=== PATIENT | female | born 1960 | race Caucasian/White ===

== ENCOUNTER 2018-08-04 16:42 | Observation (INO) | payer MEDICARE, OTHER ==
[~2018-08-04] VITALS: Ht 162.6 cm; Wt 83.5 kg
--- OUTSIDE RECORDS SUMMARY | 2018-08-04 16:49 | XMS REPORT ---
Author KAPIL Rubi [facility] Address [address] [place], [place] [id number] Care Team Providers Care Assistant Professor Of German Name Role Phone KAPIL ROLLINS PCP Unavailable KAPIL ROLLINS PreferredProvider Unavailable Allergies and Adverse Reactions Name Reaction Notes NO KNOWN DRUG ALLERGIES Plan of Treatment Planned Activity Comments Planned Date Planned Time Plan/Goal Screening mammography of both breasts 02/04/2016 12:00 AM MRI shoulder left wo contrast 08/20/2014 12:00 AM CBC with Differential 03/31/2015 12:00 AM CMP 03/31/2015 12:00 AM .Lipid Panel 03/31/2015 12:00 AM Medications Active Name Start Date Estimated Completion Date SIG Comments lamotrigine 100 mg oral tablet 06/17/2014 TAKE 1 TABLET BY ORAL ROUTE TWICE DAILY omeprazole 20 mg oral capsule,delayed release(DR/EC) 06/23/2014 TAKE 1 CAPSULE (20 MG) BY ORAL ROUTE ONCE DAILY BEFORE A MEAL diclofenac sodium 75 mg oral tablet,delayed release (DR/EC) 07/25/2014 TAKE 1 TABLET (75 MG) BY ORAL ROUTE 2 TIMES PER DAY Cymbalta 60 mg oral capsule,delayed release(DR/EC) 06/08/2015 TAKE 1 CAPSULE BY MOUTH EVERY DAY omeprazole 20 mg oral capsule,delayed release(DR/EC) 07/21/2015 TAKE 1 CAPSULE (20 MG) BY ORAL ROUTE ONCE DAILY BEFORE A MEAL lamotrigine 100 mg oral tablet 10/27/2015 TAKE 1 TABLET BY ORAL ROUTE TWICE DAILY Fioricet 50-300-40 mg oral capsule 10/29/2015 take 1 - 2 capsules by oral route every 4 hours as needed not to exceed 6 capsules per 24hrs duloxetine 60 mg oral capsule,delayed release(DR/EC) 07/11/2016 TAKE 1 CAPSULE BY MOUTH EVERY DAY omeprazole 20 mg oral capsule,delayed release(DR/EC) 07/28/2016 TAKE 1 CAPSULE (20 MG) BY ORAL ROUTE ONCE DAILY BEFORE A MEAL diclofenac sodium 75 mg oral tablet,delayed release (DR/EC) 08/31/2016 TAKE 1 TABLET (75 MG) BY ORAL ROUTE 2 TIMES PER DAY lamotrigine 100 mg oral tablet 11/24/2016 TAKE 1 TABLET BY ORAL ROUTE TWICE DAILY fluticasone 50 mcg/actuation nasal spray,suspension 01/03/2017 inhale 1 spray (50 mcg) in each nostril by intranasal route 2 times per day loratadine 10 mg oral tablet 01/03/2017 take 1 tablet (10 mg) by oral route once daily zolpidem 10 mg oral tablet 04/05/2017 10/02/2017 Take one half to 1 tab at hs prn Name Start Date Expiration Date SIG Comments prednisone 20 mg oral tablet 11/24/2009 12/05/2009 4 daily x 2 days, 3 x 3 days , 2x3 days, 1x3 days citalopram 40 mg oral tablet 12/28/2009 04/27/2010 take 1 tablet (40 mg) by oral route daily for 30 days Tylenol-Codeine #3 300-30 mg oral tablet 01/06/2010 02/05/2010 take 2 tablets by oral route every 6 hours as needed for 30 days doxycycline hyclate 100 mg oral capsule 11/26/2010 12/06/2010 take 1 capsule ( 100 mg) by oral route every 12 hours for 10 days Lamictal 100 mg oral tablet 07/05/2011 09/03/2011 take 1 tablet (100 mg) by oral route daily for 30 days Concerta 36 mg oral tablet extended release 24hr 09/22/2011 10/22/2011 take 1 tablet (36 mg) by oral route once daily in the morning for 30 days Seroquel 25 mg oral tablet 01/02/2012 05/01/2012 TAKE 1 TABLET BY ORAL ROUTE DAILY FOR 30 DAYS Strattera 60 mg oral capsule 01/18/2012 02/17/2012 TAKE 1 CAPSULE (60 MG) BY ORAL ROUTE ONCE DAILY IN THE MORNING FOR 30 DAYS Zithromax Z-Junior 250 mg oral tablet 04/04/2012 04/09/2012 take 2 tablets (500 mg) by oral route once daily for 1 day then 1 tablet (250 mg) by oral route once daily for 4 days Adderall 15 mg oral tablet 09/17/2012 take 1 tablet (15 mg) by oral route once daily before breakfast Ambien 5 mg oral tablet 10/05/2012 10/05/2012 take one or two tablets as needed for insomnia Neurontin 300 mg oral capsule 12/24/2012 01/23/2013 take 1 capsule (300 mg) by oral route 3 times per day for 30 days diclofenac sodium 75 mg oral tablet,delayed release (DR/EC) 04/24/20132012 take 1 tablet (75 mg) by oral route 2 times per day lamotrigine 100 mg oral tablet 06/07/2013 12/04/2013 take 1 tablet by oral route BID Keflex 500 mg oral capsule 05/20/2013 take 1 capsule by oral route 3 times a day Phenergan-Codeine 6.25-10 mg/5 mL oral syrup 10/29/2013 take 5 milliliters by oral route 4 times a day Cipro 500 mg oral tablet 10/29/2013 take 1 tablet (500 mg) by oral route 2 times per day gabapentin 300 mg oral capsule 10/29/2013 TAKE 1 CAPSULE BY MOUTH THREE TIMES DAILY Flonase 50 mcg/actuation nasal spray,suspension 02/03/2014 inhale 1 puff by nasal route 2 times a day Cymbalta 60 mg oral capsule,delayed release(DR/EC) 06/23/2014 12/20/2014 TAKE 1 CAPSULE BY MOUTH EVERY DAY amoxicillin 500 mg oral capsule 08/20/2014 take one TID prednisone 20 mg oral tablet 08/20/2014 08/28/2014 4x2 days 3x2 days 2x2 days 1x2 days prednisone 20 mg oral tablet 12/15/2014 12/25/2014 2X4 days 1X4 days amoxicillin 875 mg oral tablet 10/29/2015 11/08/2015 take 1 tablet (875 mg) by oral route every 12 hours for 10 days Bactrim DS 800-160 mg oral tablet 01/03/2017 01/18/2017 take 1 tablet by oral route 2 times a day for 15 days Discontinued Name Start Date Discontinued Date SIG Comments Cymbalta 60 mg oral capsule,delayed release(DR/EC) 12/28/2009 take 1 capsule (60 mg) by oral route once daily for 30 days oxybutynin chloride 5 mg oral tablet 02/25/2013 take 1 tablet (5 mg) by oral route 2 times per day for 30 days Phenergan-Codeine 6.25-10 mg/5 mL oral syrup 11/24/2009 09/17/2012 take 5 milliliters by oral route 4 times a day phentermine 37.5 mg oral tablet 11/24/2009 07/10/2012 1/2 q am Vyvanse 30 mg oral capsule 08/09/2010 11/02/2010 take 1 capsule (30 mg) by oral route once daily in the morning Adderall XR 20 mg oral capsule,extended release 24hr 11/29/2010 12/15/2010 take 1 capsule (20 mg) by oral route once daily in the morning upon awakening for 30 days Cipro 500 mg oral tablet 12/14/2010 09/17/2012 take 1 tablet (500 mg) by oral route 2 times per day Vyvanse 30 mg oral capsule 01/12/2011 01/19/2011 take 1 capsule (30 mg) by oral route once daily in the morning for 30 days Adderall XR 20 mg oral capsule,extended release 24hr 07/05/2011 07/05/2011 take 1 capsule (20 mg) by oral route once daily in the morning upon awakening for 30 days Adderall 10 mg oral tablet 08/08/2011 08/23/2011 take 1 tablet (10 mg) by oral route 2 times per day before breakfast and at 2 pm for 30 days Adderall 10 mg oral tablet 10/21/2011 11/15/2011 take 1 tablet (10 mg) by oral route 2 times per day before breakfast and at 2 pm for 30 days Medrol (Junior) 4 mg oral tablets,dose pack 02/06/2012 09/17/2012 take as directed omeprazole 20 mg oral capsule,delayed release(DR/EC) 03/21/2012 01/29/2014 TAKE 1 CAPSULE (20 MG) BY ORAL ROUTE ONCE DAILY BEFORE A MEAL FOR 30 DAYS Cymbalta 60 mg oral capsule,delayed release(DR/EC) 09/09/2013 10/28/2013 TAKE 1 CAPSULE BY MOUTH EVERY DAY Problem List Description Status Onset Anxiety Disorder Active Arthritis unspecified Active Bipolar disorder, unspecified Active Depression Active Fibromyalgia Active 10/22/2012 Attention Deficit Disorder Active Pelvic Pain Active 04/01/2013 Menopausal symptoms Active 04/01/2013 Rotator cuff tendinitis Active 08/20/2014 Environmental and seasonal allergies Active 07/21/2016 Vital Signs Date Time BP-Sys(mm[Hg] BP-Nicole(mm[Hg]) HR(bpm) RR(rpm) Temp WT HT HC BMI BSA BMI Percentile O2 Sat(%) 07/03/2017 2:58:00 PM 126 mmHg 70 mmHg 70 bpm 16 rpm 98.2 F 178 lbs 98 % 01/03/2017 4:08:00 PM 122 mmHg 70 mmHg 74 bpm 18 rpm 98.4 F 189 lbs 64 in 32.4414 kg/m 1.9675 m 99 % 12/29/2016 11:46:00 AM 110 mmHg 74 mmHg 69 bpm 16 rpm 96.8 F 185 lbs 64 in 31.75 kg/m2 1.95 m2 97 % 12/15/2016 8:02:00 AM 186 lbs 11/14/2016 9:09:00 AM 125 mmHg 86 mmHg 76 bpm 16 rpm 96.3 F 193 lbs 65 in 32.1166 kg/m 2.0037 m 98 % 07/21/2016 3:03:00 PM 130 mmHg 84 mmHg 64 bpm 18 rpm 97.4 F 186 lbs 64 in 31.93 kg/m2 1.95 m2 95 % 06/22/2016 8:45:00 AM 118 mmHg 72 mmHg 68 bpm 18 rpm 98.1 F 183 lbs 64 in 31.4116 kg/m 1.936 m 97 % 04/28/2016 8:18:00 AM 128 mmHg 70 mmHg 62 bpm 16 rpm 97.1 F 182 lbs 64 in 31.24 kg/m2 1.93 m2 99 % 03/09/2016 8:24:00 AM 118 mmHg 60 mmHg 62 bpm 18 rpm 98.2 F 185.75 lbs 64 in 31.8836 kg/m 1.9505 m 98 % 02/04/2016 11:37:00 AM 136 mmHg 70 mmHg 62 bpm 16 rpm 96.4 F 186 lbs 64 in 31.93 kg/m2 1.95 m2 100 % 12/24/2015 2:55:00 PM 125 mmHg 70 mmHg 88 bpm 16 rpm 97.2 F 187 lbs 65 in 31.1181 kg/m 1.9723 m 98 % 10/29/2015 8:09:00 AM 138 mmHg 80 mmHg 60 bpm 18 rpm 98.4 F 187 lbs 65 in 31.12 kg/m2 1.97 m2 09/21/2015 11:04:00 AM 120 mmHg 65 mmHg 86 bpm 16 rpm 98.2 F 162 lbs 65 in 26.9579 kg/m 1.8358 m 99 % 05/15/2015 8:35:00 AM 120 mmHg 60 mmHg 64 bpm 18 rpm 97.7 F 181 lbs 64 in 31.07 kg/m2 1.93 m2 97 % 12/15/2014 2:55:00 PM 120 mmHg 80 mmHg 75 bpm 18 rpm 98.4 F 183 lbs 65 in 30.4525 kg/m 1.9511 m 98 % 08/19/2014 2:42:00 PM 134 mmHg 70 mmHg 68 bpm 20 rpm 96.9 F 185 lbs 64 in 31.75 kg/m2 1.95 m2 97 % 01/29/2014 10:56:00 AM 132 mmHg 70 mmHg 70 bpm 20 rpm 97.6 F 189 lbs 64 in 32.4414 kg/m 1.9675 m 97 % 10/28/2013 2:36:00 PM 130 mmHg 70 mmHg 80 bpm 18 rpm 99.5 F 184 lbs 64 in 31.58 kg/m2 1.94 m2 97 % 08/08/2013 2:39:00 PM 120 mmHg 60 mmHg 84 bpm 16 rpm 97.9 F 186 lbs 64 in 31.9265 kg/m 1.9518 m 99 % 07/01/2013 2:49:00 PM 130 mmHg 74 mmHg 70 bpm 16 rpm 96.7 F 183.375 lbs 64 in 31.48 kg/m2 1.94 m2 96 % 03/28/2013 1:30:00 PM 120 mmHg 80 mmHg 62 bpm 97.8 F 186 lbs 64 in 31.9265 kg/m 1.9518 m 02/26/2013 2:35:00 PM 124 mmHg 82 mmHg 69 bpm 20 rpm 97.8 F 182 lbs 65 in 30.29 kg/m2 1.95 m2 95 % 02/25/2013 4:37:00 PM 135 mmHg 78 mmHg 70 bpm 98.3 F 182 lbs 64 in 31.2399 kg/m 1.9307 m 02/01/2013 10:31:00 AM 110 mmHg 60 mmHg 64 bpm 16 rpm 96.4 F 187 lbs 64 in 32.10 kg/m2 1.96 m2 100 % 01/22/2013 10:06:00 AM 118 mmHg 64 mmHg 68 bpm 16 rpm 97.6 F 185 lbs 64 in 31.7549 kg/m 1.9466 m 97 % 12/21/2012 11:58:00 AM 118 mmHg 62 mmHg 74 bpm 18 rpm 97 F 183 lbs 65 in 30.45 kg/m2 1.95 m2 97 % 10/22/2012 4:24:00 PM 130 mmHg 70 mmHg 72 bpm 18 rpm 98 F 180.312 lbs 65 in 30.0053 kg/m 1.9367 m 99 % 09/17/2012 9:41:00 AM 114 mmHg 62 mmHg 64 bpm 16 rpm 96.6 F 181 lbs 65 in 30.12 kg/m2 1.94 m2 100 % 07/10/2012 2:19:00 PM 130 mmHg 70 mmHg 70 bpm 18 rpm 98 F 183 lbs 65 in 30.4525 kg/m 1.9511 m 99 % 04/04/2012 10:54:00 AM 114 mmHg 78 mmHg 80 bpm 179 lbs 65 in 29.79 kg/m2 1.93 m2 02/06/2012 10:08:00 AM 122 mmHg 80 mmHg 80 bpm 179 lbs 65 in 29.7869 kg/m 1.9297 m 04/07/2011 1:25:00 PM 120 mmHg 72 mmHg 76 bpm 181 lbs 01/24/2011 9:41:00 AM 112 mmHg 76 mmHg 72 bpm 184 lbs 12/13/2010 9:26:00 AM 112 mmHg 70 mmHg 76 bpm 181 lbs 11/22/2010 10:30:00 AM 116 mmHg 84 mmHg 80 bpm 99 F 184 lbs 08/09/2010 2:48:00 PM 124 mmHg 80 mmHg 80 bpm 186 lbs 06/24/2010 9:46:00 AM 110 mmHg 78 mmHg 64 bpm 184 lbs 11/24/2009 9:47:00 AM 112 mmHg 74 mmHg 80 bpm 176 lbs 10/29/2009 2:39:00 PM 116 mmHg 80 mmHg 86 bpm 178.125 lbs 09/03/2009 10:23:00 AM 110 mmHg 76 mmHg 80 bpm 175 lbs Social History Name Description Comments Tobacco Never smoker Alcohol Never Disabled denies alcohol use History of Procedures Date Ordered Description Order Status 09/21/2015 12:00 AM Decadron, Per [address] [facility]# [id number] Reviewed 09/21/2015 12:00 AM Depo-Medrol, Per [address] [facility]#[id number] Reviewed 09/21/2015 12:00 AM Rocephin [address] [facility]#[id number] Reviewed 04/28/2016 12:00 AM Decadron, Per [address] [facility]# [id number] Reviewed 04/28/2016 12:00 AM Rocephin [address] [facility]#[id number] Reviewed 06/22/2016 12:00 AM Decadron, Per [address] [facility]# [id number] Reviewed 06/22/2016 12:00 AM Depo-Medrol, Per [address] [facility]#[id number] Reviewed 07/21/2016 12:00 AM Decadron, Per [address] [facility]# [id number] Reviewed 07/21/2016 12:00 AM Rocephin [address] [facility]#[id number] Reviewed 11/14/2016 12:00 AM THER/PROPH/DIAG INJ SC/IM Reviewed 11/14/2016 12:00 AM Decadron 8mg Injection Reviewed 11/14/2016 12:00 AM Depo-Medrol 80mg Injection Reviewed 11/14/2016 12:00 AM Rocephin 1 gram Injection Reviewed 03/06/2012 12:00 AM DRAIN/INJ JOINT/BURSA W/O US Reviewed 12/29/2016 12:00 AM MAMMOGRAPHY SCREENING, DIGITAL Returned 01/03/2017 12:00 AM THER/PROPH/DIAG INJ SC/IM Reviewed 01/03/2017 12:00 AM Decadron 8mg Injection Reviewed 04/04/2012 12:00 AM THER/PROPH/DIAG INJ SC/IM Reviewed 04/04/2012 12:00 AM Decadron Inj.1mg-([facility] #[id number] Reviewed 04/04/2012 12:00 AM Depo-Medrol 80 Mg Im/[facility] [id number] Reviewed 07/10/2012 12:00 AM THER/PROPH/DIAG INJ SC/IM Reviewed 07/10/2012 12:00 AM Decadron, Per [address] [facility]# [id number] Reviewed 07/10/2012 12:00 AM Depo-Medrol, Per [address] [facility]#[id number] Reviewed 10/22/2012 12:00 AM THER/PROPH/DIAG INJ SC/IM Reviewed 10/22/2012 12:00 AM Decadron, Per [address] [facility]# [id number] Reviewed 10/22/2012 12:00 AM Depo-Medrol, Per 80 Mg [place]#[id number] Reviewed 10/22/2012 12:00 AM Toradol 60 Mg ND#[id number] Reviewed 02/25/2013 12:00 AM CYTOPATH TBS C/V MANUAL Reviewed 02/25/2013 12:00 AM SPECIMEN HANDLING OFFICE-LAB Reviewed 02/25/2013 12:00 AM URINALYSIS AUTO W/SCOPE Reviewed 03/01/2013 12:00 AM US EXAM PELVIC COMPLETE Reviewed 02/26/2013 12:00 AM MAMMOGRAM SCREENING Reviewed 07/01/2013 12:00 AM THER/PROPH/DIAG INJ SC/IM Reviewed 07/01/2013 12:00 AM Decadron, Per 1 Mg ND# [id number] Reviewed 07/01/2013 12:00 AM Depo-Medrol, Per 80 Mg ND#3464-8873-89 Reviewed 08/08/2013 12:00 AM THER/PROPH/DIAG INJ SC/IM Reviewed 08/08/2013 12:00 AM Depo-Medrol, Per 80 Mg ND#2758-7418-81 Reviewed 08/08/2013 12:00 AM Toradol 60 Mg ND#2823-4987-04 Reviewed 01/29/2014 12:00 AM THER/PROPH/DIAG INJ SC/IM Reviewed 01/29/2014 12:00 AM Decadron 8 Mg ND# [address]-85 Reviewed 01/29/2014 12:00 AM Depo-Medrol, Per [address] [facility]#[id number] Reviewed 01/29/2014 12:00 AM Rocephin [address] [facility]#[id number] Reviewed 11/22/2010 12:00 AM THER/PROPH/DIAG INJ SC/IM Reviewed 11/22/2010 12:00 AM Decadron Inj.8mg-([facility] #[id number] Reviewed 11/22/2010 12:00 AM Depo-Medrol 80 Mg Im/[facility] [id number] Reviewed 11/22/2010 12:00 AM Rocephin, Per 250MG - 1 Gram Vial Reviewed 02/09/2011 12:00 AM IMMUNIZATION ADMIN Reviewed 02/09/2011 12:00 AM TD VACCINE NO PRSRV 7/> IM Reviewed 09/03/2009 12:00 AM MRI NECK SPINE W/DYE Reviewed 03/31/2015 12:00 AM ROUTINE VENIPUNCTURE Reviewed 05/15/2015 12:00 AM THER/PROPH/DIAG INJ SC/IM Reviewed 05/15/2015 12:00 AM Decadron, Per [address] [facility]# [id number] Reviewed 05/15/2015 12:00 AM Depo-Medrol, Per [address] [facility]#[id number] Reviewed Results Summary Date and Description Results 02/25/2013 6:20 PM COLOR YELLOW APPEARANCE CLEAR SPEC GRAV 1.010 pH 6.0 PROTEIN NEGATIVE GLUCOSE NEGATIVE KETONE NEGATIVE BILIRUBIN NEGATIVE BLOOD NEGATIVE NITRITE NEGATIVE LEUK SCREEN NEGATIVE WBC/HPF RARE RBC/HPF NEGATIVE CASTS/LPF NEGATIVE CRYSTALS NEGATIVE MUCOUS THRDS NEGATIVE BACTERIA NEGATIVE EPITH CELLS NEGATIVE TRICHOMONAS NEGATIVE YEAST NEGATIVE CULT SET UP? NO History Of Immunizations Name Date Admin Mfg Name Mfg Code Trade Name Lot# Route Inj Vis Given Vis Pub CVX Td 02/09/2011 sanofi pasteur PMC DECAVAC [id number] Intramuscular Left Deltoid 02/09/2011 09/02/2008 999 History of Past Illness Name Date of Onset Comments Musculoskeletal Neck Disorder Sep 03 2009 10:26AM Arthritis unspecified Anxiety Disorder Degeneration of cervical intervertebral disc Oct 29 2009 2:41PM Spinal stenosis, Cervical region Oct 29 2009 2:41PM Depressive Disorder Oct 29 2009 2:41PM Cough Nov 24 2009 9:49AM Sinusitis, Acute Nov 24 2009 9:49AM Bronchitis, Acute Nov 24 2009 9:49AM Bipolar disorder, unspecified Depression Fibromyalgia 10/22/2012 Attention Deficit Disorder Pelvic Pain 04/01/2013 Menopausal symptoms 04/01/2013 Eustachian Tube Dysfunction Jun 24 2010 9:48AM Seasonal Allergies Jun 24 2010 9:48AM Bipolar Disorder Jun 24 2010 9:48AM Rotator cuff tendinitis 08/20/2014 Depressive Disorder Aug 09 2010 2:48PM ADHD Aug 09 2010 2:48PM Eustachian Tube Dysfunction Nov 22 2010 10:32AM Cough b 2010 10:32AM Pharyngitis, Acute b 2010 10:32AM Cough Dec 13 2010 9:28AM Sinusitis, Acute Dec 13 2010 9:28AM Upper Respiratory Infection Dec 13 2010 9:28AM General Medical Exam, Adult Jan 24 2011 9:42AM Environmental and seasonal allergies 07/21/2016 Td Feb 09 2011 2:07PM Routine gynecological examination Apr 07 2011 1:23PM Seasonal Allergies Feb 06 2012 10:10AM Post-nasal drainage Feb 06 2012 10:10AM Upper Respiratory Infection Feb 06 2012 10:10AM Pain in joint; lower leg/knee Mar 06 2012 10:39AM Cough Apr 04 2012 10:56AM Pharyngitis, Acute Apr 04 2012 10:56AM Post-nasal drainage Apr 04 2012 10:56AM Seasonal Allergies Jul 10 2012 2:19PM Post-nasal drainage Jul 10 2012 2:19PM Hyperlipidemia, unspecified Sep 17 2012 9:42AM Depression Sep 17 2012 9:42AM Attention Deficit Disorder Sep 17 2012 9:42AM Chronic pain Oct 22 2012 4:26PM Osteoarthrosis, generalized, multiple sites Oct 22 2012 4:26PM Fibromyalgia Oct 22 2012 4:26PM Fibromyalgia Dec 21 2012 11:59AM Arthritis unspecified Dec 21 2012 11:59AM Bipolar disorder, unspecified Dec 21 2012 11:59AM Depression Dec 21 2012 11:59AM Seasonal Allergies Jan 22 2013 10:06AM Pelvic Pain Jan 22 2013 10:06AM Pelvic Pain - Left Feb 01 2013 10:32AM Fibromyalgia Feb 01 2013 10:32AM Arthritis unspecified Feb 01 2013 10:32AM Bipolar disorder, unspecified Feb 01 2013 10:32AM Depression Feb 01 2013 10:32AM Urge Incontinence Feb 25 2013 5:58PM Pelvic Pain Feb 26 2013 9:23AM Screening Mammogram Feb 26 2013 9:26AM Pelvic Pain Feb 25 2013 4:49PM Abdominal Pain, Generalized Feb 25 2013 4:49PM Diarrhea Feb 25 2013 4:49PM Diarrhea Feb 26 2013 2:39PM Pelvic Pain Mar 28 2013 1:34PM Menopausal Symptoms Mar 28 2013 1:34PM Seasonal Allergies Jul 01 2013 2:49PM Menopausal Syndrome Jul 01 2013 2:49PM Hormone Replacement Therapy Jul 01 2013 2:49PM Pain in joint; Right Hip Aug 08 2013 2:39PM Pain in joint; right knee Aug 08 2013 2:39PM Cough Oct 28 2013 2:37PM Bronchitis, Acute Oct 28 2013 2:37PM Post-nasal drainage Oct 28 2013 2:37PM Upper Respiratory Infection Oct 28 2013 2:37PM Sinusitis, Acute Jan 29 2014 10:56AM Seasonal Allergies Jan 29 2014 10:56AM Post-nasal drainage Jan 29 2014 10:56AM Upper Respiratory Infection Jan 29 2014 10:56AM Allergic Rhinitis Jan 29 2014 10:56AM Eustachian Tube Dysfunction Aug 19 2014 2:43PM Post-nasal drainage Aug 19 2014 2:43PM Upper Respiratory Infection Aug 19 2014 2:43PM Sinus headache Aug 19 2014 2:43PM Shoulder pain Aug 19 2014 2:43PM Rotator cuff tendinitis Aug 19 2014 2:43PM Left Chronic pain in shoulder Aug 20 2014 2:12PM Left Rotator cuff tendinitis Aug 20 2014 2:12PM Pharyngitis, Acute Dec 15 2014 2:56PM Fatigue Mar 31 2015 12:57PM Hyperlipidemia Mar 31 2015 12:57PM Fibromyalgia Mar 31 2015 12:57PM Depression Mar 31 2015 12:57PM Eustachian Tube Dysfunction May 15 2015 8:35AM Seasonal Allergies May 15 2015 8:35AM Post-nasal drainage May 15 2015 8:35AM Ear pressure, bilateral May 15 2015 8:35AM Moderate Acute Cough Sep 21 2015 11:05AM Acute pharyngitis, unspecified etiology Sep 21 2015 11:05AM Moderate Acute Post-nasal drainage Sep 21 2015 11:05AM Eustachian tube dysfunction, bilateral Oct 29 2015 8:10AM Moderate Sinusitis, Acute Oct 29 2015 8:10AM Moderate Acute Post-nasal drainage Oct 29 2015 8:10AM Moderate Acute Nasal congestion Oct 29 2015 8:10AM Moderate Acute Headache above the eye region Oct 29 2015 8:10AM Moderate Acute Cough Dec 24 2015 2:56PM Acute bronchitis, unspecified organism Dec 24 2015 2:56PM Moderate Acute Chest congestion Dec 24 2015 2:56PM Screening for breast cancer Feb 04 2016 11:44AM Encounter for annual routine gynecological examination Feb 04 2016 11:38AM Moderate Acute Leg pain, posterior, right Improving Mar 09 2016 8:28AM Acute pharyngitis, unspecified etiology Apr 28 2016 8:18AM Allergic rhinitis due to pollen Apr 28 2016 8:18AM Moderate Acute Nasal congestion Apr 28 2016 8:18AM Moderate Chronic Recurrent Seasonal Allergies Jun 22 2016 8:45AM Post-nasal drainage Jun 22 2016 8:45AM Nasal congestion Jun 22 2016 8:45AM Eustachian tube dysfunction, left Jul 21 2016 3:04PM Acute pharyngitis, unspecified etiology Jul 21 2016 3:04PM Moderate Chronic Post-nasal drainage Worsening Jul 21 2016 3:04PM Chronic Environmental and seasonal allergies Jul 21 2016 3:04PM Moderate Acute Cough Nov 14 2016 9:10AM Acute pharyngitis, unspecified etiology Nov 14 2016 9:10AM Mild Acute Purulent postnasal drainage Nov 14 2016 9:10AM Moderate Acute Sinus pressure Nov 14 2016 9:10AM Screening breast examination Dec 29 2016 11:20AM Encounter for gynecological examination (general) (routine) without abnormal findings Dec 29 2016 11:47AM Eustachian tube dysfunction, bilateral Jan 03 2017 4:09PM Purulent postnasal drainage Jan 03 2017 4:09PM Sinus pressure Jan 03 2017 4:09PM Nasal congestion with rhinorrhea Jan 03 2017 4:09PM Plantar fasciitis of left foot Jul 03 2017 2:58PM Payers Insurance Name Company Name Plan Name Plan Number Policy Number Policy Group Number Start Date [facility] [id number] N/A [facility] Financial Geoff approved to 05-22-17 N/A [facility] [id number] N/A [place] [facility] [place] [employer] Prog [id number] N/A [facility] [id number] N/A [facility] [id number] N/A [facility] [id number] N/A [facility] Financial Assistance [facility] Financial Geoff 50 Percent N/A Medicare Part A Medicare - Lab/Xray [id number] N/A Medicare Part B Medicare Secondary [id number] N/A Medicare Part A Medicare Part A [id number] N/A History of Encounters Visit Date Visit Type Provider 07/03/2017 Office visit KAPIL CUEVAS 01/03/2017 Office visit KAPIL CUEVAS 12/29/2016 Office visit KAPIL CUEVAS 11/14/2016 Office visit KAPIL CUEVAS 10/12/2016 Hood Hines MD 07/21/2016 Office visit KAPIL CUEVAS 06/22/2016 Office visit KAPIL CUVEAS 04/28/2016 Office visit KAPIL CUEVAS 03/09/2016 Office visit KAPIL ROLLINS PA 02/04/2016 Office visit KAPIL ROLLINS PA 12/24/2015 Office visit KAPIL ROLLINS PA 10/29/2015 Office visit KAPIL ROLLINS PA 09/21/2015 Office visit KAPIL ROLLINS PA 05/15/2015 Office visit 05/15/2015 Office visit KAPIL ROLLINS PA 03/31/2015 Office visit KAPIL ROLLINS PA 12/15/2014 Office visit KAPIL ROLLINS PA 08/19/2014 Office visit KAPIL ROLLINS PA 01/29/2014 Office visit KAPIL ROLLINS PA 10/28/2013 Office visit KAPIL ROLLINS PA 09/30/2013 [facility] Zan Hines MD 08/08/2013 Office visit KAPIL ROLLINS PA 07/01/2013 Office visit KAPIL ROLLINS PA 03/28/2013 Office visit Nikolai Stoner MD 03/14/2013 [facility] Kpail Wells MD 02/26/2013 Office visit Kapil Wells MD 02/25/2013 Office visit Nikolai Stoner MD 02/01/2013 Office visit KAPIL ROLLINS PA 01/22/2013 Office visit KAPIL ROLLINS PA 12/21/2012 Office visit KAPIL ROLLINS PA 10/22/2012 Office visit KAPIL ROLLINS PA 09/17/2012 Office visit KAPIL ROLLINS PA 07/10/2012 Office visit KAPIL ROLLINS PA 04/04/2012 Office visit KAPIL ROLLINS PA 03/06/2012 Office visit KAPIL ROLLINS PA 02/06/2012 Office visit KAPIL ROLLINS PA 04/07/2011 Office visit Kapil Rollins PA-C 02/09/2011 Office visit Kapil Rollins PA-C 01/24/2011 Office visit Kapil Rollins PA-C 12/13/2010 Office visit Kapil Rollins PA-C 11/22/2010 Office visit Kapil Rollins PA-C 08/09/2010 Office visit Kapil Rollins PA-C 06/24/2010 Office visit Kapil Rollins PA-C 11/24/2009 Office visit Kapil Rollins PA-C 10/29/2009 Office visit Kapil Rollins PA-C 09/03/2009 Office visit Kapil Rollins PA-C 08/24/2009 Office visit Kapil Rollins PA-C 06/10/2009 Office visit KAPIL CUEVAS
--- OUTSIDE RECORDS SUMMARY | 2018-08-04 16:50 | XMS REPORT ---
Author KAPIL Rubi [facility] Address [address] [place], [place] [id number] Care Team Providers Care In Home Sales Consultant Name Role Phone KAPIL ROLLINS PCP Unavailable Allergies and Adverse Reactions Name Reaction Notes NO KNOWN DRUG ALLERGIES Plan of Treatment Planned Activity Comments Planned Date Planned Time Plan/Goal MAMMOGRAM SCREENING 02/04/2016 12:00 AM MRI JOINT UPR EXTREM W/O DYE 08/20/2014 12:00 AM COMPLETE CBC W/AUTO DIFF WBC 03/31/2015 12:00 AM COMPREHEN METABOLIC PANEL 03/31/2015 12:00 AM LIPID PANEL 03/31/2015 12:00 AM Medications Active Name Start [...] BY ORAL ROUTE 2 TIMES PER DAY fluticasone 50 mcg/actuation nasal spray,suspension 05/16/2015 inhale 1 spray (50 mcg) in each nostril by intranasal route 2 times per day fluticasone 50 mcg/actuation nasal spray,suspension 05/16/2015 inhale 1 spray (50 mcg) in each nostril by intranasal route 2 times per day Cymbalta 60 mg oral capsule,delayed release(DR/EC) 06/08/2015 TAKE 1 CAPSULE BY MOUTH EVERY DAY omeprazole 20 mg oral capsule,delayed release(DR/EC) 07/21/2015 TAKE 1 CAPSULE (20 MG) BY ORAL ROUTE ONCE DAILY BEFORE A MEAL zolpidem 10 mg oral tablet 10/26/2015 04/23/2016 Take one half to 1 tab at hs prn lamotrigine 100 mg oral tablet 10/27/2015 TAKE 1 TABLET BY ORAL ROUTE TWICE DAILY Fioricet 50-300-40 mg oral capsule 10/29/2015 take 1 - 2 capsules by oral route every 4 hours as needed not to exceed 6 capsules per 24hrs Name Start Date Expiration Date SIG Comments [...] route every 12 hours for 10 days Discontinued Name Start Date Discontinued Date [...] DAY Problem List Description Status Onset Anxiety disorder Active Arthritis unspecified Active Bipolar disorder, unspecified Active Depression Active Fibromyalgia Active 10/22/2012 Attention deficit disorder Active Pelvic Pain Active 04/01/2013 Menopausal symptoms Active 04/01/2013 Rotator cuff tendinitis Active 08/20/2014 Vital Signs Date Time BP-Sys(mm[Hg] BP-Nicole(mm[Hg]) HR(bpm) RR(rpm) Temp WT HT HC BMI BSA BMI Percentile O2 Sat(%) 03/09/2016 8:24:00 AM 118 mmHg 60 mmHg 62 bpm 18 rpm 98.2 F 185.75 lbs 64 in 31.88 kg/m2 1.95 m2 98 % 02/04/2016 11:37:00 AM 136 mmHg 70 mmHg 62 bpm 16 rpm 96.4 F 186 lbs 64 in 31.9265 kg/m 1.9518 m 100 % 12/24/2015 2:55:00 PM 125 mmHg 70 mmHg 88 bpm 16 rpm 97.2 F 187 lbs 65 in 31.12 kg/m2 1.97 m2 98 % 10/29/2015 8:09:00 AM 138 mmHg 80 mmHg 60 bpm 18 rpm 98.4 F 187 lbs 65 in 31.1181 kg/m 1.9723 m 09/21/2015 11:04:00 AM 120 mmHg 65 mmHg 86 bpm 16 rpm 98.2 F 162 lbs 65 in 26.96 kg/m2 1.84 m2 99 % 05/15/2015 8:35:00 AM 120 mmHg 60 mmHg 64 bpm 18 rpm 97.7 F 181 lbs 64 in 31.0683 kg/m 1.9254 m 97 % 12/15/2014 2:55:00 PM 120 mmHg 80 mmHg 75 bpm 18 rpm 98.4 F 183 lbs 65 in 30.45 kg/m2 1.95 m2 98 % 08/19/2014 2:42:00 PM 134 mmHg 70 mmHg 68 bpm 20 rpm 96.9 F 185 lbs 64 in 31.7549 kg/m 1.9466 m 97 % 01/29/2014 10:56:00 AM 132 mmHg 70 mmHg 70 bpm 20 rpm 97.6 F 189 lbs 64 in 32.44 kg/m2 1.97 m2 97 % 10/28/2013 2:36:00 PM 130 mmHg 70 mmHg 80 bpm 18 rpm 99.5 F 184 lbs 64 in 31.5832 kg/m 1.9413 m 97 % 08/08/2013 2:39:00 PM 120 mmHg 60 mmHg 84 bpm 16 rpm 97.9 F 186 lbs 64 in 31.93 kg/m2 1.95 m2 99 % 07/01/2013 2:49:00 PM 130 mmHg 74 mmHg 70 bpm 16 rpm 96.7 F 183.375 lbs 64 in 31.4759 kg/m 1.938 m 96 % 03/28/2013 1:30:00 PM 120 mmHg 80 mmHg 62 bpm 97.8 F 186 lbs 64 in 31.93 kg/m2 1.95 m2 02/26/2013 2:35:00 PM 124 mmHg 82 mmHg 69 bpm 20 rpm 97.8 F 182 lbs 65 in 30.2861 kg/m 1.9458 m 95 % 02/25/2013 4:37:00 PM 135 mmHg 78 mmHg 70 bpm 98.3 F 182 lbs 64 in 31.24 kg/m2 1.93 m2 02/01/2013 10:31:00 AM 110 mmHg 60 mmHg 64 bpm 16 rpm 96.4 F 187 lbs 64 in 32.0981 kg/m 1.9571 m 100 % 01/22/2013 10:06:00 AM 118 mmHg 64 mmHg 68 bpm 16 rpm 97.6 F 185 lbs 64 in 31.75 kg/m2 1.95 m2 97 % 12/21/2012 11:58:00 AM 118 mmHg 62 mmHg 74 bpm 18 rpm 97 F 183 lbs 65 in 30.4525 kg/m 1.9511 m 97 % 10/22/2012 4:24:00 PM 130 mmHg 70 mmHg 72 bpm 18 rpm 98 F 180.312 lbs 65 in 30.01 kg/m2 1.94 m2 99 % 09/17/2012 9:41:00 AM 114 mmHg 62 mmHg 64 bpm 16 rpm 96.6 F 181 lbs 65 in 30.1197 kg/m 1.9404 m 100 % 07/10/2012 2:19:00 PM 130 mmHg 70 mmHg 70 bpm 18 rpm 98 F 183 lbs 65 in 30.45 kg/m2 1.95 m2 99 % 04/04/2012 10:54:00 AM 114 mmHg 78 mmHg 80 bpm 179 lbs 65 in 29.7869 kg/m 1.9297 m 02/06/2012 10:08:00 AM 122 mmHg 80 mmHg 80 bpm 179 lbs 65 in 29.79 kg/m2 1.93 m2 04/07/2011 1:25:00 PM 120 mmHg 72 mmHg [...] 09/21/2015 12:00 AM Decadron, Per 1 Mg [facility]# [address]-05 Reviewed 09/21/2015 12:00 AM Depo-Medrol, Per 80 Mg [facility]#9564-4064-00 Reviewed 09/21/2015 12:00 AM Rocephin 1 gram [facility]#0488-4457-50 Reviewed 03/06/2012 12:00 AM DRAIN/INJ JOINT/BURSA W/O US Reviewed 04/04/2012 12:00 AM THER/PROPH/DIAG INJ SC/IM Reviewed 04/04/2012 12:00 AM Decadron Inj.1mg-([facility]) [facility] #[id number] Reviewed 04/04/2012 12:00 AM Depo-Medrol 80 Mg Im/[facility] [id number] Reviewed 07/10/2012 12:00 AM THER/PROPH/DIAG INJ SC/IM Reviewed 07/10/2012 12:00 AM Decadron, Per 1 Mg [facility]# [address]-97 Reviewed 07/10/2012 12:00 AM Depo-Medrol, Per 80 Mg [facility]#0929-7224-44 Reviewed 10/22/2012 12:00 AM THER/PROPH/DIAG INJ SC/IM Reviewed 10/22/2012 12:00 AM Decadron, Per 1 Mg [facility]# [address]-14 Reviewed 10/22/2012 12:00 AM Depo-Medrol, Per 80 Mg [facility]#3913-5839-39 Reviewed 10/22/2012 12:00 AM Toradol 60 Mg [facility]#6337-3543-23 Reviewed 02/25/2013 12:00 AM CYTOPATH TBS C/V MANUAL Returned 02/25/2013 12:00 AM SPECIMEN HANDLING OFFICE-LAB Reviewed 02/25/2013 12:00 AM URINALYSIS AUTO W/SCOPE Returned 03/01/2013 12:00 AM US EXAM PELVIC COMPLETE Returned 02/26/2013 12:00 AM MAMMOGRAM SCREENING Returned 07/01/2013 12:00 AM THER/PROPH/DIAG INJ SC/IM Reviewed 07/01/2013 12:00 AM Decadron, Per 1 Mg [facility]# [address]-72 Reviewed 07/01/2013 12:00 AM Depo-Medrol, Per 80 Mg [facility]#3174-0013-91 Reviewed 08/08/2013 12:00 AM THER/PROPH/DIAG INJ SC/IM Reviewed 08/08/2013 12:00 AM Depo-Medrol, Per 80 Mg [facility]#8516-9334-52 Reviewed 08/08/2013 12:00 AM Toradol 60 Mg [facility]#8774-9503-74 Reviewed 01/29/2014 12:00 AM THER/PROPH/DIAG INJ SC/IM Reviewed 01/29/2014 12:00 AM Decadron 8 Mg [facility]# [address]-65 Reviewed 01/29/2014 12:00 AM Depo-Medrol, Per 80 Mg [facility]#9982-5623-26 Reviewed 01/29/2014 12:00 AM Rocephin 1 gram [facility]#4473-0804-86 Reviewed 11/22/2010 12:00 AM THER/PROPH/DIAG INJ SC/IM Reviewed 11/22/2010 12:00 AM Decadron Inj.8mg-([facility]) [facility] #[id number] Reviewed 11/22/2010 12:00 AM Depo-Medrol 80 Mg Im/[facility] 0009-425357 Reviewed 11/22/2010 12:00 AM Rocephin, Per 250MG - 1 Gram Vial Reviewed 02/09/2011 12:00 AM IMMUNIZATION ADMIN Reviewed 02/09/2011 12:00 AM TD VACCINE NO PRSRV 7/> IM Reviewed 09/03/2009 12:00 AM MRI NECK SPINE W/DYE Reviewed 03/31/2015 12:00 AM ROUTINE VENIPUNCTURE Reviewed 05/15/2015 12:00 AM THER/PROPH/DIAG INJ SC/IM Reviewed 05/15/2015 12:00 AM Decadron, Per 1 Mg [facility]# [address]-66 Reviewed 05/15/2015 12:00 AM Depo-Medrol, Per 80 Mg [facility]#4784-4338-23 Reviewed Results Summary Data and Description Results 08/07/2012 10:35 AM WBC 4.9 RBC 4.39 HGB 13.50 g/dLHCT 39.50 %MCV 90.0 fLMCH 30.80 pgMCHC 34.20 g/dLRDW CV 13.40 %MPV 10.20 fLPLT 280 %NEUT 46.0 %%LYMP 40.10 %%MONO 8.20 %%EOS 5.10 %%BASO 0.60 %#NEUT 2.25 #LYMP 1.96 #MONO 0.40 #EOS 0.25 #BASO 0.03 GLUCOSE 89.0 mg/dLSODIUM 142.0 mmol/LPOTASSIUM 3.50 mmol/ LCHLORIDE 107.0 mmol/LCO2 27.0 mmol/LBUN 14.0 mg/dLCREATININE 0.80 mg/dLSGOT/ AST 35.0 IU/LSGPT/ALT 26.0 IU/LALK PHOS 68.0 IU/LTOTAL PROTEIN 7.60 g/dLALBUMIN 4.30 g/dLTOTAL BILI 0.50 mg/dLCALCIUM 9.70 mg/dLeGFR 60 TRIGLYCERIDES 65.0 mg/ dLCHOLESTEROL 226.0 mg/dLHDL 55.0 mg/dLLDL (CALC) 158.0 mg/dLTSH 1.810 uIU/mL 01/25/2013 8:00 AM WBC 5.4 RBC 4.61 HGB 14.0 g/dLHCT 40.90 %MCV 89.0 fLMCH 30.40 pgMCHC 34.20 g/dLRDW CV 13.30 %MPV 10.20 fLPLT 294 %NEUT 43.30 %%LYMP 40.30 %%MONO 9.10 %%EOS 6.70 %%BASO 0.60 %#NEUT 2.33 #LYMP 2.17 #MONO 0.49 #EOS 0.36 #BASO 0.03 TRIGLYCERIDES 87.0 mg/dLCHOLESTEROL 218.0 mg/dLHDL 46.0 mg/ dLLDL 154.0 mg/dLGLUCOSE 100.0 mg/dLSODIUM 142.0 mmol/LPOTASSIUM 3.90 mmol/ LCHLORIDE 106.0 mmol/LCO2 26.0 mmol/LBUN 16.0 mg/dLCREATININE 0.80 mg/dLSGOT/ AST 33.0 IU/LSGPT/ALT 32.0 IU/LALK PHOS 81.0 IU/LTOTAL PROTEIN 7.40 g/dLALBUMIN 4.20 g/dLTOTAL BILI 0.50 mg/dLCALCIUM 9.80 mg/dLeGFR 60 TSH 2.630 uIU/mL 02/25/2013 6:20 PM COLOR YELLOW APPEARANCE CLEAR SPEC GRAV 1.010 pH 6.0 PROTEIN NEGATIVE GLUCOSE NEGATIVE KETONE NEGATIVE BILIRUBIN NEGATIVE BLOOD NEGATIVE NITRITE NEGATIVE LEUK SCREEN NEGATIVE CASTS/LPF NEGATIVE CRYSTALS NEGATIVE MUCOUS THRDS NEGATIVE BACTERIA NEGATIVE EPITH CELLS NEGATIVE TRICHOMONAS NEGATIVE YEAST NEGATIVE 03/14/2013 4:12 PM C DIFFICILE NEGATIVE -- C DIFF TOXIN NOT DETECTED History Of Immunizations Name Date Admin Mfg Name Mfg Code Trade Name Lot# Route Inj Vis Given Vis Pub CVX Td 02/09/2011 sanofi pasteur [facility] DECAVAC [id number] Intramuscular Left Deltoid 02/09/2011 09/02/2008 999 History of Past Illness Name Date of Onset Comments Musculoskeletal Neck Disorder Sep 03 2009 10:26AM Arthritis unspecified Anxiety disorder Degeneration of cervical intervertebral disc Oct 29 2009 2:41PM Spinal stenosis, Cervical region Oct 29 2009 2:41PM Depressive Disorder Oct 29 2009 2:41PM Cough Nov 24 2009 9:49AM Sinusitis, Acute Nov 24 2009 9:49AM Bronchitis, Acute Nov 24 2009 9:49AM Bipolar disorder, unspecified Depression Fibromyalgia 10/22/2012 Attention deficit disorder Pelvic Pain 04/01/2013 Menopausal symptoms 04/01/2013 Eustachian Tube Dysfunction Jun 24 2010 9:48AM Seasonal Allergies Jun 24 2010 9:48AM Bipolar Disorder Jun 24 2010 9:48AM Rotator cuff tendinitis 08/20/2014 Depressive Disorder Aug 09 2010 2:48PM ADHD Aug 09 2010 2:48PM Eustachian Tube Dysfunction Nov 22 2010 10:32AM Cough Nov 22 2010 10:32AM Pharyngitis, Acute Nov 22 2010 10:32AM Cough Dec 13 2010 9:28AM Sinusitis, Acute Dec 13 2010 9:28AM Upper Respiratory Infection Dec 13 2010 9:28AM General Medical Exam, Adult Jan 24 2011 9:42AM Td Feb 09 2011 2:07PM Routine gynecological [...] posterior, right Improving Mar 09 2016 8:28AM Payers Insurance Name Company Name Plan Name Plan Number Policy Number Policy Group Number Start Date [facility] [id number] N/A Medicare Part A Medicare - Lab/Xray [id number] N/A Medicare Part B Medicare Secondary [id number] N/A Medicare Part A Medicare Part A [id number] N/A [facility] Financial [facility] Financial Geoff 8 1 13 fifty percent N/A [facility] [id number] N/A [place] [facility] [place] [facility]g [id number] N/A [facility]-Health Plan [facility] - [facility]HC [id number] N/A [facility]-Health Plan [facility] Health [facility] - RHC [id number] N/A [facility] [id number] N/A [facility] Financial Assistance [facility] Financial Geoff 50 Percent N/A History of Encounters Visit Date Visit Type Provider 03/09/2016 Office visit KAPIL CUEVAS 02/04/2016 Office visit KAPIL CUEVAS 12/24/2015 Office visit KAPIL ROLLINS PA 10/29/2015 Office visit KAPIL ROLLINS PA 09/21/2015 Office visit KAPIL ROLLINS PA 05/15/2015 Office visit 05/15/2015 Office visit KAPIL ROLLINS PA 03/31/2015 Office visit KAPIL ROLLINS PA 12/15/2014 Office visit KAPIL ROLLINS PA 08/19/2014 Office visit KAPIL ROLLINS PA 01/29/2014 Office visit KAPIL ROLLINS PA 10/28/2013 Office visit KAPIL ROLLINS PA 09/30/2013 [facility] Zan Hines MD 08/08/2013 Office visit KAPIL ROLLINS PA 07/01/2013 Office visit KAPIL ROLLINS PA 03/28/2013 Office visit Nikolai Stoner MD 03/14/2013 [facility] Kapil Wells MD 02/26/2013 Office visit Kapil Wells [...]
--- OUTSIDE RECORDS SUMMARY | 2018-08-04 16:51 | XMS REPORT ---
Author KAPIL Rubi [facility] Address [address] [place], [place] [address] Care Team Providers Care Business Planning Director Name Role Phone KAPIL ROLLINS PCP Unavailable [...] not to exceed 6 capsules per 24hrs loratadine 10 mg oral tablet 04/13/2016 take 1 tablet (10 mg) by oral route once daily fluticasone 50 mcg/actuation nasal spray,suspension 04/28/2016 inhale 1 spray (50 mcg) in each nostril by intranasal route 2 times per day zolpidem 10 mg oral tablet 06/01/2016 09/29/2016 Take one half to 1 tab at hs prn duloxetine 60 mg oral capsule,delayed release(DR/EC) 07/11/2016 TAKE 1 CAPSULE BY MOUTH EVERY DAY Name Start Date Expiration Date SIG Comments [...] phentermine 37.5 mg oral tablet 11/24/2009 07/10/2012 12 q am Vyvanse 30 mg oral capsule [...] HC BMI BSA BMI Percentile O2 Sat(%) 06/22/2016 8:45:00 AM 118 mmHg 72 mmHg 68 bpm 18 rpm 98.1 F 183 lbs 64 in 31.41 kg/m2 1.94 m2 97 % 04/28/2016 8:18:00 AM 128 mmHg 70 mmHg 62 bpm 16 rpm 97.1 F 182 lbs 64 in 31.2399 kg/m 1.9307 m 99 % 03/09/2016 8:24:00 AM 118 mmHg [...] 09/21/2015 12:00 AM Decadron, Per 1 Mg [facility]# [address]-66 Reviewed 09/21/2015 12:00 AM Depo-Medrol, Per 80 Mg [facility]#1247-5300-46 Reviewed 09/21/2015 12:00 AM Rocephin 1 gram [facility]#0227-1101-27 Reviewed 04/28/2016 12:00 AM Decadron, Per 1 Mg [facility]# [address]-01 Reviewed 04/28/2016 12:00 AM Rocephin 1 gram [facility]#6906-9874-89 Reviewed 06/22/2016 12:00 AM Decadron, Per 1 Mg [facility]# [address]-43 Reviewed 06/22/2016 12:00 AM Depo-Medrol, Per 80 Mg [facility]#8069-0271-52 Reviewed 03/06/2012 12:00 AM DRAIN/INJ JOINT/BURSA W/O US Reviewed 04/04/2012 12:00 AM THER/PROPH/DIAG INJ SC/IM Reviewed 04/04/2012 12:00 AM Decadron Inj.1mg-([facility]) [facility] #[id number] Reviewed 04/04/2012 12:00 AM Depo-Medrol 80 Mg Im/[facility] 0009-648156 Reviewed 07/10/2012 12:00 AM THER/PROPH/DIAG INJ SC/IM Reviewed 07/10/2012 12:00 AM Decadron, Per 1 Mg [facility]# [address]-70 Reviewed 07/10/2012 12:00 AM Depo-Medrol, Per 80 Mg [facility]#2553-8139-38 Reviewed 10/22/2012 12:00 AM THER/PROPH/DIAG INJ SC/IM Reviewed 10/22/2012 12:00 AM Decadron, Per 1 Mg [facility]# [address]-19 Reviewed 10/22/2012 12:00 AM Depo-Medrol, Per 80 Mg [facility]#7044-3698-49 Reviewed 10/22/2012 12:00 AM Toradol 60 Mg [place]#1023-9419-33 Reviewed 02/25/2013 12:00 AM CYTOPATH TBS C/V MANUAL Returned 02/25/2013 12:00 AM SPECIMEN HANDLING OFFICE-LAB Reviewed 02/25/2013 12:00 AM URINALYSIS AUTO W/SCOPE Returned 03/01/2013 12:00 AM US EXAM PELVIC COMPLETE Returned 02/26/2013 12:00 AM MAMMOGRAM SCREENING Returned 07/01/2013 12:00 AM THER/PROPH/DIAG INJ SC/IM Reviewed 07/01/2013 12:00 AM Decadron, Per 1 Mg [facility]# [address]-00 Reviewed 07/01/2013 12:00 AM Depo-Medrol, Per 80 Mg [facility]#2784-4740-35 Reviewed 08/08/2013 12:00 AM THER/PROPH/DIAG INJ SC/IM Reviewed 08/08/2013 12:00 AM Depo-Medrol, Per 80 Mg [facility]#6516-4493-54 Reviewed 08/08/2013 12:00 AM Toradol 60 Mg [facility]#2114-3634-94 Reviewed 01/29/2014 12:00 AM THER/PROPH/DIAG INJ SC/IM Reviewed 01/29/2014 12:00 AM Decadron 8 Mg [facility]# [address]-74 Reviewed 01/29/2014 12:00 AM Depo-Medrol, Per 80 Mg [facility]#3297-7755-15 Reviewed 01/29/2014 12:00 AM Rocephin 1 gram [facility]#8174-9105-99 Reviewed 11/22/2010 12:00 AM THER/PROPH/DIAG INJ SC/IM Reviewed 11/22/2010 12:00 AM Decadron Inj.8mg-([facility]) [facility] #[id number] Reviewed 11/22/2010 12:00 AM Depo-Medrol 80 Mg Im/[facility] 0009-546233 Reviewed 11/22/2010 12:00 AM Rocephin, Per 250MG - 1 Gram Vial Reviewed 02/09/2011 12:00 AM IMMUNIZATION ADMIN Reviewed 02/09/2011 12:00 AM TD VACCINE NO PRSRV 7/> IM Reviewed 09/03/2009 12:00 AM MRI NECK SPINE W/DYE Reviewed 03/31/2015 12:00 AM ROUTINE VENIPUNCTURE Reviewed 05/15/2015 12:00 AM THER/PROPH/DIAG INJ SC/IM Reviewed 05/15/2015 12:00 AM Decadron, Per 1 Mg [facility]# [address]-90 Reviewed 05/15/2015 12:00 AM Depo-Medrol, Per 80 Mg [facility]#9572-7978-84 Reviewed Results Summary Data and Description Results [...] Vis Pub CVX Td 02/09/2011 sanofi pasteur [facility] DECAVAC [id number] Intramuscular Left Deltoid 02/09/2011 09/02/2008 999 History [...] 8:45AM Nasal congestion Jun 22 2016 8:45AM Payers Insurance Name Company Name Plan Name Plan Number Policy Number Policy Group Number Start Date [facility] [id number] N/A Medicare Part A Medicare - Lab/Xray [id number] N/A Medicare Part B Medicare Secondary [id number] N/A Medicare Part A Medicare Part A [id number] N/A [facility] [employer] Geoff 8 1 13 fifty percent N/A [facility] [id number] N/A [place] [facility] [place] [facility] [id number] N/A [id number] [place] [facility] [place] [facility] [id number] N/A [facility] [place] [facility] [place] [facility] [id number] N/A [facility] [id number] N/A [facility] Financial Assistance [facility] Financial Geoff 50 Percent N/A History of Encounters Visit Date Visit Type Provider 06/22/2016 Office visit KAPIL CUEVAS 04/28/2016 Office visit KAPIL CUEVAS 03/09/2016 Office visit KAPIL CUEVAS 02/04/2016 Office visit KAPIL CUEVAS 12/24/2015 Office visit KAPIL CUEVAS 10/29/2015 Office visit KAPIL CUEVAS 09/21/2015 Office visit KAPIL CUEVAS 05/15/2015 Office visit 05/15/2015 Office visit KAPIL CUEVAS 03/31/2015 Office visit KAPIL CUEVAS 12/15/2014 Office visit KAPIL CUEVAS 08/19/2014 Office visit KAPIL CUEVAS 01/29/2014 Office visit KAPIL CUEVAS 10/28/2013 Office visit KAPIL CUEVAS 09/30/2013 [facility] Zan Hines MD 08/08/2013 Office visit KAPIL CUEVAS 07/01/2013 Office visit KAPIL CUEVAS 03/28/2013 Office visit Nikolai Stoner MD 03/14/2013 [facility] Kapil Wells MD 02/26/2013 Office visit [...] KAPIL ROLLINS PA 02/06/2012 Office visit KAPIL RLOLINS PA 04/07/2011 Office visit Kapil Rollins PA-C [...]
--- OUTSIDE RECORDS SUMMARY | 2018-08-04 16:52 | XMS REPORT ---
Author KAPIL Rubi [facility] Address [address] [place], [place] [id number] Care Team Providers Care Electromyographic Technician Name Role Phone KAPIL ROLLINS PCP KAPIL ROLLINS PreferredProvider Allergies and Adverse Reactions Name Reaction Notes [...] not to exceed 6 capsules per 24hrs diclofenac sodium 75 mg oral tablet,delayed release [...] (10 mg) by oral route once daily omeprazole 20 mg oral capsule,delayed release(DR/EC) 09/18/2017 03/17/2018 TAKE 1 CAPSULE (20 MG) BY ORAL ROUTE ONCE DAILY BEFORE A MEAL duloxetine 60 mg oral capsule,delayed release(DR/EC) 10/02/2017 03/31/2018 TAKE 1 CAPSULE BY MOUTH EVERY DAY zolpidem 10 mg oral tablet 10/17/2017 04/15/2018 Take one half to 1 tab at [...] 2 times a day for 15 days Suphedrine 30 mg oral tablet 10/26/2017 10/26/2017 take 1 tablets by oral route every 4 hours as needed Discontinued Name Start Date Discontinued Date SIG [...] phentermine 37.5 mg oral tablet 11/24/2009 07/10/2012 1 q am Vyvanse 30 mg oral capsule [...] HC BMI BSA BMI Percentile O2 Sat(%) 10/26/2017 10:44:00 AM 120 mmHg 78 mmHg 66 bpm 16 rpm 97.7 F 179 lbs 67 in 28.04 kg/m2 1.96 m2 98 % 07/11/2017 1:41:00 PM 98 mmHg 60 mmHg 62 bpm 16 rpm 97.7 F 179 lbs 64 in 30.725 kg/m 1.9148 m 98 % 07/03/2017 2:58:00 PM 126 mmHg 70 mmHg [...] 09/21/2015 12:00 AM Decadron, Per 1 Mg [facility]# [address]-35 Reviewed 09/21/2015 12:00 AM Depo-Medrol, Per 80 Mg [facility]#7844-4485-64 Reviewed 09/21/2015 12:00 AM Rocephin 1 gram [facility]#9521-1715-52 Reviewed 04/28/2016 12:00 AM Decadron, Per 1 Mg [facility]# [address]-54 Reviewed 04/28/2016 12:00 AM Rocephin 1 gram [facility]#1989-2082-96 Reviewed 06/22/2016 12:00 AM Decadron, Per 1 Mg [facility]# [address]-33 Reviewed 06/22/2016 12:00 AM Depo-Medrol, Per 80 Mg [facility]#2433-0146-97 Reviewed 07/21/2016 12:00 AM Decadron, Per 1 Mg [facility]# [address]-21 Reviewed 07/21/2016 12:00 AM Rocephin 1 gram [facility]#5809-0959-78 Reviewed 11/14/2016 12:00 AM THER/PROPH/DIAG INJ SC/IM [...] INJ SC/IM Reviewed 04/04/2012 12:00 AM Decadron Inj.1mg-([facility]) [facility] #[id number] Reviewed 04/04/2012 12:00 AM Depo-Medrol 80 Mg Im/[facility] [id number] Reviewed 07/10/2012 12:00 AM THER/PROPH/DIAG INJ SC/IM Reviewed 07/10/2012 12:00 AM Decadron, Per 1 Mg [place]# [address]-83 Reviewed 07/10/2012 12:00 AM Depo-Medrol, Per 80 Mg [facility]#6701-6799-11 Reviewed 10/26/2017 12:00 AM THER/PROPH/DIAG INJ SC/IM Reviewed 10/26/2017 12:00 AM Decadron 8mg Injection Reviewed 10/26/2017 12:00 AM Depo-Medrol 80mg Injection Reviewed 10/22/2012 12:00 AM THER/PROPH/DIAG INJ SC/IM Reviewed 10/22/2012 12:00 AM Decadron, Per 1 Mg [facility]# [address]-07 Reviewed 10/22/2012 12:00 AM Depo-Medrol, Per 80 Mg [facility]#2451-2880-13 Reviewed 10/22/2012 12:00 AM Toradol 60 Mg [place]#5809-1465-70 Reviewed 02/25/2013 12:00 AM CYTOPATH TBS C/V MANUAL Reviewed 02/25/2013 12:00 AM SPECIMEN HANDLING OFFICE-LAB Reviewed 02/25/2013 12:00 AM URINALYSIS AUTO W/SCOPE Reviewed 03/01/2013 12:00 AM US EXAM PELVIC COMPLETE Reviewed 02/26/2013 12:00 AM MAMMOGRAM SCREENING Reviewed 07/01/2013 12:00 AM THER/PROPH/DIAG INJ SC/IM Reviewed 07/01/2013 12:00 AM Decadron, Per 1 Mg [facility]# [address]-89 Reviewed 07/01/2013 12:00 AM Depo-Medrol, Per 80 Mg [facility]#2711-9851-58 Reviewed 08/08/2013 12:00 AM THER/PROPH/DIAG INJ SC/IM Reviewed 08/08/2013 12:00 AM Depo-Medrol, Per 80 Mg [facility]#7991-6327-92 Reviewed 08/08/2013 12:00 AM Toradol 60 Mg [place]#3851-9525-43 Reviewed 01/29/2014 12:00 AM THER/PROPH/DIAG INJ SC/IM Reviewed 01/29/2014 12:00 AM Decadron 8 Mg [facility]# [address]-35 Reviewed 01/29/2014 12:00 AM Depo-Medrol, Per 80 Mg [facility]#9069-6802-13 Reviewed 01/29/2014 12:00 AM Rocephin 1 gram [facility]#6863-5433-01 Reviewed 11/22/2010 12:00 AM THER/PROPH/DIAG INJ SC/IM Reviewed 11/22/2010 12:00 AM Decadron Inj.8mg-([facility]) [facility] #[id number] Reviewed 11/22/2010 12:00 AM Depo-Medrol 80 Mg Im/[facility]ier [facility] [phone] Reviewed 11/22/2010 12:00 AM Rocephin, Per 250MG - 1 Gram Vial Reviewed 02/09/2011 12:00 AM IMMUNIZATION ADMIN Reviewed 02/09/2011 12:00 AM TD VACCINE NO PRSRV 7/> IM Reviewed 09/03/2009 12:00 AM MRI NECK SPINE W/DYE Reviewed 03/31/2015 12:00 AM ROUTINE VENIPUNCTURE Reviewed 05/15/2015 12:00 AM THER/PROPH/DIAG INJ SC/IM Reviewed 05/15/2015 12:00 AM Decadron, Per 1 Mg [facility]# [address]-29 Reviewed 05/15/2015 12:00 AM Depo-Medrol, Per 80 Mg [facility]#4128-2452-92 Reviewed Results Summary Date and Description Results [...] CVX Td 02/09/2011 sanofi pasteur PMC DECAVAC [id number] Intramuscular Left Deltoid 02/09/2011 09/02/2008 999 History of Past Illness Name Date of Onset Comments Musculoskeletal Neck Disorder Sep 03 2009 10:26AM Arthritis unspecified Anxiety disorder Degeneration of cervical intervertebral disc Oct 29 2009 2:41PM Spinal stenosis, Cervical region Oct 29 2009 2:41PM Depressive Disorder Oct 29 2009 2:41PM Cough Nov 24 2009 9:49AM Sinusitis, Acute b 2009 9:49AM Bronchitis, Acute Nov 24 2009 [...] 10:32AM Cough b 2010 10:32AM Pharyngitis, Acute Nov 22 2010 [...] of left foot Jul 03 2017 2:58PM Moderate Acute Intertrigo Jul 11 2017 1:41PM Abdominal muscle strain, initial encounter Jul 11 2017 1:41PM Dysfunction of both eustachian tubes Oct 26 2017 10:44AM Cough Oct 26 2017 10:44AM Upper respiratory tract infection, unspecified type Oct 26 2017 10:44AM Sinus pressure Oct 26 2017 10:44AM Payers Insurance Name Company Name Plan Name Plan Number Policy Number Policy Group Number Start Date [facility] [id number] N/A [employer] approved to 05-22-17 N/A [facility] [id number] N/A [place] Pro [id number] N/A [facility] [id number] N/A [facility] [id number] N/A [facility] [id number] N/A [facility] Financial Geoff 50 Percent N/A Medicare Part A Medicare - Lab/Xray [id number] N/A Medicare Part B Medicare Secondary [id number] N/A Medicare Part A Medicare Part A [id number] N/A History of Encounters Visit Date Visit Type Provider 10/26/2017 Office visit KAPIL CUEVAS 07/11/2017 Office visit KAPIL CUEVAS 07/03/2017 Office visit KAPIL CUEVAS 01/03/2017 Office visit KAPIL CUEVAS 12/29/2016 Office visit KAPIL CUEVAS 11/14/2016 Office visit KAPIL CUEVAS 10/12/2016 Laboratory Zan Hines MD 07/21/2016 Office visit KAPIL CUEVAS 06/22/2016 Office visit KAPIL CUEVAS 04/28/2016 Office visit KAPIL CUEVAS 03/09/2016 Office visit KAPIL CUEVAS 02/04/2016 Office visit KAPIL CUEVAS 12/24/2015 Office visit KAPIL CUEVAS 10/29/2015 Office visit KAPIL CUEVAS 09/21/2015 Office visit KAPIL CUEVAS 05/15/2015 Office visit 05/15/2015 Office visit KAPIL CUEVAS 03/31/2015 Office visit KAPIL CUEVAS 12/15/2014 Office visit KAPIL CUEVSA 08/19/2014 Office visit KAPIL CUEVAS 01/29/2014 Office visit KAPIL CUEVAS 10/28/2013 Office visit KAPIL CUEVAS 09/30/2013 [facility] Zan Hines MD 08/08/2013 Office visit KAPIL CUEVAS 07/01/2013 Office visit KAPIL CUEVAS 03/28/2013 Office visit Nikolai Stoner MD 03/14/2013 [facility] Kapil Wells MD 02/26/2013 Office visit Kapil [...]
--- OUTSIDE RECORDS SUMMARY | 2018-08-04 16:53 | XMS REPORT ---
Author Author Logan Luther Organization [facility] Address [address] [place], [place] [address] Care Team Providers Care Expedition Supervisor Name Role Phone Logan Luther PCP KAPIL ROLLINS PreferredProvider Allergies and Adverse [...] 1 TABLET BY ORAL ROUTE TWICE DAILY diclofenac sodium 75 mg oral tablet,delayed release [...] route every 12 hours for 10 days Fioricet 50-300-40 mg oral capsule 10/29/2015 take 1 - 2 capsules by oral route every 4 hours as needed not to exceed 6 capsules per 24hrs Bactrim DS 800-160 mg oral tablet 01/03/2017 [...] HC BMI BSA BMI Percentile O2 Sat(%) 11/23/2017 3:31:00 PM 123 mmHg 74 mmHg 69 bpm 98.4 F 180 lbs 64 in 30.90 kg/m2 1.92 m2 10/26/2017 10:44:00 AM 120 mmHg 78 mmHg 66 bpm 16 rpm 97.7 F 179 lbs 67 in 28.0351 kg/m 1.9591 m 98 % 07/11/2017 1:41:00 PM 98 mmHg 60 mmHg 62 bpm 16 rpm 97.7 F 179 lbs 64 in 30.72 kg/m2 1.91 m2 98 % 07/03/2017 2:58:00 PM 126 mmHg 70 mmHg 70 bpm 16 rpm 98.2 F 178 lbs 98 % 01/03/2017 4:08:00 PM 122 mmHg 70 mmHg 74 bpm 18 rpm 98.4 F 189 lbs 64 in 32.44 kg/m2 1.97 m2 99 % 12/29/2016 11:46:00 AM 110 mmHg 74 mmHg 69 bpm 16 rpm 96.8 F 185 lbs 64 in 31.7549 kg/m 1.9466 m 97 % 12/15/2016 8:02:00 AM 186 lbs 11/14/2016 9:09:00 AM 125 mmHg 86 mmHg 76 bpm 16 rpm 96.3 F 193 lbs 65 in 32.12 kg/m2 2.00 m2 98 % 07/21/2016 3:03:00 PM 130 mmHg 84 mmHg 64 bpm 18 rpm 97.4 F 186 lbs 64 in 31.9265 kg/m 1.9518 m 95 % 06/22/2016 8:45:00 AM 118 mmHg [...] 09/21/2015 12:00 AM Decadron, Per 1 Mg [facility]# [address]-49 Reviewed 09/21/2015 12:00 AM Depo-Medrol, Per 80 Mg [facility]#5361-6100-00 Reviewed 09/21/2015 12:00 AM Rocephin 1 gram [facility]#0364-1336-85 Reviewed 04/28/2016 12:00 AM Decadron, Per 1 Mg [facility]# [address]-75 Reviewed 04/28/2016 12:00 AM Rocephin 1 gram [facility]#4011-6270-57 Reviewed 06/22/2016 12:00 AM Decadron, Per 1 Mg [facility]# [address]-95 Reviewed 06/22/2016 12:00 AM Depo-Medrol, Per 80 Mg [facility]#3263-3462-50 Reviewed 07/21/2016 12:00 AM Decadron, Per 1 Mg [facility]# [address]-90 Reviewed 07/21/2016 12:00 AM Rocephin 1 gram [facility]#2860-8707-14 Reviewed 11/14/2016 12:00 AM THER/PROPH/DIAG INJ SC/IM [...] SC/IM Reviewed 04/04/2012 12:00 AM Decadron Inj.1mg-([facility]) [facility] #[id number] Reviewed 04/04/2012 12:00 AM Depo-Medrol 80 Mg Im/[facility] [id number] Reviewed 07/10/2012 12:00 AM THER/PROPH/DIAG INJ SC/IM Reviewed 07/10/2012 12:00 AM Decadron, Per 1 Mg [facility]# [address]-01 Reviewed 07/10/2012 12:00 AM Depo-Medrol, Per 80 Mg [facility]#[address]-61 Reviewed 10/26/2017 12:00 AM THER/PROPH/DIAG INJ SC/IM Reviewed 10/26/2017 12:00 AM Decadron 8mg Injection Reviewed 10/26/2017 12:00 AM Depo-Medrol 80mg Injection Reviewed 10/22/2012 12:00 AM THER/PROPH/DIAG INJ SC/IM Reviewed 10/22/2012 12:00 AM Decadron, Per 1 Mg [facility]# [address]-99 Reviewed 10/22/2012 12:00 AM Depo-Medrol, Per 80 Mg [facility]#7992-2853-48 Reviewed 10/22/2012 12:00 AM Toradol 60 Mg [facility]#6039-0192-63 Reviewed 11/28/2017 12:00 AM US EXAM PELVIC COMPLETE Returned 11/28/2017 12:00 AM TRANSVAGINAL US NON-OB Returned 02/25/2013 12:00 AM CYTOPATH TBS C/V MANUAL Reviewed 02/25/2013 12:00 AM SPECIMEN HANDLING OFFICE-LAB Reviewed 02/25/2013 12:00 AM URINALYSIS AUTO W/SCOPE Reviewed 03/01/2013 12:00 AM US EXAM PELVIC COMPLETE Reviewed 02/26/2013 12:00 AM MAMMOGRAM SCREENING Reviewed 07/01/2013 12:00 AM THER/PROPH/DIAG INJ SC/IM Reviewed 07/01/2013 12:00 AM Decadron, Per 1 Mg [facility]# [address]-67 Reviewed 07/01/2013 12:00 AM Depo-Medrol, Per 80 Mg [facility]#1614-9512-56 Reviewed 08/08/2013 12:00 AM THER/PROPH/DIAG INJ SC/IM Reviewed 08/08/2013 12:00 AM Depo-Medrol, Per 80 Mg [facility]#2564-0186-33 Reviewed 08/08/2013 12:00 AM Toradol 60 Mg [facility]#9748-1781-80 Reviewed 01/29/2014 12:00 AM THER/PROPH/DIAG INJ SC/IM Reviewed 01/29/2014 12:00 AM Decadron 8 Mg [facility]# [address]-39 Reviewed 01/29/2014 12:00 AM Depo-Medrol, Per 80 Mg [facility]#1273-1343-96 Reviewed 01/29/2014 12:00 AM Rocephin 1 gram [facility]#1692-6806-86 Reviewed 11/22/2010 12:00 AM THER/PROPH/DIAG INJ SC/IM Reviewed 11/22/2010 12:00 AM Decadron Inj.8mg-([facility]) [facility] #[id number] Reviewed 11/22/2010 12:00 AM Depo-Medrol 80 Mg Im/[facility]ier [facility] 0009-298164 Reviewed 11/22/2010 12:00 AM Rocephin, Per 250MG - 1 Gram Vial Reviewed 02/09/2011 12:00 AM IMMUNIZATION ADMIN Reviewed 02/09/2011 12:00 AM TD VACCINE NO PRSRV 7/> IM Reviewed 09/03/2009 12:00 AM MRI NECK SPINE W/DYE Reviewed 03/31/2015 12:00 AM ROUTINE VENIPUNCTURE Reviewed 05/15/2015 12:00 AM THER/PROPH/DIAG INJ SC/IM Reviewed 05/15/2015 12:00 AM Decadron, Per 1 Mg [facility]# [address]-17 Reviewed 05/15/2015 12:00 AM Depo-Medrol, Per 80 Mg [facility]#3568-0850-52 Reviewed Results Summary Date and Description Results [...] Of Immunizations Name Date Admin Mfg Name Mf Code Trade Name Lot# Route Inj Vis Given Vis Pub CVX Td 02/09/2011 sanofi pasteur [facility] DECAVA [id number] Intramuscular Left Deltoid 02/09/2011 09/02/2008 999 History of Past Illness Name Date of Onset Comments Musculoskeletal Neck Disorder Sep 03 2009 10:26AM Arthritis unspecified Anxiety disorder Degeneration of cervical intervertebral disc Oct 29 2009 2:41PM Spinal stenosis, Cervical region Oct 29 2009 2:41PM Depressive Disorder Oct 29 2009 2:41PM Cough Nov 24 2009 9:49AM Sinusitis, Acute Nov 24 2009 9:49AM Bronchitis, Acute b 2009 9:49AM Bipolar disorder, unspecified Depression Fibromyalgia 10/22/2012 Attention Deficit Disorder Pelvic Pain 04/01/2013 Menopausal symptoms 04/01/2013 Eustachian Tube Dysfunction Jun 24 2010 9:48AM Seasonal Allergies Jun 24 2010 9:48AM Bipolar Disorder Jun 24 2010 9:48AM Rotator cuff tendinitis 08/20/2014 Depressive Disorder Aug 09 2010 2:48PM ADHD Aug 09 2010 2:48PM Eustachian Tube Dysfunction b 2010 10:32AM Cough b 2010 10:32AM Pharyngitis, Acute Nov 22 2010 10:32AM Cough b 2010 9:28AM Sinusitis, Acute Dec 13 2010 [...] 10:44AM Sinus pressure Oct 26 2017 10:44AM Pelvic pain in female Nov 23 2017 4:01PM Acute pain in female pelvis Nov 23 2017 3:38PM Abdominal pain, generalized Nov 23 2017 3:38PM Payers Insurance Name Company Name Plan Name Plan Number Policy Number Policy Group Number Start Date [facility] [id number] N/A [employer] approved to 05-22-17 N/A [facility] [id number] N/A [place] Prog [id number] N/A [facility] [id number] N/A [facility] Plan [facility] - [facility] [id number] N/A [facility] [id number] N/A [facility] Financial Assistance [employer] Financial Geoff 50 Percent N/A Medicare Part A Medicare - Lab/Xray [id number] N/A Medicare Part B Medicare Secondary [id number] N/A Medicare Part A Medicare Part A [id number] N/A History of Encounters Visit Date Visit Type Provider 11/23/2017 Office visit Logan Luther MD 10/26/2017 Office visit KAPIL CUEVAS 07/11/2017 Office visit KAPIL CUEVAS 07/03/2017 Office visit KAPIL CUEVAS 01/03/2017 Office visit KAPIL CUEVAS 12/29/2016 Office visit KAPIL CUEVAS 11/14/2016 Office visit KAPIL CUEVAS 10/12/2016 [facility] Cassandra Hines MD 07/21/2016 Office visit AKPIL CUEVAS 06/22/2016 Office visit KAPIL CUEVAS 04/28/2016 Office visit KAPIL CUEVAS 03/09/2016 Office visit KAPIL CUEVAS 02/04/2016 Office visit KAPIL CUEVAS 12/24/2015 Office visit KAPIL CUEVAS 10/29/2015 Office visit KAPIL CUEVAS 09/21/2015 Office visit KAPIL CUEVAS 05/15/2015 Office visit 05/15/2015 Office visit KAPIL CUEVAS 03/31/2015 Office visit KAPIL ROLLINS PA 12/15/2014 Office visit KAPIL ROLLINS PA 08/19/2014 Office visit KAPIL ROLLINS PA 01/29/2014 Office visit KAPIL ROLLINS PA 10/28/2013 Office visit KAPIL ROLLINS PA 09/30/2013 [facility] Zan Hines MD 08/08/2013 Office visit KAPIL ROLLINS PA 07/01/2013 Office visit KAPIL ROLLINS PA 03/28/2013 Office visit Nikolai Stoner MD 03/14/2013 [facility] Kapil Wells MD 02/26/2013 Office visit Kapil [...]
--- OUTSIDE RECORDS SUMMARY | 2018-08-04 16:54 | XMS REPORT ---
Author Author KAPIL ROLLINS [facility] Address [address] [place], [place] [address] Care Team Providers Care Billet Inspector Name Role Phone KAPIL ROLLINS PCP Unavailable [...] per day fluticasone 50 mcg/actuation nasal spray,suspension 04/28/2016 inhale 1 spray (50 mcg) in each nostril by intranasal route 2 times per day Name Start Date Expiration Date SIG Comments [...] tablet 12/15/2014 12/25/2014 2X4 days 1X4 days zolpidem 10 mg oral tablet 10/26/2015 04/23/2016 Take one half to 1 tab at hs prn amoxicillin 875 mg oral tablet 10/29/2015 11/08/2015 [...] day phentermine 37.5 mg oral tablet 11/24/2009 07/10/20122 q am Vyvanse 30 mg oral capsule [...] HC BMI BSA BMI Percentile O2 Sat(%) 04/28/2016 8:18:00 AM 128 mmHg 70 mmHg [...] AM Decadron, Per 1 Mg [facility]# [address]-09 Reviewed 09/21/2015 12:00 AM Depo-Medrol, Per 80 Mg [facility]#1685-7853-91 Reviewed 09/21/2015 12:00 AM Rocephin 1 gram [facility]#0784-3260-07 Reviewed 03/06/2012 12:00 AM DRAIN/INJ JOINT/BURSA W/O US Reviewed 04/04/2012 12:00 AM THER/PROPH/DIAG INJ SC/IM Reviewed 04/04/2012 12:00 AM Decadron Inj.1mg-([facility]) [facility] #[id number] Reviewed 04/04/2012 12:00 AM Depo-Medrol 80 Mg Im/[facility] [id number] Reviewed 07/10/2012 12:00 AM THER/PROPH/DIAG INJ SC/IM Reviewed 07/10/2012 12:00 AM Decadron, Per 1 Mg [facility]# [address]-62 Reviewed 07/10/2012 12:00 AM Depo-Medrol, Per 80 Mg [facility]#5294-2091-42 Reviewed 10/22/2012 12:00 AM THER/PROPH/DIAG INJ SC/IM Reviewed 10/22/2012 12:00 AM Decadron, Per 1 Mg [facility]# [address]-13 Reviewed 10/22/2012 12:00 AM Depo-Medrol, Per 80 Mg [facility]#8722-6243-70 Reviewed 10/22/2012 12:00 AM Toradol 60 Mg [facility]#1524-2219-87 Reviewed 02/25/2013 12:00 AM CYTOPATH TBS C/V MANUAL Returned 02/25/2013 12:00 AM SPECIMEN HANDLING OFFICE-LAB Reviewed 02/25/2013 12:00 AM URINALYSIS AUTO W/SCOPE Returned 03/01/2013 12:00 AM US EXAM PELVIC COMPLETE Returned 02/26/2013 12:00 AM MAMMOGRAM SCREENING Returned 07/01/2013 12:00 AM THER/PROPH/DIAG INJ SC/IM Reviewed 07/01/2013 12:00 AM Decadron, Per 1 Mg [facility]# [address]-59 Reviewed 07/01/2013 12:00 AM Depo-Medrol, Per 80 Mg [place]#7211-4458-80 Reviewed 08/08/2013 12:00 AM THER/PROPH/DIAG INJ SC/IM Reviewed 08/08/2013 12:00 AM Depo-Medrol, Per 80 Mg [facility]#3559-1565-55 Reviewed 08/08/2013 12:00 AM Toradol 60 Mg [facility]#7796-9603-65 Reviewed 01/29/2014 12:00 AM THER/PROPH/DIAG INJ SC/IM Reviewed 01/29/2014 12:00 AM Decadron 8 Mg [facility]# [address]-45 Reviewed 01/29/2014 12:00 AM Depo-Medrol, Per 80 Mg [facility]#1844-9829-61 Reviewed 01/29/2014 12:00 AM Rocephin 1 gram [facility]#3506-1652-12 Reviewed 11/22/2010 12:00 AM THER/PROPH/DIAG INJ SC/IM Reviewed 11/22/2010 12:00 AM Decadron Inj.8mg-([facility]) [facility] #[id number] Reviewed 11/22/2010 12:00 AM Depo-Medrol 80 Mg Im/[facility]ier [facility] [id number] Reviewed 11/22/2010 12:00 AM Rocephin, Per 250MG - 1 Gram Vial Reviewed 02/09/2011 12:00 AM IMMUNIZATION ADMIN Reviewed 02/09/2011 12:00 AM TD VACCINE NO PRSRV 7/> IM Reviewed 09/03/2009 12:00 AM MRI NECK SPINE W/DYE Reviewed 03/31/2015 12:00 AM ROUTINE VENIPUNCTURE Reviewed 05/15/2015 12:00 AM THER/PROPH/DIAG INJ SC/IM Reviewed 05/15/2015 12:00 AM Decadron, Per 1 Mg [facility]# [address]-87 Reviewed 05/15/2015 12:00 AM Depo-Medrol, Per 80 Mg [facility]#0134-8762-13 Reviewed Results Summary Data and Description Results [...] CVX Td 02/09/2011 sanofi pasteur PMC DECAVAC [id number] Intramuscular Left Deltoid 02/09/2011 09/02/2008 999 History [...] Acute Nasal congestion Apr 28 2016 8:18AM Payers Insurance Name Company Name Plan Name Plan Number Policy Number Policy Group Number Start Date [facility] [id number] N/A Medicare Part A Medicare - Lab/Xray [id number] N/A Medicare Part B Medicare Secondary [id number] N/A Medicare Part A Medicare Part A [id number] N/A [employer] [facility] [employer] Geoff 8 1 13 fifty percent N/A [facility] [id number] N/A [place] Medical Assistance Program [place] [employer] [place] Prog [id number] N/A [facility] [id number] N[facility]A [facility] [id number] N/A [facility] [id number] N/A [facility] Financial Assistance [facility] Financial Geoff 50 Percent N/A History of Encounters Visit Date Visit Type Provider 04/28/2016 Office visit KAPIL ROLLINS PA 03/09/2016 Office visit KAPIL ROLLINS PA 02/04/2016 Office visit KAPIL ROLLINS PA 12/24/2015 Office visit KAPIL ROLLINS PA 10/29/2015 Office visit KAPIL ROLLINS PA 09/21/2015 Office visit KAPIL ROLLINS PA 05/15/2015 Office visit 05/15/2015 Office visit KAPIL ROLLINS PA 03/31/2015 Office visit KAPIL ROLLINS PA 12/15/2014 Office visit KAPIL ROLLINS PA 08/19/2014 Office visit KAPIL ROLLINS PA 01/29/2014 Office visit KAPIL CUEVAS 10/28/2013 Office visit KAPIL CUEVAS 09/30/2013 [facility] Zan Hines MD 08/08/2013 Office visit KAPIL CUEVAS 07/01/2013 Office visit KAPIL CUEVAS 03/28/2013 Office visit Nikolai Stoner MD 03/14/2013 [facility] Kapil Wells MD 02/26/2013 Office visit Kapil Wells MD 02/25/2013 Office visit Nikolai Stoner MD 02/01/2013 Office visit KAPIL ROLLINS PA 01/22/2013 Office visit KAPIL CUEVAS 12/21/2012 Office visit KAPIL ROLLINS PA 10/22/2012 [...] Kapil Rollins PA-C 08/09/2010 Office visit Kapil CUEVAS-C 06/24/2010 Office visit Kapil CUEVAS-C 11/24/2009 Office visit Kapil Rollins PA-C 10/29/2009 Office visit Kapil Rollins PA-C 09/03/2009 Office visit Kapil Rollins PA-C 08/24/2009 Office visit Kapil Rollins PA-C 06/10/2009 Office visit KAPIL CUEVAS
--- OUTSIDE RECORDS SUMMARY | 2018-08-04 16:55 | XMS REPORT ---
Author Author KAPIL ROLLINS [facility] Address [address] [place], [place] [id number] Care Team Providers Care Mental Health Coordinator Name Role Phone KAPIL ROLLINS PCP Unavailable Allergies and Adverse Reactions Name Reaction Notes NO KNOWN DRUG ALLERGIES Plan of Treatment Planned Activity Comments Planned Date Planned Time Plan/Goal MRI JOINT UPR EXTREM W/O DYE 08/20/2014 [...] ORAL ROUTE ONCE DAILY BEFORE A MEAL Name Start Date Expiration Date SIG Comments [...] days 3x2 days 2x2 days 1x2 days amoxicillin 500 mg oral tablet 12/15/2014 12/25/2014 take 1 tablet by oral route 3 times a day for 10 days prednisone 20 mg oral tablet 12/15/2014 12/25/2014 2X4 days 1X4 days zolpidem 10 mg oral tablet 03/10/2015 09/06/2015 Take one half to 1 tab at hs prn Discontinued Name Start Date Discontinued Date SIG [...] HC BMI BSA BMI Percentile O2 Sat(%) 09/21/2015 11:04:00 AM 120 mmHg 65 mmHg [...] of Procedures Date Ordered Description Order Status 03/06/2012 12:00 AM DRAIN/INJ JOINT/BURSA W/O US Reviewed 04/04/2012 12:00 AM THER/PROPH/DIAG INJ SC/IM Reviewed 04/04/2012 12:00 AM Decadron Inj.1mg-([facility]) [facility] #[id number] Reviewed 04/04/2012 12:00 AM Depo-Medrol 80 Mg Im/[facility] [id number] Reviewed 07/10/2012 12:00 AM THER/PROPH/DIAG INJ SC/IM Reviewed 07/10/2012 12:00 AM Decadron, Per 1 Mg [facility]# [address]-10 Reviewed 07/10/2012 12:00 AM Depo-Medrol, Per 80 Mg [facility]#0298-4781-13 Reviewed 10/22/2012 12:00 AM THER/PROPH/DIAG INJ SC/IM Reviewed 10/22/2012 12:00 AM Decadron, Per 1 Mg [facility]# [address]-32 Reviewed 10/22/2012 12:00 AM Depo-Medrol, Per 80 Mg [facility]#5163-1747-93 Reviewed 10/22/2012 12:00 AM Toradol 60 Mg [facility]#8483-3234-60 Reviewed 02/25/2013 12:00 AM CYTOPATH TBS C/V MANUAL Returned 02/25/2013 12:00 AM SPECIMEN HANDLING OFFICE-LAB Reviewed 02/25/2013 12:00 AM URINALYSIS AUTO W/SCOPE Returned 03/01/2013 12:00 AM US EXAM PELVIC COMPLETE Returned 02/26/2013 12:00 AM MAMMOGRAM SCREENING Returned 07/01/2013 12:00 AM THER/PROPH/DIAG INJ SC/IM Reviewed 07/01/2013 12:00 AM Decadron, Per 1 Mg [facility]# [address]-58 Reviewed 07/01/2013 12:00 AM Depo-Medrol, Per 80 Mg [place]#2683-7040-39 Reviewed 08/08/2013 12:00 AM THER/PROPH/DIAG INJ SC/IM Reviewed 08/08/2013 12:00 AM Depo-Medrol, Per 80 Mg [facility]#5577-3614-49 Reviewed 08/08/2013 12:00 AM Toradol 60 Mg [facility]#9326-5450-12 Reviewed 01/29/2014 12:00 AM THER/PROPH/DIAG INJ SC/IM Reviewed 01/29/2014 12:00 AM Decadron 8 Mg [facility]# [address]-83 Reviewed 01/29/2014 12:00 AM Depo-Medrol, Per 80 Mg [facility]#1933-4[address]-76 Reviewed 01/29/2014 12:00 AM Rocephin 1 gram [facility]#9818-3843-16 Reviewed 11/22/2010 12:00 AM THER/PROPH/DIAG INJ SC/IM Reviewed 11/22/2010 12:00 AM Decadron Inj.8mg-([facility]) [facility] #[id number] Reviewed 11/22/2010 12:00 AM Depo-Medrol 80 Mg Im/[facility] [id number] Reviewed 11/22/2010 12:00 AM Rocephin, Per 250MG - 1 Gram Vial Reviewed 02/09/2011 12:00 AM IMMUNIZATION ADMIN Reviewed 02/09/2011 12:00 AM TD VACCINE NO PRSRV 7/> IM Reviewed 09/03/2009 12:00 AM MRI NECK SPINE W/DYE Reviewed 03/31/2015 12:00 AM ROUTINE VENIPUNCTURE Reviewed 05/15/2015 12:00 AM THER/PROPH/DIAG INJ SC/IM Reviewed 05/15/2015 12:00 AM Decadron, Per 1 Mg [facility]# [address]-96 Reviewed 05/15/2015 12:00 AM Depo-Medrol, Per 80 Mg [facility]#7396-5536-18 Reviewed Results Summary Data and Description Results [...] CVX Td 02/09/2011 [facility] DECAVAC [id number] Intramuscular Left Deltoid 02/09/2011 09/02/2008 999 History [...] Acute Post-nasal drainage Sep 21 2015 11:05AM Payers Insurance Name Company Name Plan Name Plan Number Policy Number Policy Group Number Start Date [facility] [id number] N/A Medicare Part B Medicare Secondary [id number] N/A Medicare Part A Medicare Part A [id number] N/A [facility] Financial Geoff 8 1 13 fifty percent N/A [facility] [id number] N/A [place] [employer] [place] [employer] Prog [id number] N/A [facility] [id number] N/A [facility] - RH [id number] N/A [facility] [id number] N/A [facility] Financial Assistance [facility] Financial Geoff 50 Percent N/A History of Encounters Visit Date Visit Type Provider 09/21/2015 Office visit KAPIL CUEVAS 05/15/2015 Office visit KAPIL CUEVAS 03/31/2015 Office visit KAPIL CUEVAS 12/15/2014 Office visit KAPIL ROLLINS PA 08/19/2014 Office visit KAPIL ROLLINS PA 01/29/2014 Office visit KAPIL ROLLINS PA 10/28/2013 Office visit KAPIL ROLLINS PA 09/30/2013 [facility] Zan Hines MD 08/08/2013 Office visit KAPIL ROLLINS PA 07/01/2013 Office visit KAPIL ROLLINS PA 03/28/2013 Office visit Nikolai Stoner MD 03/14/2013 [facility] Kapil Wells MD 02/26/2013 Office visit [...]
--- OUTSIDE RECORDS SUMMARY | 2018-08-04 16:56 | XMS REPORT ---
Author Author KAPIL ROLLINS [facility] Address [address] [place], [place] [address] Care Team Providers Care Application Internship Name Role Phone KAPIL ROLLINS PCP Unavailable [...] HC BMI BSA BMI Percentile O2 Sat(%) 02/04/2016 11:37:00 AM 136 mmHg 70 mmHg [...] 09/21/2015 12:00 AM Decadron, Per 1 Mg [facility]# [address]-12 Reviewed 09/21/2015 12:00 AM Depo-Medrol, Per 80 Mg [facility]#0910-7668-14 Reviewed 09/21/2015 12:00 AM Rocephin 1 gram [facility]#7996-9794-37 Reviewed 03/06/2012 12:00 AM DRAIN/INJ JOINT/BURSA W/O US Reviewed 04/04/2012 12:00 AM THER/PROPH/DIAG INJ SC/IM Reviewed 04/04/2012 12:00 AM Decadron Inj.1mg-([facility]) [facility] #[id number] Reviewed 04/04/2012 12:00 AM Depo-Medrol 80 Mg Im/[facility] 0009-796218 Reviewed 07/10/2012 12:00 AM THER/PROPH/DIAG INJ SC/IM Reviewed 07/10/2012 12:00 AM Decadron, Per 1 Mg [facility]# [address]-93 Reviewed 07/10/2012 12:00 AM Depo-Medrol, Per 80 Mg [facility]#5275-8347-22 Reviewed 10/22/2012 12:00 AM THER/PROPH/DIAG INJ SC/IM Reviewed 10/22/2012 12:00 AM Decadron, Per 1 Mg [facility]# [address]-45 Reviewed 10/22/2012 12:00 AM Depo-Medrol, Per 80 Mg [facility]#9798-2370-39 Reviewed 10/22/2012 12:00 AM Toradol 60 Mg [facility]#5056-4611-16 Reviewed 02/25/2013 12:00 AM CYTOPATH TBS C/V MANUAL Returned 02/25/2013 12:00 AM SPECIMEN HANDLING OFFICE-LAB Reviewed 02/25/2013 12:00 AM URINALYSIS AUTO W/SCOPE Returned 03/01/2013 12:00 AM US EXAM PELVIC COMPLETE Returned 02/26/2013 12:00 AM MAMMOGRAM SCREENING Returned 07/01/2013 12:00 AM THER/PROPH/DIAG INJ SC/IM Reviewed 07/01/2013 12:00 AM Decadron, Per 1 Mg [facility]# [address]-27 Reviewed 07/01/2013 12:00 AM Depo-Medrol, Per 80 Mg [facility]#6289-9373-71 Reviewed 08/08/2013 12:00 AM THER/PROPH/DIAG INJ SC/IM Reviewed 08/08/2013 12:00 AM Depo-Medrol, Per 80 Mg [facility]#7703-3379-91 Reviewed 08/08/2013 12:00 AM Toradol 60 Mg [facility]#0857-2599-80 Reviewed 01/29/2014 12:00 AM THER/PROPH/DIAG INJ SC/IM Reviewed 01/29/2014 12:00 AM Decadron 8 Mg [facility]# [address]-49 Reviewed 01/29/2014 12:00 AM Depo-Medrol, Per 80 Mg [facility]#8456-9884-77 Reviewed 01/29/2014 12:00 AM Rocephin 1 gram [facility]#3951-4640-24 Reviewed 11/22/2010 12:00 AM THER/PROPH/DIAG INJ SC/IM Reviewed 11/22/2010 12:00 AM Decadron Inj.8mg-([facility]) [facility] #[id number] Reviewed 11/22/2010 12:00 AM Depo-Medrol 80 Mg Im/[facility] [id number] Reviewed 11/22/2010 12:00 AM Rocephin, Per 250MG - 1 Gram Vial Reviewed 02/09/2011 12:00 AM IMMUNIZATION ADMIN Reviewed 02/09/2011 12:00 AM TD VACCINE NO PRSRV 7/> IM Reviewed 09/03/2009 12:00 AM MRI NECK SPINE W/DYE Reviewed 03/31/2015 12:00 AM ROUTINE VENIPUNCTURE Reviewed 05/15/2015 12:00 AM THER/PROPH/DIAG INJ SC/IM Reviewed 05/15/2015 12:00 AM Decadron, Per 1 Mg [facility]# [address]-55 Reviewed 05/15/2015 12:00 AM Depo-Medrol, Per 80 Mg [facility]#8066-5407-60 Reviewed Results Summary Data and Description Results [...] Vis Given Vis Pub [facility] [id number] Intramuscular Left Deltoid 02/09/2011 09/02/2008 999 History [...] for breast cancer Feb 04 2016 11:44AM Payers Insurance Name Company Name Plan Name Plan Number Policy Number Policy Group Number Start Date [facility] [id number] N/A Medicare Part A Medicare - Lab/Xray [id number] N/A Medicare Part B Medicare Secondary [id number] N/A Medicare Part A Medicare Part A [id number] N/A [facility] Financial Assistance [facility] Financial Geoff 8 1 13 fifty percent N/A [facility] [id number] N/A [place] Medical Assistance Program [place] [employer] Prog [id number] N/A [facility]Note [facility] [id number] N/A [facility]Note 3[facility] - [facility] [id number] N/A [facility] [id number] N/A [facility] Financial Assistance [facility] Financial Geoff 50 Percent N/A History of Encounters Visit Date Visit Type Provider 02/04/2016 Office visit KAPIL CUEVAS 12/24/2015 Office visit KAPIL CUEVAS 10/29/2015 Office visit KAPIL CUEVAS 09/21/2015 Office visit KAPIL CUEVAS 05/15/2015 Office visit 05/15/2015 Office visit KAPIL CUEVAS 03/31/2015 Office visit KAPIL CUEVAS 12/15/2014 Office visit KAPIL CUEVAS 08/19/2014 Office visit KAPIL CUEVAS 01/29/2014 Office visit KAPIL CUEVAS 10/28/2013 Office visit KAPIL CUEVAS 09/30/2013 [facility] Zan Hines MD 08/08/2013 Office visit KAPIL ROLLINS PA 07/01/2013 Office visit KAPIL ROLLINS PA 03/28/2013 Office visit Nikolai Stoner MD 03/14/2013 [facility] Kapil Wells MD 02/26/2013 Office visit Kaipl Wells MD 02/25/2013 Office visit Nikolai Stoner [...] visit KAPIL ROLLINS PA 04/07/2011 Office visit Kpail Rollins PA-C 02/09/2011 Office visit Kapil Rollins [...] Kapil Rollins PA-C 06/10/2009 Office visit KAPIL ROLLINS PA
--- OUTSIDE RECORDS SUMMARY | 2018-08-04 16:57 | XMS REPORT ---
Author Author Logan Luther Organization [facility] Address [address] [place], [place] [address] Care Team Providers Care Hris Analyst Name Role Phone Logan Luther PCP KAPIL ROLLINS PreferredProvider Allergies and Adverse Reactions Name Reaction Notes NO KNOWN DRUG ALLERGIES Plan of Treatment Planned Activity Comments Planned Date Planned Time Plan/Goal Screening mammography of both breasts 02/04/2016 12:00 AM Transabdominal / Transvaginal US (non-OB) 11/28/2017 12:00 AM Transabdominal / Transvaginal US (non-OB) 11/28/2017 12:00 AM MRI shoulder left wo contrast [...] day phentermine 37.5 mg oral tablet 11/24/2009 07/10/201210/17 q am Vyvanse 30 mg oral capsule [...] 09/21/2015 12:00 AM Decadron, Per 1 Mg [facility]# [address]-14 Reviewed 09/21/2015 12:00 AM Depo-Medrol, Per 80 Mg [facility]#2708-8938-81 Reviewed 09/21/2015 12:00 AM Rocephin 1 gram [facility]#4180-7078-86 Reviewed 04/28/2016 12:00 AM Decadron, Per 1 Mg [facility]# [address]-15 Reviewed 04/28/2016 12:00 AM Rocephin 1 gram [facility]#7739-8161-11 Reviewed 06/22/2016 12:00 AM Decadron, Per 1 Mg [facility]# [address]-39 Reviewed 06/22/2016 12:00 AM Depo-Medrol, Per 80 Mg [facility]#3711-8640-03 Reviewed 07/21/2016 12:00 AM Decadron, Per 1 Mg [facility]# [address]-26 Reviewed 07/21/2016 12:00 AM Rocephin 1 gram [facility]#7460-1988-41 Reviewed 11/14/2016 12:00 AM THER/PROPH/DIAG INJ SC/IM [...] SC/IM Reviewed 04/04/2012 12:00 AM Decadron Inj.1mg-([facility]) [facility] #[id number] Reviewed 04/04/2012 12:00 AM Depo-Medrol 80 Mg Im/[facility] 0009-236249 Reviewed 07/10/2012 12:00 AM THER/PROPH/DIAG INJ SC/IM Reviewed 07/10/2012 12:00 AM Decadron, Per 1 Mg [facility]# [address]-87 Reviewed 07/10/2012 12:00 AM Depo-Medrol, Per 80 Mg [facility]#3671-1616-24 Reviewed 10/26/2017 12:00 AM THER/PROPH/DIAG INJ SC/IM Reviewed 10/26/2017 12:00 AM Decadron 8mg Injection Reviewed 10/26/2017 12:00 AM Depo-Medrol 80mg Injection Reviewed 10/22/2012 12:00 AM THER/PROPH/DIAG INJ SC/IM Reviewed 10/22/2012 12:00 AM Decadron, Per 1 Mg [facility]# [address]-30 Reviewed 10/22/2012 12:00 AM Depo-Medrol, Per 80 Mg [facility]#2143-1646-36 Reviewed 10/22/2012 12:00 AM Toradol 60 Mg [facility]#9399-8051-61 Reviewed 02/25/2013 12:00 AM CYTOPATH TBS C/V MANUAL Reviewed 02/25/2013 12:00 AM SPECIMEN HANDLING OFFICE-LAB Reviewed 02/25/2013 12:00 AM URINALYSIS AUTO W/SCOPE Reviewed 03/01/2013 12:00 AM US EXAM PELVIC COMPLETE Reviewed 02/26/2013 12:00 AM MAMMOGRAM SCREENING Reviewed 07/01/2013 12:00 AM THER/PROPH/DIAG INJ SC/IM Reviewed 07/01/2013 12:00 AM Decadron, Per 1 Mg [facility]# [address]-85 Reviewed 07/01/2013 12:00 AM Depo-Medrol, Per 80 Mg [facility]#8219-0039-47 Reviewed 08/08/2013 12:00 AM THER/PROPH/DIAG INJ SC/IM Reviewed 08/08/2013 12:00 AM Depo-Medrol, Per 80 Mg [facility]#8224-2824-30 Reviewed 08/08/2013 12:00 AM Toradol 60 Mg [facility]#6866-9491-69 Reviewed 01/29/2014 12:00 AM THER/PROPH/DIAG INJ SC/IM Reviewed 01/29/2014 12:00 AM Decadron 8 Mg [facility]# [address]-46 Reviewed 01/29/2014 12:00 AM Depo-Medrol, Per 80 Mg [facility]#1516-2295-73 Reviewed 01/29/2014 12:00 AM Rocephin 1 gram [facility]#6930-2167-68 Reviewed 11/22/2010 12:00 AM THER/PROPH/DIAG INJ SC/IM Reviewed 11/22/2010 12:00 AM Decadron Inj.8mg-([facility]) [facility] #[id number] Reviewed 11/22/2010 12:00 AM Depo-Medrol 80 Mg Im/[facility] 0009-210535 Reviewed 11/22/2010 12:00 AM Rocephin, Per 250MG - 1 Gram Vial Reviewed 02/09/2011 12:00 AM IMMUNIZATION ADMIN Reviewed 02/09/2011 12:00 AM TD VACCINE NO PRSRV 7/> IM Reviewed 09/03/2009 12:00 AM MRI NECK SPINE W/DYE Reviewed 03/31/2015 12:00 AM ROUTINE VENIPUNCTURE Reviewed 05/15/2015 12:00 AM THER/PROPH/DIAG INJ SC/IM Reviewed 05/15/2015 12:00 AM Decadron, Per 1 Mg [facility]# [address]-73 Reviewed 05/15/2015 12:00 AM Depo-Medrol, Per 80 Mg [facility]#8122-2736-67 Reviewed Results Summary Date and Description Results [...] Given Vis Pub CVX Td 02/09/2011 [facility] [id number] Intramuscular Left Deltoid 02/09/2011 09/02/2008 999 History [...] pain in female Nov 23 2017 4:01PM Payers Insurance Name Company Name Plan Name Plan Number Policy Number Policy Group Number Start Date [facility] [id number] N/A [facility] Financial Geoff approved to 05-22-17 N/A [facility] [id number] N/A [place] [employer] Program [place] [employer] Prog [id number] N/A [facility] [id number] N/A [facility]Health Plan [facility] [id number] N/A [facility] [id number] N/A [facility] Financial Assistance [facility] Financial Geoff 50 Percent N/A Medicare Part A Medicare - Lab/Xray [id number] N/A Medicare Part B Medicare Secondary [id number] N/A Medicare Part A Medicare Part A [id number] N/A History of Encounters Visit Date Visit [...] 10/28/2013 Office visit KAPIL ROLLINS PA 09/30/2013 [facility] Zan Hines MD 08/08/2013 Office visit KAPIL ROLLINS PA 07/01/2013 Office visit KAPIL ROLLINS PA 03/28/2013 Office visit Nikolai Stoner MD 03/14/2013 [facility] Kapil Wells MD 02/26/2013 Office visit [...]
--- OUTSIDE RECORDS SUMMARY | 2018-08-04 16:58 | XMS REPORT ---
Author Author KAPIL ROLLINS [facility] Address [address] [place], [place] [address] Care Team Providers Care Game Farm Supervisor Name Role Phone KAPIL ROLLINS PCP Unavailable [...] 09/21/2015 12:00 AM Decadron, Per 1 Mg [facility]# [address]-36 Reviewed 09/21/2015 12:00 AM Depo-Medrol, Per 80 Mg [facility]#5963-4677-15 Reviewed 09/21/2015 12:00 AM Rocephin 1 gram [facility]#6476-5614-41 Reviewed 03/06/2012 12:00 AM DRAIN/INJ JOINT/BURSA W/O US Reviewed 04/04/2012 12:00 AM THER/PROPH/DIAG INJ SC/IM Reviewed 04/04/2012 12:00 AM Decadron Inj.1mg-([facility]) [facility] #[id number] Reviewed 04/04/2012 12:00 AM Depo-Medrol 80 Mg Im/[facility] 0009-565657 Reviewed 07/10/2012 12:00 AM THER/PROPH/DIAG INJ SC/IM Reviewed 07/10/2012 12:00 AM Decadron, Per 1 Mg [facility]# [address]-55 Reviewed 07/10/2012 12:00 AM Depo-Medrol, Per 80 Mg [facility]#4254-5993-11 Reviewed 10/22/2012 12:00 AM THER/PROPH/DIAG INJ SC/IM Reviewed 10/22/2012 12:00 AM Decadron, Per 1 Mg [facility]# [address]-00 Reviewed 10/22/2012 12:00 AM Depo-Medrol, Per 80 Mg [facility]#8243-5397-41 Reviewed 10/22/2012 12:00 AM Toradol 60 Mg [facility]#5435-9320-11 Reviewed 02/25/2013 12:00 AM CYTOPATH TBS C/V MANUAL Returned 02/25/2013 12:00 AM SPECIMEN HANDLING OFFICE-LAB Reviewed 02/25/2013 12:00 AM URINALYSIS AUTO W/SCOPE Returned 03/01/2013 12:00 AM US EXAM PELVIC COMPLETE Returned 02/26/2013 12:00 AM MAMMOGRAM SCREENING Returned 07/01/2013 12:00 AM THER/PROPH/DIAG INJ SC/IM Reviewed 07/01/2013 12:00 AM Decadron, Per 1 Mg [facility]# [address]-23 Reviewed 07/01/2013 12:00 AM Depo-Medrol, Per 80 Mg [facility]#7943-1500-65 Reviewed 08/08/2013 12:00 AM THER/PROPH/DIAG INJ SC/IM Reviewed 08/08/2013 12:00 AM Depo-Medrol, Per 80 Mg [facility]#3286-5293-12 Reviewed 08/08/2013 12:00 AM Toradol 60 Mg [facility]#8088-4417-15 Reviewed 01/29/2014 12:00 AM THER/PROPH/DIAG INJ SC/IM Reviewed 01/29/2014 12:00 AM Decadron 8 Mg [facility]# [address]-24 Reviewed 01/29/2014 12:00 AM Depo-Medrol, Per 80 Mg [facility]#1386-3847-70 Reviewed 01/29/2014 12:00 AM Rocephin 1 gram [facility]#4305-3810-22 Reviewed 11/22/2010 12:00 AM THER/PROPH/DIAG INJ SC/IM Reviewed 11/22/2010 12:00 AM Decadron Inj.8mg-([facility]) [facility] #[id number] Reviewed 11/22/2010 12:00 AM Depo-Medrol 80 Mg Im/[facility] 0009-551526 Reviewed 11/22/2010 12:00 AM Rocephin, Per 250MG - 1 Gram Vial Reviewed 02/09/2011 12:00 AM IMMUNIZATION ADMIN Reviewed 02/09/2011 12:00 AM TD VACCINE NO PRSRV 7/> IM Reviewed 09/03/2009 12:00 AM MRI NECK SPINE W/DYE Reviewed 03/31/2015 12:00 AM ROUTINE VENIPUNCTURE Reviewed 05/15/2015 12:00 AM THER/PROPH/DIAG INJ SC/IM Reviewed 05/15/2015 12:00 AM Decadron, Per 1 Mg [facility]# [address]-56 Reviewed 05/15/2015 12:00 AM Depo-Medrol, Per 80 Mg [facility]#0112-1311-43 Reviewed Results Summary Data and Description Results [...] Vis Given Vis Pub CVX Td 02/09/[address] [facility] DECAVA [id number] Intramuscular Left Deltoid 02/09/2011 09/02/2008 999 History [...] routine gynecological examination Feb 04 2016 11:38AM Payers Insurance Name Company Name Plan Name Plan Number Policy Number Policy Group Number Start Date [facility] [id number] N/A Medicare Part A Medicare - Lab/Xray [id number] N/A Medicare Part B Medicare Secondary [id number] N/A Medicare Part A Medicare Part A [id number] N/A [facility] Financial Assistance [facility] Financial Geoff 8 1 13 fifty percent N/A [facility] Claims [place] [id number] N/A [place] Medical Assistance Program [place] [employer] Prog [id number] N/A [facility] [id number] N/A [facility] [id number] N/A [facility] [id number] N/A [facility] Financial Assistance [facility] Financial Geoff 50 Percent N/A History [...] visit KAPIL CUEVAS 10/28/2013 Office visit KAPIL ROLLINS PA 09/30/2013 [facility] Zan Hines MD 08/08/2013 Office visit KAPIL ROLLINS PA 07/01/2013 Office visit KAPIL ROLLINS PA 03/28/2013 Office visit Nikolai Stoner MD 03/14/2013 [facility] Kapil Wells MD 02/26/2013 Office visit Kapil Wells MD 02/25/2013 Office visit Nikolai Stoner MD 02/01/2013 Office visit KAPIL ROLLINS PA 01/22/2013 Office visit KAPIL ROLLINS PA 12/21/2012 Office visit KPAIL ROLLINS PA 10/22/2012 Office visit KAPIL ROLLINS [...]
--- OUTSIDE RECORDS SUMMARY | 2018-08-04 16:59 | XMS REPORT ---
Author Author KAPIL ROLLINS [facility] Address [address] [place], [place] [id number] Care Team Providers Care Lockmaker Name Role Phone KAPIL ROLLINS PCP Unavailable [...] 12:00 AM Decadron, Per 1 Mg [facility]# [address]-57 Reviewed 09/21/2015 12:00 AM Depo-Medrol, Per 80 Mg [facility]#2686-6173-69 Reviewed 09/21/2015 12:00 AM Rocephin 1 gram [facility]#5414-7136-93 Reviewed 03/06/2012 12:00 AM DRAIN/INJ JOINT/BURSA W/O US Reviewed 04/04/2012 12:00 AM THER/PROPH/DIAG INJ SC/IM Reviewed 04/04/2012 12:00 AM Decadron Inj.1mg-([facility]) [facility] #[id number] Reviewed 04/04/2012 12:00 AM Depo-Medrol 80 Mg Im/[facility] [id number] Reviewed 07/10/2012 12:00 AM THER/PROPH/DIAG INJ SC/IM Reviewed 07/10/2012 12:00 AM Decadron, Per 1 Mg [facility]# [address]-68 Reviewed 07/10/2012 12:00 AM Depo-Medrol, Per 80 Mg [facility]#0908-3528-48 Reviewed 10/22/2012 12:00 AM THER/PROPH/DIAG INJ SC/IM Reviewed 10/22/2012 12:00 AM Decadron, Per 1 Mg [facility]# [address]-03 Reviewed 10/22/2012 12:00 AM Depo-Medrol, Per 80 Mg [facility]#8394-6750-81 Reviewed 10/22/2012 12:00 AM Toradol 60 Mg [facility]#4292-8387-44 Reviewed 02/25/2013 12:00 AM CYTOPATH TBS C/V MANUAL Returned 02/25/2013 12:00 AM SPECIMEN HANDLING OFFICE-LAB Reviewed 02/25/2013 12:00 AM URINALYSIS AUTO W/SCOPE Returned 03/01/2013 12:00 AM US EXAM PELVIC COMPLETE Returned 02/26/2013 12:00 AM MAMMOGRAM SCREENING Returned 07/01/2013 12:00 AM THER/PROPH/DIAG INJ SC/IM Reviewed 07/01/2013 12:00 AM Decadron, Per 1 Mg [facility]# [address]-80 Reviewed 07/01/2013 12:00 AM Depo-Medrol, Per 80 Mg [facility]#1092-1900-59 Reviewed 08/08/2013 12:00 AM THER/PROPH/DIAG INJ SC/IM Reviewed 08/08/2013 12:00 AM Depo-Medrol, Per 80 Mg [facility]#6248-9415-97 Reviewed 08/08/2013 12:00 AM Toradol 60 Mg [facility]#8681-3399-16 Reviewed 01/29/2014 12:00 AM THER/PROPH/DIAG INJ SC/IM Reviewed 01/29/2014 12:00 AM Decadron 8 Mg [facility]# [address]-18 Reviewed 01/29/2014 12:00 AM Depo-Medrol, Per 80 Mg [facility]#7662-1012-75 Reviewed 01/29/2014 12:00 AM Rocephin 1 gram [facility]#1027-9905-98 Reviewed 11/22/2010 12:00 AM THER/PROPH/DIAG INJ SC/IM Reviewed 11/22/2010 12:00 AM Decadron Inj.8mg-([facility]) [facility] #[id number] Reviewed 11/22/2010 12:00 AM Depo-Medrol 80 Mg Im/[facility] [id number] Reviewed 11/22/2010 12:00 AM Rocephin, Per 250MG - 1 Gram Vial Reviewed 02/09/2011 12:00 AM IMMUNIZATION ADMIN Reviewed 02/09/2011 12:00 AM TD VACCINE NO PRSRV 7/> IM Reviewed 09/03/2009 12:00 AM MRI NECK SPINE W/DYE Reviewed 03/31/2015 12:00 AM ROUTINE VENIPUNCTURE Reviewed 05/15/2015 12:00 AM THER/PROPH/DIAG INJ SC/IM Reviewed 05/15/2015 12:00 AM Decadron, Per 1 Mg [facility]# [address]-77 Reviewed 05/15/2015 12:00 AM Depo-Medrol, Per 80 Mg [facility]#0040-3038-13 Reviewed Results Summary Data and Description Results [...] Vis Given Vis Pub [facility] DECAVA [id number] Intramuscular Left Deltoid 02/09/2011 09/02/2008 999 History [...] Policy Number Policy Group Number Start Date [facility] [id number] N/A Medicare Part A Medicare - Lab/Xray [id number] N/A Medicare Part B Medicare Secondary [id number] N/A Medicare Part A Medicare Part A [id number] N/A [facility] Financial Assistance [facility] Financial Geoff 8 1 13 fifty percent N/A Count Includes [facility] Claims [place] [id number] N/A [place] [employer] [place] Prog [id number] N/A [facility] [id number] N/A [facility] [id number] N/A [facility] [id number] N/A [facility] Financial Assistance [facility] Financial Geoff 50 Percent N/A [...] Office visit KAPIL CUEVAS 10/28/2013 Office visit KPAIL ROLLINS PA 09/30/2013 [facility] Zan Hines MD 08/08/2013 Office visit KAPIL ROLLINS PA 07/01/2013 Office visit KAPIL ROLLINS PA 03/28/2013 Office visit Nikolai Stoner MD 03/14/2013 [facility] Kapil Wells MD 02/26/2013 Office [...]
--- OUTSIDE RECORDS SUMMARY | 2018-08-04 17:00 | XMS REPORT ---
Author KAPIL Rubi [facility] Address [address] [place], [place] [address] Care Team Providers Care Gamma Facilities Operator Name Role Phone KAPIL ROLLINS PCP Unavailable [...] by intranasal route 2 times per day duloxetine 60 mg oral capsule,delayed release(DR/EC) 07/11/2016 [...] 1 TABLET BY ORAL ROUTE TWICE DAILY zolpidem 10 mg Oral tablet 12/01/2016 03/31/2017 Take one half to 1 tab at [...] HC BMI BSA BMI Percentile O2 Sat(%) 12/15/2016 8:02:00 AM 186 lbs 11/14/2016 9:09:00 [...] 09/21/2015 12:00 AM Decadron, Per 1 Mg [place]# [address]-90 Reviewed 09/21/2015 12:00 AM Depo-Medrol, Per 80 Mg [facility]#9660-3895-80 Reviewed 09/21/2015 12:00 AM Rocephin 1 gram [facility]#9102-9591-47 Reviewed 04/28/2016 12:00 AM Decadron, Per 1 Mg [facility]# [address]-94 Reviewed 04/28/2016 12:00 AM Rocephin 1 gram [facility]#0638-9794-21 Reviewed 06/22/2016 12:00 AM Decadron, Per 1 Mg [facility]# [address]-64 Reviewed 06/22/2016 12:00 AM Depo-Medrol, Per 80 Mg [facility]#0858-1082-38 Reviewed 07/21/2016 12:00 AM Decadron, Per 1 Mg [facility]# [address]-63 Reviewed 07/21/2016 12:00 AM Rocephin [address] [facility]#8485-2938-03 Reviewed 11/14/2016 12:00 AM THER/PROPH/DIAG INJ SC/IM Reviewed 11/14/2016 12:00 AM Decadron 8mg Injection Reviewed 11/14/2016 12:00 AM Depo-Medrol 80mg Injection Reviewed 11/14/2016 12:00 AM Rocephin 1 gram Injection Reviewed 03/06/2012 12:00 AM DRAIN/INJ JOINT/BURSA W/O US Reviewed 04/04/2012 12:00 AM THER/PROPH/DIAG INJ SC/IM Reviewed 04/04/2012 12:00 AM Decadron Inj.1mg-([facility]) [facility] #[id number] Reviewed 04/04/2012 12:00 AM Depo-Medrol 80 Mg Im/[facility] [phone] Reviewed 07/10/2012 12:00 AM THER/PROPH/DIAG INJ SC/IM Reviewed 07/10/2012 12:00 AM Decadron, Per [address] [facility]# [address]-31 Reviewed 07/10/2012 12:00 AM Depo-Medrol, Per [address] [facility]#1649-9103-23 Reviewed 10/22/2012 12:00 AM THER/PROPH/DIAG INJ SC/IM Reviewed 10/22/2012 12:00 AM Decadron, Per [address] [facility]# [address]-69 Reviewed 10/22/2012 12:00 AM Depo-Medrol, Per [address] [facility]#2213-2810-81 Reviewed 10/22/2012 12:00 AM Toradol [address] [facility]#1219-8866-50 Reviewed 02/25/2013 12:00 AM CYTOPATH TBS C/V MANUAL Reviewed 02/25/2013 12:00 AM SPECIMEN HANDLING OFFICE-LAB Reviewed 02/25/2013 12:00 AM URINALYSIS AUTO W/SCOPE Reviewed 03/01/2013 12:00 AM US EXAM PELVIC COMPLETE Reviewed 02/26/2013 12:00 AM MAMMOGRAM SCREENING Reviewed 07/01/2013 12:00 AM THER/PROPH/DIAG INJ SC/IM Reviewed 07/01/2013 12:00 AM Decadron, Per [address] [facility]# [address]-91 Reviewed 07/01/2013 12:00 AM Depo-Medrol, Per [address] [facility]#7700-3178-66 Reviewed 08/08/2013 12:00 AM THER/PROPH/DIAG INJ SC/IM Reviewed 08/08/2013 12:00 AM Depo-Medrol, Per [address] [facility]#6420-2730-53 Reviewed 08/08/2013 12:00 AM Toradol [address] [facility]#6553-4712-55 Reviewed 01/29/2014 12:00 AM THER/PROPH/DIAG INJ SC/IM Reviewed 01/29/2014 12:00 AM Decadron [address] [facility]# [address]-12 Reviewed 01/29/2014 12:00 AM Depo-Medrol, Per [address] [facility]#2675-1841-85 Reviewed 01/29/2014 12:00 AM Rocephin [address] [facility]#8584-7253-02 Reviewed 11/22/2010 12:00 AM THER/PROPH/DIAG INJ SC/IM Reviewed 11/22/2010 12:00 AM Decadron Inj.8mg-([facility]) [facility] #[id number] Reviewed 11/22/2010 12:00 AM Depo-Medrol 80 Mg Im/[facility] [id number] Reviewed 11/22/2010 12:00 AM Rocephin, Per 250MG - 1 Gram Vial Reviewed 02/09/2011 12:00 AM IMMUNIZATION ADMIN Reviewed 02/09/2011 12:00 AM TD VACCINE NO PRSRV 7/> IM Reviewed 09/03/2009 12:00 AM MRI NECK SPINE W/DYE Reviewed 03/31/2015 12:00 AM ROUTINE VENIPUNCTURE Reviewed 05/15/2015 12:00 AM THER/PROPH/DIAG INJ SC/IM Reviewed 05/15/2015 12:00 AM Decadron, Per [address] [facility]# [address]-23 Reviewed 05/15/2015 12:00 AM Depo-Medrol, Per [address] [facility]#4044-6576-23 Reviewed Results Summary Data and Description Results 08/07/2012 10:35 AM WBC 4.9 RBC 4.39 HGB 13.50 g/dLHCT 39.50 %MCV 90.0 fLMCH 30.80 pgMCHC 34.20 g/dLRDW SD 44 RDW CV 13.40 %MPV 10.20 fLPLT 280 NRBC# 0.00 NRBC% 0.0 %NEUT 46.0 %%LYMP 40.10 %%MONO 8.20 %%EOS 5.10 %%BASO 0.60 %#NEUT 2.25 #LYMP 1.96 #MONO 0.40 #EOS 0.25 #BASO 0.03 MANUAL DIFF NOT IND GLUCOSE 89.0 mg/dLSODIUM 142.0 mmol/LPOTASSIUM 3.50 mmol/LCHLORIDE 107.0 mmol/LCO2 27.0 mmol/LBUN 14.0 mg/dLCREATININE 0.80 mg/dLSGOT/AST 35.0 IU/LSGPT/ALT 26.0 IU/ LALK PHOS 68.0 IU/LTOTAL PROTEIN 7.60 g/dLALBUMIN 4.30 g/dLTOTAL BILI 0.50 mg/ dLCALCIUM 9.70 mg/dLAGE 51 GFR NonAA 76 GFR AA 92 eGFR 60 eGFR AA* 60 TRIGLYCERIDES 65.0 mg/dLCHOLESTEROL 226.0 mg/dLHDL 55.0 mg/dLTOT CHOL/HDL 4.1 LDL (CALC) 158.0 mg/dLFREE T4 1.09 TSH 1.810 uIU/mL 01/25/2013 8:00 AM WBC 5.4 RBC 4.61 HGB 14.0 g/dLHCT 40.90 %MCV 89.0 fLMCH 30.40 pgMCHC 34.20 g/dLRDW SD 43 RDW CV 13.30 %MPV 10.20 fLPLT 294 NRBC# 0.00 NRBC% 0.0 %NEUT 43.30 %%LYMP 40.30 %%MONO 9.10 %%EOS 6.70 %%BASO 0.60 %#NEUT 2.33 #LYMP 2.17 #MONO 0.49 #EOS 0.36 #BASO 0.03 MANUAL DIFF NOT IND TRIGLYCERIDES 87.0 mg/dLCHOLESTEROL 218.0 mg/dLHDL 46.0 mg/dLTOT CHOL/HDL 4.7 LDL 154.0 mg/dLGLUCOSE 100.0 mg/dLSODIUM 142.0 mmol/LPOTASSIUM 3.90 mmol/ LCHLORIDE 106.0 mmol/LCO2 26.0 mmol/LBUN 16.0 mg/dLCREATININE 0.80 mg/dLSGOT/ AST 33.0 IU/LSGPT/ALT 32.0 IU/LALK PHOS 81.0 IU/LTOTAL PROTEIN 7.40 g/dLALBUMIN 4.20 g/dLTOTAL BILI 0.50 mg/dLCALCIUM 9.80 mg/dLAGE 52 GFR NonAA 76 GFR AA 92 eGFR 60 eGFR AA* 60 FREE T4 1.11 TSH 2.630 uIU/mL 02/25/2013 6:20 PM COLOR YELLOW APPEARANCE CLEAR SPEC GRAV 1.010 pH 6.0 PROTEIN NEGATIVE GLUCOSE NEGATIVE KETONE NEGATIVE BILIRUBIN NEGATIVE BLOOD NEGATIVE NITRITE NEGATIVE LEUK SCREEN NEGATIVE WBC/HPF RARE RBC/HPF NEGATIVE CASTS/LPF NEGATIVE CRYSTALS NEGATIVE MUCOUS THRDS NEGATIVE BACTERIA NEGATIVE EPITH CELLS NEGATIVE TRICHOMONAS NEGATIVE YEAST NEGATIVE CULT SET UP? NO 03/14/2013 4:12 PM C DIFFICILE NEGATIVE -- C DIFF TOXIN NOT DETECTED SOURCE: STOOL 10/12/2016 10:10 AM WBC 5.8 RBC 4.66 HGB 14.10 g/dLHCT 42.40 %MCV 91.0 fLMCH 30.30 pgMCHC 33.30 g/dLRDW SD 41 RDW CV 12.10 %MPV 10.20 fLPLT 306 NRBC# 0.00 NRBC% 0.0 %NEUT 49.20 %%LYMP 33.0 %%MONO 8.60 %%EOS 7.70 %%BASO 1.0 %#NEUT 2.87 #LYMP 1.93 #MONO 0.50 #EOS 0.45 #BASO 0.06 MANUAL DIFF NOT IND GLUCOSE 105.0 mg/ dLSODIUM 143.0 mmol/LPOTASSIUM 4.30 mmol/LCHLORIDE 106.0 mmol/LCO2 25.0 mmol/ LBUN 15.0 mg/dLCREATININE 0.90 mg/dLCALCIUM 9.20 mg/dLAGE 55 GFR NonAA 65 GFR AA 79 eGFR >60 mL/min/1.73meGFR AA* >60 History Of Immunizations Name Date Admin Mfg Name Mfg Code Trade Name Lot# Route Inj Vis Given Vis Pub CVX Td 02/09/2011 [employer] PMC DECAVAC [id number] Intramuscular Left Deltoid 02/09/2011 09/02/2008 999 History [...] Screening breast examination Dec 29 2016 11:20AM Payers Insurance Name Company Name Plan Name Plan Number Policy Number Policy Group Number Start Date [facility] [id number] N/A [employer] Assistance [employer] Geoff approved to 05-22-17 N/A [facility] [id number] N/A [place] Medical [place] Pro[place] [id number] N/A [facility] [id number] N/A [facility] [id number] N/A [facility] [id number] N/A [employer] Financial Assistance [employer] Geoff 50 Percent N/A Medicare Part A Medicare - Lab/Xray [id number] N/A Medicare Part B Medicare Secondary [id number] N/A Medicare Part A Medicare Part A [id number] N/A History of Encounters Visit Date Visit Type Provider 12/29/2016 Office visit KAPIL CUEVAS 11/14/2016 Office visit KAPIL ROLLINS PA 10/12/2016 Laboratory Zan Hines MD 07/21/2016 Office visit KAPIL ROLLINS PA 06/22/2016 Office visit KAPIL ROLLINS PA 04/28/2016 Office visit KAPIL ROLLINS PA 03/09/2016 [...] 10/28/2013 Office visit KAPIL ROLLINS PA 09/30/2013 Hospital Zan Hines MD 08/08/2013 Office visit KAPIL CUEVAS 07/01/2013 Office visit KAPIL ROLLINS PA 03/28/2013 Office visit Nikolai Stoner MD 03/14/2013 Hospital Kapil Wells MD 02/26/2013 Office visit [...]
--- OUTSIDE RECORDS SUMMARY | 2018-08-04 17:01 | XMS REPORT ---
Author Author KAPIL ROLLINS [facility] Address [address] [place], [place] [address] Care Team Providers Care Tiltrotor Crew Chief Name Role Phone KAPIL ROLLINS PCP Unavailable [...] 1 Mg [facility]# [address]-94 Reviewed 09/21/2015 12:00 AM Depo-Medrol, Per 80 Mg [facility]#9023-3444-75 Reviewed 09/21/2015 12:00 AM Rocephin 1 gram [facility]#9531-0512-51 Reviewed 03/06/2012 12:00 AM DRAIN/INJ JOINT/BURSA W/O US Reviewed 04/04/2012 12:00 AM THER/PROPH/DIAG INJ SC/IM Reviewed 04/04/2012 12:00 AM Decadron Inj.1mg-([facility]) [facility] #[id number] Reviewed 04/04/2012 12:00 AM Depo-Medrol 80 Mg Im/[facility] [phone] Reviewed 07/10/2012 12:00 AM THER/PROPH/DIAG INJ SC/IM Reviewed 07/10/2012 12:00 AM Decadron, Per 1 Mg [facility]# [address]-46 Reviewed 07/10/2012 12:00 AM Depo-Medrol, Per 80 Mg [facility]#0588-7778-58 Reviewed 10/22/2012 12:00 AM THER/PROPH/DIAG INJ SC/IM Reviewed 10/22/2012 12:00 AM Decadron, Per 1 Mg [facility]# [address]-60 Reviewed 10/22/2012 12:00 AM Depo-Medrol, Per 80 Mg [facility]#3980-2792-94 Reviewed 10/22/2012 12:00 AM Toradol 60 Mg [facility]#2750-0441-35 Reviewed 02/25/2013 12:00 AM CYTOPATH TBS C/V MANUAL Returned 02/25/2013 12:00 AM SPECIMEN HANDLING OFFICE-LAB Reviewed 02/25/2013 12:00 AM URINALYSIS AUTO W/SCOPE Returned 03/01/2013 12:00 AM US EXAM PELVIC COMPLETE Returned 02/26/2013 12:00 AM MAMMOGRAM SCREENING Returned 07/01/2013 12:00 AM THER/PROPH/DIAG INJ SC/IM Reviewed 07/01/2013 12:00 AM Decadron, Per 1 Mg [facility]# [address]-49 Reviewed 07/01/2013 12:00 AM Depo-Medrol, Per 80 Mg [facility]#2827-6880-02 Reviewed 08/08/2013 12:00 AM THER/PROPH/DIAG INJ SC/IM Reviewed 08/08/2013 12:00 AM Depo-Medrol, Per 80 Mg [facility]#1425-8471-60 Reviewed 08/08/2013 12:00 AM Toradol 60 Mg [facility]#5652-4011-64 Reviewed 01/29/2014 12:00 AM THER/PROPH/DIAG INJ SC/IM Reviewed 01/29/2014 12:00 AM Decadron 8 Mg [facility]# [address]-29 Reviewed 01/29/2014 12:00 AM Depo-Medrol, Per 80 Mg [facility]#8857-8728-10 Reviewed 01/29/2014 12:00 AM Rocephin 1 gram [facility]#2625-7263-53 Reviewed 11/22/2010 12:00 AM THER/PROPH/DIAG INJ SC/IM Reviewed 11/22/2010 12:00 AM Decadron Inj.8mg-([facility]) [facility] #[id number] Reviewed 11/22/2010 12:00 AM Depo-Medrol 80 Mg Im/[facility] [phone] Reviewed 11/22/2010 12:00 AM Rocephin, Per 250MG - 1 Gram Vial Reviewed 02/09/2011 12:00 AM IMMUNIZATION ADMIN Reviewed 02/09/2011 12:00 AM TD VACCINE NO PRSRV 7/> IM Reviewed 09/03/2009 12:00 AM MRI NECK SPINE W/DYE Reviewed 03/31/2015 12:00 AM ROUTINE VENIPUNCTURE Reviewed 05/15/2015 12:00 AM THER/PROPH/DIAG INJ SC/IM Reviewed 05/15/2015 12:00 AM Decadron, Per 1 Mg [facility]# [address]-22 Reviewed 05/15/2015 12:00 AM Depo-Medrol, Per 80 Mg [facility]#4071-3951-23 Reviewed Results Summary Data and Description Results [...] Vis Given Vis Pub CV[facility] Td [facility]2011 [facility] DECAVA [id number] Intramuscular Left Deltoid 02/09/2011 09/02/2008 999 History [...] Policy Group Number Start Date [facility] [id number] N/A Medicare Part A Medicare - Lab/Xray [id number] N/A Medicare Part B Medicare Secondary [id number] N/A Medicare Part A Medicare Part A [id number] N/A [facility] Financial Assistance [facility] Financial Geoff 8 1 13 fifty percent N/A [facility] Claims [place] [id number] N/A [place] [employer] [place] Program [place] Prog [id number] N/A [facility] [id number] N/A [facility] [id number] N/A [facility] [id number] N/A [facility] Financial Assistance [facility] Financial Geoff 50 Percent N/A History of [...] 10/28/2013 Office visit KAPIL ROLLINS PA 09/30/2013 [facility] Zan Hines MD 08/08/2013 Office visit KAPIL ROLLINS PA 07/01/2013 Office visit KAPIL ROLLINS PA 03/28/2013 Office visit Nikolai Stoner MD 03/14/2013 [facility] Kapil Wells MD 02/26/2013 Office [...]
--- OUTSIDE RECORDS SUMMARY | 2018-08-04 17:02 | XMS REPORT ---
Author KAPIL Rubi [facility] Address [address] [place], [place] [address] Care Team Providers Care Hook Loader Name Role Phone KAPIL ROLLINS PCP Unavailable [...] 09/21/2015 12:00 AM Decadron, Per 1 Mg [facility]# [address]-44 Reviewed 09/21/2015 12:00 AM Depo-Medrol, Per 80 Mg [facility]#9729-4392-89 Reviewed 09/21/2015 12:00 AM Rocephin 1 gram [facility]#5905-2585-06 Reviewed 04/28/2016 12:00 AM Decadron, Per 1 Mg [facility]# [address]-44 Reviewed 04/28/2016 12:00 AM Rocephin 1 gram [facility]#4220-7896-17 Reviewed 03/06/2012 12:00 AM DRAIN/INJ JOINT/BURSA W/O US Reviewed 04/04/2012 12:00 AM THER/PROPH/DIAG INJ SC/IM Reviewed 04/04/2012 12:00 AM Decadron Inj.1mg-([facility]) [facility] #[id number] Reviewed 04/04/2012 12:00 AM Depo-Medrol 80 Mg Im/[facility] [phone] Reviewed 07/10/2012 12:00 AM THER/PROPH/DIAG INJ SC/IM Reviewed 07/10/2012 12:00 AM Decadron, Per 1 Mg [facility]# [address]-27 Reviewed 07/10/2012 12:00 AM Depo-Medrol, Per 80 Mg [facility]#0961-6134-07 Reviewed 10/22/2012 12:00 AM THER/PROPH/DIAG INJ SC/IM Reviewed 10/22/2012 12:00 AM Decadron, Per 1 Mg [facility]# [address]-82 Reviewed 10/22/2012 12:00 AM Depo-Medrol, Per 80 Mg [facility]#0567-7464-86 Reviewed 10/22/2012 12:00 AM Toradol 60 Mg [facility]#3064-2625-10 Reviewed 02/25/2013 12:00 AM CYTOPATH TBS C/V MANUAL Returned 02/25/2013 12:00 AM SPECIMEN HANDLING OFFICE-LAB Reviewed 02/25/2013 12:00 AM URINALYSIS AUTO W/SCOPE Returned 03/01/2013 12:00 AM US EXAM PELVIC COMPLETE Returned 02/26/2013 12:00 AM MAMMOGRAM SCREENING Returned 07/01/2013 12:00 AM THER/PROPH/DIAG INJ SC/IM Reviewed 07/01/2013 12:00 AM Decadron, Per 1 Mg [facility]# [address]-79 Reviewed 07/01/2013 12:00 AM Depo-Medrol, Per 80 Mg [facility]#5275-8105-90 Reviewed 08/08/2013 12:00 AM THER/PROPH/DIAG INJ SC/IM Reviewed 08/08/2013 12:00 AM Depo-Medrol, Per 80 Mg [facility]#5878-3812-45 Reviewed 08/08/2013 12:00 AM Toradol 60 Mg [facility]#6030-1626-18 Reviewed 01/29/2014 12:00 AM THER/PROPH/DIAG INJ SC/IM Reviewed 01/29/2014 12:00 AM Decadron 8 Mg [facility]# [address]-43 Reviewed 01/29/2014 12:00 AM Depo-Medrol, Per 80 Mg [facility]#0789-5484-80 Reviewed 01/29/2014 12:00 AM Rocephin 1 gram [facility]#4710-1661-12 Reviewed 11/22/2010 12:00 AM THER/PROPH/DIAG INJ SC/IM Reviewed 11/22/2010 12:00 AM Decadron Inj.8mg-([facility]) [facility] #[id number] Reviewed 11/22/2010 12:00 AM Depo-Medrol 80 Mg Im/[facility] [id number] Reviewed 11/22/2010 12:00 AM Rocephin, Per 250MG - 1 Gram Vial Reviewed 02/09/2011 12:00 AM IMMUNIZATION ADMIN Reviewed 02/09/2011 12:00 AM TD VACCINE NO PRSRV 7/> IM Reviewed 09/03/2009 12:00 AM MRI NECK SPINE W/DYE Reviewed 03/31/2015 12:00 AM ROUTINE VENIPUNCTURE Reviewed 05/15/2015 12:00 AM THER/PROPH/DIAG INJ SC/IM Reviewed 05/15/2015 12:00 AM Decadron, Per 1 Mg [facility]# [id number] Reviewed 05/15/2015 12:00 AM Depo-Medrol, Per 80 Mg [facility]#[id number] Reviewed Results Summary Data and Description Results [...] CVX Td 02/09/2011 [employer] DECAVAC [id number] Intramuscular Left Deltoid 02/09/2011 09/02/2008 999 History [...] Policy Number Policy Group Number Start Date [facility] [id number] N/A Medicare Part A Medicare - Lab/Xray [id number] N/A Medicare Part B Medicare Secondary [id number] N/A Medicare Part A Medicare Part A [id number] N/A [employer] Financial Assistance [employer] Financial Geoff 8 1 13 fifty percent N/A [employer] [id number] N/A [place] [facility] [employer] [facility] [place] [employer] Prog [id number] N/A [facility] [id number] N/A [facility] - [facility] [id number] N/A [facility] [id number] N/A [facility] Financial Assistance [facility] Financial Geoff 50 Percent N/A History of [...] CUEVAS 10/28/2013 Office visit KAPIL CUEVAS 09/30/2013 [facility] Zan Hines MD 08/08/2013 Office visit KAPIL CUEVAS 07/01/2013 Office visit KAPIL CUEVAS 03/28/2013 Office visit Nikolai Stoner MD 03/14/2013 [facility] Kapil Wells MD 02/26/2013 Office visit Kapil Wells MD 02/25/2013 Office visit Nikolai Stoner MD 02/01/2013 Office visit KAPIL CUEVAS 01/22/2013 Office visit KAPIL CUEVAS 12/21/2012 Office visit KAPIL CUEVAS 10/22/2012 Office visit KAPIL CUEVAS 09/17/2012 Office visit KAPIL CUEVAS 07/10/2012 Office visit KAPIL CUEVAS 04/04/2012 Office visit KAPIL CUEVAS 03/06/2012 Office visit KAPIL CUEVAS 02/06/2012 Office visit KAPIL ROLLINS PA 04/07/2011 [...]
--- OUTSIDE RECORDS SUMMARY | 2018-08-04 17:03 | XMS REPORT ---
Author KAPIL Rubi [facility] Address [address] [place], [place] [id number] Care Team Providers Care Transfer Pumper Name Role Phone KAPIL ROLLINS PCP Unavailable [...] 1 TABLET BY ORAL ROUTE TWICE DAILY amoxicillin 875 mg oral tablet 10/29/2015 11/08/2015 [...] tablet 12/15/2014 12/25/2014 2X4 days 1X4 days Discontinued Name Start Date Discontinued Date [...] day phentermine 37.5 mg oral tablet 11/24/2009 07/10/2012/2 q am Vyvanse 30 mg oral capsule [...] HC BMI BSA BMI Percentile O2 Sat(%) 10/29/2015 8:09:00 AM 138 mmHg 80 mmHg [...] 09/21/2015 12:00 AM Decadron, Per 1 Mg [facility]# [address]-46 Reviewed 09/21/2015 12:00 AM Depo-Medrol, Per 80 Mg [facility]#4828-2606-15 Reviewed 09/21/2015 12:00 AM Rocephin 1 gram [facility]#6093-0016-11 Reviewed 03/06/2012 12:00 AM DRAIN/INJ JOINT/BURSA W/O US Reviewed 04/04/2012 12:00 AM THER/PROPH/DIAG INJ SC/IM Reviewed 04/04/2012 12:00 AM Decadron Inj.1mg-([facility]) [facility] #[id number] Reviewed 04/04/2012 12:00 AM Depo-Medrol 80 Mg Im/[facility] [id number] Reviewed 07/10/2012 12:00 AM THER/PROPH/DIAG INJ SC/IM Reviewed 07/10/2012 12:00 AM Decadron, Per 1 Mg [facility]# [address]-86 Reviewed 07/10/2012 12:00 AM Depo-Medrol, Per 80 Mg [facility]#0866-5232-91 Reviewed 10/22/2012 12:00 AM THER/PROPH/DIAG INJ SC/IM Reviewed 10/22/2012 12:00 AM Decadron, Per 1 Mg [facility]# [address]-86 Reviewed 10/22/2012 12:00 AM Depo-Medrol, Per 80 Mg [facility]#5020-8643-80 Reviewed 10/22/2012 12:00 AM Toradol 60 Mg [facility]#9889-9181-87 Reviewed 02/25/2013 12:00 AM CYTOPATH TBS C/V MANUAL Returned 02/25/2013 12:00 AM SPECIMEN HANDLING OFFICE-LAB Reviewed 02/25/2013 12:00 AM URINALYSIS AUTO W/SCOPE Returned 03/01/2013 12:00 AM US EXAM PELVIC COMPLETE Returned 02/26/2013 12:00 AM MAMMOGRAM SCREENING Returned 07/01/2013 12:00 AM THER/PROPH/DIAG INJ SC/IM Reviewed 07/01/2013 12:00 AM Decadron, Per 1 Mg [facility]# [address]-50 Reviewed 07/01/2013 12:00 AM Depo-Medrol, Per 80 Mg [facility]#9943-5737-79 Reviewed 08/08/2013 12:00 AM THER/PROPH/DIAG INJ SC/IM Reviewed 08/08/2013 12:00 AM Depo-Medrol, Per 80 Mg [facility]#4401-2550-14 Reviewed 08/08/2013 12:00 AM Toradol 60 Mg [facility]#3290-3667-94 Reviewed 01/29/2014 12:00 AM THER/PROPH/DIAG INJ SC/IM Reviewed 01/29/2014 12:00 AM Decadron 8 Mg [facility]# [address]-23 Reviewed 01/29/2014 12:00 AM Depo-Medrol, Per 80 Mg [facility]#0761-2728-77 Reviewed 01/29/2014 12:00 AM Rocephin 1 gram [facility]#6174-6621-44 Reviewed 11/22/2010 12:00 AM THER/PROPH/DIAG INJ SC/IM Reviewed 11/22/2010 12:00 AM Decadron Inj.8mg-([facility]) [facility] #[id number] Reviewed 11/22/2010 12:00 AM Depo-Medrol 80 Mg Im/[facility] [phone] Reviewed 11/22/2010 12:00 AM Rocephin, Per 250MG - 1 Gram Vial Reviewed 02/09/2011 12:00 AM IMMUNIZATION ADMIN Reviewed 02/09/2011 12:00 AM TD VACCINE NO PRSRV 7/> IM Reviewed 09/03/2009 12:00 AM MRI NECK SPINE W/DYE Reviewed 03/31/2015 12:00 AM ROUTINE VENIPUNCTURE Reviewed 05/15/2015 12:00 AM THER/PROPH/DIAG INJ SC/IM Reviewed 05/15/2015 12:00 AM Decadron, Per 1 Mg [facility]# [address]-70 Reviewed 05/15/2015 12:00 AM Depo-Medrol, Per 80 Mg [facility]#8079-8346-79 Reviewed Results Summary Data and Description Results [...] DETECTED History Of Immunizations Name Date Admin [facility] Name Mf Code Trade Name Lot# Route Inj Vis Given Vis Pub CVX Td 02/09/2011 sanofi pasteur [facility] DECAVAC [id number] Intramuscular Left Deltoid 02/09/2011 09/02/2008 999 History [...] the eye region Oct 29 2015 8:10AM Payers Insurance Name Company Name Plan Name Plan Number Policy Number Policy Group Number Start Date [facility] [id number] N/A Medicare Part B Medicare Secondary [id number] N/A Medicare Part A Medicare Part A [id number] N/A [facility] Financial Assistance [facility] Financial Geoff 8 1 13 fifty percent N/A [facility] [id number] N/A [place] [facility] [place] [facility] [place] Pro [id number] N/A [facility] [id number] N/A [facility] [id number] N/A [facility] [id number] N/A [facility] Financial Assistance [facility] Financial Geoff 50 Percent N/A History of Encounters Visit Date Visit Type Provider 10/29/2015 Office visit KAPIL CUEVAS 09/21/2015 Office visit KAPIL CUEVAS 05/15/2015 Office visit 05/15/2015 Office visit KAPIL CUEVAS 03/31/2015 Office visit KAPIL CUEVAS 12/15/2014 Office visit KAPIL CUEVAS 08/19/2014 Office visit KAPIL CUEVAS 01/29/2014 Office visit KAPIL CUEVAS 10/28/2013 Office visit KAPIL CUEVAS 09/30/2013 [facility] Zan Hines MD 08/08/2013 Office visit KAPIL CUEVAS 07/01/2013 Office visit KAPIL CUEVAS 03/28/2013 Office visit Nikolai Stoner MD 03/14/2013 [facility] Kapil Wells MD 02/26/2013 Office visit Kapil Wells MD 02/25/2013 Office visit Nikolai Stoner MD 02/01/2013 Office visit KAPIL CUEVAS 01/22/2013 Office visit KAPIL CUEVAS 12/21/2012 Office visit KAPIL CUEVAS 10/22/2012 Office visit KAPIL CUEVAS 09/17/2012 Office visit KAPIL CUEVAS 07/10/2012 Office visit KAPIL CUEVAS 04/04/2012 Office visit KAPIL CUEVAS 03/06/2012 Office visit KAPIL ROLLINS PA 02/06/2012 [...]
--- OUTSIDE RECORDS SUMMARY | 2018-08-04 17:04 | XMS REPORT ---
Author Author Logan Luther Organization [facility] Address [address] [place], [place] [id number] Care Team Providers Care Chips Screen Tender Name Role Phone Logan Luther PCP KAPIL [...] 09/21/2015 12:00 AM Decadron, Per 1 Mg [facility]# [address]-56 Reviewed 09/21/2015 12:00 AM Depo-Medrol, Per 80 Mg [facility]#8020-2624-41 Reviewed 09/21/2015 12:00 AM Rocephin 1 gram [facility]#3375-8610-76 Reviewed 04/28/2016 12:00 AM Decadron, Per 1 Mg [facility]# [address]-24 Reviewed 04/28/2016 12:00 AM Rocephin 1 gram [facility]#0439-9356-83 Reviewed 06/22/2016 12:00 AM Decadron, Per 1 Mg [facility]# [address]-89 Reviewed 06/22/2016 12:00 AM Depo-Medrol, Per 80 Mg [facility]#0128-1396-54 Reviewed 07/21/2016 12:00 AM Decadron, Per 1 Mg [facility]# [address]-47 Reviewed 07/21/2016 12:00 AM Rocephin 1 gram [facility]#3143-7260-97 Reviewed 11/14/2016 12:00 AM THER/PROPH/DIAG INJ SC/IM [...] SC/IM Reviewed 04/04/2012 12:00 AM Decadron Inj.1mg-([facility]) [facility] #[id number] Reviewed 04/04/2012 12:00 AM Depo-Medrol 80 Mg Im/[facility] [phone] Reviewed 07/10/2012 12:00 AM THER/PROPH/DIAG INJ SC/IM Reviewed 07/10/2012 12:00 AM Decadron, Per 1 Mg [facility]# [address]-07 Reviewed 07/10/2012 12:00 AM Depo-Medrol, Per 80 Mg [facility]#0972-7875-09 Reviewed 10/26/2017 12:00 AM THER/PROPH/DIAG INJ SC/IM Reviewed 10/26/2017 12:00 AM Decadron 8mg Injection Reviewed 10/26/2017 12:00 AM Depo-Medrol 80mg Injection Reviewed 10/22/2012 12:00 AM THER/PROPH/DIAG INJ SC/IM Reviewed 10/22/2012 12:00 AM Decadron, Per 1 Mg [facility]# [address]-97 Reviewed 10/22/2012 12:00 AM Depo-Medrol, Per 80 Mg [facility]#4641-2056-48 Reviewed 10/22/2012 12:00 AM Toradol 60 Mg [facility]#6281-2260-27 Reviewed 02/25/2013 12:00 AM CYTOPATH TBS C/V MANUAL Reviewed 02/25/2013 12:00 AM SPECIMEN HANDLING OFFICE-LAB Reviewed 02/25/2013 12:00 AM URINALYSIS AUTO W/SCOPE Reviewed 03/01/2013 12:00 AM US EXAM PELVIC COMPLETE Reviewed 02/26/2013 12:00 AM MAMMOGRAM SCREENING Reviewed 07/01/2013 12:00 AM THER/PROPH/DIAG INJ SC/IM Reviewed 07/01/2013 12:00 AM Decadron, Per 1 Mg [facility]# [address]-12 Reviewed 07/01/2013 12:00 AM Depo-Medrol, Per 80 Mg [facility]#6782-9980-07 Reviewed 08/08/2013 12:00 AM THER/PROPH/DIAG INJ SC/IM Reviewed 08/08/2013 12:00 AM Depo-Medrol, Per 80 Mg [facility]#8444-6871-57 Reviewed 08/08/2013 12:00 AM Toradol 60 Mg [facility]#2444-9163-63 Reviewed 01/29/2014 12:00 AM THER/PROPH/DIAG INJ SC/IM Reviewed 01/29/2014 12:00 AM Decadron 8 Mg [facility]# [address]-64 Reviewed 01/29/2014 12:00 AM Depo-Medrol, Per 80 Mg [facility]#8150-7251-30 Reviewed 01/29/2014 12:00 AM Rocephin 1 gram [facility]#8798-2209-05 Reviewed 11/22/2010 12:00 AM THER/PROPH/DIAG INJ SC/IM Reviewed 11/22/2010 12:00 AM Decadron Inj.8mg-([facility]) [facility] #[id number] Reviewed 11/22/2010 12:00 AM Depo-Medrol 80 Mg Im/[facility] [phone] Reviewed 11/22/2010 12:00 AM Rocephin, Per 250MG - 1 Gram Vial Reviewed 02/09/2011 12:00 AM IMMUNIZATION ADMIN Reviewed 02/09/2011 12:00 AM TD VACCINE NO PRSRV 7/> IM Reviewed 09/03/2009 12:00 AM MRI NECK SPINE W/DYE Reviewed 03/31/2015 12:00 AM ROUTINE VENIPUNCTURE Reviewed 05/15/2015 12:00 AM THER/PROPH/DIAG INJ SC/IM Reviewed 05/15/2015 12:00 AM Decadron, Per 1 Mg [facility]# [address]-01 Reviewed 05/15/2015 12:00 AM Depo-Medrol, Per 80 Mg [facility]#4078-5583-47 Reviewed Results Summary Date and Description Results [...] Given Vis Pub CVX Td 02/09/2011 sanofi [facility] [id number] Intramuscular Left Deltoid 02/09/2011 09/02/2008 999 History [...] Policy Group Number Start Date [facility] [id number] N/A [facility] Financial Assistance [facility] Financial Geoff approved to 05-22-17 N/A [facility] [id number] N/A [place] Medical Assistance [place] Prog [id number] N/A [facility] - RHC [id number] N/A [facility]-Health Plan [facility] - C [id number] N/A [facility] [id number] N/A [facility] Financial Assistance [facility] Financial Geoff 50 Percent N/A Medicare Part A Medicare - Lab/Xray [id number] N/A Medicare Part B Medicare Secondary [id number] N/A Medicare Part A Medicare Part A [id number] N/A History of Encounters Visit Date Visit [...] KAPIL ROLLINS PA 07/01/2013 Office visit KAPIL CUEVAS 03/28/2013 Office [...]
--- OUTSIDE RECORDS SUMMARY | 2018-08-04 17:05 | XMS REPORT ---
Author KAPIL Rubi [facility] Address [address] [place], [place] [address] Care Team Providers Care Network Admin Name Role Phone KAPIL ROLLINS PCP KAPIL ROLLINS PreferredProvider Allergies and Adverse Reactions Name Reaction Notes NO KNOWN DRUG ALLERGIES Plan of Treatment Planned Activity Comments Planned Date Planned Time Plan/Goal Screening mammography of both breasts 02/04/2016 12:00 AM Injection, Subcutaneous/IM 02/22/2018 12:00 AM MRI shoulder left wo contrast [...] BY ORAL ROUTE 2 TIMES PER DAY loratadine 10 mg oral tablet 01/03/2017 take [...] hs prn lamotrigine 100 mg oral tablet 01/05/2018 03/06/2018 TAKE 1 TABLET BY ORAL ROUTE TWICE DAILY fluticasone 50 mcg/actuation nasal spray,suspension 02/24/2018 inhale 1 spray (50 mcg) in each [...] daily in the morning for 30 days Concerta 36 mg oral [...] HC BMI BSA BMI Percentile O2 Sat(%) 02/22/2018 2:26:00 PM 124 mmHg 76 mmHg 62 bpm 18 rpm 97.2 F 180 lbs 64 in 30.8966 kg/m 1.9201 m 98 % 11/23/2017 3:31:00 PM 123 mmHg 74 mmHg [...] Per 1 Mg [facility]# [address]-19 Reviewed 09/21/2015 12:00 AM Depo-Medrol, Per 80 Mg [facility]#3099-7890-50 Reviewed 09/21/2015 12:00 AM Rocephin 1 gram [facility]#4136-3938-36 Reviewed 04/28/2016 12:00 AM Decadron, Per 1 Mg [facility]# [address]-00 Reviewed 04/28/2016 12:00 AM Rocephin 1 gram [facility]#8044-3025-28 Reviewed 06/22/2016 12:00 AM Decadron, Per 1 Mg [facility]# [address]-68 Reviewed 06/22/2016 12:00 AM Depo-Medrol, Per 80 Mg [facility]#6704-1877-60 Reviewed 07/21/2016 12:00 AM Decadron, Per 1 Mg [facility]# [address]-57 Reviewed 07/21/2016 12:00 AM Rocephin 1 gram [facility]#2586-8662-27 Reviewed 11/14/2016 12:00 AM THER/PROPH/DIAG INJ SC/IM [...] SC/IM Reviewed 04/04/2012 12:00 AM Decadron Inj.1mg-([facility]) [facility] #[id number] Reviewed 04/04/2012 12:00 AM Depo-Medrol 80 Mg Im/[facility] [id number] Reviewed 07/10/2012 12:00 AM THER/PROPH/DIAG INJ SC/IM Reviewed 07/10/2012 12:00 AM Decadron, Per 1 Mg [facility]# [address]-26 Reviewed 07/10/2012 12:00 AM Depo-Medrol, Per 80 Mg [facility]#7665-7533-02 Reviewed 10/26/2017 12:00 AM THER/PROPH/DIAG INJ SC/IM Reviewed 10/26/2017 12:00 AM Decadron 8mg Injection Reviewed 10/26/2017 12:00 AM Depo-Medrol 80mg Injection Reviewed 10/22/2012 12:00 AM THER/PROPH/DIAG INJ SC/IM Reviewed 10/22/2012 12:00 AM Decadron, Per 1 Mg [facility]# [address]-94 Reviewed 10/22/2012 12:00 AM Depo-Medrol, Per 80 Mg [facility]#9536-2718-73 Reviewed 10/22/2012 12:00 AM Toradol 60 Mg [facility]#7312-4680-02 Reviewed 11/28/2017 12:00 AM US EXAM PELVIC COMPLETE Reviewed 11/28/2017 12:00 AM TRANSVAGINAL US NON-OB Reviewed 02/25/2013 12:00 AM CYTOPATH TBS C/V MANUAL Reviewed 02/25/2013 12:00 AM SPECIMEN HANDLING OFFICE-LAB Reviewed 02/25/2013 12:00 AM URINALYSIS AUTO W/SCOPE Reviewed 03/01/2013 12:00 AM US EXAM PELVIC COMPLETE Reviewed 02/26/2013 12:00 AM MAMMOGRAM SCREENING Reviewed 07/01/2013 12:00 AM THER/PROPH/DIAG INJ SC/IM Reviewed 07/01/2013 12:00 AM Decadron, Per 1 Mg [facility]# [address]-78 Reviewed 07/01/2013 12:00 AM Depo-Medrol, Per 80 Mg [place]#6912-2243-03 Reviewed 08/08/2013 12:00 AM THER/PROPH/DIAG INJ SC/IM Reviewed 08/08/2013 12:00 AM Depo-Medrol, Per 80 Mg [facility]#3517-1594-79 Reviewed 08/08/2013 12:00 AM Toradol 60 Mg [facility]#8880-7025-29 Reviewed 01/29/2014 12:00 AM THER/PROPH/DIAG INJ SC/IM Reviewed 01/29/2014 12:00 AM Decadron 8 Mg [facility]# [address]-35 Reviewed 01/29/2014 12:00 AM Depo-Medrol, Per 80 Mg [facility]#3889-2773-16 Reviewed 01/29/2014 12:00 AM Rocephin 1 gram [facility]#0358-1010-98 Reviewed 11/22/2010 12:00 AM THER/PROPH/DIAG INJ SC/IM Reviewed 11/22/2010 12:00 AM Decadron Inj.8mg-([facility]) [facility] #[id number] Reviewed 11/22/2010 12:00 AM Depo-Medrol 80 Mg Im/[facility] [id number] Reviewed 11/22/2010 12:00 AM Rocephin, Per 250MG - 1 Gram Vial Reviewed 02/09/2011 12:00 AM IMMUNIZATION ADMIN Reviewed 02/09/2011 12:00 AM TD VACCINE NO PRSRV 7/> IM Reviewed 09/03/2009 12:00 AM MRI NECK SPINE W/DYE Reviewed 03/31/2015 12:00 AM ROUTINE VENIPUNCTURE Reviewed 05/15/2015 12:00 AM THER/PROPH/DIAG INJ SC/IM Reviewed 05/15/2015 12:00 AM Decadron, Per 1 Mg [facility]# [address]-92 Reviewed 05/15/2015 12:00 AM Depo-Medrol, Per 80 Mg [facility]#0843-2005-87 Reviewed Results Summary Date and Description Results [...] Vis Pub CVX Td 02/09/2011 sanofi pasteur [facility] DE[facility] [id number] Intramuscular Left Deltoid 02/09/2011 09/02/2008 999 History [...] Abdominal pain, generalized Nov 23 2017 3:38PM Eustachian Tube Dysfunction Feb 22 2018 2:27PM Purulent postnasal drainage Feb 22 2018 2:27PM Acute seasonal allergic rhinitis, unspecified trigger Feb 22 2018 2:27PM Acute labyrinthitis, bilateral Feb 22 2018 2:27PM Payers Insurance Name Company Name Plan Name Plan Number Policy Number Policy Group Number Start Date [facility] [id number] N/A [facility] Financial [facility] Financial Geoff approved to 05-22-17 N/A [facility] [id number] N/A [place] Medical Assistance Program [place] Prog [id number] N/A [facility] [place] [id number] N/A [facility] [place] [facility] [id number] N/A [facility] [id number] N/A [facility] Financial Assistance [facility] Financial Geoff 50 Percent N/A Medicare Part A Medicare - Lab/Xray [id number] N/A Medicare Part B Medicare Secondary [id number] N/A Medicare Part A Medicare Part A [id number] N/A History of Encounters Visit Date Visit Type Provider 02/22/2018 Office visit KAPIL CUEVAS 11/23/2017 Office visit Logan Luther MD 10/26/2017 [...] KAPIL ROLLINS PA 10/28/2013 Office visit KAPIL CUEVAS 09/30/2013 Hospital Zan Hines MD 08/08/2013 Office [...] visit Kapil CUEVAS-C 11/24/2009 Office visit Kapil CUEVAS-C 10/29/2009 Office visit Kapil CUEVAS-C 09/03/2009 Office visit Kapil CUEVAS-C 08/24/2009 Office visit Kapil CUEVAS-C 06/10/2009 Office visit KAPIL CUEVAS
--- OUTSIDE RECORDS SUMMARY | 2018-08-04 17:06 | XMS REPORT ---
Author KAPIL Rubi [facility] Address [address] [place], [place] [address] Care Team Providers Care Precision Agriculture Specialist Name Role Phone KAPIL ROLLINS PCP Unavailable [...] AM Decadron, Per 1 Mg [facility]# [address]-91 Reviewed 09/21/2015 12:00 AM Depo-Medrol, Per 80 Mg [facility]#8719-6289-52 Reviewed 09/21/2015 12:00 AM Rocephin 1 gram [facility]#7016-5973-89 Reviewed 03/06/2012 12:00 AM DRAIN/INJ JOINT/BURSA W/O US Reviewed 04/04/2012 12:00 AM THER/PROPH/DIAG INJ SC/IM Reviewed 04/04/2012 12:00 AM Decadron Inj.1mg-([facility]) [facility] #[id number] Reviewed 04/04/2012 12:00 AM Depo-Medrol 80 Mg Im/[facility] [id number] Reviewed 07/10/2012 12:00 AM THER/PROPH/DIAG INJ SC/IM Reviewed 07/10/2012 12:00 AM Decadron, Per 1 Mg [facility]# [address]-78 Reviewed 07/10/2012 12:00 AM Depo-Medrol, Per 80 Mg [facility]#1146-7524-36 Reviewed 10/22/2012 12:00 AM THER/PROPH/DIAG INJ SC/IM Reviewed 10/22/2012 12:00 AM Decadron, Per 1 Mg [facility]# [address]-98 Reviewed 10/22/2012 12:00 AM Depo-Medrol, Per 80 Mg [facility]#0711-8165-66 Reviewed 10/22/2012 12:00 AM Toradol 60 Mg [facility]#8389-6860-76 Reviewed 02/25/2013 12:00 AM CYTOPATH TBS C/V MANUAL Returned 02/25/2013 12:00 AM SPECIMEN HANDLING OFFICE-LAB Reviewed 02/25/2013 12:00 AM URINALYSIS AUTO W/SCOPE Returned 03/01/2013 12:00 AM US EXAM PELVIC COMPLETE Returned 02/26/2013 12:00 AM MAMMOGRAM SCREENING Returned 07/01/2013 12:00 AM THER/PROPH/DIAG INJ SC/IM Reviewed 07/01/2013 12:00 AM Decadron, Per 1 Mg [facility]# [address]-98 Reviewed 07/01/2013 12:00 AM Depo-Medrol, Per 80 Mg [facility]#4157-5368-42 Reviewed 08/08/2013 12:00 AM THER/PROPH/DIAG INJ SC/IM Reviewed 08/08/2013 12:00 AM Depo-Medrol, Per 80 Mg [facility]#6409-5659-00 Reviewed 08/08/2013 12:00 AM Toradol 60 Mg [facility]#5813-1069-70 Reviewed 01/29/2014 12:00 AM THER/PROPH/DIAG INJ SC/IM Reviewed 01/29/2014 12:00 AM Decadron 8 Mg [facility]# [address]-78 Reviewed 01/29/2014 12:00 AM Depo-Medrol, Per 80 Mg [facility]#8911-6933-76 Reviewed 01/29/2014 12:00 AM Rocephin 1 gram [facility]#5723-2666-97 Reviewed 11/22/2010 12:00 AM THER/PROPH/DIAG INJ SC/IM Reviewed 11/22/2010 12:00 AM Decadron Inj.8mg-([facility]) [facility] #[id number] Reviewed 11/22/2010 12:00 AM Depo-Medrol 80 Mg Im/[facility] [id number] Reviewed 11/22/2010 12:00 AM Rocephin, Per 250MG - 1 Gram Vial Reviewed 02/09/2011 12:00 AM IMMUNIZATION ADMIN Reviewed 02/09/2011 12:00 AM TD VACCINE NO PRSRV 7/> IM Reviewed 09/03/2009 12:00 AM MRI NECK SPINE W/DYE Reviewed 03/31/2015 12:00 AM ROUTINE VENIPUNCTURE Reviewed 05/15/2015 12:00 AM THER/PROPH/DIAG INJ SC/IM Reviewed 05/15/2015 12:00 AM Decadron, Per 1 Mg [facility]# [address]-42 Reviewed 05/15/2015 12:00 AM Depo-Medrol, Per 80 Mg [facility]#1690-2086-35 Reviewed Results Summary Data and Description Results [...] Td 02/09/2011 sanofi pasteur [facility] DECAVAC [id number] Intramuscular Left Deltoid 02/09/2011 09/02/2008 999 History [...] Policy Number Policy Group Number Start Date [facility] [id number] N/A Medicare Part A Medicare - Lab/Xray [id number] N/A Medicare Part B Medicare Secondary [id number] N/A Medicare Part A Medicare Part A [id number] N/A [facility] Financial [facility] Financial Geoff 8 1 13 fifty percent N/A [facility] [id number] N/A [place] Medical Assistance Program [place] Assistance Prog [id number] N/A [facility] Plan [facility] - RHC [id number] N/A [facility]-Health Plan [facility] - RHC [id number] N/A [facility] [id number] N/A [facility] Financial Assistance [facility] Financial Geoff 50 Percent N/A History [...] 10/28/2013 Office visit KAPIL ROLLINS PA 09/30/2013 [facility] Zan Hines MD 08/08/2013 Office visit KAPIL ROLLINS PA 07/01/2013 Office visit KAPIL ROLLINS PA 03/28/2013 Office visit Nikolai Stoner MD 03/14/2013 [facility] Kapil Wells MD 02/26/2013 Office visit [...] visit KAPIL ROLLINS PA 04/07/2011 Office visit Kaipl Rollins PA-C 02/09/2011 Office visit Kapil Rollins [...]
--- OUTSIDE RECORDS SUMMARY | 2018-08-04 17:07 | XMS REPORT ---
Author KAPIL Rubi [facility] Address [address] [place], [place] [id number] Care Team Providers Care Manager Distribution Center Name Role Phone KAPIL ROLLINS PCP Unavailable [...] HC BMI BSA BMI Percentile O2 Sat(%) 07/21/2016 3:03:00 PM 130 mmHg 84 mmHg [...] 09/21/2015 12:00 AM Decadron, Per 1 Mg [facility]# [address]-92 Reviewed 09/21/2015 12:00 AM Depo-Medrol, Per 80 Mg [facility]#1818-5443-31 Reviewed 09/21/2015 12:00 AM Rocephin 1 gram [facility]#1207-6678-03 Reviewed 04/28/2016 12:00 AM Decadron, Per 1 Mg [facility]# [address]-03 Reviewed 04/28/2016 12:00 AM Rocephin 1 gram [place]#7706-1393-18 Reviewed 06/22/2016 12:00 AM Decadron, Per 1 Mg [facility]# [address]-62 Reviewed 06/22/2016 12:00 AM Depo-Medrol, Per 80 Mg [facility]#0232-9277-90 Reviewed 03/06/2012 12:00 AM DRAIN/INJ JOINT/BURSA W/O US Reviewed 04/04/2012 12:00 AM THER/PROPH/DIAG INJ SC/IM Reviewed 04/04/2012 12:00 AM Decadron Inj.1mg-([facility]) [facility] #[id number] Reviewed 04/04/2012 12:00 AM Depo-Medrol 80 Mg Im/[facility] [phone] Reviewed 07/10/2012 12:00 AM THER/PROPH/DIAG INJ SC/IM Reviewed 07/10/2012 12:00 AM Decadron, Per 1 Mg [facility]# [address]-48 Reviewed 07/10/2012 12:00 AM Depo-Medrol, Per 80 Mg [facility]#8018-0157-31 Reviewed 10/22/2012 12:00 AM THER/PROPH/DIAG INJ SC/IM Reviewed 10/22/2012 12:00 AM Decadron, Per 1 Mg [facility]# [address]-71 Reviewed 10/22/2012 12:00 AM Depo-Medrol, Per 80 Mg ND#6976-8620-03 Reviewed 10/22/2012 12:00 AM Toradol 60 Mg ND#7452-9228-15 Reviewed 02/25/2013 12:00 AM CYTOPATH TBS C/V MANUAL Returned 02/25/2013 12:00 AM SPECIMEN HANDLING OFFICE-LAB Reviewed 02/25/2013 12:00 AM URINALYSIS AUTO W/SCOPE Returned 03/01/2013 12:00 AM US EXAM PELVIC COMPLETE Returned 02/26/2013 12:00 AM MAMMOGRAM SCREENING Returned 07/01/2013 12:00 AM THER/PROPH/DIAG INJ SC/IM Reviewed 07/01/2013 12:00 AM Decadron, Per 1 Mg [facility]# [address]-07 Reviewed 07/01/2013 12:00 AM Depo-Medrol, Per 80 Mg ND#2434-8512-95 Reviewed 08/08/2013 12:00 AM THER/PROPH/DIAG INJ SC/IM Reviewed 08/08/2013 12:00 AM Depo-Medrol, Per 80 Mg [facility]#0195-6254-25 Reviewed 08/08/2013 12:00 AM Toradol 60 Mg ND#4116-6414-44 Reviewed 01/29/2014 12:00 AM THER/PROPH/DIAG INJ SC/IM Reviewed 01/29/2014 12:00 AM Decadron 8 Mg [facility]# [address]-42 Reviewed 01/29/2014 12:00 AM Depo-Medrol, Per 80 Mg [facility]#9870-7073-72 Reviewed 01/29/2014 12:00 AM Rocephin 1 gram [facility]#9370-5252-55 Reviewed 11/22/2010 12:00 AM THER/PROPH/DIAG INJ SC/IM Reviewed 11/22/2010 12:00 AM Decadron Inj.8mg-([facility]) [facility] #[id number] Reviewed 11/22/2010 12:00 AM Depo-Medrol 80 Mg Im/[facility] [id number] Reviewed 11/22/2010 12:00 AM Rocephin, Per 250MG - 1 Gram Vial Reviewed 02/09/2011 12:00 AM IMMUNIZATION ADMIN Reviewed 02/09/2011 12:00 AM TD VACCINE NO PRSRV 7/> IM Reviewed 09/03/2009 12:00 AM MRI NECK SPINE W/DYE Reviewed 03/31/2015 12:00 AM ROUTINE VENIPUNCTURE Reviewed 05/15/2015 12:00 AM THER/PROPH/DIAG INJ SC/IM Reviewed 05/15/2015 12:00 AM Decadron, Per 1 Mg [facility]# [address]-79 Reviewed 05/15/2015 12:00 AM Depo-Medrol, Per 80 Mg [facility]#8283-3409-83 Reviewed Results Summary Data and Description Results [...] DETECTED History Of Immunizations Name Date Admin [facility] Name [facility] Code Trade Name Lot# Route Inj Vis Given Vis Pub CVX Td 02/09/2011 sanofi pasteur [facility] DECAVAC [id number] Intramuscular Left Deltoid 02/09/2011 09/02/2008 999 History [...] and seasonal allergies Jul 21 2016 3:04PM Payers Insurance Name Company Name Plan Name Plan Number Policy Number Policy Group Number Start Date [facility] [id number] N/A Medicare Part A Medicare - Lab/Xray [id number] N/A Medicare Part B Medicare Secondary [id number] N/A Medicare Part A Medicare Part A [id number] N/A [facility] Financial Assistance [facility] Financial Geoff 8 1 13 fifty percent N/A [facility] [id number] N/A [place] Medical Assistance Program [place] Medical Assistance Prog [id number] N/A [facility] [id number] N/A [facility] [id number] N/A [facility] [id number] N/A [facility] Financial Assistance [facility] Financial Geoff 50 Percent N/A History of Encounters Visit Date Visit Type Provider 07/21/2016 Office visit KAPIL CUEVAS 06/22/2016 Office [...] 10/28/2013 Office visit KAPIL ROLLINS PA 09/30/2013 [facility] Zan Hines [...]
--- OUTSIDE RECORDS SUMMARY | 2018-08-04 17:09 | XMS REPORT ---
Author KAPIL Rubi [facility] Address [address] [place], [place] [address] Care Team Providers Care Applications Sales Representative Name Role Phone KAPIL ROLLINS PCP Unavailable [...] HC BMI BSA BMI Percentile O2 Sat(%) 12/29/2016 11:46:00 AM 110 mmHg 74 mmHg [...] 09/21/2015 12:00 AM Decadron, Per 1 Mg [facility]# [address]-78 Reviewed 09/21/2015 12:00 AM Depo-Medrol, Per 80 Mg [facility]#1354-4396-00 Reviewed 09/21/2015 12:00 AM Rocephin 1 gram ND#2247-4621-14 Reviewed 04/28/2016 12:00 AM Decadron, Per 1 Mg [facility]# [address]-54 Reviewed 04/28/2016 12:00 AM Rocephin 1 gram [facility]#6063-4591-18 Reviewed 06/22/2016 12:00 AM Decadron, Per 1 Mg [facility]# [address]-08 Reviewed 06/22/2016 12:00 AM Depo-Medrol, Per 80 Mg [facility]#9155-6720-80 Reviewed 07/21/2016 12:00 AM Decadron, Per 1 Mg [facility]# [address]-07 Reviewed 07/21/2016 12:00 AM Rocephin 1 gram [facility]#9492-9067-38 Reviewed 11/14/2016 12:00 AM THER/PROPH/DIAG INJ SC/IM Reviewed 11/14/2016 12:00 AM Decadron 8mg Injection Reviewed 11/14/2016 12:00 AM Depo-Medrol 80mg Injection Reviewed 11/14/2016 12:00 AM Rocephin 1 gram Injection Reviewed 03/06/2012 12:00 AM DRAIN/INJ JOINT/BURSA W/O US Reviewed 04/04/2012 12:00 AM THER/PROPH/DIAG INJ SC/IM Reviewed 04/04/2012 12:00 AM Decadron Inj.1mg-([facility]) [facility] #[id number] Reviewed 04/04/2012 12:00 AM Depo-Medrol 80 Mg Im/[facility] [phone] Reviewed 07/10/2012 12:00 AM THER/PROPH/DIAG INJ SC/IM Reviewed 07/10/2012 12:00 AM Decadron, Per 1 Mg [facility]# [address]-75 Reviewed 07/10/2012 12:00 AM Depo-Medrol, Per 80 Mg [facility]#3229-1704-36 Reviewed 10/22/2012 12:00 AM THER/PROPH/DIAG INJ SC/IM Reviewed 10/22/2012 12:00 AM Decadron, Per 1 Mg [facility]# [address]-66 Reviewed 10/22/2012 12:00 AM Depo-Medrol, Per 80 Mg [facility]#1474-4937-52 Reviewed 10/22/2012 12:00 AM Toradol 60 Mg [facility]#6874-6721-11 Reviewed 02/25/2013 12:00 AM CYTOPATH TBS C/V MANUAL Reviewed 02/25/2013 12:00 AM SPECIMEN HANDLING OFFICE-LAB Reviewed 02/25/2013 12:00 AM URINALYSIS AUTO W/SCOPE Reviewed 03/01/2013 12:00 AM US EXAM PELVIC COMPLETE Reviewed 02/26/2013 12:00 AM MAMMOGRAM SCREENING Reviewed 07/01/2013 12:00 AM THER/PROPH/DIAG INJ SC/IM Reviewed 07/01/2013 12:00 AM Decadron, Per 1 Mg [facility]# [address]-74 Reviewed 07/01/2013 12:00 AM Depo-Medrol, Per 80 Mg [place]#0532-1563-23 Reviewed 08/08/2013 12:00 AM THER/PROPH/DIAG INJ SC/IM Reviewed 08/08/2013 12:00 AM Depo-Medrol, Per 80 Mg [facility]#6539-6076-24 Reviewed 08/08/2013 12:00 AM Toradol 60 Mg [facility]#8565-4482-33 Reviewed 01/29/2014 12:00 AM THER/PROPH/DIAG INJ SC/IM Reviewed 01/29/2014 12:00 AM Decadron 8 Mg [facility]# [address]-96 Reviewed 01/29/2014 12:00 AM Depo-Medrol, Per 80 Mg [facility]#2708-2190-78 Reviewed 01/29/2014 12:00 AM Rocephin 1 gram [facility]#8630-2302-54 Reviewed 11/22/2010 12:00 AM THER/PROPH/DIAG INJ SC/IM Reviewed 11/22/2010 12:00 AM Decadron Inj.8mg-([facility]) [facility] #[id number] Reviewed 11/22/2010 12:00 AM Depo-Medrol 80 Mg Im/[facility] [id number] Reviewed 11/22/2010 12:00 AM Rocephin, Per 250MG - 1 Gram Vial Reviewed 02/09/2011 12:00 AM IMMUNIZATION ADMIN Reviewed 02/09/2011 12:00 AM TD VACCINE NO PRSRV 7/> IM Reviewed 09/03/2009 12:00 AM MRI NECK SPINE W/DYE Reviewed 03/31/2015 12:00 AM ROUTINE VENIPUNCTURE Reviewed 05/15/2015 12:00 AM THER/PROPH/DIAG INJ SC/IM Reviewed 05/15/2015 12:00 AM Decadron, Per 1 Mg [facility]# [address]-06 Reviewed 05/15/2015 12:00 AM Depo-Medrol, Per 80 Mg [facility]#4062-0123-38 Reviewed Results Summary Data and Description Results [...] Given Vis Pub CVX Td [facility]/09/2011 [facility] DECAVA [id number] Intramuscular Left Deltoid 02/09/2011 09/02/2008 999 History [...] without abnormal findings Dec 29 2016 11:47AM Payers Insurance Name Company Name Plan Name Plan Number Policy Number Policy Group Number Start Date [facility] [id number] N/A [employer] Geoff approved to 05-22-17 N/A [facility] [employer] [id number] N/A [place] Medical Assistance Program [place] [employer] Prog [id number] N/A [facility] [id number] N/A [facility] [id number] N/A [facility] [id number] N/A [facility] Financial Assistance [facility] Financial Geoff 50 Percent N/A Medicare Part A Medicare - Lab/Xray [id number] N/A Medicare Part B Medicare Secondary [id number] N/A Medicare Part A Medicare Part A [id number] N/A History of Encounters Visit Date Visit [...] CUEVAS 10/28/2013 Office visit KAPIL CUEVAS 09/30/2013 Hospital Zan Hnies MD 08/08/2013 Office visit KAPIL CUEVAS 07/01/2013 [...]
--- OUTSIDE RECORDS SUMMARY | 2018-08-04 17:10 | XMS REPORT ---
Author KAPIL Rubi [facility] Address [address] [place], [place] [address] Care Team Providers Care Assistant Women'S Soccer Coach Name Role Phone KAPIL ROLLINS PCP Unavailable [...] HC BMI BSA BMI Percentile O2 Sat(%) 07/11/2017 1:41:00 PM 98 mmHg 60 mmHg [...] Ordered Description Order Status 09/21/2015 12:00 AM Mike Villanueva 1 Mg [facility]# [address]-69 Reviewed 09/21/2015 12:00 AM Depo-Medrol, Per 80 Mg [facility]#6595-5729-16 Reviewed 09/21/2015 12:00 AM Rocephin 1 gram [facility]#9894-1675-68 Reviewed 04/28/2016 12:00 AM Decadron, Per 1 Mg [place]# [address]-32 Reviewed 04/28/2016 12:00 AM Rocephin 1 gram [facility]#0769-59[address]-33 Reviewed 06/22/2016 12:00 AM Decadron, Per 1 Mg [facility]# [address]-40 Reviewed 06/22/2016 12:00 AM Depo-Medrol, Per 80 Mg [facility]#3208-2715-78 Reviewed 07/21/2016 12:00 AM Decadron, Per 1 Mg [facility]# [address]-81 Reviewed 07/21/2016 12:00 AM Rocephin 1 gram [facility]#7674-5005-10 Reviewed 11/14/2016 12:00 AM THER/PROPH/DIAG INJ SC/IM [...] SC/IM Reviewed 04/04/2012 12:00 AM Decadron Inj.1mg-([facility]) [facility] #[id number] Reviewed 04/04/2012 12:00 AM Depo-Medrol 80 Mg Im/[facility] 0009-676951 Reviewed 07/10/2012 12:00 AM THER/PROPH/DIAG INJ SC/IM Reviewed 07/10/2012 12:00 AM Decadron, Per 1 Mg [facility]# [address]-36 Reviewed 07/10/2012 12:00 AM Depo-Medrol, Per 80 Mg [facility]#0388-0286-03 Reviewed 10/22/2012 12:00 AM THER/PROPH/DIAG INJ SC/IM Reviewed 10/22/2012 12:00 AM Decadron, Per 1 Mg [place]# [address]-61 Reviewed 10/22/2012 12:00 AM Depo-Medrol, Per 80 Mg [facility]#8002-8361-74 Reviewed 10/22/2012 12:00 AM Toradol 60 Mg ND#1354-0188-60 Reviewed 02/25/2013 12:00 AM CYTOPATH TBS C/V MANUAL Reviewed 02/25/2013 12:00 AM SPECIMEN HANDLING OFFICE-LAB Reviewed 02/25/2013 12:00 AM URINALYSIS AUTO W/SCOPE Reviewed 03/01/2013 12:00 AM US EXAM PELVIC COMPLETE Reviewed 02/26/2013 12:00 AM MAMMOGRAM SCREENING Reviewed 07/01/2013 12:00 AM THER/PROPH/DIAG INJ SC/IM Reviewed 07/01/2013 12:00 AM Decadron, Per 1 Mg [facility]# [address]-72 Reviewed 07/01/2013 12:00 AM Depo-Medrol, Per 80 Mg ND#1864-8648-47 Reviewed 08/08/2013 12:00 AM THER/PROPH/DIAG INJ SC/IM Reviewed 08/08/2013 12:00 AM Depo-Medrol, Per 80 Mg ND#9513-9130-39 Reviewed 08/08/2013 12:00 AM Toradol 60 Mg [facility]#0357-1998-73 Reviewed 01/29/2014 12:00 AM THER/PROPH/DIAG INJ SC/IM Reviewed 01/29/2014 12:00 AM Decadron 8 Mg ND# [address]-94 Reviewed 01/29/2014 12:00 AM Depo-Medrol, Per 80 Mg [facility]#8028-5531-05 Reviewed 01/29/2014 12:00 AM Rocephin 1 gram [facility]#3580-0078-41 Reviewed 11/22/2010 12:00 AM THER/PROPH/DIAG INJ SC/IM Reviewed 11/22/2010 12:00 AM Decadron Inj.8mg-([facility]) [facility] #[id number] Reviewed 11/22/2010 12:00 AM Depo-Medrol 80 Mg Im/[facility] 0009-940581 Reviewed 11/22/2010 12:00 AM Rocephin, Per 250MG - 1 Gram Vial Reviewed 02/09/2011 12:00 AM IMMUNIZATION ADMIN Reviewed 02/09/2011 12:00 AM TD VACCINE NO PRSRV 7/> IM Reviewed 09/03/2009 12:00 AM MRI NECK SPINE W/DYE Reviewed 03/31/2015 12:00 AM ROUTINE VENIPUNCTURE Reviewed 05/15/2015 12:00 AM THER/PROPH/DIAG INJ SC/IM Reviewed 05/15/2015 12:00 AM Decadron, Per 1 Mg [facility]# [address]-25 Reviewed 05/15/2015 12:00 AM Depo-Medrol, Per 80 Mg [facility]#2175-5443-06 Reviewed Results Summary Date and Description Results [...] pasteur [facility] [id number] Intramuscular Left Deltoid 02/09/2011 09/02/2008 999 History [...] strain, initial encounter Jul 11 2017 1:41PM Payers Insurance Name Company Name Plan Name Plan Number Policy Number Policy Group Number Start Date [facility] [id number] N/A [facility] Financial Assistance [employer] Geoff approved to 05-22-17 N/A [facility] [id number] N/A [place] Medical Assistance Program [place] Medical Assistance Prog [id number] N/A [facility] [id number] N/A [facility] [id number] N/A [facility] [id number] N/A [facility] Financial Assistance [employer] Financial Geoff 50 Percent N/A Medicare Part A Medicare - Lab/Xray [id number] N/A Medicare Part B Medicare Secondary [id number] N/A Medicare Part A Medicare Part A [id number] N/A History of Encounters Visit Date Visit Type Provider 07/11/2017 Office visit KAPIL CUEVAS 07/03/2017 Office visit KAPIL CUEVAS 01/03/2017 Office visit KAPIL CUEVAS 12/29/2016 Office visit KAPIL ROLLINS PA 11/14/2016 Office visit KAPIL ROLLINS PA 10/12/2016 [...] Kapil Rollins PA-C 11/22/2010 Office visit Kapil CUEVAS-C 08/09/2010 Office visit Kapil CUEVAS-C 06/24/2010 Office visit Kapil CUEVAS-C 11/24/2009 Office visit Kapil CUEVAS-C 10/29/2009 Office visit Kapil CUEVAS-C 09/03/2009 Office visit Kapil CUEVAS-C 08/24/2009 Office visit Kapil CUEVAS-C 06/10/2009 Office visit KAPIL CUEVAS
--- OUTSIDE RECORDS SUMMARY | 2018-08-04 17:11 | XMS REPORT ---
Author KAPIL Rubi [facility] Address [address] [place], [place] [address] Care Team Providers Care Hiv Nurse Name Role Phone KAPIL ROLLINS PCP Unavailable Allergies and Adverse Reactions Name Reaction Notes NO KNOWN DRUG ALLERGIES Plan of Treatment Planned Activity Comments Planned Date Planned Time Plan/Goal Screening mammography of both breasts 02/04/2016 12:00 AM Injection, Subcutaneous/IM 11/14/2016 12:00 AM MRI shoulder left wo contrast [...] BY ORAL ROUTE 2 TIMES PER DAY Name Start Date Expiration Date SIG [...] route every 12 hours for 10 days zolpidem 10 mg oral tablet 06/01/2016 09/29/2016 [...] HC BMI BSA BMI Percentile O2 Sat(%) 11/14/2016 9:09:00 AM 125 mmHg 86 mmHg [...] 12:00 AM Decadron, Per 1 Mg ND# [address]-55 Reviewed 09/21/2015 12:00 AM Depo-Medrol, Per 80 Mg [facility]#7731-0076-70 Reviewed 09/21/2015 12:00 AM Rocephin 1 gram [facility]#7250-1169-45 Reviewed 04/28/2016 12:00 AM Decadron, Per 1 Mg [facility]# [address]-75 Reviewed 04/28/2016 12:00 AM Rocephin 1 gram [facility]#2022-1753-13 Reviewed 06/22/2016 12:00 AM Decadron, Per 1 Mg [facility]# [address]-91 Reviewed 06/22/2016 12:00 AM Depo-Medrol, Per 80 Mg [facility]#5233-7775-69 Reviewed 07/21/2016 12:00 AM Decadron, Per 1 Mg [facility]# [address]-81 Reviewed 07/21/2016 12:00 AM Rocephin 1 gram [facility]#3892-2408-44 Reviewed 03/06/2012 12:00 AM DRAIN/INJ JOINT/BURSA W/O US Reviewed 04/04/2012 12:00 AM THER/PROPH/DIAG INJ SC/IM Reviewed 04/04/2012 12:00 AM Decadron Inj.1mg-([facility]) [facility] #[id number] Reviewed 04/04/2012 12:00 AM Depo-Medrol 80 Mg Im/[facility] [id number] Reviewed 07/10/2012 12:00 AM THER/PROPH/DIAG INJ SC/IM Reviewed 07/10/2012 12:00 AM Decadron, Per 1 Mg [facility]# [address]-98 Reviewed 07/10/2012 12:00 AM Depo-Medrol, Per 80 Mg [facility]#1782-0366-54 Reviewed 10/22/2012 12:00 AM THER/PROPH/DIAG INJ SC/IM Reviewed 10/22/2012 12:00 AM Decadron, Per 1 Mg [facility]# [address]-13 Reviewed 10/22/2012 12:00 AM Depo-Medrol, Per 80 Mg [facility]#5459-6898-67 Reviewed 10/22/2012 12:00 AM Toradol 60 Mg [facility]#5704-9579-37 Reviewed 02/25/2013 12:00 AM CYTOPATH TBS C/V MANUAL Reviewed 02/25/2013 12:00 AM SPECIMEN HANDLING OFFICE-LAB Reviewed 02/25/2013 12:00 AM URINALYSIS AUTO W/SCOPE Reviewed 03/01/2013 12:00 AM US EXAM PELVIC COMPLETE Reviewed 02/26/2013 12:00 AM MAMMOGRAM SCREENING Reviewed 07/01/2013 12:00 AM THER/PROPH/DIAG INJ SC/IM Reviewed 07/01/2013 12:00 AM Decadron, Per 1 Mg [facility]# [address]-80 Reviewed 07/01/2013 12:00 AM Depo-Medrol, Per 80 Mg [facility]#3592-5853-67 Reviewed 08/08/2013 12:00 AM THER/PROPH/DIAG INJ SC/IM Reviewed 08/08/2013 12:00 AM Depo-Medrol, Per 80 Mg [facility]#3083-1825-53 Reviewed 08/08/2013 12:00 AM Toradol 60 Mg [facility]#8916-5888-55 Reviewed 01/29/2014 12:00 AM THER/PROPH/DIAG INJ SC/IM Reviewed 01/29/2014 12:00 AM Decadron 8 Mg [facility]# [address]-50 Reviewed 01/29/2014 12:00 AM Depo-Medrol, Per 80 Mg [facility]#3855-8184-38 Reviewed 01/29/2014 12:00 AM Rocephin 1 gram [facility]#3560-9408-10 Reviewed 11/22/2010 12:00 AM THER/PROPH/DIAG INJ SC/IM Reviewed 11/22/2010 12:00 AM Decadron Inj.8mg-([facility]) [facility] #[id number] Reviewed 11/22/2010 12:00 AM Depo-Medrol 80 Mg Im/[facility] [id number] Reviewed 11/22/2010 12:00 AM Rocephin, Per 250MG - 1 Gram Vial Reviewed 02/09/2011 12:00 AM IMMUNIZATION ADMIN Reviewed 02/09/2011 12:00 AM TD VACCINE NO PRSRV 7/> IM Reviewed 09/03/2009 12:00 AM MRI NECK SPINE W/DYE Reviewed 03/31/2015 12:00 AM ROUTINE VENIPUNCTURE Reviewed 05/15/2015 12:00 AM THER/PROPH/DIAG INJ SC/IM Reviewed 05/15/2015 12:00 AM Decadron, Per 1 Mg [facility]# [address]-71 Reviewed 05/15/2015 12:00 AM Depo-Medrol, Per 80 Mg [facility]#6624-3832-07 Reviewed Results Summary Data and Description Results [...] >60 History Of Immunizations Name Date Admin Mf Name Mf Code Trade Name Lot# Route Inj Vis Given Vis Pub CVX Td 02/09/2011 sanofi pasteur [facility] DECAVAC [id number] Intramuscular Left Deltoid 02/09/2011 09/02/2008 999 History [...] Acute Sinus pressure Nov 14 2016 9:10AM Payers Insurance Name Company Name Plan Name Plan Number Policy Number Policy Group Number Start Date [facility] [id number] N/A Medicare Part A Medicare - Lab/Xray [id number] N/A Medicare Part B Medicare Secondary [id number] N/A Medicare Part A Medicare Part A [id number] N/A [facility] Financial Assistance [facility] Financial Geoff 8 1 13 fifty percent N/A [facility] Claims [place] [id number] N/A [place] Medical Assistance Program [place] Medical [employer] Prog [id number] N/A [facility] [id number] N/A [facility] [id number] N/A [facility] [id number] N/A [facility] Financial Assistance [facility] Financial Geoff 50 Percent N/A History of Encounters Visit Date Visit Type Provider 11/14/2016 Office visit KAPIL CUEVAS 07/21/2016 Office visit KAPIL CUEVAS 06/22/2016 Office [...]
[2018-08-04] MEDS ORDERED: fentaNYL INJECTION 100 MCG/2 ML AMP ONE (17:13)
--- OUTSIDE RECORDS SUMMARY | 2018-08-04 17:14 | XMS REPORT ---
Author KAPIL Rubi [facility] Address [address] [place], [place] [address] Care Team Providers Care Tile Picker Name Role Phone KAPIL ROLLINS PCP Unavailable KAPIL ROLLINS PreferredProvider Unavailable Allergies and Adverse Reactions Name Reaction Notes NO KNOWN DRUG ALLERGIES Plan of Treatment Planned Activity Comments Planned Date Planned Time Plan/Goal Screening mammography of both breasts 02/04/2016 12:00 AM Injection, Subcutaneous/IM 01/03/2017 12:00 AM MRI shoulder left wo contrast [...] half to 1 tab at hs prn Bactrim DS 800-160 mg oral tablet 01/03/2017 01/18/2017 take 1 tablet by oral route 2 times a day for 15 days fluticasone 50 mcg/actuation nasal spray,suspension 01/03/2017 inhale 1 spray (50 mcg) in each nostril by intranasal route 2 times per day loratadine 10 mg oral tablet 01/03/2017 take 1 tablet (10 mg) by oral route once daily Name Start Date Expiration Date SIG Comments [...] HC BMI BSA BMI Percentile O2 Sat(%) 01/03/2017 4:08:00 PM 122 mmHg 70 mmHg [...] Per 1 Mg [facility]# [address]-77 Reviewed 09/21/2015 12:00 AM Depo-Medrol, Per 80 Mg [facility]#1725-2436-70 Reviewed 09/21/2015 12:00 AM Rocephin 1 gram [facility]#9279-3752-62 Reviewed 04/28/2016 12:00 AM Decadron, Per 1 Mg [facility]# [address]-18 Reviewed 04/28/2016 12:00 AM Rocephin 1 gram [facility]#7990-3746-26 Reviewed 06/22/2016 12:00 AM Decadron, Per 1 Mg [facility]# [address]-98 Reviewed 06/22/2016 12:00 AM Depo-Medrol, Per 80 Mg [facility]#4229-9041-01 Reviewed 07/21/2016 12:00 AM Decadron, Per 1 Mg [place]# [address]-48 Reviewed 07/21/2016 12:00 AM Rocephin 1 gram [facility]#1554-9503-99 Reviewed 11/14/2016 12:00 AM THER/PROPH/DIAG INJ SC/IM Reviewed 11/14/2016 12:00 AM Decadron 8mg Injection Reviewed 11/14/2016 12:00 AM Depo-Medrol 80mg Injection Reviewed 11/14/2016 12:00 AM Rocephin 1 gram Injection Reviewed 03/06/2012 12:00 AM DRAIN/INJ JOINT/BURSA W/O US Reviewed 04/04/2012 12:00 AM THER/PROPH/DIAG INJ SC/IM Reviewed 04/04/2012 12:00 AM Decadron Inj.1mg-([facility]) [facility] #[id number] Reviewed 04/04/2012 12:00 AM Depo-Medrol 80 Mg Im/[facility] [id number] Reviewed 07/10/2012 12:00 AM THER/PROPH/DIAG INJ SC/IM Reviewed 07/10/2012 12:00 AM Decadron, Per 1 Mg [facility]# [address]-13 Reviewed 07/10/2012 12:00 AM Depo-Medrol, Per 80 Mg [facility]#3975-1441-21 Reviewed 10/22/2012 12:00 AM THER/PROPH/DIAG INJ SC/IM Reviewed 10/22/2012 12:00 AM Decadron, Per 1 Mg [facility]# [address]-71 Reviewed 10/22/2012 12:00 AM Depo-Medrol, Per 80 Mg [facility]#2388-5353-22 Reviewed 10/22/2012 12:00 AM Toradol 60 Mg [facility]#4116-9361-31 Reviewed 02/25/2013 12:00 AM CYTOPATH TBS C/V MANUAL Reviewed 02/25/2013 12:00 AM SPECIMEN HANDLING OFFICE-LAB Reviewed 02/25/2013 12:00 AM URINALYSIS AUTO W/SCOPE Reviewed 03/01/2013 12:00 AM US EXAM PELVIC COMPLETE Reviewed 02/26/2013 12:00 AM MAMMOGRAM SCREENING Reviewed 07/01/2013 12:00 AM THER/PROPH/DIAG INJ SC/IM Reviewed 07/01/2013 12:00 AM Decadron, Per 1 Mg [facility]# [address]-22 Reviewed 07/01/2013 12:00 AM Depo-Medrol, Per 80 Mg [facility]#7825-6782-68 Reviewed 08/08/2013 12:00 AM THER/PROPH/DIAG INJ SC/IM Reviewed 08/08/2013 12:00 AM Depo-Medrol, Per 80 Mg [facility]#0304-7397-33 Reviewed 08/08/2013 12:00 AM Toradol 60 Mg [facility]#7326-8938-55 Reviewed 01/29/2014 12:00 AM THER/PROPH/DIAG INJ SC/IM Reviewed 01/29/2014 12:00 AM Decadron 8 Mg [facility]# [address]-26 Reviewed 01/29/2014 12:00 AM Depo-Medrol, Per 80 Mg [facility]#8622-9601-09 Reviewed 01/29/2014 12:00 AM Rocephin 1 gram [facility]#7907-8544-25 Reviewed 11/22/2010 12:00 AM THER/PROPH/DIAG INJ SC/IM Reviewed 11/22/2010 12:00 AM Decadron Inj.8mg-([facility]) [facility] #[id number] Reviewed 11/22/2010 12:00 AM Depo-Medrol 80 Mg Im/[facility] 0009-035044 Reviewed 11/22/2010 12:00 AM Rocephin, Per 250MG - 1 Gram Vial Reviewed 02/09/2011 12:00 AM IMMUNIZATION ADMIN Reviewed 02/09/2011 12:00 AM TD VACCINE NO PRSRV 7/> IM Reviewed 09/03/2009 12:00 AM MRI NECK SPINE W/DYE Reviewed 03/31/2015 12:00 AM ROUTINE VENIPUNCTURE Reviewed 05/15/2015 12:00 AM THER/PROPH/DIAG INJ SC/IM Reviewed 05/15/2015 12:00 AM Decadron, Per 1 Mg [facility]# [address]-89 Reviewed 05/15/2015 12:00 AM Depo-Medrol, Per 80 Mg [facility]#7482-8825-60 Reviewed Results Summary Data and Description Results [...] Vis Pub CVX Td 02/09/2011 sanofi pasteur [facility] DECAVAC [id number] Intramuscular Left Deltoid 02/09/2011 09/02/2008 999 History [...] Eustachian Tube Dysfunction b 2010 10:32AM Cough Nov 22 2010 10:32AM [...] congestion with rhinorrhea Jan 03 2017 4:09PM Payers Insurance Name Company Name Plan Name Plan Number Policy Number Policy Group Number Start Date [facility] [id number] N/A [employer] approved to 05-22-17 N/A [facility] [id number] N/A [place] [id number] N/A [id number] [id number] N/A [facility] [id number] N/A [facility] [id number] N/A [employer] Geoff 50 Percent N/A Medicare Part A Medicare - Lab/Xray [id number] N/A Medicare Part B Medicare Secondary [id number] N/A Medicare Part A Medicare Part A [id number] N/A History of Encounters Visit Date Visit Type Provider 01/03/2017 Office visit KAPIL CUEVAS 12/29/2016 Office [...] 03/28/2013 Office visit Nikolai Stoner MD 03/14/2013 [facility] Kapil Wells MD 02/26/2013 Office visit [...] visit Kapil Rollins PA-C 02/09/2011 Office visit Kaipl Rollins PA-C 01/24/2011 Office visit Kapil Rollins [...]
[2018-08-04] MEDS ORDERED: fentaNYL INJECTION 100 MCG/2 ML AMP IVP ONE (17:15)
--- OUTSIDE RECORDS SUMMARY | 2018-08-04 17:16 | XMS REPORT ---
Author KAPIL Rubi [facility] Address [address] [place], [place] [address] Care Team Providers Care Technical Writing Lead/Mgr Name Role Phone KAPIL ROLLINS PCP Unavailable [...] 12:00 AM Decadron, Per 1 Mg [facility]# [address]-77 Reviewed 09/21/2015 12:00 AM Depo-Medrol, Per 80 Mg [facility]#9736-1121-87 Reviewed 09/21/2015 12:00 AM Rocephin 1 gram [facility]#9149-7791-08 Reviewed 04/28/2016 12:00 AM Decadron, Per 1 Mg [facility]# [address]-28 Reviewed 04/28/2016 12:00 AM Rocephin 1 gram [facility]#6416-9753-15 Reviewed 06/22/2016 12:00 AM Decadron, Per 1 Mg [facility]# [address]-67 Reviewed 06/22/2016 12:00 AM Depo-Medrol, Per 80 Mg [facility]#4072-4527-94 Reviewed 07/21/2016 12:00 AM Decadron, Per 1 Mg [facility]# [address]-01 Reviewed 07/21/2016 12:00 AM Rocephin 1 gram [facility]#6307-6784-43 Reviewed 11/14/2016 12:00 AM THER/PROPH/DIAG INJ SC/IM [...] SC/IM Reviewed 04/04/2012 12:00 AM Decadron Inj.1mg-([facility]) [facility] #[id number] Reviewed 04/04/2012 12:00 AM Depo-Medrol 80 Mg Im/[facility] 0009-766257 Reviewed 07/10/2012 12:00 AM THER/PROPH/DIAG INJ SC/IM Reviewed 07/10/2012 12:00 AM Decadron, Per 1 Mg [facility]# [address]-30 Reviewed 07/10/2012 12:00 AM Depo-Medrol, Per 80 Mg [facility]#6692-4420-22 Reviewed 10/22/2012 12:00 AM THER/PROPH/DIAG INJ SC/IM Reviewed 10/22/2012 12:00 AM Decadron, Per 1 Mg [facility]# [address]-98 Reviewed 10/22/2012 12:00 AM Depo-Medrol, Per 80 Mg [facility]#2806-5165-52 Reviewed 10/22/2012 12:00 AM Toradol 60 Mg [facility]#7604-7076-40 Reviewed 02/25/2013 12:00 AM CYTOPATH TBS C/V MANUAL Reviewed 02/25/2013 12:00 AM SPECIMEN HANDLING OFFICE-LAB Reviewed 02/25/2013 12:00 AM URINALYSIS AUTO W/SCOPE Reviewed 03/01/2013 12:00 AM US EXAM PELVIC COMPLETE Reviewed 02/26/2013 12:00 AM MAMMOGRAM SCREENING Reviewed 07/01/2013 12:00 AM THER/PROPH/DIAG INJ SC/IM Reviewed 07/01/2013 12:00 AM Decadron, Per 1 Mg [facility]# [address]-54 Reviewed 07/01/2013 12:00 AM Depo-Medrol, Per 80 Mg [facility]#0538-7363-32 Reviewed 08/08/2013 12:00 AM THER/PROPH/DIAG INJ SC/IM Reviewed 08/08/2013 12:00 AM Depo-Medrol, Per 80 Mg [facility]#9193-3430-69 Reviewed 08/08/2013 12:00 AM Toradol 60 Mg [facility]#9611-7407-50 Reviewed 01/29/2014 12:00 AM THER/PROPH/DIAG INJ SC/IM Reviewed 01/29/2014 12:00 AM Decadron 8 Mg [facility]# [address]-34 Reviewed 01/29/2014 12:00 AM Depo-Medrol, Per 80 Mg [facility]#7487-1702-55 Reviewed 01/29/2014 12:00 AM Rocephin 1 gram [facility]#3421-2541-25 Reviewed 11/22/2010 12:00 AM THER/PROPH/DIAG INJ SC/IM Reviewed 11/22/2010 12:00 AM Decadron Inj.8mg-([facility]) [facility] #[id number] Reviewed 11/22/2010 12:00 AM Depo-Medrol 80 Mg Im/[facility] 0009-182535 Reviewed 11/22/2010 12:00 AM Rocephin, Per 250MG - 1 Gram Vial Reviewed 02/09/2011 12:00 AM IMMUNIZATION ADMIN Reviewed 02/09/2011 12:00 AM TD VACCINE NO PRSRV 7/> IM Reviewed 09/03/2009 12:00 AM MRI NECK SPINE W/DYE Reviewed 03/31/2015 12:00 AM ROUTINE VENIPUNCTURE Reviewed 05/15/2015 12:00 AM THER/PROPH/DIAG INJ SC/IM Reviewed 05/15/2015 12:00 AM Decadron, Per 1 Mg [facility]# [address]-33 Reviewed 05/15/2015 12:00 AM Depo-Medrol, Per 80 Mg [facility]#5859-7973-93 Reviewed Results Summary Data and Description Results [...] CVX Td 02/09/2011 sanofi pasteur [facility] DECAVAC [id number] Intramuscular Left Deltoid 02/09/2011 09/02/2008 999 History [...] Policy Number Policy Group Number Start Date [facility] [id number] N/A [facility] [employer] Geoff approved to 05-22-17 N/A [facility] [id number] N/A [place] [employer] [place] [employer] Prog [id number] N/A [facility] [id number] N/A [facility]Health Plan [facility] - [facility]HC [id number] N/A [facility] Health [facility] [id number] N/A [facility] Financial Assistance [facility] [employer] Geoff 50 Percent N/A Medicare Part A Medicare - Lab/Xray [id number] N/A Medicare Part B Medicare Secondary [id number] N/A Medicare Part A Medicare Part A [id number] N/A History of Encounters Visit Date Visit [...] 10/28/2013 Office visit KAPIL ROLLINS PA 09/30/2013 [facility] Zan Hines MD 08/08/2013 Office visit KAPIL ROLLINS PA 07/01/2013 Office visit KAPIL ROLLINS PA 03/28/2013 Office visit Nikolai Stoner MD 03/14/2013 [facility] Kapil Wells MD 02/26/2013 Office visit [...]
--- OUTSIDE RECORDS SUMMARY | 2018-08-04 17:17 | XMS REPORT | Clinical Summary ---
Author Author Admin, E Organization [facility] Address Unknown Phone Unavailable Allergies, Adverse Reactions, Alerts Allergy Name Reaction Description Start Date Severity Status Provider No Known Allergies Lisa Del Real LRT Conditions or Problems Problem Name Problem Code Onset Date Status Entry Date Provider Comment Standard Description Annotate BIPOLAR DISORDER 296.7 Active Sukumar Montgomery MD Bipolar I disorder, most recent episode (or current) unspecified FIBROMYALGIA 729.1 Active Sukumar Montgomery MD Myalgia and myositis, unspecified CERVICAL DISC DISEASE 722.4 Active Sukumar Montgomery MD Degeneration of cervical intervertebral disc ADHD 314.01 Active Sukumar Montgomery MD Attention deficit disorder of childhood with hyperactivity Obesity, BMI 30-34.9, adult 278.00 Active Sandy Tejeda APRN Obesity, unspecified Medication List Medication Instructions Start Date Stop Date Generic Name NDC Status Provider Patient Instruction LYRICA 50 MG ORAL CAPS 1 daily for Fibromyalgia PREGABALIN 90384786926 Active Sukumar Montgomery MD Active LYRICA 25 MG ORAL CAPS 25mg two times a day for 1 week. PREGABALIN 52263935853 No Longer Active Sukumar Montgomery MD Active LYRICA 75 MG ORAL CAPS 1 twice a day for fibromyalgia PREGABALIN 14337041448 No Longer Active Sukumar Montgomery MD Active GABAPENTIN 300 MG CAPS 1 po three times daily for nerve pain GABAPENTIN 13895842733 No Longer Active Sukumar Montgomery MD Active DICLOFENAC SODIUM 75 MG TBEC 1 tablet by mouth twice daily DICLOFENAC SODIUM 91946282981 Active Sukumar Montgomery MD Active MELOXICAM 15 MG TABS 1 po q day for pain with food MELOXICAM 63178197617 No Longer Active Sukumar Montgomery MD Active TYLENOL WITH CODEINE #3 300-30 MG TABS 1 tablet by mouth every four to six hours as needed ACETAMINOPHEN-CODEINE 88770063423 No Longer Active Sukumar Montgomery MD Active LAMICTAL 100 MG TABS Take one by mouth twice daily LAMOTRIGINE 53865499273 Active Sukumar Montgomery MD Active AMBIEN 10 MG TAB 1 tab by mouth at bedtime as needed for sleep ZOLPIDEM TARTRATE 59424513470 Active Sukumar Montgomery MD Active SEROQUEL 25 MG TABS 1 tablet by mouth daily at bedtime QUETIAPINE FUMARATE 03147922726 No Longer Active Sukumar Montgomery MD Active ADDERALL XR 20 MG [id number] Take one by mouth daily AMPHETAMINE-DEXTROAMPHETAMINE 93220122969 No Longer Active Sukumar Montgomery MD Active CYMBALTA 60 MG CPEP Take one by mouth daily DULOXETINE HCL 63241565001 Active Sukumar Montgomery MD Active PRILOSEC 20 MG CPDR Take one by mouth daily OMEPRAZOLE 23847486943 Active Sukumar Montgomery MD Active ADDERALL XR 20 MG TH22U-AOH Take one by mouth daily ADDERALL XR 20 MG [id number] AMPHETAMINE-DEXTROAMPHETAMINE Inactive SEROQUEL 25 MG TABS 1 tablet by mouth daily at bedtime SEROQUEL 25 MG TABS 211685 QUETIAPINE FUMARATE Inactive TYLENOL WITH CODEINE #3 300-30 MG TABS 1 tablet by mouth every four to six hours as needed TYLENOL WITH CODEINE #3 300-30 MG TABS ACETAMINOPHEN-CODEINE Inactive MELOXICAM 15 MG TABS 1 po q day for pain with food MELOXICAM 15 MG TABS 817931 MELOXICAM Inactive GABAPENTIN 300 MG CAPS 1 po three times daily for nerve pain GABAPENTIN 300 MG CAPS 138694 GABAPENTIN Inactive LYRICA 75 MG ORAL CAPS 1 twice a day for fibromyalgia LYRICA 75 MG ORAL CAPS PREGABALIN Inactive LYRICA 25 MG ORAL CAPS 25mg two times a day for 1 week. LYRICA 25 MG ORAL CAPS PREGABALIN Inactive Vital Signs Date Name Value Unit Range Description blood pressure, diastolic 70 mm[Hg] BP sarmiento blood pressure, systolic 118 mm[Hg] BP sys pulse rate E&M 88 /min Heart rate temperature E&M 99.6 [degF] Body temperature weight E&M 179 [lb_av] Weight Measured blood pressure, diastolic 70 mm[Hg] BP sarmiento blood pressure, systolic 122 mm[Hg] BP sys height E&M 64.4 [in_us] Bdy height weight E&M 186 [lb_av] Weight Measured blood pressure, diastolic 78 mm[Hg] BP sarmiento blood pressure, systolic 133 mm[Hg] BP sys height E&M 64.75 [in_us] Bdy height pulse rate E&M 68 /min Heart rate temperature E&M 98.3 [degF] Body temperature weight E&M 188 [lb_av] Weight Measured blood pressure, diastolic 79 mm[Hg] BP sarmiento blood pressure, systolic 120 mm[Hg] BP sys pulse rate E&M 64 /min Heart rate temperature E&M 97.6 [degF] Body temperature weight E&M 186.5 [lb_av] Weight Measured Diagnostic Results Date Name Value Unit Range Description Lab Report: LIPID PANEL- REPOWER - Chemistry cholesterol, serum 243 mg/dL 510-347 3840/05/05 HDL cholesterol, serum 61 mg/dL > OR=46 triglyceride, serum, fasting 74 mg/dL <150 LDL cholesterol, serum 167 MG/DL (CALC) mg/dL <130 cholesterol/HDL ratio, serum 4.0 (calc) < OR=5.0 Encounters Code Encounter Date Provider Facility CPT-92569 Level 3 Est. Patient 14:37:37 CDT Sukumar Montgomery MD [facility] CPT-12216 Level 4 Est. Patient 15:52:44 CDT Sandy Tejeda APRN [facility] CPT-52378 Level 3 Est. 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 Patient 15:33:14 CDT Sukumar Montgomery MD [facility] CPT-98609 Level 4 Est. Patient 11:52:43 CDT Sukumar Montgomery MD [facility] CPT-17400 Level 3 Est. Patient 15:39:41 CDT Sukumar Montgomery MD [facility] CPT-35243 Level 3 Est. Patient 16:37:35 CDT Sukumar Montgomery MD [facility]
--- OUTSIDE RECORDS SUMMARY | 2018-08-04 17:17 | XMS REPORT | Clinical Summary ---
Author Author Admin, E Organization [facility] Address Unknown Phone Unavailable Allergies, Adverse Reactions, [...] Provider Patient Instruction LYRICA 50 MG ORAL CAPSULE 1 daily for Fibromyalgia PREGABALIN 41273439166 Active Kayley You APRN Active LYRICA 25 MG ORAL CAPSULE 25mg two times a day for 1 week. 07/31 PREGABALIN 27443840285 No Longer Active Sukumar Montgomery MD Active LYRICA 75 MG ORAL CAPSULE 1 twice a day for fibromyalgia PREGABALIN 63635737212 No Longer Active Sukumar Montgomery MD Active GABAPENTIN 300 MG ORAL CAPSULE 1 po three times daily for nerve pain GABAPENTIN 60408580016 No Longer Active Sukumar Montgomery MD Active DICLOFENAC SODIUM 75 MG ORAL TABLET DELAYED RELEASE 1 tablet by mouth twice daily DICLOFENAC SODIUM 49667088027 Active Sukumar Montgomery MD Active MELOXICAM 15 MG ORAL TABLET 1 po q day for pain with food MELOXICAM 40771479957 No Longer Active Sukumar Montgomery MD Active TYLENOL WITH CODEINE #3 300-30 MG ORAL TABLET 1 tablet by mouth every four to six hours as needed ACETAMINOPHEN-CODEINE 10788029903 No Longer Active Sukumar Montgomery MD Active LAMICTAL 100 MG ORAL TABLET Take one by mouth twice daily LAMOTRIGINE 73809762368 Active Sukumar Montgomery MD Active AMBIEN 10 MG ORAL TABLET 1 tab by mouth at bedtime as needed for sleep ZOLPIDEM TARTRATE 41078136354 Active Sukumar Montgomery MD Active SEROQUEL 25 MG ORAL TABLET 1 tablet by mouth daily at bedtime QUETIAPINE FUMARATE 30611131014 No Longer Active Sukumar Montgomery MD Active ADDERALL XR 20 MG ORAL CAPSULE EXTENDED RELEASE 24 HOUR Take one by mouth daily AMPHETAMINE-DEXTROAMPHETAMINE 35506881050 No Longer Active Sukumar Montgomery MD Active CYMBALTA 60 MG ORAL CAPSULE DELAYED RELEASE PARTICLES Take one by mouth daily DULOXETINE HCL 46949985130 Active Sukumar Montgomery MD Active PRILOSEC 20 MG ORAL CAPSULE DELAYED RELEASE Take one by mouth daily OMEPRAZOLE 01058374276 Active Sukumar Montgomery MD Active ADDERALL XR 20 MG ORAL CAPSULE EXTENDED RELEASE 24 HOUR Take one by mouth daily ADDERALL XR 20 MG ORAL CAPSULE EXTENDED RELEASE 24 HOUR AMPHETAMINE-DEXTROAMPHETAMINE Inactive SEROQUEL 25 MG ORAL TABLET 1 tablet by mouth daily at bedtime SEROQUEL 25 MG ORAL TABLET 686405 QUETIAPINE FUMARATE Inactive TYLENOL WITH CODEINE #3 300-30 MG ORAL TABLET 1 tablet by mouth every four to six hours as needed TYLENOL WITH CODEINE #3 300-30 MG ORAL TABLET ACETAMINOPHEN-CODEINE Inactive MELOXICAM 15 MG ORAL TABLET 1 po q day for pain with food MELOXICAM 15 MG ORAL TABLET 518792 MELOXICAM Inactive GABAPENTIN 300 MG ORAL CAPSULE 1 po three times daily for nerve pain 47010/15 GABAPENTIN 300 MG ORAL CAPSULE 756464 GABAPENTIN Inactive LYRICA 75 MG ORAL CAPSULE 1 twice a day for fibromyalgia LYRICA 75 MG ORAL CAPSULE PREGABALIN Inactive LYRICA 25 MG ORAL CAPSULE 25mg two times a day for 1 week. 07/31 LYRICA 25 MG ORAL CAPSULE PREGABALIN Inactive Vital Signs Date Name Value Unit Range Description blood pressure, diastolic 70 mm[Hg] BP sarmiento blood pressure, systolic 118 mm[Hg] BP sys pulse rate E&M 88 /min Heart rate temperature E&M 99.6 [degF] Body temperature weight E&M 179 [lb_av] Weight Measured Diagnostic Results Date Name Value Unit Range Description Lab Report: Lipid Panel, Glucose - Chemistry cholesterol, serum 202 mg/dL 682-126 8379/11/02 triglyceride, serum, fasting 83 mg/dL 30-200 HDL cholesterol, serum 49 mg/dL 32-60 LDL cholesterol, serum 136 mg/dL 0-130 blood glucose 104 mg/dL 65-110 Encounters Code Encounter Date Provider Facility CPT-27835 Level 3 Est. Patient 14:37:37 CDT Sukumar Montgomery MD [facility] CPT-30307 Level 4 Est. Patient 15:52:44 CDT Sandy Tejeda APRN [facility] CPT-52340 Level 3 Est. 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 Patient 15:33:14 CDT Sukumar Montgomery MD [facility] CPT-07936 Level 4 Est. Patient 11:52:43 CDT Sukumar Montgomery MD [facility] CPT-41103 Level 3 Est. Patient 15:39:41 CDT Sukumar Montgomery MD [facility] CPT-37563 Level 3 Est. Patient 16:37:35 CDT Sukumar Montgomery MD [facility]
--- OUTSIDE RECORDS SUMMARY | 2018-08-04 17:17 | XMS REPORT ---
Author Author [facility] Organization [facility] Address [address] [place], [place] [id number] Care Team Providers Care Corporate Legal Intern Name Role Phone PCP Unavailable Allergies and Adverse Reactions Name Reaction Notes NO KNOWN DRUG ALLERGIES Plan of Treatment Planned Activity Comments Planned Date Planned Time Plan/Goal MRI JOINT UPR EXTREM W/O DYE 08/20/2014 12:00 AM COMPLETE CBC W/AUTO DIFF WBC 03/31/2015 12:00 AM COMPREHEN METABOLIC PANEL 03/31/2015 12:00 AM LIPID PANEL 03/31/2015 12:00 AM Medications Active Name Start Date Estimated Completion Date SIG Comments lamotrigine oral tablet 100 mg 06/17/2014 TAKE 1 TABLET BY ORAL ROUTE TWICE DAILY omeprazole oral capsule,delayed release(DR/EC) 20 mg 06/23/2014 TAKE 1 CAPSULE (20 MG) BY ORAL ROUTE ONCE DAILY BEFORE A MEAL diclofenac sodium oral tablet,delayed release (DR/EC) 75 mg 07/25/2014 TAKE 1 TABLET (75 MG) BY ORAL ROUTE 2 TIMES PER DAY zolpidem Oral tablet 10 mg 03/10/2015 09/06/2015 Take one half to 1 tab at hs prn Name Start Date Expiration Date SIG Comments Prednisone Oral Tablet 20 mg 11/24/2009 12/05/2009 4 daily x 2 days, 3 x 3 days , 2x3 days, 1x3 days Citalopram Oral Tablet 40 mg 12/28/2009 04/27/2010 take 1 tablet (40 mg) by oral route daily for 30 days Tylenol-Codeine #3 Oral Tablet 300-30 mg 01/06/2010 02/05/2010 take 2 tablets by oral route every 6 hours as needed for 30 days Doxycycline Hyclate Oral Capsule 100 mg 11/26/2010 12/06/2010 take 1 capsule ( 100 mg) by oral route every 12 hours for 10 days Lamictal Oral Tablet 100 mg 07/05/2011 09/03/2011 take 1 tablet (100 mg) by oral route daily for 30 days Concerta Oral Tablet Extended Rel 24 hr 36 mg 09/22/2011 10/22/2011 take 1 tablet (36 mg) by oral route once daily in the morning for 30 days Seroquel Oral Tablet 25 mg 01/02/2012 05/01/2012 TAKE 1 TABLET BY ORAL ROUTE DAILY FOR 30 DAYS Strattera Oral Capsule 60 mg 01/18/2012 02/17/2012 TAKE 1 CAPSULE (60 MG) BY ORAL ROUTE ONCE DAILY IN THE MORNING FOR 30 DAYS Zithromax Z-Junior Oral Tablet 250 mg 04/04/2012 04/09/2012 take 2 tablets (500 mg) by oral route once daily for 1 day then 1 tablet (250 mg) by oral route once daily for 4 days Adderall Oral tablet 15 mg 09/17/2012 take 1 tablet (15 mg) by oral route once daily before breakfast Ambien Oral tablet 5 mg 10/05/2012 10/05/2012 take one or two tablets as needed for insomnia Neurontin Oral capsule 300 mg 12/24/2012 01/23/2013 take 1 capsule (300 mg) by oral route 3 times per day for 30 days diclofenac sodium Oral tablet,delayed release (DR/EC) 75 mg 04/24/20132012 take 1 tablet (75 mg) by oral route 2 times per day lamotrigine Oral tablet 100 mg 06/07/2013 12/04/2013 take 1 tablet by oral route BID Keflex oral capsule 500 mg 05/20/2013 take 1 capsule by oral route 3 times a day Phenergan-Codeine Oral Syrup 6.25-10 mg/5 mL 10/29/2013 take 5 milliliters by oral route 4 times a day Cipro Oral Tablet 500 mg 10/29/2013 take 1 tablet (500 mg) by oral route 2 times per day gabapentin oral capsule 300 mg 10/29/2013 TAKE 1 CAPSULE BY MOUTH THREE TIMES DAILY Flonase nasal spray,suspension 50 mcg/actuation 02/03/2014 inhale 1 puff by nasal route 2 times a day Cymbalta Oral Capsule, Delayed Release(E.C.) 60 mg 06/23/2014 12/20/2014 TAKE 1 CAPSULE BY MOUTH EVERY DAY Amoxicillin Oral Capsule 500 mg 08/20/2014 take one TID prednisone oral tablet 20 mg 08/20/2014 08/28/2014 4x2 days 3x2 days 2x2 days 1x2 days amoxicillin oral tablet 500 mg 12/15/2014 12/25/2014 take 1 tablet by oral route 3 times a day for 10 days prednisone oral tablet 20 mg 12/15/2014 12/25/2014 2X4 days 1X4 days Discontinued Name Start Date Discontinued Date SIG Comments Cymbalta Oral Capsule, Delayed Release(E.C.) 60 mg 12/28/2009 take 1 capsule (60 mg) by oral route once daily for 30 days Oxybutynin Chloride Oral Tablet 5 mg 02/25/2013 take 1 tablet (5 mg) by oral route 2 times per day for 30 days Phenergan-Codeine Oral Syrup 6.25-10 mg/5 mL 11/24/2009 09/17/2012 take 5 milliliters by oral route 4 times a day Phentermine Oral Tablet 37.5 mg 11/24/2009 07/10/201210/17 q am Vyvanse Oral Capsule 30 mg 08/09/2010 11/02/2010 take 1 capsule (30 mg) by oral route once daily in the morning Adderall XR Oral Capsule, Sust. Release 24 hr 20 mg 11/29/2010 12/15/2010 take 1 capsule (20 mg) by oral route once daily in the morning upon awakening for 30 days Cipro Oral Tablet 500 mg 12/14/2010 09/17/2012 take 1 tablet (500 mg) by oral route 2 times per day Vyvanse Oral Capsule 30 mg 01/12/2011 01/19/2011 take 1 capsule (30 mg) by oral route once daily in the morning for 30 days Adderall XR Oral Capsule, Sust. Release 24 hr 20 mg 07/05/2011 07/05/2011 take 1 capsule (20 mg) by oral route once daily in the morning upon awakening for 30 days Adderall Oral Tablet 10 mg 08/08/2011 08/23/2011 take 1 tablet (10 mg) by oral route 2 times per day before breakfast and at 2 pm for 30 days Adderall Oral Tablet 10 mg 10/21/2011 11/15/2011 take 1 tablet (10 mg) by oral route 2 times per day before breakfast and at 2 pm for 30 days Medrol (Junior) Oral Tablets, Dose Pack 4 mg 02/06/2012 09/17/2012 take as directed omeprazole Oral Capsule, Delayed Release(E.C.) 20 mg 03/21/2012 01/29/2014 TAKE 1 CAPSULE (20 MG) BY ORAL ROUTE ONCE DAILY BEFORE A MEAL FOR 30 DAYS Cymbalta oral capsule,delayed release(DR/EC) 60 mg 09/09/2013 10/28/2013 TAKE 1 CAPSULE BY MOUTH [...] HC BMI BSA BMI Percentile O2 Sat(%) 12/15/2014 2:55:00 PM 120 mmHg 80 mmHg [...] Name Description Comments Tobacco Never smoker Alcohol Disabled denies alcohol use History of Procedures Date Ordered Description Order Status 03/06/2012 12:00 AM DRAIN/INJ JOINT/BURSA W/O US Reviewed 04/04/2012 12:00 AM THER/PROPH/DIAG INJ SC/IM Reviewed 07/10/2012 12:00 AM THER/PROPH/DIAG INJ SC/IM Reviewed 10/22/2012 12:00 AM THER/PROPH/DIAG INJ SC/IM Reviewed 02/25/2013 12:00 AM CYTOPATH TBS C/V MANUAL Returned 02/25/2013 12:00 AM SPECIMEN HANDLING OFFICE-LAB Reviewed 02/25/2013 12:00 AM URINALYSIS AUTO W/SCOPE Returned 03/01/2013 12:00 AM US EXAM PELVIC COMPLETE Returned 02/26/2013 12:00 AM MAMMOGRAM SCREENING Returned 07/01/2013 12:00 AM THER/PROPH/DIAG INJ SC/IM Reviewed 08/08/2013 12:00 AM THER/PROPH/DIAG INJ SC/IM Reviewed 01/29/2014 12:00 AM THER/PROPH/DIAG INJ SC/IM Reviewed 11/22/2010 12:00 AM THER/PROPH/DIAG INJ SC/IM Reviewed 02/09/2011 12:00 AM IMMUNIZATION ADMIN Reviewed 02/09/2011 12:00 AM TD VACCINE NO PRSRV 7/> IM Reviewed 09/03/2009 12:00 AM MRI NECK SPINE W/DYE Reviewed 03/31/2015 12:00 AM ROUTINE VENIPUNCTURE Reviewed Results Summary Data and Description Results [...] Given Vis Pub CVX Td 02/09/2011 [facility] [id number] Intramuscular Left Deltoid 02/09/2011 09/02/2008 999 History [...] 2015 12:57PM Depression Mar 31 2015 12:57PM Payers Insurance Name Company Name Plan Name Plan Number Policy Number Policy Group Number Start Date [facility]ly [facility] [id number] N/A [employer] Geoff 50 Percent N/A Medicare Part B Medicare Secondary [id number] N/A Medicare Part A Medicare Part A [id number] N/A [facility] Financial Assistance [facility] Financial Geoff 8 1 13 fifty percent N/A [facility] [id number] N/A [place] Medical [facility] Medical Assistance Pro [id number] N/A [facility] [id number] N/A [facility] [id number] N/A [facility] [id number] N/A History of Encounters Visit Date Visit Type Provider 03/31/2015 Office visit KAPIL CUEVAS 12/15/2014 Office visit KAPIL ROLLINS PA 08/19/2014 Office visit KAPIL CUEVAS 01/29/2014 Office visit KAPIL CUEVAS 10/28/2013 Office visit KAPIL CUEVAS 09/30/2013 [facility] Zan Hines MD 08/08/2013 Office visit KAPIL CUEVAS 07/01/2013 Office visit KAPIL CUEVAS 03/28/2013 Office visit Nikolai Stoner MD 03/14/2013 [facility] Kapil Wells MD 02/26/2013 Office visit Kapil Wells MD 02/25/2013 Office visit Nikolai Stoner MD 02/01/2013 Office visit KAPIL CUEVAS 01/22/2013 Office visit KAPIL CUEVAS 12/21/2012 Office visit KAPIL CUEVAS 10/22/2012 Office visit KAPIL CUEVAS 09/17/2012 Office visit KAPIL CUEVAS 07/10/2012 Office visit KAPIL ROLLINS PA 04/04/2012 Office visit KAPIL CUEVAS 03/06/2012 Office visit KAPIL ROLLINS PA 02/06/2012 Office visit KAPIL ROLLINS PA 04/07/2011 Office visit Kapil Rollins PA-C 02/09/2011 Office visit Kapil Rollins PA-C 01/24/2011 Office visit Kapil Rollins PA-C 12/13/2010 Office visit Kapil Rollins PA-C 11/22/2010 Office visit Kapil Rollins PA-C 08/09/2010 Office visit Kapil Rollins PA-C 06/24/2010 Office visit Kapil CUEVAS-C 11/24/2009 Office visit Kapil CUEVAS-C 10/29/2009 Office visit Kapil CUEVAS-C 09/03/2009 Office visit Kapil CUEVAS-C 08/24/2009 Office visit Kapil Rollins PA-C 06/10/2009 Office visit KAPIL CUEVAS
[2018-08-04 17:18] LABS: BASOPHILS % (AUTO) 0 % (0-10); EOSINOPHILS # (AUTO) 0.4 10^3/uL (0.0-0.3); EOSINOPHILS % (AUTO) 4 % (0-10); HEMATOCRIT 38 % (35-52); LYMPHOCYTES % (AUTO) 30 % (12-44); MEAN CORPUSCULAR HEMOGLOBIN 30 PG (25-34); MEAN CORPUSCULAR HGB CONC 34 G/DL (32-36); MEAN CORPUSCULAR VOLUME 89 FL (80-99); MEAN PLATELET VOLUME 10.7 FL (7.4-10.4); MONOCYTES # (AUTO) 0.8 X 10^3 (0.0-1.0); MONOCYTES % (AUTO) 8 % (0-12); NEUTROPHILS # (AUTO) 5.8 X 10^3 (1.8-7.8); NEUTROPHILS % (AUTO) 57 % (42-75); PLATELET COUNT 295 10^3/uL (130-400); RED BLOOD COUNT 4.27 10^6/uL (4.35-5.85); RED CELL DISTRIBUTION WIDTH 13.2 % (10.0-14.5); WHITE BLOOD COUNT 10.1 10^3/uL (4.3-11.0)
--- OUTSIDE RECORDS SUMMARY | 2018-08-04 17:18 | XMS REPORT | Clinical Summary ---
Author Author Admin, [facility] Organization [facility] Address Unknown Phone Unavailable Allergies, Adverse Reactions, Alerts Allergy Name Reaction Description Start Date Severity Status Provider No Known Allergies Chanelle ENRIQUEZ Conditions or Problems Problem Name Problem Code [...] Patient Instruction LYRICA 50 MG ORAL CAPS 50mg two times a day for 2 weeks (after 1 week of 25mg is done). PREGABALIN 40634655413 Active Sandy Tejeda APRN Active LYRICA 25 MG ORAL CAPS 25mg two times a day for 1 week. PREGABALIN 17066534296 Active Sandy Tejeda APRN Active LYRICA 75 MG ORAL CAPS 1 twice a day for fibromyalgia PREGABALIN 82726765319 Active Sandy Tejeda APRN Active GABAPENTIN 300 MG CAPS 1 po three times daily for nerve pain GABAPENTIN 56463456968 No Longer Active Sukumar Montgomery MD Active DICLOFENAC SODIUM 75 MG TBEC 1 tablet by mouth twice daily DICLOFENAC SODIUM 88192568084 Active Sukumar Montgomery MD Active MELOXICAM 15 MG TABS 1 po q day for pain with food MELOXICAM 50592443020 No Longer Active Sukumar Montgomery MD Active TYLENOL WITH CODEINE #3 300-30 MG TABS 1 tablet by mouth every four to six hours as needed ACETAMINOPHEN-CODEINE 87299883393 No Longer Active Sukumar Montgomery MD Active LAMICTAL 100 MG TABS Take one by mouth twice daily LAMOTRIGINE 66554411099 Active Sukumar Montgomery MD Active AMBIEN 10 MG TAB 1 tab by mouth at bedtime as needed for sleep ZOLPIDEM TARTRATE 47663776881 Active Sukumar Montgomery MD Active SEROQUEL 25 MG TABS 1 tablet by mouth daily at bedtime QUETIAPINE FUMARATE 59505217174 No Longer Active Sukumar Montgomery MD Active ADDERALL XR 20 MG [id number] Take one by mouth daily AMPHETAMINE-DEXTROAMPHETAMINE 75767674738 No Longer Active Sukumar Montgomery MD Active CYMBALTA 60 MG CPEP Take one by mouth daily DULOXETINE HCL 65024420690 Active Sukumar Montgomery MD Active PRILOSEC 20 MG CPDR Take one by mouth daily OMEPRAZOLE 94757866317 Active Sukumar Montgomery MD Active ADDERALL XR 20 MG [id number] Take one by mouth daily ADDERALL XR 20 MG [id number] AMPHETAMINE-DEXTROAMPHETAMINE Inactive SEROQUEL 25 MG TABS 1 tablet by mouth daily at bedtime SEROQUEL 25 MG TABS 898586 QUETIAPINE FUMARATE Inactive TYLENOL WITH CODEINE #3 300-30 MG TABS 1 tablet by mouth every four to six hours as needed TYLENOL WITH CODEINE #3 300-30 MG TABS ACETAMINOPHEN-CODEINE Inactive MELOXICAM 15 MG TABS 1 po q day for pain with food MELOXICAM 15 MG TABS 303840 MELOXICAM Inactive GABAPENTIN 300 MG CAPS 1 po three times daily for nerve pain GABAPENTIN 300 MG CAPS 381788 GABAPENTIN Inactive Vital Signs Date Name Value Unit Range Description blood pressure, diastolic - 8462-4 78 mm[Hg] BP sarmiento blood pressure, systolic - 8480-6 133 mm[Hg] BP sys height E&M - 8302-2 64.75 [in_us] Bdy height pulse rate E&M - 8867-4 68 /min Heart rate temperature E&M 98.3 [degF] Body temperature weight E&M - 3141-9 188 [lb_av] Weight Measured blood pressure, diastolic - 8462-4 79 mm[Hg] BP sarmiento blood pressure, systolic - 8480-6 120 mm[Hg] BP sys pulse rate E&M - 8867-4 64 /min Heart rate temperature E&M 97.6 [degF] Body temperature weight E&M - 3141-9 186.5 [lb_av] Weight Measured Diagnostic Results Date Name Value Unit Range Description Lab Report: LIPID PANEL - Chemistry cholesterol, serum 243 mg/dL [phone]/05/05 HDL cholesterol, serum 61 mg/dL > OR=46 triglyceride, serum, fasting 74 mg/dL <150 LDL cholesterol, serum 167 MG/DL (CALC) mg/dL <130 cholesterol/HDL ratio, serum 4.0 (calc) < OR=5.0 Encounters Code Encounter Date Provider Facility CPT-77430 Level 4 Est. Patient 15:52:44 CDT Sandy Tejeda APRN [facility] CPT-54933 Level 3 Est. Patient 16:10:43 [employer] OPER[employer] Sukumar Montgomery MD [facility] CPT-47670 Level 3 Est. Patient 15:33:14 CDT Sukumar Montgomery MD [facility] CPT-48665 Level 4 Est. Patient 11:52:43 CDT Sukumar Montgomery MD [facility] CPT-89668 Level 3 Est. Patient 15:39:41 CDT Sukumar Montgomery MD [facility] CPT-41488 Level 3 Est. Patient 16:37:35 CDT Sukumar Montgomery MD [facility]
--- OUTSIDE RECORDS SUMMARY | 2018-08-04 17:18 | XMS REPORT | Clinical Summary ---
Author Author Admin, [facility] Organization [facility] Address Unknown Phone Unavailable Allergies, [...] 1 week of 25mg is done). PREGABALIN 82105690265 Active Sandy Tejeda APRN Active LYRICA 25 MG ORAL CAPS 25mg two times a day for 1 week. PREGABALIN 19439339056 Active Sandy Tejeda APRN Active LYRICA 75 MG ORAL CAPS 1 twice a day for fibromyalgia PREGABALIN 85650814192 Active Sandy Tejeda APRN Active GABAPENTIN 300 MG CAPS 1 po three times daily for nerve pain GABAPENTIN 65948221747 No Longer Active Sukumar Montgomery MD Active DICLOFENAC SODIUM 75 MG TBEC 1 tablet by mouth twice daily DICLOFENAC SODIUM 42335557174 Active Sukumar Montgomery MD Active MELOXICAM 15 MG TABS 1 po q day for pain with food MELOXICAM 41221203083 No Longer Active Sukumar Montgomery MD Active TYLENOL WITH CODEINE #3 300-30 MG TABS 1 tablet by mouth every four to six hours as needed ACETAMINOPHEN-CODEINE 59199116307 No Longer Active Sukumar Montgomery MD Active LAMICTAL 100 MG TABS Take one by mouth twice daily LAMOTRIGINE 82237979332 Active Sukumar Mnotgomery MD Active AMBIEN 10 MG TAB 1 tab by mouth at bedtime as needed for sleep ZOLPIDEM TARTRATE 71621063454 Active Sukumar Montgomery MD Active SEROQUEL 25 MG TABS 1 tablet by mouth daily at bedtime QUETIAPINE FUMARATE 26563187875 No Longer Active Sukumar Montgomery MD Active ADDERALL XR 20 MG [id number] Take one by mouth daily AMPHETAMINE-DEXTROAMPHETAMINE 79256654078 No Longer Active Sukumar Montgomery MD Active CYMBALTA 60 MG CPEP Take one by mouth daily DULOXETINE HCL 48289405100 Active Sukumar Montgomery MD Active PRILOSEC 20 MG CPDR Take one by mouth daily OMEPRAZOLE 82335488516 Active Sukumar Montgomery MD Active ADDERALL XR 20 MG [id number] Take one by mouth daily ADDERALL XR 20 MG [id number] AMPHETAMINE-DEXTROAMPHETAMINE Inactive SEROQUEL 25 MG TABS 1 tablet by mouth daily at bedtime SEROQUEL 25 MG TABS 302787 QUETIAPINE FUMARATE Inactive TYLENOL WITH CODEINE #3 300-30 MG TABS 1 tablet by mouth every four to six hours as needed TYLENOL WITH CODEINE #3 300-30 MG TABS 220746 ACETAMINOPHEN-CODEINE Inactive MELOXICAM 15 MG TABS 1 po q day for pain with food MELOXICAM 15 MG TABS 226886 MELOXICAM Inactive GABAPENTIN 300 MG CAPS 1 po three times daily for nerve pain GABAPENTIN 300 MG CAPS 237603 GABAPENTIN Inactive Vital Signs Date Name Value [...] E&M - 3141-9 186.5 [lb_av] Weight Measured Encounters Code Encounter Date Provider Facility CPT-73566 Level 4 Est. Patient 15:52:44 CDT Sandy Tejeda APRN [facility] CPT-78358 Level 3 Est. 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 Patient 15:33:14 CDT Sukumar Montgomery MD [facility] CPT-62092 Level 4 Est. Patient 11:52:43 CDT Sukumar Montgomery MD [facility] CPT-55262 Level 3 Est. Patient 15:39:41 CDT Sukumar Montgomery MD [facility] CPT-98629 Level 3 Est. Patient 16:37:35 CDT Sukumar Montgomery MD [facility]
--- OUTSIDE RECORDS SUMMARY | 2018-08-04 17:18 | XMS REPORT | Clinical Summary ---
Author Author Admin, [facility] Organization [facility] Address Unknown Phone Unavailable Allergies, Adverse Reactions, [...] ORAL CAPS 1 daily for Fibromyalgia PREGABALIN 99422978915 Active Kayley You APRN Active LYRICA 25 MG ORAL CAPS 25mg two times a day for 1 week. PREGABALIN 94046058294 No Longer Active Sukumar Montgomery MD Active LYRICA 75 MG ORAL CAPS 1 twice a day for fibromyalgia PREGABALIN 98352994442 No Longer Active Sukumar Montgomery MD Active GABAPENTIN 300 MG CAPS 1 po three times daily for nerve pain GABAPENTIN 50004969909 No Longer Active Sukumar Montgomery MD Active DICLOFENAC SODIUM 75 MG TBEC 1 tablet by mouth twice daily DICLOFENAC SODIUM 76846943182 Active Sukumar Montgomery MD Active MELOXICAM 15 MG TABS 1 po q day for pain with food MELOXICAM 65991041244 No Longer Active Sukumar Montgomery MD Active TYLENOL WITH CODEINE #3 300-30 MG TABS 1 tablet by mouth every four to six hours as needed ACETAMINOPHEN-CODEINE 39744344028 No Longer Active Sukumar Montgomery MD Active LAMICTAL 100 MG TABS Take one by mouth twice daily LAMOTRIGINE 24355098710 Active Sukumar Montgomery MD Active AMBIEN 10 MG TAB 1 tab by mouth at bedtime as needed for sleep ZOLPIDEM TARTRATE 96948520951 Active Sukumar Montgomery MD Active SEROQUEL 25 MG TABS 1 tablet by mouth daily at bedtime QUETIAPINE FUMARATE 46123463000 No Longer Active Sukumra Montgomery MD Active ADDERALL XR 20 MG [id number] Take one by mouth daily AMPHETAMINE-DEXTROAMPHETAMINE 58674639939 No Longer Active Sukumar Montgomery MD Active CYMBALTA 60 MG CPEP Take one by mouth daily DULOXETINE HCL 38938599402 Active Sukumar Montgomery MD Active PRILOSEC 20 MG CPDR Take one by mouth daily OMEPRAZOLE 04675880968 Active Sukumar Montgomery MD Active ADDERALL XR 20 MG [id number] Take one by mouth daily ADDERALL XR 20 MG [id number] AMPHETAMINE-DEXTROAMPHETAMINE Inactive SEROQUEL 25 MG TABS 1 tablet by mouth daily at bedtime SEROQUEL 25 MG TABS 491808 QUETIAPINE FUMARATE Inactive TYLENOL WITH CODEINE #3 300-30 MG TABS 1 tablet by mouth every four to six hours as needed TYLENOL WITH CODEINE #3 300-30 MG TABS ACETAMINOPHEN-CODEINE Inactive MELOXICAM 15 MG TABS 1 po q day for pain with food MELOXICAM 15 MG TABS 399590 MELOXICAM Inactive GABAPENTIN 300 MG CAPS 1 po three times daily for nerve pain GABAPENTIN 300 MG CAPS 837004 GABAPENTIN Inactive LYRICA 75 MG ORAL CAPS [...] Glucose - Chemistry cholesterol, serum 202 mg/dL 363-191 0111/11/02 triglyceride, serum, fasting 83 mg/dL 30-200 HDL cholesterol, serum 49 mg/dL 32-60 LDL cholesterol, serum 136 mg/dL 0-130 blood glucose 104 mg/dL 65-110 Lab Report: LIPID PANEL- REPOWER - Chemistry cholesterol/HDL ratio, serum 4.0 (calc) < OR=5.0 LDL cholesterol, serum 167 MG/DL (CALC) mg/dL <130 triglyceride, serum, fasting 74 mg/dL <150 HDL cholesterol, serum 61 mg/dL > OR=46 cholesterol, serum 243 mg/dL 125-200 Encounters Code Encounter Date Provider Facility CPT-40994 Level 3 Est. Patient 14:37:37 CDT Sukumar Montgomery MD [facility] CPT-37975 Level 4 Est. Patient 15:52:44 CDT Sandy Tejeda [facility] CPT-09649 Level 3 Est. Patient 16:10:43 [employer] ADVIS[employer] Sukumar Montgomery MD [facility] CPT-53319 Level 3 Est. Patient 15:33:14 CDT Sukumar Montgomery MD [facility] CPT-67883 Level 4 Est. Patient 11:52:43 CDT Sukumar Montgomery MD [facility] CPT-15419 Level 3 Est. Patient 15:39:41 CDT Sukumar Montgomery MD [facility] CPT-81743 Level 3 Est. Patient 16:37:35 CDT Sukumar Montgomery MD [facility]
--- OUTSIDE RECORDS SUMMARY | 2018-08-04 17:18 | XMS REPORT | Clinical Summary ---
Author Author Admin, [facility] Organization [facility] Address Unknown Phone Unavailable Allergies, Adverse Reactions, Alerts Allergy Name Reaction Description Start Date Severity Status Provider No Known Allergies Lisa Del Real LRT Conditions or Problems Problem Name Problem Code Onset Date Status Entry Date Provider Comment Standard Description Annotate BIPOLAR DISORDER 296.7 Active Sukumar Montgomery MD Bipolar I disorder, most recent episode (or current) unspecified FIBROMYALGIA 729.1 Active Sukumar Mongtomery MD Myalgia and myositis, unspecified CERVICAL DISC [...] ORAL CAPS 1 daily for Fibromyalgia PREGABALIN 04131344141 Active Kayley You APRN Active LYRICA 25 MG ORAL CAPS 25mg two times a day for 1 week. PREGABALIN 45234693170 No Longer Active Sukumar Montgomery MD Active LYRICA 75 MG ORAL CAPS 1 twice a day for fibromyalgia PREGABALIN 82804991994 No Longer Active Sukumar Montgomery MD Active GABAPENTIN 300 MG CAPS 1 po three times daily for nerve pain GABAPENTIN 31940758568 No Longer Active Sukumar Montgomery MD Active DICLOFENAC SODIUM 75 MG TBEC 1 tablet by mouth twice daily DICLOFENAC SODIUM 58462974031 Active Sukumar Montgomery MD Active MELOXICAM 15 MG TABS 1 po q day for pain with food MELOXICAM 36188263737 No Longer Active Sukumar Montgomery MD Active TYLENOL WITH CODEINE #3 300-30 MG TABS 1 tablet by mouth every four to six hours as needed ACETAMINOPHEN-CODEINE 44674544244 No Longer Active Sukumar Montgomery MD Active LAMICTAL 100 MG TABS Take one by mouth twice daily LAMOTRIGINE 92946524377 Active Sukumar Montgomery MD Active AMBIEN 10 MG TAB 1 tab by mouth at bedtime as needed for sleep ZOLPIDEM TARTRATE 74210192615 Active Sukumar Montgomery MD Active SEROQUEL 25 MG TABS 1 tablet by mouth daily at bedtime QUETIAPINE FUMARATE 01867918469 No Longer Active Sukumar Montgomery MD Active ADDERALL XR 20 MG [id number] Take one by mouth daily AMPHETAMINE-DEXTROAMPHETAMINE 01985979778 No Longer Active Sukumar Montgomery MD Active CYMBALTA 60 MG CPEP Take one by mouth daily DULOXETINE HCL 58123234254 Active Sukumar Montgomery MD Active PRILOSEC 20 MG CPDR Take one by mouth daily OMEPRAZOLE 37434344157 Active Sukumar Montgomery MD Active ADDERALL XR 20 MG [id number] Take one by mouth daily ADDERALL XR 20 MG [id number] AMPHETAMINE-DEXTROAMPHETAMINE Inactive SEROQUEL 25 MG TABS 1 tablet by mouth daily at bedtime SEROQUEL 25 MG TABS 207167 QUETIAPINE FUMARATE Inactive TYLENOL WITH CODEINE #3 300-30 MG TABS 1 tablet by mouth every four to six hours as needed TYLENOL WITH CODEINE #3 300-30 MG TABS ACETAMINOPHEN-CODEINE Inactive MELOXICAM 15 MG TABS 1 po q day for pain with food MELOXICAM 15 MG TABS 673684 MELOXICAM Inactive GABAPENTIN 300 MG CAPS 1 po three times daily for nerve pain GABAPENTIN 300 MG CAPS 881342 GABAPENTIN Inactive LYRICA 75 MG ORAL CAPS [...] temperature weight E&M 188 [lb_av] Weight Measured Diagnostic Results Date Name Value Unit Range Description Lab Report: Lipid Panel, Glucose - Chemistry cholesterol, serum 202 mg/dL 732-248 7703/11/02 triglyceride, serum, fasting 83 mg/dL 30-200 HDL [...] 125-200 Encounters Code Encounter Date Provider Facility CPT-70978 Level 3 Est. Patient 14:37:37 CDT Sukumar Montgomery MD [facility] CPT-07247 Level 4 Est. Patient 15:52:44 CDT Sandy Tejeda APRN [facility]-91914 Level 3 Est. 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 Patient 15:33:14 CDT Sukumar Montgomery MD [facility] CPT-90404 Level 4 Est. Patient 11:52:43 CDT Sukumar Montgomery MD [facility] CPT-56697 Level 3 Est. Patient 15:39:41 CDT Sukumar Montgomery MD [facility] CPT-59087 Level 3 Est. Patient 16:37:35 CDT Sukumar Montgomery MD [facility]
--- OUTSIDE RECORDS SUMMARY | 2018-08-04 17:19 | XMS REPORT | Clinical Summary ---
Author Author Admin, E Organization [facility] Address Unknown Phone Unavailable Allergies, Adverse [...] ORAL CAPS 1 daily for Fibromyalgia PREGABALIN 55988554892 Active Sukumar Montgomery MD Active LYRICA 25 MG ORAL CAPS 25mg two times a day for 1 week. PREGABALIN 28015085010 No Longer Active Sukumar Montgomery MD Active LYRICA 75 MG ORAL CAPS 1 twice a day for fibromyalgia PREGABALIN 52885693068 No Longer Active Sukumar Montgomery MD Active GABAPENTIN 300 MG CAPS 1 po three times daily for nerve pain GABAPENTIN 86338090980 No Longer Active Sukumar Montgomery MD Active DICLOFENAC SODIUM 75 MG TBEC 1 tablet by mouth twice daily DICLOFENAC SODIUM 12729049169 Active Sukumar Montgomery MD Active MELOXICAM 15 MG TABS 1 po q day for pain with food MELOXICAM 87586094723 No Longer Active Sukumar Montgomery MD Active TYLENOL WITH CODEINE #3 300-30 MG TABS 1 tablet by mouth every four to six hours as needed ACETAMINOPHEN-CODEINE 12354116186 No Longer Active Sukumar Montgomery MD Active LAMICTAL 100 MG TABS Take one by mouth twice daily LAMOTRIGINE 45962200176 Active Sukumar Montgomery MD Active AMBIEN 10 MG TAB 1 tab by mouth at bedtime as needed for sleep ZOLPIDEM TARTRATE 71416059336 Active Sukumar Montgomery MD Active SEROQUEL 25 MG TABS 1 tablet by mouth daily at bedtime QUETIAPINE FUMARATE 11218179414 No Longer Active Sukumar Montgomery MD Active ADDERALL XR 20 MG [id number] Take one by mouth daily AMPHETAMINE-DEXTROAMPHETAMINE 28124982474 No Longer Active Sukumar Montgomery MD Active CYMBALTA 60 MG CPEP Take one by mouth daily DULOXETINE HCL 59665554151 Active Sukumar Montgomery MD Active PRILOSEC 20 MG CPDR Take one by mouth daily OMEPRAZOLE 19263112887 Active Sukumar Montgomery MD Active ADDERALL XR 20 MG [id number] Take one by mouth daily ADDERALL XR 20 MG [id number] AMPHETAMINE-DEXTROAMPHETAMINE Inactive SEROQUEL 25 MG TABS 1 tablet by mouth daily at bedtime SEROQUEL 25 MG TABS 607017 QUETIAPINE FUMARATE Inactive TYLENOL WITH CODEINE #3 300-30 MG TABS 1 tablet by mouth every four to six hours as needed TYLENOL WITH CODEINE #3 300-30 MG TABS ACETAMINOPHEN-CODEINE Inactive MELOXICAM 15 MG TABS 1 po q day for pain with food MELOXICAM 15 MG TABS 370223 MELOXICAM Inactive GABAPENTIN 300 MG CAPS 1 po three times daily for nerve pain GABAPENTIN 300 MG CAPS 340282 GABAPENTIN Inactive LYRICA 75 MG ORAL CAPS [...] REPOWER - Chemistry cholesterol, serum 243 mg/dL 777-621 6008/05/05 HDL cholesterol, serum 61 mg/dL > OR=46 triglyceride, serum, fasting 74 mg/dL <150 LDL cholesterol, serum 167 MG/DL (CALC) mg/dL <130 cholesterol/HDL ratio, serum 4.0 (calc) < OR=5.0 Encounters Code Encounter Date Provider Facility CPT-67057 Level 3 Est. Patient 14:37:37 CDT Sukumar Montgomery MD [facility] CPT-43870 Level 4 Est. Patient 15:52:44 CDT Sandy Tejeda APRN [facility] CPT-43498 Level 3 Est. 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 CPT-19196 Level 3 Est. Patient 15:33:14 CDT Sukumar Montgomery MD [facility] CPT-19760 Level 4 Est. Patient 11:52:43 CDT Sukumar Montgomery MD [facility] CPT-58922 Level 3 Est. Patient 15:39:41 CDT Sukumar Montgomery MD [facility] CPT-35315 Level 3 Est. Patient 16:37:35 CDT Sukumar Montgomery MD [facility]
--- OUTSIDE RECORDS SUMMARY | 2018-08-04 17:19 | XMS REPORT | Clinical Summary ---
Author Author Admin, E Organization [facility] Address Unknown Phone Unavailable Allergies, Adverse Reactions, [...] ORAL CAPS 1 daily for Fibromyalgia PREGABALIN 90629591764 Active Sukumar Montgomery MD Active LYRICA 25 MG ORAL CAPS 25mg two times a day for 1 week. PREGABALIN 78522200292 No Longer Active Sukumar Montgomery MD Active LYRICA 75 MG ORAL CAPS 1 twice a day for fibromyalgia PREGABALIN 72965061235 No Longer Active Sukumar Montgomery MD Active GABAPENTIN 300 MG CAPS 1 po three times daily for nerve pain GABAPENTIN 44990905552 No Longer Active Sukumar Montgomery MD Active DICLOFENAC SODIUM 75 MG TBEC 1 tablet by mouth twice daily DICLOFENAC SODIUM 46290618025 Active Sukumar Montgomery MD Active MELOXICAM 15 MG TABS 1 po q day for pain with food MELOXICAM 74818896827 No Longer Active Sukumar Montgomery MD Active TYLENOL WITH CODEINE #3 300-30 MG TABS 1 tablet by mouth every four to six hours as needed ACETAMINOPHEN-CODEINE 94806263685 No Longer Active Sukumar Montgomery MD Active LAMICTAL 100 MG TABS Take one by mouth twice daily LAMOTRIGINE 59034949923 Active Sukumar Montgomery MD Active AMBIEN 10 MG TAB 1 tab by mouth at bedtime as needed for sleep ZOLPIDEM TARTRATE 34485802007 Active Sukumar Montgomery MD Active SEROQUEL 25 MG TABS 1 tablet by mouth daily at bedtime QUETIAPINE FUMARATE 40478641171 No Longer Active Sukumar Montgomery MD Active ADDERALL XR 20 MG [id number] Take one by mouth daily AMPHETAMINE-DEXTROAMPHETAMINE 25776769149 No Longer Active Sukumar Montgomery MD Active CYMBALTA 60 MG CPEP Take one by mouth daily DULOXETINE HCL 93870793678 Active Sukumar Montgomery MD Active PRILOSEC 20 MG CPDR Take one by mouth daily OMEPRAZOLE 88509386855 Active Sukumar Montgomery MD Active ADDERALL XR 20 MG [id number] Take one by mouth daily ADDERALL XR 20 MG [id number] AMPHETAMINE-DEXTROAMPHETAMINE Inactive SEROQUEL 25 MG TABS 1 tablet by mouth daily at bedtime SEROQUEL 25 MG TABS 275428 QUETIAPINE FUMARATE Inactive TYLENOL WITH CODEINE #3 300-30 MG TABS 1 tablet by mouth every four to six hours as needed TYLENOL WITH CODEINE #3 300-30 MG TABS ACETAMINOPHEN-CODEINE Inactive MELOXICAM 15 MG TABS 1 po q day for pain with food MELOXICAM 15 MG TABS 422229 MELOXICAM Inactive GABAPENTIN 300 MG CAPS 1 po three times daily for nerve pain GABAPENTIN 300 MG CAPS 609850 GABAPENTIN Inactive LYRICA 75 MG ORAL CAPS [...] 125-200 Encounters Code Encounter Date Provider Facility CPT-01378 Level 3 Est. Patient 14:37:37 CDT Sukumar Montgomery MD [facility] CPT-61835 Level 4 Est. Patient 15:52:44 CDT Sandy Tejeda APRN [facility] CPT-80211 Level 3 Est. 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 Patient 15:33:14 CDT Sukumar Montgomery MD [facility] CPT-62728 Level 4 Est. Patient 11:52:43 CDT Sukumar Montgomery MD [facility] CPT-38769 Level 3 Est. Patient 15:39:41 CDT Sukumar Montgomery MD [facility] CPT-21230 Level 3 Est. Patient 16:37:35 CDT Skuumar Montgomery MD [facility]
--- OUTSIDE RECORDS SUMMARY | 2018-08-04 17:19 | XMS REPORT | Clinical Summary ---
Author Author Admin, [facility] Organization [facility] Address Unknown Phone Unavailable Allergies, Adverse [...] 1 week of 25mg is done). PREGABALIN 40673454001 Active Sandy Tejeda APRN Active LYRICA 25 MG ORAL CAPS 25mg two times a day for 1 week. PREGABALIN 67362477700 Active Sandy Tejeda APRN Active LYRICA 75 MG ORAL CAPS 1 twice a day for fibromyalgia PREGABALIN 40760578291 Active Sandy Tejeda APRN Active GABAPENTIN 300 MG CAPS 1 po three times daily for nerve pain GABAPENTIN 71443574743 No Longer Active Sukumar Montgomery MD Active DICLOFENAC SODIUM 75 MG TBEC 1 tablet by mouth twice daily DICLOFENAC SODIUM 46469193378 Active Sukumar Montgomery MD Active MELOXICAM 15 MG TABS 1 po q day for pain with food MELOXICAM 11015632183 No Longer Active Sukumar Montgomery MD Active TYLENOL WITH CODEINE #3 300-30 MG TABS 1 tablet by mouth every four to six hours as needed ACETAMINOPHEN-CODEINE 44690135789 No Longer Active Sukumar Montgomery MD Active LAMICTAL 100 MG TABS Take one by mouth twice daily LAMOTRIGINE 04914769090 Active Sukumar Montgomery MD Active AMBIEN 10 MG TAB 1 tab by mouth at bedtime as needed for sleep ZOLPIDEM TARTRATE 25595584312 Active Sukumar Montgomery MD Active SEROQUEL 25 MG TABS 1 tablet by mouth daily at bedtime QUETIAPINE FUMARATE 84501265160 No Longer Active Sukumar Montgomery MD Active ADDERALL XR 20 MG [id number] Take one by mouth daily AMPHETAMINE-DEXTROAMPHETAMINE 29105862296 No Longer Active Sukumar Montgomery MD Active CYMBALTA 60 MG CPEP Take one by mouth daily DULOXETINE HCL 71316766348 Active Sukumar Montgomery MD Active PRILOSEC 20 MG CPDR Take one by mouth daily OMEPRAZOLE 42132283328 Active Sukumar Montgomery MD Active ADDERALL XR 20 MG [id number] Take one by mouth daily ADDERALL XR 20 MG [id number] AMPHETAMINE-DEXTROAMPHETAMINE Inactive SEROQUEL 25 MG TABS 1 tablet by mouth daily at bedtime SEROQUEL 25 MG TABS 273120 QUETIAPINE FUMARATE Inactive TYLENOL WITH CODEINE #3 300-30 MG TABS 1 tablet by mouth every four to six hours as needed TYLENOL WITH CODEINE #3 300-30 MG TABS 413873 ACETAMINOPHEN-CODEINE Inactive MELOXICAM 15 MG TABS 1 po q day for pain with food MELOXICAM 15 MG TABS 102899 MELOXICAM Inactive GABAPENTIN 300 MG CAPS 1 po three times daily for nerve pain GABAPENTIN 300 MG CAPS 597656 GABAPENTIN Inactive Vital Signs Date Name Value [...] Measured Encounters Code Encounter Date Provider Facility CPT-65010 Level 4 Est. Patient 15:52:44 CDT Sandy Tejeda APRN [facility] CPT-94141 Level 3 Est. 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 Patient 15:33:14 CDT Sukumar Montgomery MD [facility] CPT-65404 Level 4 Est. Patient 11:52:43 CDT Sukumar Montgomery MD [facility] CPT-05571 Level 3 Est. Patient 15:39:41 CDT Sukumar Montgomery MD [facility] CPT-67394 Level 3 Est. Patient 16:37:35 CDT Sukumar [facility] MD [facility]
--- OUTSIDE RECORDS SUMMARY | 2018-08-04 17:19 | XMS REPORT | Clinical Summary ---
Author Author Admin, [facility] Organization [facility] Address Unknown Phone Unavailable Allergies, Adverse [...] 1 week of 25mg is done). PREGABALIN 27056664110 Active Sandy Tejeda APRN Active LYRICA 25 MG ORAL CAPS 25mg two times a day for 1 week. PREGABALIN 32813094228 Active Sandy Tejeda APRN Active LYRICA 75 MG ORAL CAPS 1 twice a day for fibromyalgia PREGABALIN 87969952349 Active Sandy Tejeda APRN Active GABAPENTIN 300 MG CAPS 1 po three times daily for nerve pain GABAPENTIN 02271954563 No Longer Active Sukumar Montgomery MD Active DICLOFENAC SODIUM 75 MG TBEC 1 tablet by mouth twice daily DICLOFENAC SODIUM 01077762501 Active Sukumar Montgomery MD Active MELOXICAM 15 MG TABS 1 po q day for pain with food MELOXICAM 41483972446 No Longer Active Sukumar Montgomery MD Active TYLENOL WITH CODEINE #3 300-30 MG TABS 1 tablet by mouth every four to six hours as needed ACETAMINOPHEN-CODEINE 74855676354 No Longer Active Sukumar Montgomery MD Active LAMICTAL 100 MG TABS Take one by mouth twice daily LAMOTRIGINE 76984215469 Active Sukumar Montgomery MD Active AMBIEN 10 MG TAB 1 tab by mouth at bedtime as needed for sleep ZOLPIDEM TARTRATE 51467491006 Active Sukumar Montgomery MD Active SEROQUEL 25 MG TABS 1 tablet by mouth daily at bedtime QUETIAPINE FUMARATE 92566838592 No Longer Active Sukumar Montgomery MD Active ADDERALL XR 20 MG [id number] Take one by mouth daily AMPHETAMINE-DEXTROAMPHETAMINE 17680388886 No Longer Active Sukumar Montgomery MD Active CYMBALTA 60 MG CPEP Take one by mouth daily DULOXETINE HCL 30334208806 Active Sukumar Montgomery MD Active PRILOSEC 20 MG CPDR Take one by mouth daily OMEPRAZOLE 03297135001 Active Sukumar Montgomery MD Active ADDERALL XR 20 MG [id number]-ENC Take one by mouth daily ADDERALL XR 20 MG [id number] AMPHETAMINE-DEXTROAMPHETAMINE Inactive SEROQUEL 25 MG TABS 1 tablet by mouth daily at bedtime SEROQUEL 25 MG TABS 292957 QUETIAPINE FUMARATE Inactive TYLENOL WITH CODEINE #3 300-30 MG TABS 1 tablet by mouth every four to six hours as needed TYLENOL WITH CODEINE #3 300-30 MG TABS ACETAMINOPHEN-CODEINE Inactive MELOXICAM 15 MG TABS 1 po q day for pain with food MELOXICAM 15 MG TABS 978175 MELOXICAM Inactive GABAPENTIN 300 MG CAPS 1 po three times daily for nerve pain GABAPENTIN 300 MG CAPS 398195 GABAPENTIN Inactive Vital Signs Date Name Value Unit Range Description blood pressure, diastolic - 8462-4 70 mm[Hg] BP sarmiento blood pressure, systolic - 8480-6 122 mm[Hg] BP sys height E&M - 8302-2 64.4 [in_us] Bdy height weight E&M - 3141-9 186 [lb_av] Weight Measured blood pressure, diastolic - 8462-4 78 mm[Hg] [...] REPOWER - Chemistry cholesterol, serum 243 mg/dL 511-884 5009/05/05 HDL cholesterol, serum 61 mg/dL > OR=46 triglyceride, serum, fasting 74 mg/dL <150 LDL cholesterol, serum 167 MG/DL (CALC) mg/dL <130 cholesterol/HDL ratio, serum 4.0 (calc) < OR=5.0 Encounters Code Encounter Date Provider Facility CPT-22955 Level 4 Est. Patient 15:52:44 CDT Sandy Tejeda APRN [facility] CPT-56479 Level 3 Est. 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 Patient 15:33:14 CDT Sukumar Montgomery MD [facility] CPT-50289 Level 4 Est. Patient 11:52:43 CDT Sukumar Montgomery MD [facility] CPT-89779 Level 3 Est. Patient 15:39:41 CDT Sukumar Montgomery MD [facility] CPT-94055 Level 3 Est. Patient 16:37:35 CDT Sukumar Montgomery MD [facility]
--- OUTSIDE RECORDS SUMMARY | 2018-08-04 17:19 | XMS REPORT | Clinical Summary ---
Author Author Admin, E Organization [facility] Address Unknown Phone Unavailable Allergies, Adverse Reactions, [...] ORAL CAPSULE 1 daily for Fibromyalgia PREGABALIN 07227790972 Active Kayley You APRN Active LYRICA 25 MG ORAL CAPSULE 25mg two times a day for 1 week. 07/31 PREGABALIN 91151663907 No Longer Active Sukumar Montgomery MD Active LYRICA 75 MG ORAL CAPSULE 1 twice a day for fibromyalgia PREGABALIN 92638531284 No Longer Active Sukumar Montgomery MD Active GABAPENTIN 300 MG ORAL CAPSULE 1 po three times daily for nerve pain GABAPENTIN 26013281091 No Longer Active Sukumar Montgomery MD Active DICLOFENAC SODIUM 75 MG ORAL TABLET DELAYED RELEASE 1 tablet by mouth twice daily DICLOFENAC SODIUM 56630275359 Active Sukumar Montgomery MD Active MELOXICAM 15 MG ORAL TABLET 1 po q day for pain with food MELOXICAM 14494992528 No Longer Active Sukumar Montgomery MD Active TYLENOL WITH CODEINE #3 300-30 MG ORAL TABLET 1 tablet by mouth every four to six hours as needed ACETAMINOPHEN-CODEINE 96086269787 No Longer Active Sukumar Montgomery MD Active LAMICTAL 100 MG ORAL TABLET Take one by mouth twice daily LAMOTRIGINE 61648629393 Active Sukumar Montgomery MD Active AMBIEN 10 MG ORAL TABLET 1 tab by mouth at bedtime as needed for sleep ZOLPIDEM TARTRATE 30926312576 Active Sukumar Montgomery MD Active SEROQUEL 25 MG ORAL TABLET 1 tablet by mouth daily at bedtime QUETIAPINE FUMARATE 92750707843 No Longer Active Sukumar Montgomery MD Active ADDERALL XR 20 MG ORAL CAPSULE EXTENDED RELEASE 24 HOUR Take one by mouth daily AMPHETAMINE-DEXTROAMPHETAMINE 46133695063 No Longer Active Sukumar Montgomery MD Active CYMBALTA 60 MG ORAL CAPSULE DELAYED RELEASE PARTICLES Take one by mouth daily DULOXETINE HCL 27190482801 Active Sukumar Montgomery MD Active PRILOSEC 20 MG ORAL CAPSULE DELAYED RELEASE Take one by mouth daily OMEPRAZOLE 30355639041 Active Sukumar Montgomery MD Active ADDERALL XR 20 MG ORAL CAPSULE EXTENDED RELEASE 24 HOUR Take one by mouth daily ADDERALL XR 20 MG ORAL CAPSULE EXTENDED RELEASE 24 HOUR AMPHETAMINE-DEXTROAMPHETAMINE Inactive SEROQUEL 25 MG ORAL TABLET 1 tablet by mouth daily at bedtime SEROQUEL 25 MG ORAL TABLET 654215 QUETIAPINE FUMARATE Inactive TYLENOL WITH CODEINE #3 300-30 MG ORAL TABLET 1 tablet by mouth every four to six hours as needed TYLENOL WITH CODEINE #3 300-30 MG ORAL TABLET ACETAMINOPHEN-CODEINE Inactive MELOXICAM 15 MG ORAL TABLET 1 po q day for pain with food MELOXICAM 15 MG ORAL TABLET 460114 MELOXICAM Inactive GABAPENTIN 300 MG ORAL CAPSULE 1 po three times daily for nerve pain 47010/15 GABAPENTIN 300 MG ORAL CAPSULE 693489 GABAPENTIN Inactive LYRICA 75 MG ORAL CAPSULE [...] Glucose - Chemistry cholesterol, serum 202 mg/dL 629-526 9823/11/02 triglyceride, serum, fasting 83 mg/dL 30-200 HDL cholesterol, serum 49 mg/dL 32-60 LDL cholesterol, serum 136 mg/dL 0-130 blood glucose 104 mg/dL 65-110 Lab Report: LIPID PANEL- REPOWER - Chemistry cholesterol, serum 243 mg/dL 317-898 9369/05/05 HDL cholesterol, serum 61 mg/dL > OR=46 triglyceride, serum, fasting 74 mg/dL <150 LDL cholesterol, serum 167 MG/DL (CALC) mg/dL <130 cholesterol/HDL ratio, serum 4.0 (calc) < OR=5.0 Encounters Code Encounter Date Provider Facility CPT-66462 Level 3 Est. Patient 14:37:37 CDT Sukumar Montgomery MD [facility] CPT-40164 Level 4 Est. Patient 15:52:44 CDT Sandy Tejeda APRN [facility] CPT-40832 Level 3 Est. 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 Patient 15:33:14 CDT Sukumar Montgomery MD [facility] CPT-58994 Level 4 Est. Patient 11:52:43 CDT Sukumar Montgomery MD [facility] CPT-70054 Level 3 Est. Patient 15:39:41 CDT Sukumar Montgomery MD [facility] CPT-64660 Level 3 Est. Patient 16:37:35 CDT Sukumar Montgomery MD [facility]
--- OUTSIDE RECORDS SUMMARY | 2018-08-04 17:20 | XMS REPORT | Clinical Summary ---
Author Author Admin, COLLEEN Organization [facility] Address Unknown Phone Unavailable Allergies, Adverse Reactions, Alerts Allergy Name Reaction Description Start Date Severity Status Provider No Known Allergies Ana Cristina Lara LPN Conditions or Problems Problem Name Problem Code [...] Attention deficit disorder of childhood with hyperactivity Medication List Medication Instructions Start Date Stop Date Generic Name ND Status Provider Patient Instruction DICLOFENAC SODIUM 75 MG TBEC 1 tablet by mouth twice daily DICLOFENAC SODIUM 06872418490 Active Sukumar Montgomery MD Active MELOXICAM 15 MG TABS 1 po q day for pain with food MELOXICAM 75976144565 No Longer Active Sukumar Montgomery MD Active GABAPENTIN 300 MG CAPS 1 po three times daily for nerve pain GABAPENTIN 31225575441 Active Sukumar Montgomery MD Active TYLENOL WITH CODEINE #3 300-30 MG TABS 1 tablet by mouth every four to six hours as needed ACETAMINOPHEN-CODEINE 79026856886 No Longer Active Sukumar Montgomery MD Active LAMICTAL 100 MG TABS Take one by mouth twice daily LAMOTRIGINE 11536554079 Active Sukumar Montgomery MD Active AMBIEN 10 MG TAB 1 tab by mouth at bedtime as needed for sleep ZOLPIDEM TARTRATE 84094602829 Active Sukumar Montgomery MD Active SEROQUEL 25 MG TABS 1 tablet by mouth daily at bedtime QUETIAPINE FUMARATE 74008535371 No Longer Active Sukumar Montgomery MD Active ADDERALL XR 20 MG [id number] Take one by mouth daily AMPHETAMINE-DEXTROAMPHETAMINE 47160742330 No Longer Active Sukumar Montgomery MD Active CYMBALTA 60 MG CPEP Take one by mouth daily DULOXETINE HCL 25446745338 Active Sukumar Montgomery MD Active PRILOSEC 20 MG CPDR Take one by mouth daily OMEPRAZOLE 81295564494 Active Sukumar Montgomery MD Active TYLENOL WITH CODEINE #3 300-30 MG TABS 1 tablet by mouth every four to six hours as needed TYLENOL WITH CODEINE #3 300-30 MG TABS 647687 ACETAMINOPHEN-CODEINE Inactive MELOXICAM 15 MG TABS 1 po q day for pain with food MELOXICAM 15 MG TABS 135314 MELOXICAM Inactive SEROQUEL 25 MG TABS 1 tablet by mouth daily at bedtime SEROQUEL 25 MG TABS 320341 QUETIAPINE FUMARATE Inactive ADDERALL XR 20 MG [id number] Take one by mouth daily ADDERALL XR 20 MG [id number] AMPHETAMINE-DEXTROAMPHETAMINE Inactive Vital Signs Date Name Value Unit Range Description blood pressure, diastolic - 8462-4 79 mm[Hg] BP sarmiento blood pressure, systolic - 8480-6 119 mm[Hg] BP sys pulse rate E&M - 8867-4 67 /min Heart rate temperature E&M 98.1 [degF] Body temperature weight E&M - 3141-9 183.8 [lb_av] Weight Measured blood pressure, diastolic - 8462-4 80 mm[Hg] BP sarmiento blood pressure, systolic - 8480-6 121 mm[Hg] BP sys pulse rate E&M - 8867-4 63 /min Heart rate temperature E&M 98.4 [degF] Body temperature weight E&M - 3141-9 186 [lb_av] Weight Measured Encounters Code Encounter Date Provider Facility CPT-54713 Level 3 Est. Patient 15:33:14 CDT Sukumar Montgomery MD [facility] CPT-41789 Level 4 Est. Patient 11:52:43 CDT Sukumar Montgomery MD [facility] CPT-83328 Level 3 Est. Patient 15:39:41 CDT Sukumar Montgomery MD [facility] CPT-69086 Level 3 Est. Patient 16:37:35 CDT Sukumar Montgomery MD [facility]
--- OUTSIDE RECORDS SUMMARY | 2018-08-04 17:20 | XMS REPORT | Clinical Summary ---
Author Author Admin, E Organization [facility] Address Unknown Phone Unavailable Allergies, Adverse [...] ORAL CAPS 1 daily for Fibromyalgia PREGABALIN 31378362883 Active Sukumar Montgomery MD Active LYRICA 25 MG ORAL CAPS 25mg two times a day for 1 week. PREGABALIN 81633751811 No Longer Active Sukumar Montgomery MD Active LYRICA 75 MG ORAL CAPS 1 twice a day for fibromyalgia PREGABALIN 58845695302 No Longer Active Sukumar Montgomery MD Active GABAPENTIN 300 MG CAPS 1 po three times daily for nerve pain GABAPENTIN 29254186846 No Longer Active Sukumar Montgomery MD Active DICLOFENAC SODIUM 75 MG TBEC 1 tablet by mouth twice daily DICLOFENAC SODIUM 79206791773 Active Sukumar Montgomery MD Active MELOXICAM 15 MG TABS 1 po q day for pain with food MELOXICAM 39620895979 No Longer Active Sukumar Montgomery MD Active TYLENOL WITH CODEINE #3 300-30 MG TABS 1 tablet by mouth every four to six hours as needed ACETAMINOPHEN-CODEINE 05173651362 No Longer Active Sukumar Montgomery MD Active LAMICTAL 100 MG TABS Take one by mouth twice daily LAMOTRIGINE 20446749692 Active Sukumar Montgomery MD Active AMBIEN 10 MG TAB 1 tab by mouth at bedtime as needed for sleep ZOLPIDEM TARTRATE 15870253671 Active Sukumar Montgomery MD Active SEROQUEL 25 MG TABS 1 tablet by mouth daily at bedtime QUETIAPINE FUMARATE 19826609122 No Longer Active Sukumar Montgomery MD Active ADDERALL XR 20 MG [id number]-POH Take one by mouth daily AMPHETAMINE-DEXTROAMPHETAMINE 18611195757 No Longer Active Sukumar Montgomery MD Active CYMBALTA 60 MG CPEP Take one by mouth daily DULOXETINE HCL 56892974488 Active Sukumar Montgomery MD Active PRILOSEC 20 MG CPDR Take one by mouth daily OMEPRAZOLE 41861468342 Active Sukumar Montgomery MD Active ADDERALL XR 20 MG [id number] Take one by mouth daily ADDERALL XR 20 MG [id number] AMPHETAMINE-DEXTROAMPHETAMINE Inactive SEROQUEL 25 MG TABS 1 tablet by mouth daily at bedtime SEROQUEL 25 MG TABS 397538 QUETIAPINE FUMARATE Inactive TYLENOL WITH CODEINE #3 300-30 MG TABS 1 tablet by mouth every four to six hours as needed TYLENOL WITH CODEINE #3 300-30 MG TABS ACETAMINOPHEN-CODEINE Inactive MELOXICAM 15 MG TABS 1 po q day for pain with food MELOXICAM 15 MG TABS 470719 MELOXICAM Inactive GABAPENTIN 300 MG CAPS 1 po three times daily for nerve pain GABAPENTIN 300 MG CAPS 768921 GABAPENTIN Inactive LYRICA 75 MG ORAL CAPS [...] Glucose - Chemistry cholesterol, serum 202 mg/dL 289-902 7883/11/02 triglyceride, serum, fasting 83 mg/dL 30-200 HDL cholesterol, serum 49 mg/dL 32-60 LDL cholesterol, serum 136 mg/dL 0-130 blood glucose 104 mg/dL 65-110 Lab Report: LIPID PANEL- REPOWER - Chemistry cholesterol, serum 243 mg/dL 068-088 5478/05/05 HDL cholesterol, serum 61 mg/dL > OR=46 triglyceride, serum, fasting 74 mg/dL <150 LDL cholesterol, serum 167 MG/DL (CALC) mg/dL <130 cholesterol/HDL ratio, serum 4.0 (calc) < OR=5.0 Encounters Code Encounter Date Provider Facility CPT-07729 Level 3 Est. Patient 14:37:37 CDT Sukumar Montgomery MD [facility] CPT-54796 Level 4 Est. Patient 15:52:44 CDT Sandy Tejeda [facility] CPT-43130 Level 3 Est. 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 Patient 15:33:14 CDT Sukumar Montgomery MD [facility] CPT-77587 Level 4 Est. Patient 11:52:43 CDT Sukumar Montgomery MD [facility] CPT-72909 Level 3 Est. Patient 15:39:41 CDT Sukumar Montgomery MD [facility] CPT-41641 Level 3 Est. Patient 16:37:35 CDT Sukumar Montgomery MD [facility]
--- OUTSIDE RECORDS SUMMARY | 2018-08-04 17:20 | XMS REPORT | Clinical Summary ---
Author Author Admin, Arun Organization [facility] Address Unknown Phone Unavailable Allergies, Adverse Reactions, Alerts Allergy Name Reaction Description Start Date Severity Status Provider No Known Allergies Genoveva Mariee MA Conditions or Problems Problem Name Problem Code [...] Name NDC Status Provider Patient Instruction LYRICA 75 MG ORAL CAPS 1 twice a day for fibromyalgia PREGABALIN 68338596744 Active Sukumar Montgomery MD Active GABAPENTIN 300 MG CAPS 1 po three times daily for nerve pain GABAPENTIN 98781884961 No Longer Active Sukumar Montgomery MD Active DICLOFENAC SODIUM 75 MG TBEC 1 tablet by mouth twice daily DICLOFENAC SODIUM 26200055924 Active Sukumar Montgomery MD Active MELOXICAM 15 MG TABS 1 po q day for pain with food MELOXICAM 87492546749 No Longer Active Sukumar Montgomery MD Active TYLENOL WITH CODEINE #3 300-30 MG TABS 1 tablet by mouth every four to six hours as needed ACETAMINOPHEN-CODEINE 38140927025 No Longer Active Sukuamr Montgomery MD Active LAMICTAL 100 MG TABS Take one by mouth twice daily LAMOTRIGINE 38059758865 Active Sukumar Montgomery MD Active AMBIEN 10 MG TAB 1 tab by mouth at bedtime as needed for sleep ZOLPIDEM TARTRATE 69978225342 Active Sukumar Montgomery MD Active SEROQUEL 25 MG TABS 1 tablet by mouth daily at bedtime QUETIAPINE FUMARATE 59132523130 No Longer Active Sukumar Montgomery MD Active ADDERALL XR 20 MG [id number]-LVF Take one by mouth daily AMPHETAMINE-DEXTROAMPHETAMINE 86107059017 No Longer Active Sukumar Montgomery MD Active CYMBALTA 60 MG CPEP Take one by mouth daily DULOXETINE HCL 68941841863 Active Sukumar Montgomery MD Active PRILOSEC 20 MG CPDR Take one by mouth daily OMEPRAZOLE 42628909195 Active Sukumar Montgomery MD Active ADDERALL XR 20 MG [id number] Take one by mouth daily ADDERALL XR 20 MG [id number]-AST AMPHETAMINE-DEXTROAMPHETAMINE Inactive SEROQUEL 25 MG TABS 1 tablet by mouth daily at bedtime SEROQUEL 25 MG TABS 915590 QUETIAPINE FUMARATE Inactive TYLENOL WITH CODEINE #3 300-30 MG TABS 1 tablet by mouth every four to six hours as needed TYLENOL WITH CODEINE #3 300-30 MG TABS 721865 ACETAMINOPHEN-CODEINE Inactive MELOXICAM 15 MG TABS 1 po q day for pain with food MELOXICAM 15 MG TABS 167861 MELOXICAM Inactive GABAPENTIN 300 MG CAPS 1 po three times daily for nerve pain GABAPENTIN 300 MG CAPS 445690 GABAPENTIN Inactive Vital Signs Date Name Value Unit Range Description blood pressure, diastolic - 8462-4 79 mm[Hg] BP sarmiento blood pressure, systolic - 8480-6 120 mm[Hg] BP sys pulse rate E&M - 8867-4 64 /min Heart rate temperature E&M 97.6 [degF] Body temperature weight E&M - 3141-9 186.5 [lb_av] Weight Measured Encounters Code Encounter Date Provider Facility CPT-56115 Level 3 Est. 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 Patient 15:33:14 CDT Sukumar Montgomery MD [facility] CPT-96882 Level 4 Est. Patient 11:52:43 CDT Sukumar Montgomery MD [facility] CPT-62569 Level 3 Est. Patient 15:39:41 CDT Sukumar Montgomery MD [facility] CPT-49414 Level 3 Est. Patient 16:37:35 CDT Sukumar Montgomery MD [facility]
--- OUTSIDE RECORDS SUMMARY | 2018-08-04 17:20 | XMS REPORT | Clinical Summary ---
Author Author Admin, Arun Organization [facility] [employer] Address Unknown Phone Unavailable Allergies, Adverse Reactions, [...] 1 twice a day for fibromyalgia PREGABALIN 40360899985 Active Sukumar Montgomery MD Active GABAPENTIN 300 MG CAPS 1 po three times daily for nerve pain GABAPENTIN 82348882447 No Longer Active Sukumar Montgomery MD Active DICLOFENAC SODIUM 75 MG TBEC 1 tablet by mouth twice daily DICLOFENAC SODIUM 49278289362 Active Sukumar Montgomery MD Active MELOXICAM 15 MG TABS 1 po q day for pain with food MELOXICAM 20416769204 No Longer Active Sukumar Montgomery MD Active TYLENOL WITH CODEINE #3 300-30 MG TABS 1 tablet by mouth every four to six hours as needed ACETAMINOPHEN-CODEINE 17167320501 No Longer Active Sukumar Montgomery MD Active LAMICTAL 100 MG TABS Take one by mouth twice daily LAMOTRIGINE 14134172967 Active Sukumar Montgomery MD Active AMBIEN 10 MG TAB 1 tab by mouth at bedtime as needed for sleep ZOLPIDEM TARTRATE 37392888145 Active Sukumar Montgomery MD Active SEROQUEL 25 MG TABS 1 tablet by mouth daily at bedtime QUETIAPINE FUMARATE 60044975072 No Longer Active Sukumar Montgomery MD Active ADDERALL XR 20 MG HH15Q-MFA Take one by mouth daily AMPHETAMINE-DEXTROAMPHETAMINE 10744166894 No Longer Active Sukumar Montgomery MD Active CYMBALTA 60 MG CPEP Take one by mouth daily DULOXETINE HCL 72188817585 Active Sukumar Montgomery MD Active PRILOSEC 20 MG CPDR Take one by mouth daily OMEPRAZOLE 28599325196 Active Sukumar Montgomery MD Active ADDERALL XR 20 MG [id number] Take one by mouth daily ADDERALL XR 20 MG [id number]-PWL AMPHETAMINE-DEXTROAMPHETAMINE Inactive SEROQUEL 25 MG TABS 1 tablet by mouth daily at bedtime SEROQUEL 25 MG TABS 351071 QUETIAPINE FUMARATE Inactive TYLENOL WITH CODEINE #3 300-30 MG TABS 1 tablet by mouth every four to six hours as needed TYLENOL WITH CODEINE #3 300-30 MG TABS 568135 ACETAMINOPHEN-CODEINE Inactive MELOXICAM 15 MG TABS 1 po q day for pain with food MELOXICAM 15 MG TABS 536880 MELOXICAM Inactive GABAPENTIN 300 MG CAPS 1 po three times daily for nerve pain GABAPENTIN 300 MG CAPS 477354 GABAPENTIN Inactive Vital Signs Date Name Value Unit Range Description blood pressure, diastolic - 8462-4 79 mm[Hg] BP sarmiento blood pressure, systolic - 8480-6 120 mm[Hg] BP sys pulse rate E&M - 8867-4 64 /min Heart rate temperature E&M 97.6 [degF] Body temperature weight E&M - 3141-9 186.5 [lb_av] Weight Measured Encounters Code Encounter Date Provider Facility CPT-30161 Level 3 Est. 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 Patient 15:33:14 CDT Sukumar Montgomery MD [facility] CPT-89638 Level 4 Est. Patient 11:52:43 CDT Sukumar Montgomery MD [facility] CPT-88104 Level 3 Est. Patient 15:39:41 CDT Sukumar Montgomery MD [facility] CPT-14561 Level 3 Est. Patient 16:37:35 CDT Sukumar Montgomery MD [facility]
--- OUTSIDE RECORDS SUMMARY | 2018-08-04 17:20 | XMS REPORT | Clinical Summary ---
Author Author Admin, [facility] Organization [facility] Address Unknown Phone Unavailable Allergies, Adverse Reactions, [...] 1 week of 25mg is done). PREGABALIN 70274007429 Active Sandy Tejeda APRN Active LYRICA 25 MG ORAL CAPS 25mg two times a day for 1 week. PREGABALIN 83760132433 Active Sandy Tejeda APRN Active LYRICA 75 MG ORAL CAPS 1 twice a day for fibromyalgia PREGABALIN 33972242629 Active Sandy Tejeda APRN Active GABAPENTIN 300 MG CAPS 1 po three times daily for nerve pain GABAPENTIN 86282007107 No Longer Active Sukumar Montgomery MD Active DICLOFENAC SODIUM 75 MG TBEC 1 tablet by mouth twice daily DICLOFENAC SODIUM 66227384182 Active Sukumar Montgomery MD Active MELOXICAM 15 MG TABS 1 po q day for pain with food MELOXICAM 58472012610 No Longer Active Sukumar Montgomery MD Active TYLENOL WITH CODEINE #3 300-30 MG TABS 1 tablet by mouth every four to six hours as needed ACETAMINOPHEN-CODEINE 68405518312 No Longer Active Sukumar Montgomery MD Active LAMICTAL 100 MG TABS Take one by mouth twice daily LAMOTRIGINE 46885508999 Active Sukumar Montgomery MD Active AMBIEN 10 MG TAB 1 tab by mouth at bedtime as needed for sleep ZOLPIDEM TARTRATE 99295343899 Active Sukumar Montgomery MD Active SEROQUEL 25 MG TABS 1 tablet by mouth daily at bedtime QUETIAPINE FUMARATE 80280109487 No Longer Active Sukumar Montgomery MD Active ADDERALL XR 20 MG EM33J-WNB Take one by mouth daily AMPHETAMINE-DEXTROAMPHETAMINE 77018757750 No Longer Active Sukumar Montgomery MD Active CYMBALTA 60 MG CPEP Take one by mouth daily DULOXETINE HCL 65257045047 Active Sukumar Montgomery MD Active PRILOSEC 20 MG CPDR Take one by mouth daily OMEPRAZOLE 68966825826 Active Sukumar Montgomery MD Active ADDERALL XR 20 MG WH50W-ELM Take one by mouth daily ADDERALL XR 20 MG IS14G-QWU AMPHETAMINE-DEXTROAMPHETAMINE Inactive SEROQUEL 25 MG TABS 1 tablet by mouth daily at bedtime SEROQUEL 25 MG TABS 185774 QUETIAPINE FUMARATE Inactive TYLENOL WITH CODEINE #3 300-30 MG TABS 1 tablet by mouth every four to six hours as needed TYLENOL WITH CODEINE #3 300-30 MG TABS ACETAMINOPHEN-CODEINE Inactive MELOXICAM 15 MG TABS 1 po q day for pain with food MELOXICAM 15 MG TABS 298907 MELOXICAM Inactive GABAPENTIN 300 MG CAPS 1 po three times daily for nerve pain GABAPENTIN 300 MG CAPS 328646 GABAPENTIN Inactive Vital Signs Date Name Value [...] Measured Encounters Code Encounter Date Provider Facility CPT-70512 Level 4 Est. Patient 15:52:44 CDT Sandy Tejeda APRN [facility] CPT-98051 Level 3 Est. 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 Patient 15:33:14 CDT Sukumar Montgomery MD [facility] CPT-30739 Level 4 Est. Patient 11:52:43 CDT Sukumar Montgomery MD [facility] CPT-90884 Level 3 Est. Patient 15:39:41 CDT Sukumar Montgomery MD [facility] CPT-98734 Level 3 Est. Patient 16:37:35 CDT Sukumar Montgomery MD [facility]
--- OUTSIDE RECORDS SUMMARY | 2018-08-04 17:20 | XMS REPORT | Clinical Summary ---
Author Author Admin, [facility] Organization [facility] Address Unknown Phone Unavailable Allergies, Adverse Reactions, [...] 1 week of 25mg is done). PREGABALIN 30939250779 Active Sandy Tejeda APRN Active LYRICA 25 MG ORAL CAPS 25mg two times a day for 1 week. PREGABALIN 90102477493 Active Sandy Tejeda APRN Active LYRICA 75 MG ORAL CAPS 1 twice a day for fibromyalgia PREGABALIN 58307619598 Active Sandy Tejeda APRN Active GABAPENTIN 300 MG CAPS 1 po three times daily for nerve pain GABAPENTIN 21356050959 No Longer Active Sukumar Montgomery MD Active DICLOFENAC SODIUM 75 MG TBEC 1 tablet by mouth twice daily DICLOFENAC SODIUM 25083763226 Active Sukumar Montgomery MD Active MELOXICAM 15 MG TABS 1 po q day for pain with food MELOXICAM 37713304975 No Longer Active Sukumar Montgomery MD Active TYLENOL WITH CODEINE #3 300-30 MG TABS 1 tablet by mouth every four to six hours as needed ACETAMINOPHEN-CODEINE 60154778177 No Longer Active Sukumar Montgomery MD Active LAMICTAL 100 MG TABS Take one by mouth twice daily LAMOTRIGINE 49457831797 Active Sukumar Montgomery MD Active AMBIEN 10 MG TAB 1 tab by mouth at bedtime as needed for sleep ZOLPIDEM TARTRATE 38939114128 Active Sukumar Montgomery MD Active SEROQUEL 25 MG TABS 1 tablet by mouth daily at bedtime QUETIAPINE FUMARATE 85229421286 No Longer Active Sukumar Montgomery MD Active ADDERALL XR 20 MG GN14U-RIR Take one by mouth daily AMPHETAMINE-DEXTROAMPHETAMINE 22938305099 No Longer Active Sukumar Montgomery MD Active CYMBALTA 60 MG CPEP Take one by mouth daily DULOXETINE HCL 04323067734 Active Sukumar Montgomery MD Active PRILOSEC 20 MG CPDR Take one by mouth daily OMEPRAZOLE 99787267072 Active Sukumar Montgomery MD Active ADDERALL XR 20 MG UP84W-ASN Take one by mouth daily ADDERALL XR 20 MG KE94A-MGY AMPHETAMINE-DEXTROAMPHETAMINE Inactive SEROQUEL 25 MG TABS 1 tablet by mouth daily at bedtime SEROQUEL 25 MG TABS 803140 QUETIAPINE FUMARATE Inactive TYLENOL WITH CODEINE #3 300-30 MG TABS 1 tablet by mouth every four to six hours as needed TYLENOL WITH CODEINE #3 300-30 MG TABS ACETAMINOPHEN-CODEINE Inactive MELOXICAM 15 MG TABS 1 po q day for pain with food MELOXICAM 15 MG TABS 121985 MELOXICAM Inactive GABAPENTIN 300 MG CAPS 1 po three times daily for nerve pain GABAPENTIN 300 MG CAPS 688949 GABAPENTIN Inactive Vital Signs Date Name Value [...] PANEL - Chemistry cholesterol, serum 243 mg/dL 324-987 8032/05/05 HDL cholesterol, serum 61 mg/dL > OR=46 triglyceride, serum, fasting 74 mg/dL <150 LDL cholesterol, serum 167 MG/DL (CALC) mg/dL <130 cholesterol/HDL ratio, serum 4.0 (calc) < OR=5.0 Encounters Code Encounter Date Provider Facility CPT-59334 Level 4 Est. Patient 15:52:44 CDT Sandy Tejeda APRN [facility] CPT-19799 Level 3 Est. 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 Patient 15:33:14 CDT Sukumar Montgomery MD [facility] CPT-18031 Level 4 Est. Patient 11:52:43 CDT Sukumar Motngomery MD [facility] CPT-73023 Level 3 Est. Patient 15:39:41 CDT Sukumar Montgomery MD [facility] CPT-57001 Level 3 Est. Patient 16:37:35 CDT Sukumar Montgomery MD [facility]
--- OUTSIDE RECORDS SUMMARY | 2018-08-04 17:21 | XMS REPORT | Clinical Summary ---
Author Author Admin, [facility] Organization [facility] Address Unknown Phone Unavailable Allergies, Adverse [...] 1 week of 25mg is done). PREGABALIN 93252933885 Active Sandy Tejeda APRN Active LYRICA 25 MG ORAL CAPS 25mg two times a day for 1 week. PREGABALIN 36749094768 Active Sandy Tejeda APRN Active LYRICA 75 MG ORAL CAPS 1 twice a day for fibromyalgia PREGABALIN 49343898228 Active Sandy Tejeda APRN Active GABAPENTIN 300 MG CAPS 1 po three times daily for nerve pain GABAPENTIN 01200622491 No Longer Active Sukumar Montgomery MD Active DICLOFENAC SODIUM 75 MG TBEC 1 tablet by mouth twice daily DICLOFENAC SODIUM 53540363929 Active Sukumar Montgomery MD Active MELOXICAM 15 MG TABS 1 po q day for pain with food MELOXICAM 12965427448 No Longer Active Sukumar Montgomery MD Active TYLENOL WITH CODEINE #3 300-30 MG TABS 1 tablet by mouth every four to six hours as needed ACETAMINOPHEN-CODEINE 86511668949 No Longer Active Sukumar Montgomery MD Active LAMICTAL 100 MG TABS Take one by mouth twice daily LAMOTRIGINE 97305697969 Active Sukumar Montgomery MD Active AMBIEN 10 MG TAB 1 tab by mouth at bedtime as needed for sleep ZOLPIDEM TARTRATE 93737679970 Active Sukumar Montgomery MD Active SEROQUEL 25 MG TABS 1 tablet by mouth daily at bedtime QUETIAPINE FUMARATE 02113805087 No Longer Active Sukumar Montgomery MD Active ADDERALL XR 20 MG HB12N-MVV Take one by mouth daily AMPHETAMINE-DEXTROAMPHETAMINE 33189792438 No Longer Active Sukumar Montgomery MD Active CYMBALTA 60 MG CPEP Take one by mouth daily DULOXETINE HCL 46745903620 Active Sukumar Montgomery MD Active PRILOSEC 20 MG CPDR Take one by mouth daily OMEPRAZOLE 24565408977 Active Sukumar Montgomery MD Active ADDERALL XR 20 MG GJ82H-WFZ Take one by mouth daily ADDERALL XR 20 MG DD87I-LJS AMPHETAMINE-DEXTROAMPHETAMINE Inactive SEROQUEL 25 MG TABS 1 tablet by mouth daily at bedtime SEROQUEL 25 MG TABS 053175 QUETIAPINE FUMARATE Inactive TYLENOL WITH CODEINE #3 300-30 MG TABS 1 tablet by mouth every four to six hours as needed TYLENOL WITH CODEINE #3 300-30 MG TABS 509590 ACETAMINOPHEN-CODEINE Inactive MELOXICAM 15 MG TABS 1 po q day for pain with food MELOXICAM 15 MG TABS 196951 MELOXICAM Inactive GABAPENTIN 300 MG CAPS 1 po three times daily for nerve pain GABAPENTIN 300 MG CAPS 913459 GABAPENTIN Inactive Vital Signs Date Name Value [...] Measured Encounters Code Encounter Date Provider Facility CPT-40582 Level 4 Est. Patient 15:52:44 CDT Sandy Tejeda APRN [facility] CPT-22404 Level 3 Est. 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 Patient 15:33:14 CDT Sukumar Montgomery MD [facility] CPT-00426 Level 4 Est. Patient 11:52:43 CDT Sukumar Montgomery MD [facility] CPT-86867 Level 3 Est. Patient 15:39:41 CDT Sukumar Montgomery MD [facility] CPT-38507 Level 3 Est. Patient 16:37:35 CDT Sukumar Montgomery MD [facility]
--- OUTSIDE RECORDS SUMMARY | 2018-08-04 17:21 | XMS REPORT | Clinical Summary ---
Author Author Admin, Arun Organization [facility] Address Unknown Phone Unavailable Allergies, Adverse [...] 1 twice a day for fibromyalgia PREGABALIN 14627209679 Active Sukumar Montgomery MD Active GABAPENTIN 300 MG CAPS 1 po three times daily for nerve pain GABAPENTIN 42645312402 No Longer Active Sukumar Montgomery MD Active DICLOFENAC SODIUM 75 MG TBEC 1 tablet by mouth twice daily DICLOFENAC SODIUM 62984229433 Active Sukumar Montgomery MD Active MELOXICAM 15 MG TABS 1 po q day for pain with food MELOXICAM 40242763093 No Longer Active Sukumar Montgomery MD Active TYLENOL WITH CODEINE #3 300-30 MG TABS 1 tablet by mouth every four to six hours as needed ACETAMINOPHEN-CODEINE 49529480538 No Longer Active Sukumar Montgomery MD Active LAMICTAL 100 MG TABS Take one by mouth twice daily LAMOTRIGINE 63855282519 Active Sukumar Montgomery MD Active AMBIEN 10 MG TAB 1 tab by mouth at bedtime as needed for sleep ZOLPIDEM TARTRATE 78858094181 Active Sukumar Montgomery MD Active SEROQUEL 25 MG TABS 1 tablet by mouth daily at bedtime QUETIAPINE FUMARATE 55960239554 No Longer Active Sukumar Montgomery MD Active ADDERALL XR 20 MG [id number] Take one by mouth daily AMPHETAMINE-DEXTROAMPHETAMINE 81647584400 No Longer Active Sukumar Montgomery MD Active CYMBALTA 60 MG CPEP Take one by mouth daily DULOXETINE HCL 05972444005 Active Sukumar Montgomery MD Active PRILOSEC 20 MG CPDR Take one by mouth daily OMEPRAZOLE 47098202723 Active Sukumar Montgomery MD Active ADDERALL XR 20 MG [id number] Take one by mouth daily ADDERALL XR 20 MG [id number] AMPHETAMINE-DEXTROAMPHETAMINE Inactive SEROQUEL 25 MG TABS 1 tablet by mouth daily at bedtime SEROQUEL 25 MG TABS 920215 QUETIAPINE FUMARATE Inactive TYLENOL WITH CODEINE #3 300-30 MG TABS 1 tablet by mouth every four to six hours as needed TYLENOL WITH CODEINE #3 300-30 MG TABS 917694 ACETAMINOPHEN-CODEINE Inactive MELOXICAM 15 MG TABS 1 po q day for pain with food MELOXICAM 15 MG TABS 815587 MELOXICAM Inactive GABAPENTIN 300 MG CAPS 1 po three times daily for nerve pain GABAPENTIN 300 MG CAPS 099678 GABAPENTIN Inactive Vital Signs Date Name Value Unit Range Description blood pressure, diastolic - 8462-4 79 mm[Hg] BP sarmiento blood pressure, systolic - 8480-6 120 mm[Hg] BP sys pulse rate E&M - 8867-4 64 /min Heart rate temperature E&M 97.6 [degF] Body temperature weight E&M - 3141-9 186.5 [lb_av] Weight Measured Encounters Code Encounter Date Provider Facility CPT-01076 Level 3 Est. 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 Patient 15:33:14 CDT Sukumar Montgomery MD [facility] CPT-63551 Level 4 Est. Patient 11:52:43 CDT Sukumar Montgomery MD [facility] CPT-90722 Level 3 Est. Patient 15:39:41 CDT Sukumar Montgomery MD [facility] CPT-04780 Level 3 Est. Patient 16:37:35 CDT Sukumar Montgomery MD [facility]
--- OUTSIDE RECORDS SUMMARY | 2018-08-04 17:21 | XMS REPORT | Clinical Summary ---
Author Author Admin, E Organization [facility] Address Unknown Phone Unavailable Allergies, Adverse Reactions, [...] 1 twice a day for fibromyalgia PREGABALIN 00642882923 Active Sukumar Montgomery MD Active GABAPENTIN 300 MG CAPS 1 po three times daily for nerve pain GABAPENTIN 75610222967 No Longer Active Sukumar Montgomery MD Active DICLOFENAC SODIUM 75 MG TBEC 1 tablet by mouth twice daily DICLOFENAC SODIUM 90477465670 Active Sukumar Montgomery MD Active MELOXICAM 15 MG TABS 1 po q day for pain with food MELOXICAM 33836517860 No Longer Active Sukumar Montgomery MD Active TYLENOL WITH CODEINE #3 300-30 MG TABS 1 tablet by mouth every four to six hours as needed ACETAMINOPHEN-CODEINE 49815669057 No Longer Active Sukumar Montgomery MD Active LAMICTAL 100 MG TABS Take one by mouth twice daily LAMOTRIGINE 27691290212 Active Sukumar Montgomery MD Active AMBIEN 10 MG TAB 1 tab by mouth at bedtime as needed for sleep ZOLPIDEM TARTRATE 65973835846 Active Sukumar Montgomery MD Active SEROQUEL 25 MG TABS 1 tablet by mouth daily at bedtime QUETIAPINE FUMARATE 80950543158 No Longer Active Sukumar Montgomery MD Active ADDERALL XR 20 MG [id number] Take one by mouth daily AMPHETAMINE-DEXTROAMPHETAMINE 02525636036 No Longer Active Sukumar Montgomery MD Active CYMBALTA 60 MG CPEP Take one by mouth daily DULOXETINE HCL 04298920880 Active Sukumar Montgomery MD Active PRILOSEC 20 MG CPDR Take one by mouth daily OMEPRAZOLE 17277696912 Active Sukumar Montgomery MD Active ADDERALL XR 20 MG [id number] Take one by mouth daily ADDERALL XR 20 MG [id number] AMPHETAMINE-DEXTROAMPHETAMINE Inactive SEROQUEL 25 MG TABS 1 tablet by mouth daily at bedtime SEROQUEL 25 MG TABS 888284 QUETIAPINE FUMARATE Inactive TYLENOL WITH CODEINE #3 300-30 MG TABS 1 tablet by mouth every four to six hours as needed TYLENOL WITH CODEINE #3 300-30 MG TABS 975567 ACETAMINOPHEN-CODEINE Inactive MELOXICAM 15 MG TABS 1 po q day for pain with food MELOXICAM 15 MG TABS 128765 MELOXICAM Inactive GABAPENTIN 300 MG CAPS 1 po three times daily for nerve pain GABAPENTIN 300 MG CAPS 455714 GABAPENTIN Inactive Vital Signs Date Name Value Unit Range Description blood pressure, diastolic - 8462-4 79 mm[Hg] BP sarmiento blood pressure, systolic - 8480-6 120 mm[Hg] BP sys pulse rate E&M - 8867-4 64 /min Heart rate temperature E&M 97.6 [degF] Body temperature weight E&M - 3141-9 186.5 [lb_av] Weight Measured Encounters Code Encounter Date Provider Facility CPT-29569 Level 3 Est. 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 Patient 15:33:14 CDT Sukumar Montgomery MD [facility] CPT-72214 Level 4 Est. Patient 11:52:43 CDT Sukumar Montgomery MD [facility] CPT-97462 Level 3 Est. Patient 15:39:41 CDT Sukumar Montgomery MD [facility] CPT-31609 Level 3 Est. Patient 16:37:35 CDT Sukumar Montgomery MD [facility]
--- OUTSIDE RECORDS SUMMARY | 2018-08-04 17:21 | XMS REPORT | Clinical Summary ---
Author Author Admin, E Organization [facility] Address Unknown Phone Unavailable Allergies, [...] ORAL CAPSULE 1 daily for Fibromyalgia PREGABALIN 83095739408 Active Kayley You APRN Active LYRICA 25 MG ORAL CAPSULE 25mg two times a day for 1 week. 07/31 PREGABALIN 03677260175 No Longer Active Sukumar Montgomery MD Active LYRICA 75 MG ORAL CAPSULE 1 twice a day for fibromyalgia PREGABALIN 67943667104 No Longer Active Sukumar Montgomery MD Active GABAPENTIN 300 MG ORAL CAPSULE 1 po three times daily for nerve pain GABAPENTIN 65488366105 No Longer Active Sukumar Montgomery MD Active DICLOFENAC SODIUM 75 MG ORAL TABLET DELAYED RELEASE 1 tablet by mouth twice daily DICLOFENAC SODIUM 79071345598 Active Sukumar Montgomery MD Active MELOXICAM 15 MG ORAL TABLET 1 po q day for pain with food MELOXICAM 24471702526 No Longer Active Sukumar Montgomery MD Active TYLENOL WITH CODEINE #3 300-30 MG ORAL TABLET 1 tablet by mouth every four to six hours as needed ACETAMINOPHEN-CODEINE 23783627841 No Longer Active Sukumar Montgomery MD Active LAMICTAL 100 MG ORAL TABLET Take one by mouth twice daily LAMOTRIGINE 89431359509 Active Sukumar Montgomery MD Active AMBIEN 10 MG ORAL TABLET 1 tab by mouth at bedtime as needed for sleep ZOLPIDEM TARTRATE 07674605233 Active Sukumar Montgomery MD Active SEROQUEL 25 MG ORAL TABLET 1 tablet by mouth daily at bedtime QUETIAPINE FUMARATE 44767269543 No Longer Active Sukumar Montgomery MD Active ADDERALL XR 20 MG ORAL CAPSULE EXTENDED RELEASE 24 HOUR Take one by mouth daily AMPHETAMINE-DEXTROAMPHETAMINE 91544314696 No Longer Active Sukumar Montgomery MD Active CYMBALTA 60 MG ORAL CAPSULE DELAYED RELEASE PARTICLES Take one by mouth daily DULOXETINE HCL 93663914999 Active Sukumar Montgomery MD Active PRILOSEC 20 MG ORAL CAPSULE DELAYED RELEASE Take one by mouth daily OMEPRAZOLE 61374856494 Active Sukumar Montgomery MD Active ADDERALL XR 20 MG ORAL CAPSULE EXTENDED RELEASE 24 HOUR Take one by mouth daily ADDERALL XR 20 MG ORAL CAPSULE EXTENDED RELEASE 24 HOUR AMPHETAMINE-DEXTROAMPHETAMINE Inactive SEROQUEL 25 MG ORAL TABLET 1 tablet by mouth daily at bedtime SEROQUEL 25 MG ORAL TABLET 485693 QUETIAPINE FUMARATE Inactive TYLENOL WITH CODEINE #3 300-30 MG ORAL TABLET 1 tablet by mouth every four to six hours as needed TYLENOL WITH CODEINE #3 300-30 MG ORAL TABLET ACETAMINOPHEN-CODEINE Inactive MELOXICAM 15 MG ORAL TABLET 1 po q day for pain with food MELOXICAM 15 MG ORAL TABLET 638554 MELOXICAM Inactive GABAPENTIN 300 MG ORAL CAPSULE 1 po three times daily for nerve pain 47010/15 GABAPENTIN 300 MG ORAL CAPSULE 786475 GABAPENTIN Inactive LYRICA 75 MG ORAL CAPSULE [...] Glucose - Chemistry cholesterol, serum 202 mg/dL 232-128 0252/11/02 triglyceride, serum, fasting 83 mg/dL 30-200 HDL cholesterol, serum 49 mg/dL 32-60 LDL cholesterol, serum 136 mg/dL 0-130 blood glucose 104 mg/dL 65-110 Lab Report: LIPID PANEL- REPOWER - Chemistry cholesterol, serum 243 mg/dL 665-737 6500/05/05 HDL cholesterol, serum 61 mg/dL > OR=46 triglyceride, serum, fasting 74 mg/dL <150 LDL cholesterol, serum 167 MG/DL (CALC) mg/dL <130 cholesterol/HDL ratio, serum 4.0 (calc) < OR=5.0 Encounters Code Encounter Date Provider Facility CPT-43258 Level 3 Est. Patient 14:37:37 CDT Sukumar Montgomery MD [facility] CPT-46837 Level 4 Est. Patient 15:52:44 CDT Sandy Tejeda APRN [facility] CPT-25748 Level 3 Est. 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 Patient 15:33:14 CDT Sukumar Montgomery MD [facility] CPT-69867 Level 4 Est. Patient 11:52:43 CDT Sukumar Montgomery MD [facility] CPT-10317 Level 3 Est. Patient 15:39:41 CDT Sukumar Montgomery MD [facility] CPT-39158 Level 3 Est. Patient 16:37:35 CDT Sukumar Montgomery MD [facility]
--- OUTSIDE RECORDS SUMMARY | 2018-08-04 17:21 | XMS REPORT | Clinical Summary ---
Author Author Admin, E Organization [facility] Address Unknown Phone [...] ORAL CAPS 1 daily for Fibromyalgia PREGABALIN 41866257950 Active Sukumar Montgomery MD Active LYRICA 25 MG ORAL CAPS 25mg two times a day for 1 week. PREGABALIN 85562065252 No Longer Active Sukumar Montgomery MD Active LYRICA 75 MG ORAL CAPS 1 twice a day for fibromyalgia PREGABALIN 20150232769 No Longer Active Sukumar Montgomery MD Active GABAPENTIN 300 MG CAPS 1 po three times daily for nerve pain GABAPENTIN 60914877981 No Longer Active Sukumar Montgomery MD Active DICLOFENAC SODIUM 75 MG TBEC 1 tablet by mouth twice daily DICLOFENAC SODIUM 24415858369 Active Sukumar Montgomery MD Active MELOXICAM 15 MG TABS 1 po q day for pain with food MELOXICAM 53301135694 No Longer Active Sukumar Montgomery MD Active TYLENOL WITH CODEINE #3 300-30 MG TABS 1 tablet by mouth every four to six hours as needed ACETAMINOPHEN-CODEINE 63816997105 No Longer Active Sukumar Montgomery MD Active LAMICTAL 100 MG TABS Take one by mouth twice daily LAMOTRIGINE 72689241878 Active Sukumar Montgomery MD Active AMBIEN 10 MG TAB 1 tab by mouth at bedtime as needed for sleep ZOLPIDEM TARTRATE 36553338051 Active Sukumar Montgomery MD Active SEROQUEL 25 MG TABS 1 tablet by mouth daily at bedtime QUETIAPINE FUMARATE 47757738839 No Longer Active Sukumar Montgomery MD Active ADDERALL XR 20 MG [id number] Take one by mouth daily AMPHETAMINE-DEXTROAMPHETAMINE 50095159889 No Longer Active Sukumar Montgomery MD Active CYMBALTA 60 MG CPEP Take one by mouth daily DULOXETINE HCL 13999422498 Active Sukumar Montgomery MD Active PRILOSEC 20 MG CPDR Take one by mouth daily OMEPRAZOLE 54894731671 Active Sukumar Montgomery MD Active ADDERALL XR 20 MG [id number] Take one by mouth daily ADDERALL XR 20 MG [id number]-IUR AMPHETAMINE-DEXTROAMPHETAMINE Inactive SEROQUEL 25 MG TABS 1 tablet by mouth daily at bedtime SEROQUEL 25 MG TABS 842261 QUETIAPINE FUMARATE Inactive TYLENOL WITH CODEINE #3 300-30 MG TABS 1 tablet by mouth every four to six hours as needed TYLENOL WITH CODEINE #3 300-30 MG TABS ACETAMINOPHEN-CODEINE Inactive MELOXICAM 15 MG TABS 1 po q day for pain with food MELOXICAM 15 MG TABS 235846 MELOXICAM Inactive GABAPENTIN 300 MG CAPS 1 po three times daily for nerve pain GABAPENTIN 300 MG CAPS 977248 GABAPENTIN Inactive LYRICA 75 MG ORAL CAPS [...] Glucose - Chemistry cholesterol, serum 202 mg/dL 026-583 1783/11/02 triglyceride, serum, fasting 83 mg/dL 30-200 HDL cholesterol, serum 49 mg/dL 32-60 LDL cholesterol, serum 136 mg/dL 0-130 blood glucose 104 mg/dL 65-110 Lab Report: LIPID PANEL- REPOWER - Chemistry cholesterol, serum 243 mg/dL 315-559 7407/05/05 HDL cholesterol, serum 61 mg/dL > OR=46 triglyceride, serum, fasting 74 mg/dL <150 LDL cholesterol, serum 167 MG/DL (CALC) mg/dL <130 cholesterol/HDL ratio, serum 4.0 (calc) < OR=5.0 Encounters Code Encounter Date Provider Facility CPT-40776 Level 3 Est. Patient 14:37:37 CDT Sukumar Montgomery MD [facility] CPT-81095 Level 4 Est. Patient 15:52:44 CDT Sandy Tejeda [facility] CPT-95660 Level 3 Est. 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 Patient 15:33:14 CDT Sukumar Montgomery MD [facility] CPT-50361 Level 4 Est. Patient 11:52:43 CDT Sukumar Montgomery MD [facility] CPT-89523 Level 3 Est. Patient 15:39:41 CDT Sukumar Montgomery MD [facility] CPT-07787 Level 3 Est. Patient 16:37:35 CDT Sukumar Montgomery MD [facility]
--- OUTSIDE RECORDS SUMMARY | 2018-08-04 17:22 | XMS REPORT | Clinical Summary ---
Author Author Admin, Arun Organization [facility] Address Unknown Phone Unavailable Allergies, Adverse Reactions, [...] 1 twice a day for fibromyalgia PREGABALIN 97726985353 Active Sukumar Montgomery MD Active GABAPENTIN 300 MG CAPS 1 po three times daily for nerve pain GABAPENTIN 09030434638 No Longer Active Sukumar Montgomery MD Active DICLOFENAC SODIUM 75 MG TBEC 1 tablet by mouth twice daily DICLOFENAC SODIUM 72766760857 Active Sukumar Montgomery MD Active MELOXICAM 15 MG TABS 1 po q day for pain with food MELOXICAM 55898327764 No Longer Active Sukumar Montgomery MD Active TYLENOL WITH CODEINE #3 300-30 MG TABS 1 tablet by mouth every four to six hours as needed ACETAMINOPHEN-CODEINE 14153231690 No Longer Active Sukumar Montgomery MD Active LAMICTAL 100 MG TABS Take one by mouth twice daily LAMOTRIGINE 24060689859 Active Sukumar Montgomery MD Active AMBIEN 10 MG TAB 1 tab by mouth at bedtime as needed for sleep ZOLPIDEM TARTRATE 92742901683 Active Sukumar Montgomery MD Active SEROQUEL 25 MG TABS 1 tablet by mouth daily at bedtime QUETIAPINE FUMARATE 14774997218 No Longer Active Sukumar Montgomery MD Active ADDERALL XR 20 MG [id number] Take one by mouth daily AMPHETAMINE-DEXTROAMPHETAMINE 63706309816 No Longer Active Sukumar Montgomery MD Active CYMBALTA 60 MG CPEP Take one by mouth daily DULOXETINE HCL 24931627128 Active Sukumar Montgomery MD Active PRILOSEC 20 MG CPDR Take one by mouth daily OMEPRAZOLE 24032109335 Active Sukumar Montgomery MD Active ADDERALL XR 20 MG [id number] Take one by mouth daily ADDERALL XR 20 MG [id number] AMPHETAMINE-DEXTROAMPHETAMINE Inactive SEROQUEL 25 MG TABS 1 tablet by mouth daily at bedtime SEROQUEL 25 MG TABS 289700 QUETIAPINE FUMARATE Inactive TYLENOL WITH CODEINE #3 300-30 MG TABS 1 tablet by mouth every four to six hours as needed TYLENOL WITH CODEINE #3 300-30 MG TABS 079561 ACETAMINOPHEN-CODEINE Inactive MELOXICAM 15 MG TABS 1 po q day for pain with food MELOXICAM 15 MG TABS 897766 MELOXICAM Inactive GABAPENTIN 300 MG CAPS 1 po three times daily for nerve pain GABAPENTIN 300 MG CAPS 644297 GABAPENTIN Inactive Vital Signs Date Name Value Unit Range Description blood pressure, diastolic - 8462-4 79 mm[Hg] BP sarmiento blood pressure, systolic - 8480-6 120 mm[Hg] BP sys pulse rate E&M - 8867-4 64 /min Heart rate temperature E&M 97.6 [degF] Body temperature weight E&M - 3141-9 186.5 [lb_av] Weight Measured Encounters Code Encounter Date Provider Facility CPT-82650 Level 3 Est. 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 Patient 15:33:14 CDT Sukumar Montgomery MD [facility] CPT-63544 Level 4 Est. Patient 11:52:43 CDT Sukumar Montgomery MD [facility] CPT-73483 Level 3 Est. Patient 15:39:41 CDT Sukumar Montgomery MD [facility] CPT-73736 Level 3 Est. Patient 16:37:35 CDT Sukumar Montgomery MD [facility]
--- OUTSIDE RECORDS SUMMARY | 2018-08-04 17:22 | XMS REPORT | Clinical Summary ---
Author Author Admin, [facility] Organization [facility] Address Unknown Phone Unavailable Allergies, Adverse Reactions, [...] 1 week of 25mg is done). PREGABALIN 69163139090 Active MINA Aguilar Active LYRICA 25 MG ORAL CAPS 25mg two times a day for 1 week. PREGABALIN 52803713026 Active Sandy Tejeda APRN Active LYRICA 75 MG ORAL CAPS 1 twice a day for fibromyalgia PREGABALIN 33984655598 Active Sandy Tejeda APRN Active GABAPENTIN 300 MG CAPS 1 po three times daily for nerve pain GABAPENTIN 21915958528 No Longer Active Sukumar Montgomery MD Active DICLOFENAC SODIUM 75 MG TBEC 1 tablet by mouth twice daily DICLOFENAC SODIUM 40386619141 Active Sukumar Montgomery MD Active MELOXICAM 15 MG TABS 1 po q day for pain with food MELOXICAM 63146829919 No Longer Active Sukumar Montgomery MD Active TYLENOL WITH CODEINE #3 300-30 MG TABS 1 tablet by mouth every four to six hours as needed ACETAMINOPHEN-CODEINE 99692270388 No Longer Active Sukumar Montgomery MD Active LAMICTAL 100 MG TABS Take one by mouth twice daily LAMOTRIGINE 04296366653 Active Sukumar Montgomery MD Active AMBIEN 10 MG TAB 1 tab by mouth at bedtime as needed for sleep ZOLPIDEM TARTRATE 67450093918 Active Sukumar Montgomery MD Active SEROQUEL 25 MG TABS 1 tablet by mouth daily at bedtime QUETIAPINE FUMARATE 25260754370 No Longer Active Sukumar Montgomery MD Active ADDERALL XR 20 MG [id number] Take one by mouth daily AMPHETAMINE-DEXTROAMPHETAMINE 01689735743 No Longer Active Sukumar Montgomery MD Active CYMBALTA 60 MG CPEP Take one by mouth daily DULOXETINE HCL 38531707821 Active Sukumar Montgomery MD Active PRILOSEC 20 MG CPDR Take one by mouth daily OMEPRAZOLE 73138822606 Active Sukumar Montgomery MD Active ADDERALL XR 20 MG QE49O-DLI Take one by mouth daily ADDERALL XR 20 MG [id number] AMPHETAMINE-DEXTROAMPHETAMINE Inactive SEROQUEL 25 MG TABS 1 tablet by mouth daily at bedtime SEROQUEL 25 MG TABS 433485 QUETIAPINE FUMARATE Inactive TYLENOL WITH CODEINE #3 300-30 MG TABS 1 tablet by mouth every four to six hours as needed TYLENOL WITH CODEINE #3 300-30 MG TABS ACETAMINOPHEN-CODEINE Inactive MELOXICAM 15 MG TABS 1 po q day for pain with food MELOXICAM 15 MG TABS 310821 MELOXICAM Inactive GABAPENTIN 300 MG CAPS 1 po three times daily for nerve pain GABAPENTIN 300 MG CAPS 866050 GABAPENTIN Inactive Vital Signs Date Name Value [...] REPOWER - Chemistry cholesterol, serum 243 mg/dL 136-094 0690/05/05 HDL cholesterol, serum 61 mg/dL > OR=46 triglyceride, serum, fasting 74 mg/dL <150 LDL cholesterol, serum 167 MG/DL (CALC) mg/dL <130 cholesterol/HDL ratio, serum 4.0 (calc) < OR=5.0 Encounters Code Encounter Date Provider Facility CPT-86415 Level 4 Est. Patient 15:52:44 CDT Sandy Tejeda APRN [facility] CPT-66192 Level 3 Est. 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 Patient 15:33:14 CDT Sukumar Montgomery MD [facility] CPT-81763 Level 4 Est. Patient 11:52:43 CDT Sukumar Montgomery MD [facility] CPT-81873 Level 3 Est. Patient 15:39:41 CDT Sukumar Montgomery MD [facility] CPT-54379 Level 3 Est. Patient 16:37:35 CDT Sukumar Montgomery MD [facility]
--- OUTSIDE RECORDS SUMMARY | 2018-08-04 17:22 | XMS REPORT | Clinical Summary ---
Author Author Admin, E Organization [facility] Address Unknown Phone Unavailable Allergies, Adverse [...] ORAL CAPS 1 daily for Fibromyalgia PREGABALIN 00943476633 Active Sukumar Montgomery MD Active LYRICA 25 MG ORAL CAPS 25mg two times a day for 1 week. PREGABALIN 97870738964 No Longer Active Sukumar Montgomery MD Active LYRICA 75 MG ORAL CAPS 1 twice a day for fibromyalgia PREGABALIN 06667651462 No Longer Active Sukumar Montgomery MD Active GABAPENTIN 300 MG CAPS 1 po three times daily for nerve pain GABAPENTIN 87111842686 No Longer Active Sukumar Montgomery MD Active DICLOFENAC SODIUM 75 MG TBEC 1 tablet by mouth twice daily DICLOFENAC SODIUM 48195311812 Active Sukumar Montgomery MD Active MELOXICAM 15 MG TABS 1 po q day for pain with food MELOXICAM 82136375436 No Longer Active Sukumar Montgomery MD Active TYLENOL WITH CODEINE #3 300-30 MG TABS 1 tablet by mouth every four to six hours as needed ACETAMINOPHEN-CODEINE 61325518417 No Longer Active Sukumar Montgomery MD Active LAMICTAL 100 MG TABS Take one by mouth twice daily LAMOTRIGINE 18773828146 Active Sukumar Montgomery MD Active AMBIEN 10 MG TAB 1 tab by mouth at bedtime as needed for sleep ZOLPIDEM TARTRATE 77906058088 Active Sukumar Montgomery MD Active SEROQUEL 25 MG TABS 1 tablet by mouth daily at bedtime QUETIAPINE FUMARATE 13880948076 No Longer Active Sukumar Montgomery MD Active ADDERALL XR 20 MG [id number] Take one by mouth daily AMPHETAMINE-DEXTROAMPHETAMINE 92045834155 No Longer Active Sukumar Montgomery MD Active CYMBALTA 60 MG CPEP Take one by mouth daily DULOXETINE HCL 24299254614 Active Sukumar Montgomery MD Active PRILOSEC 20 MG CPDR Take one by mouth daily OMEPRAZOLE 35084569052 Active Sukumar Montgmoery MD Active ADDERALL XR 20 MG MI79R-WBK Take one by mouth daily ADDERALL XR 20 MG [id number]-NQM AMPHETAMINE-DEXTROAMPHETAMINE Inactive SEROQUEL 25 MG TABS 1 tablet by mouth daily at bedtime SEROQUEL 25 MG TABS 373167 QUETIAPINE FUMARATE Inactive TYLENOL WITH CODEINE #3 300-30 MG TABS 1 tablet by mouth every four to six hours as needed TYLENOL WITH CODEINE #3 300-30 MG TABS ACETAMINOPHEN-CODEINE Inactive MELOXICAM 15 MG TABS 1 po q day for pain with food MELOXICAM 15 MG TABS 531335 MELOXICAM Inactive GABAPENTIN 300 MG CAPS 1 po three times daily for nerve pain GABAPENTIN 300 MG CAPS 095478 GABAPENTIN Inactive LYRICA 75 MG ORAL CAPS [...] Glucose - Chemistry cholesterol, serum 202 mg/dL 924-023 1376/11/02 triglyceride, serum, fasting 83 mg/dL 30-200 HDL cholesterol, serum 49 mg/dL 32-60 LDL cholesterol, serum 136 mg/dL 0-130 blood glucose 104 mg/dL 65-110 Lab Report: LIPID PANEL- REPOWER - Chemistry cholesterol, serum 243 mg/dL 361-953 7801/05/05 HDL cholesterol, serum 61 mg/dL > OR=46 triglyceride, serum, fasting 74 mg/dL <150 LDL cholesterol, serum 167 MG/DL (CALC) mg/dL <130 cholesterol/HDL ratio, serum 4.0 (calc) < OR=5.0 Encounters Code Encounter Date Provider Facility CPT-98844 Level 3 Est. Patient 14:37:37 CDT Sukumar Montgomery MD [facility] CPT-27777 Level 4 Est. Patient 15:52:44 CDT Sandy Tejeda [facility] CPT-17296 Level 3 Est. 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 Patient 15:33:14 CDT Sukumar Montgomery MD [facility] CPT-76868 Level 4 Est. Patient 11:52:43 CDT Sukumar Montgomery MD [facility] CPT-77805 Level 3 Est. Patient 15:39:41 CDT Sukumar Montgomery MD [facility] CPT-17143 Level 3 Est. Patient 16:37:35 CDT Sukumar Montgomery MD [facility]
--- OUTSIDE RECORDS SUMMARY | 2018-08-04 17:22 | XMS REPORT | Clinical Summary ---
Author Author Admin, Arun Organization [facility] Address Unknown Phone Unavailable Allergies, Adverse Reactions, [...] 1 twice a day for fibromyalgia PREGABALIN 04937755378 Active Sukumar Montgomery MD Active GABAPENTIN 300 MG CAPS 1 po three times daily for nerve pain GABAPENTIN 30680751458 No Longer Active Sukumar Montgomery MD Active DICLOFENAC SODIUM 75 MG TBEC 1 tablet by mouth twice daily DICLOFENAC SODIUM 18249705123 Active Sukumar Montgomery MD Active MELOXICAM 15 MG TABS 1 po q day for pain with food MELOXICAM 58593717568 No Longer Active Sukumar Montgomery MD Active TYLENOL WITH CODEINE #3 300-30 MG TABS 1 tablet by mouth every four to six hours as needed ACETAMINOPHEN-CODEINE 18453852593 No Longer Active Sukumar Montgomery MD Active LAMICTAL 100 MG TABS Take one by mouth twice daily LAMOTRIGINE 29382902999 Active Sukumar Montgomery MD Active AMBIEN 10 MG TAB 1 tab by mouth at bedtime as needed for sleep ZOLPIDEM TARTRATE 26021825919 Active Sukumar Montgomery MD Active SEROQUEL 25 MG TABS 1 tablet by mouth daily at bedtime QUETIAPINE FUMARATE 75694116129 No Longer Active Sukumar Montgomery MD Active ADDERALL XR 20 MG [id number] Take one by mouth daily AMPHETAMINE-DEXTROAMPHETAMINE 38017452967 No Longer Active Sukumar Montgomery MD Active CYMBALTA 60 MG CPEP Take one by mouth daily DULOXETINE HCL 69496005673 Active Sukumar Montgomery MD Active PRILOSEC 20 MG CPDR Take one by mouth daily OMEPRAZOLE 24319875993 Active Sukumar Montgomery MD Active ADDERALL XR 20 MG [id number] Take one by mouth daily ADDERALL XR 20 MG [id number] AMPHETAMINE-DEXTROAMPHETAMINE Inactive SEROQUEL 25 MG TABS 1 tablet by mouth daily at bedtime SEROQUEL 25 MG TABS 059468 QUETIAPINE FUMARATE Inactive TYLENOL WITH CODEINE #3 300-30 MG TABS 1 tablet by mouth every four to six hours as needed TYLENOL WITH CODEINE #3 300-30 MG TABS 766041 ACETAMINOPHEN-CODEINE Inactive MELOXICAM 15 MG TABS 1 po q day for pain with food MELOXICAM 15 MG TABS 025036 MELOXICAM Inactive GABAPENTIN 300 MG CAPS 1 po three times daily for nerve pain GABAPENTIN 300 MG CAPS 361863 GABAPENTIN Inactive Vital Signs Date Name Value Unit Range Description blood pressure, diastolic - 8462-4 79 mm[Hg] BP sarmiento blood pressure, systolic - 8480-6 120 mm[Hg] BP sys pulse rate E&M - 8867-4 64 /min Heart rate temperature E&M 97.6 [degF] Body temperature weight E&M - 3141-9 186.5 [lb_av] Weight Measured Encounters Code Encounter Date Provider Facility CPT-07829 Level 3 Est. 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 Patient 15:33:14 CDT Sukumar Montgomery MD [facility] CPT-16560 Level 4 Est. Patient 11:52:43 CDT Sukumar Montgomery MD [facility] CPT-64979 Level 3 Est. Patient 15:39:41 CDT Sukumar Montgomery MD [facility] CPT-25917 Level 3 Est. Patient 16:37:35 CDT Sukumar Montgomery MD [facility]
--- OUTSIDE RECORDS SUMMARY | 2018-08-04 17:22 | XMS REPORT | Clinical Summary ---
Author Author Admin, [facility] Organization [facility] Address Unknown Phone Unavailable Allergies, Adverse [...] 1 week of 25mg is done). PREGABALIN 57968221280 Active Sandy Tejeda APRN Active LYRICA 25 MG ORAL CAPS 25mg two times a day for 1 week. PREGABALIN 18999518731 Active Sandy Tejeda APRN Active LYRICA 75 MG ORAL CAPS 1 twice a day for fibromyalgia PREGABALIN 63770697174 Active Sandy Tejeda APRN Active GABAPENTIN 300 MG CAPS 1 po three times daily for nerve pain GABAPENTIN 99513696690 No Longer Active Sukumar Montgomery MD Active DICLOFENAC SODIUM 75 MG TBEC 1 tablet by mouth twice daily DICLOFENAC SODIUM 69881283233 Active Sukumar Montgomery MD Active MELOXICAM 15 MG TABS 1 po q day for pain with food MELOXICAM 95193015555 No Longer Active Sukumar Montgomeyr MD Active TYLENOL WITH CODEINE #3 300-30 MG TABS 1 tablet by mouth every four to six hours as needed ACETAMINOPHEN-CODEINE 48342595924 No Longer Active Sukumar Montgomery MD Active LAMICTAL 100 MG TABS Take one by mouth twice daily LAMOTRIGINE 12831236566 Active Sukumar Montgomery MD Active AMBIEN 10 MG TAB 1 tab by mouth at bedtime as needed for sleep ZOLPIDEM TARTRATE 26758770205 Active Sukumar Montgomery MD Active SEROQUEL 25 MG TABS 1 tablet by mouth daily at bedtime QUETIAPINE FUMARATE 58982510156 No Longer Active Sukumar Montgomery MD Active ADDERALL XR 20 MG [id number] Take one by mouth daily AMPHETAMINE-DEXTROAMPHETAMINE 99294584526 No Longer Active Sukumar Montgomery MD Active CYMBALTA 60 MG CPEP Take one by mouth daily DULOXETINE HCL 08933343048 Active Sukumar Montgomery MD Active PRILOSEC 20 MG CPDR Take one by mouth daily OMEPRAZOLE 37571828716 Active Sukumar Montgomery MD Active ADDERALL XR 20 MG [id number] Take one by mouth daily ADDERALL XR 20 MG [id number] AMPHETAMINE-DEXTROAMPHETAMINE Inactive SEROQUEL 25 MG TABS 1 tablet by mouth daily at bedtime SEROQUEL 25 MG TABS 270741 QUETIAPINE FUMARATE Inactive TYLENOL WITH CODEINE #3 300-30 MG TABS 1 tablet by mouth every four to six hours as needed TYLENOL WITH CODEINE #3 300-30 MG TABS ACETAMINOPHEN-CODEINE Inactive MELOXICAM 15 MG TABS 1 po q day for pain with food MELOXICAM 15 MG TABS 138723 MELOXICAM Inactive GABAPENTIN 300 MG CAPS 1 po three times daily for nerve pain GABAPENTIN 300 MG CAPS 699949 GABAPENTIN Inactive Vital Signs Date Name Value [...] REPOWER - Chemistry cholesterol, serum 243 mg/dL 524-878 0903/05/05 HDL cholesterol, serum 61 mg/dL > OR=46 triglyceride, serum, fasting 74 mg/dL <150 LDL cholesterol, serum 167 MG/DL (CALC) mg/dL <130 cholesterol/HDL ratio, serum 4.0 (calc) < OR=5.0 Encounters Code Encounter Date Provider Facility CPT-73899 Level 4 Est. Patient 15:52:44 CDT Sandy Tejeda APRN [facility] CPT-39085 Level 3 Est. 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 Patient 15:33:14 CDT Sukumar Montgomery MD [facility] CPT-37857 Level 4 Est. Patient 11:52:43 CDT Sukumar Montgomery MD [facility] CPT-34110 Level 3 Est. Patient 15:39:41 CDT Sukumar Montgomery MD [facility] CPT-51587 Level 3 Est. Patient 16:37:35 CDT Sukumar Montgomery MD [facility]
--- OUTSIDE RECORDS SUMMARY | 2018-08-04 17:23 | XMS REPORT | Clinical Summary ---
Author Author Admin, [facility] Organization [facility] Address Unknown Phone Unavailable Allergies, Adverse Reactions, [...] 1 week of 25mg is done). PREGABALIN 35880108234 Active Sandy Tejeda APRN Active LYRICA 25 MG ORAL CAPS 25mg two times a day for 1 week. PREGABALIN 49677104498 Active Sandy Tejeda APRN Active LYRICA 75 MG ORAL CAPS 1 twice a day for fibromyalgia PREGABALIN 69368570965 Active Sandy Tejeda APRN Active GABAPENTIN 300 MG CAPS 1 po three times daily for nerve pain GABAPENTIN 28324065158 No Longer Active Sukumar Montgomery MD Active DICLOFENAC SODIUM 75 MG TBEC 1 tablet by mouth twice daily DICLOFENAC SODIUM 66983625059 Active Sukumar Montgomery MD Active MELOXICAM 15 MG TABS 1 po q day for pain with food MELOXICAM 42885192664 No Longer Active Sukumar Montgomery MD Active TYLENOL WITH CODEINE #3 300-30 MG TABS 1 tablet by mouth every four to six hours as needed ACETAMINOPHEN-CODEINE 67445060571 No Longer Active Sukumar Montgomery MD Active LAMICTAL 100 MG TABS Take one by mouth twice daily LAMOTRIGINE 80587283557 Active Sukumar Montgomery MD Active AMBIEN 10 MG TAB 1 tab by mouth at bedtime as needed for sleep ZOLPIDEM TARTRATE 09247227034 Active Sukumar Montgomery MD Active SEROQUEL 25 MG TABS 1 tablet by mouth daily at bedtime QUETIAPINE FUMARATE 29465914425 No Longer Active Sukumar Montgomery MD Active ADDERALL XR 20 MG [id number] Take one by mouth daily AMPHETAMINE-DEXTROAMPHETAMINE 99026382332 No Longer Active Sukumar Montgomery MD Active CYMBALTA 60 MG CPEP Take one by mouth daily DULOXETINE HCL 49626376542 Active Sukumar Montgomery MD Active PRILOSEC 20 MG CPDR Take one by mouth daily OMEPRAZOLE 24827093133 Active Sukumar Montgomery MD Active ADDERALL XR 20 MG [id number]-CBE Take one by mouth daily ADDERALL XR 20 MG [id number] AMPHETAMINE-DEXTROAMPHETAMINE Inactive SEROQUEL 25 MG TABS 1 tablet by mouth daily at bedtime SEROQUEL 25 MG TABS 422817 QUETIAPINE FUMARATE Inactive TYLENOL WITH CODEINE #3 300-30 MG TABS 1 tablet by mouth every four to six hours as needed TYLENOL WITH CODEINE #3 300-30 MG TABS ACETAMINOPHEN-CODEINE Inactive MELOXICAM 15 MG TABS 1 po q day for pain with food MELOXICAM 15 MG TABS 264834 MELOXICAM Inactive GABAPENTIN 300 MG CAPS 1 po three times daily for nerve pain GABAPENTIN 300 MG CAPS 502095 GABAPENTIN Inactive Vital Signs Date Name Value [...] Measured Encounters Code Encounter Date Provider Facility CPT-34052 Level 4 Est. Patient 15:52:44 CDT Sandy Tejeda APRN [facility] CPT-91041 Level 3 Est. 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 Patient 15:33:14 CDT Sukumar Montgomery MD [facility] CPT-27064 Level 4 Est. Patient 11:52:43 CDT Sukumar Montgomery MD [facility] CPT-74751 Level 3 Est. Patient 15:39:41 CDT Sukumar Montgomery MD [facility] CPT-61791 Level 3 Est. Patient 16:37:35 CDT Sukumar Montgomery MD [facility]
--- OUTSIDE RECORDS SUMMARY | 2018-08-04 17:23 | XMS REPORT | Clinical Summary ---
Author Author Admin, E Organization [facility] Address Unknown Phone Unavailable Allergies, Adverse [...] ORAL CAPS 1 daily for Fibromyalgia PREGABALIN 98388815306 Active Sukumar Montgomery MD Active LYRICA 25 MG ORAL CAPS 25mg two times a day for 1 week. PREGABALIN 40478814777 No Longer Active Sukumar Montgomery MD Active LYRICA 75 MG ORAL CAPS 1 twice a day for fibromyalgia PREGABALIN 66598689823 No Longer Active Sukumar Montgomery MD Active GABAPENTIN 300 MG CAPS 1 po three times daily for nerve pain GABAPENTIN 58126993305 No Longer Active Sukumar Montgomery MD Active DICLOFENAC SODIUM 75 MG TBEC 1 tablet by mouth twice daily DICLOFENAC SODIUM 89496603650 Active Sukumar Montgomery MD Active MELOXICAM 15 MG TABS 1 po q day for pain with food MELOXICAM 33376333076 No Longer Active Sukumar Montgomery MD Active TYLENOL WITH CODEINE #3 300-30 MG TABS 1 tablet by mouth every four to six hours as needed ACETAMINOPHEN-CODEINE 64317224084 No Longer Active Sukumar Montgomery MD Active LAMICTAL 100 MG TABS Take one by mouth twice daily LAMOTRIGINE 93687136129 Active Sukumar Montgomery MD Active AMBIEN 10 MG TAB 1 tab by mouth at bedtime as needed for sleep ZOLPIDEM TARTRATE 14665203359 Active Sukumar Montgomery MD Active SEROQUEL 25 MG TABS 1 tablet by mouth daily at bedtime QUETIAPINE FUMARATE 42516495829 No Longer Active Sukumar Montgomery MD Active ADDERALL XR 20 MG [id number] Take one by mouth daily AMPHETAMINE-DEXTROAMPHETAMINE 11287798987 No Longer Active Sukumar Montgomery MD Active CYMBALTA 60 MG CPEP Take one by mouth daily DULOXETINE HCL 78816209014 Active Sukumar Montgomery MD Active PRILOSEC 20 MG CPDR Take one by mouth daily OMEPRAZOLE 06926123062 Active Sukumar Montgomery MD Active ADDERALL XR 20 MG [id number]-KWG Take one by mouth daily ADDERALL XR 20 MG [id number] AMPHETAMINE-DEXTROAMPHETAMINE Inactive SEROQUEL 25 MG TABS 1 tablet by mouth daily at bedtime SEROQUEL 25 MG TABS 415136 QUETIAPINE FUMARATE Inactive TYLENOL WITH CODEINE #3 300-30 MG TABS 1 tablet by mouth every four to six hours as needed TYLENOL WITH CODEINE #3 300-30 MG TABS ACETAMINOPHEN-CODEINE Inactive MELOXICAM 15 MG TABS 1 po q day for pain with food MELOXICAM 15 MG TABS 139889 MELOXICAM Inactive GABAPENTIN 300 MG CAPS 1 po three times daily for nerve pain GABAPENTIN 300 MG CAPS 100450 GABAPENTIN Inactive LYRICA 75 MG ORAL CAPS [...] 125-200 Encounters Code Encounter Date Provider Facility CPT-91023 Level 3 Est. Patient 14:37:37 CDT Sukumar Montgomery MD [facility] CPT-60123 Level 4 Est. Patient 15:52:44 CDT Sandy Tejeda APRN [facility] CPT-35865 Level 3 Est. 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 Patient 15:33:14 CDT Sukumar Montgomery MD [facility] CPT-31511 Level 4 Est. Patient 11:52:43 CDT Sukumar Montgomery MD [facility] CPT-22871 Level 3 Est. Patient 15:39:41 CDT Sukumar Montgomery MD [facility] CPT-64294 Level 3 Est. Patient 16:37:35 CDT Sukumar Montgomery MD [facility]
--- OUTSIDE RECORDS SUMMARY | 2018-08-04 17:23 | XMS REPORT | Clinical Summary ---
Author Author Admin, [facility] Organization [facility] Address Unknown Phone Unavailable Allergies, Adverse [...] 1 week of 25mg is done). PREGABALIN 07435270112 Active MINA Aguilar Active LYRICA 25 MG ORAL CAPS 25mg two times a day for 1 week. PREGABALIN 69570397039 Active Sandy Tejeda APRN Active LYRICA 75 MG ORAL CAPS 1 twice a day for fibromyalgia PREGABALIN 95721195581 Active Sandy Tejeda APRN Active GABAPENTIN 300 MG CAPS 1 po three times daily for nerve pain GABAPENTIN 48271114019 No Longer Active Suukmar Montgomery MD Active DICLOFENAC SODIUM 75 MG TBEC 1 tablet by mouth twice daily DICLOFENAC SODIUM 24041396816 Active Sukumar Montgomery MD Active MELOXICAM 15 MG TABS 1 po q day for pain with food MELOXICAM 59882635842 No Longer Active Sukumar Montgomery MD Active TYLENOL WITH CODEINE #3 300-30 MG TABS 1 tablet by mouth every four to six hours as needed ACETAMINOPHEN-CODEINE 60352559455 No Longer Active Sukumar Montgomery MD Active LAMICTAL 100 MG TABS Take one by mouth twice daily LAMOTRIGINE 59396023492 Active Sukumar Montgomery MD Active AMBIEN 10 MG TAB 1 tab by mouth at bedtime as needed for sleep ZOLPIDEM TARTRATE 67673360922 Active Sukumar Montgomery MD Active SEROQUEL 25 MG TABS 1 tablet by mouth daily at bedtime QUETIAPINE FUMARATE 60755994613 No Longer Active Sukumar Montgomery MD Active ADDERALL XR 20 MG [id number] Take one by mouth daily AMPHETAMINE-DEXTROAMPHETAMINE 33153548168 No Longer Active Sukumar Montgomery MD Active CYMBALTA 60 MG CPEP Take one by mouth daily DULOXETINE HCL 00926312125 Active Sukumar Montgomery MD Active PRILOSEC 20 MG CPDR Take one by mouth daily OMEPRAZOLE 82727443548 Active Sukumar Montgomery MD Active TYLENOL WITH CODEINE #3 300-30 MG TABS 1 tablet by mouth every four to six hours as needed TYLENOL WITH CODEINE #3 300-30 MG TABS ACETAMINOPHEN-CODEINE Inactive GABAPENTIN 300 MG CAPS 1 po three times daily for nerve pain GABAPENTIN 300 MG CAPS 754390 GABAPENTIN Inactive MELOXICAM 15 MG TABS 1 po q day for pain with food MELOXICAM 15 MG TABS 687952 MELOXICAM Inactive SEROQUEL 25 MG TABS 1 tablet by mouth daily at bedtime SEROQUEL 25 MG TABS 918329 QUETIAPINE FUMARATE Inactive ADDERALL XR 20 MG [id number] Take one by mouth daily ADDERALL XR 20 MG [id number] AMPHETAMINE-DEXTROAMPHETAMINE Inactive Vital Signs Date Name Value [...] 125-200 Encounters Code Encounter Date Provider Facility CPT-25575 Level 4 Est. Patient 15:52:44 CDT Sandy Tejeda APRN [facility] CPT-16211 Level 3 Est. 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 Patient 15:33:14 CDT Sukumar Montgomery MD [facility] CPT-15294 Level 4 Est. Patient 11:52:43 CDT Sukumar Montgomery MD [facility] CPT-39254 Level 3 Est. Patient 15:39:41 CDT Sukumar Montgomery MD [facility] CPT-91104 Level 3 Est. Patient 16:37:35 CDT Sukumar Montgomery MD [facility]
--- OUTSIDE RECORDS SUMMARY | 2018-08-04 17:23 | XMS REPORT | Clinical Summary ---
Author Author Admin, E Organization [facility] Address Unknown Phone Unavailable Allergies, Adverse Reactions, Alerts Allergy Name Reaction Description Start Date Severity Status Provider No Known Allergies Lisa Del Real LRT Conditions or Problems Problem Name Problem Code Onset Date Status Entry Date Provider Comment Standard Description Annotate BIPOLAR DISORDER 296.7 Active Sukumar Montgoemry MD Bipolar I disorder, most recent episode [...] ORAL CAPS 1 daily for Fibromyalgia PREGABALIN 17040589437 Active Sukumar Montgomery MD Active LYRICA 25 MG ORAL CAPS 25mg two times a day for 1 week. PREGABALIN 60901131465 No Longer Active Sukumar Montgomery MD Active LYRICA 75 MG ORAL CAPS 1 twice a day for fibromyalgia PREGABALIN 07810016914 No Longer Active Sukumar Montgomery MD Active GABAPENTIN 300 MG CAPS 1 po three times daily for nerve pain GABAPENTIN 01326226672 No Longer Active Sukumar Montgomery MD Active DICLOFENAC SODIUM 75 MG TBEC 1 tablet by mouth twice daily DICLOFENAC SODIUM 46052551958 Active Sukumar Montgomery MD Active MELOXICAM 15 MG TABS 1 po q day for pain with food MELOXICAM 22160358841 No Longer Active Sukumar Montgomery MD Active TYLENOL WITH CODEINE #3 300-30 MG TABS 1 tablet by mouth every four to six hours as needed ACETAMINOPHEN-CODEINE 45170092983 No Longer Active Sukumar Montgomery MD Active LAMICTAL 100 MG TABS Take one by mouth twice daily LAMOTRIGINE 89483829874 Active Sukumar Montgomery MD Active AMBIEN 10 MG TAB 1 tab by mouth at bedtime as needed for sleep ZOLPIDEM TARTRATE 65207117892 Active Sukumar Montgomery MD Active SEROQUEL 25 MG TABS 1 tablet by mouth daily at bedtime QUETIAPINE FUMARATE 81766875497 No Longer Active Sukumar Montgomery MD Active ADDERALL XR 20 MG [id number] Take one by mouth daily AMPHETAMINE-DEXTROAMPHETAMINE 49649446217 No Longer Active Sukumar Montgomery MD Active CYMBALTA 60 MG CPEP Take one by mouth daily DULOXETINE HCL 51120933828 Active Sukumar Montgomery MD Active PRILOSEC 20 MG CPDR Take one by mouth daily OMEPRAZOLE 97450081565 Active Sukumar Montgomery MD Active ADDERALL XR 20 MG [id number] Take one by mouth daily ADDERALL XR 20 MG [id number] AMPHETAMINE-DEXTROAMPHETAMINE Inactive SEROQUEL 25 MG TABS 1 tablet by mouth daily at bedtime SEROQUEL 25 MG TABS 123732 QUETIAPINE FUMARATE Inactive TYLENOL WITH CODEINE #3 300-30 MG TABS 1 tablet by mouth every four to six hours as needed TYLENOL WITH CODEINE #3 300-30 MG TABS ACETAMINOPHEN-CODEINE Inactive MELOXICAM 15 MG TABS 1 po q day for pain with food MELOXICAM 15 MG TABS 322923 MELOXICAM Inactive GABAPENTIN 300 MG CAPS 1 po three times daily for nerve pain GABAPENTIN 300 MG CAPS 819465 GABAPENTIN Inactive LYRICA 75 MG ORAL CAPS [...] REPOWER - Chemistry cholesterol, serum 243 mg/dL 538-561 1763/05/05 HDL cholesterol, serum 61 mg/dL > OR=46 triglyceride, serum, fasting 74 mg/dL <150 LDL cholesterol, serum 167 MG/DL (CALC) mg/dL <130 cholesterol/HDL ratio, serum 4.0 (calc) < OR=5.0 Encounters Code Encounter Date Provider Facility CPT-69765 Level 3 Est. Patient 14:37:37 CDT Sukumar Montgomery MD [facility] CPT-24019 Level 4 Est. Patient 15:52:44 CDT Sandy Tejeda APRN [facility] CPT-72694 Level 3 Est. 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 Patient 15:33:14 CDT Sukumar Montgomery MD [facility] CPT-60802 Level 4 Est. Patient 11:52:43 CDT Sukumar Montgomery MD [facility] CPT-11011 Level 3 Est. Patient 15:39:41 CDT Sukumar Montgomery MD [facility] CPT-74886 Level 3 Est. Patient 16:37:35 CDT Sukumar Montgomery MD [facility]
--- OUTSIDE RECORDS SUMMARY | 2018-08-04 17:23 | XMS REPORT | Clinical Summary ---
Author Author Admin, E Organization [facility] Address Unknown Phone Unavailable Allergies, Adverse Reactions, [...] 1 twice a day for fibromyalgia PREGABALIN 50683433929 Active Sukumar Montgomery MD Active GABAPENTIN 300 MG CAPS 1 po three times daily for nerve pain GABAPENTIN 59746753996 No Longer Active Sukumar Montgomery MD Active DICLOFENAC SODIUM 75 MG TBEC 1 tablet by mouth twice daily DICLOFENAC SODIUM 02804078521 Active Sukumar Montgomery MD Active MELOXICAM 15 MG TABS 1 po q day for pain with food MELOXICAM 36878588438 No Longer Active Sukumar Montgomery MD Active TYLENOL WITH CODEINE #3 300-30 MG TABS 1 tablet by mouth every four to six hours as needed ACETAMINOPHEN-CODEINE 08648042168 No Longer Active Sukumar Montgomery MD Active LAMICTAL 100 MG TABS Take one by mouth twice daily LAMOTRIGINE 12932675834 Active Sukumar Montgomery MD Active AMBIEN 10 MG TAB 1 tab by mouth at bedtime as needed for sleep ZOLPIDEM TARTRATE 78926436954 Active Sukumar Montgomery MD Active SEROQUEL 25 MG TABS 1 tablet by mouth daily at bedtime QUETIAPINE FUMARATE 29497557244 No Longer Active Sukumar Montgomery MD Active ADDERALL XR 20 MG [id number]-SDO Take one by mouth daily AMPHETAMINE-DEXTROAMPHETAMINE 77462066127 No Longer Active Sukumar Montgomery MD Active CYMBALTA 60 MG CPEP Take one by mouth daily DULOXETINE HCL 17582608154 Active Sukumar Montgomery MD Active PRILOSEC 20 MG CPDR Take one by mouth daily OMEPRAZOLE 00497662534 Active Sukumar Montgomery MD Active ADDERALL XR 20 MG [id number]-MVD Take one by mouth daily ADDERALL XR 20 MG [id number] AMPHETAMINE-DEXTROAMPHETAMINE Inactive SEROQUEL 25 MG TABS 1 tablet by mouth daily at bedtime SEROQUEL 25 MG TABS 051806 QUETIAPINE FUMARATE Inactive TYLENOL WITH CODEINE #3 300-30 MG TABS 1 tablet by mouth every four to six hours as needed TYLENOL WITH CODEINE #3 300-30 MG TABS 751374 ACETAMINOPHEN-CODEINE Inactive MELOXICAM 15 MG TABS 1 po q day for pain with food MELOXICAM 15 MG TABS 915886 MELOXICAM Inactive GABAPENTIN 300 MG CAPS 1 po three times daily for nerve pain GABAPENTIN 300 MG CAPS 214052 GABAPENTIN Inactive Vital Signs Date Name Value Unit Range Description blood pressure, diastolic - 8462-4 79 mm[Hg] BP sarmiento blood pressure, systolic - 8480-6 120 mm[Hg] BP sys pulse rate E&M - 8867-4 64 /min Heart rate temperature E&M 97.6 [degF] Body temperature weight E&M - 3141-9 186.5 [lb_av] Weight Measured Encounters Code Encounter Date Provider Facility CPT-09800 Level 3 Est. 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 Patient 15:33:14 CDT Sukumar Montgomery MD [facility] CPT-16106 Level 4 Est. Patient 11:52:43 CDT Sukumar Montgomery MD [facility] CPT-89226 Level 3 Est. Patient 15:39:41 CDT Sukumar Montgomery MD [facility] CPT-60860 Level 3 Est. Patient 16:37:35 CDT Sukumar Montgomery MD [facility]
--- NOTE | 2018-08-04 17:24 | ED Trauma-Multisystem ---
General Chief Complaint: Trauma EMS/Air Arrival Activat Stated Complaint: FELL OFF HORSE Nursing Triage Note: ARRIVED VIA EMS TO ROOM 06. STATES SHE WAS ON HER HORSE WHEN IT ACTED UP CAUSING HER TO FALL ONTO A PARKED CAR. UNKNOWN LOC. COMPLAINS OF RIGHT SHOULDER/BACK AND RIGHT HIP PAIN. PT ARRIVED IN C-COLLAR Source of Information: Patient Exam Limitations: No Limitations (INGA HOLLIS) History of Present Illness Date Seen by Provider: Aug 04, 2018 Time Seen by Provider: 16:42 Initial Comments Patient is a 57-year-old female who is brought into the emergency room by [facility] after being bucked off of a horse. She reports that she was riding her horse when it became spooked and bucked her off and caused her to land onto her right side onto a parked car. She is unsure if she hit her head or loss consciousness, she did have loss of bladder. She complains of right shoulder/upper back pain and right hip pain. C-collar was in place on arrival to the emergency room. She is denying need for pain medication at this time. Occurred: Just Prior to Arrival Pain/Injury Location: Back (right shoulder/back), Pelvis, Other (right hip) Method of Injury: Fall Loss of Consciousness: Unsure Associated Symptoms (Fall): No Chest Pain, No Shortness of Air (INGA HOLLIS) Allergies and Home Medications Allergies Coded Allergies: No Known Drug Allergies (Unverified , 08/04/18) Home Medications Hydrocodone/Acetaminophen 1 Each Tablet, 1 EACH PO Q4-6HR PRN for PAIN-MODERATE Prescribed by: FRANCISCO HALL on 08/05/18 0920 Patient Home Medication List Home Medication List Reviewed: Yes (INGA HOLLIS) Home Medication List Reviewed: Yes (CHRISTEL ARAGON MD) Review of Systems Review of Systems Constitutional: see HPI; No chills, No fever Eyes: No Symptoms Reported Ears: No Symptoms Reported Nose: No Symptoms Reported Mouth: No Symptoms Reported Throat: No Symptoms to Report Respiratory: No short of breath, No wheezing; other (pain with deep breathing) Cardiovascular: Denies Edema, Denies Palpitations, Denies Syncope Gastrointestinal: abdominal pain; No nausea, No vomiting Genitourinary: no symptoms reported Musculoskeletal: see HPI, back pain, joint pain, muscle pain, muscle stiffness , neck pain Skin: No change in color, No lesions Psychiatric/Neurological: Headache, Tingling (right hip area); Denies Weakness (CHRISTEL ARAGON MD) All Other Systems Reviewed Negative Unless Noted: Yes (CHRISTEL ARAGON MD) Past Upuqfch-Vykzrv-Glhykp Hx Past Med/Social Hx: Reviewed Nursing Past Med/Soc Hx (CHRISTEL ARAGON MD) Patient Social History Recent Foreign Travel: No Contact w/Someone Who Travel: No Recent Infectious Disease Expo: No (INGA HOLLIS) Past Medical History : No (INGA HOLLIS) Family Medical History Reviewed Nursing Family Hx (CHRISTEL ARAGON MD) Physical Exam Height, Weight, BMI Height: 5'4.00" Weight: 180lbs. oz. 81.930476kh; 28.12 BMI Method:Stated (INGA HOLLIS) General Appearance: Mild Distress (and some orthopedic and his arm sisters) Head: No Active Bleeding, No Garber's Sign Eyes: Bilateral Eye Normal Inspection, Bilateral Eye PERRL, Bilateral Eye EOMI Ears, Nose, Throat: Hearing Grossly Normal, No Evidence of ENT Injury, No Dental Injury Neck: No Lymphadenopathy (L), No Lymphadenopathy (R); Tender Lateral, Other ( good range of motion after C-spine cleared. Pain to the upper back and lateral on range of motion but not centrally) Cardiovascular: Regular Rate, Rhythm, No Murmur Respiratory: Lungs Clear, Normal Breath Sounds Gastrointestinal: Soft; No Distended, No Guarding; Tenderness (right upper quadrant and right lower quadrant) Back: No CVA Tenderness; No Decreased Range of Motion; Vertebral Tenderness ( mid upper thoracic) Extremity: No Calf Tenderness, Other (tender to the right hemipelvis and right hip) Skin: Normal Color, Warm/Dry (CHRISTEL ARAGON MD) Shannan Coma Score Best Eye Response (Orient): (4) Open Spontaneously Best Verbal Response (Orient): (5) Oriented Best Motor Response (Shannan): (6) Obeys Commands (CHRISTEL ARAGON MD) Progress/Results/Core Measures Results/Orders Lab Results Laboratory Tests Test 08/04/18 16:47 Range/Units White Blood Count 10.1 4.3-11.0 10^3/uL Red Blood Count 4.27 L 4.35-5.85 10^6/uL Hemoglobin 13.0 11.5-16.0 G/DL Hematocrit 38 35-52 % Mean Corpuscular Volume 89 80-99 FL Mean Corpuscular Hemoglobin 30 25-34 PG Mean Corpuscular Hemoglobin Concent 34 32-36 G/DL Red Cell Distribution Width 13.2 10.0-14.5 % Platelet Count 295 130-400 10^3/uL Mean Platelet Volume 10.7 H 7.4-10.4 FL Neutrophils (%) (Auto) 57 42-75 % Lymphocytes (%) (Auto) 30 12-44 % Monocytes (%) (Auto) 8 0-12 % Eosinophils (%) (Auto) 4 0-10 % Basophils (%) (Auto) 0 0-10 % Neutrophils # (Auto) 5.8 1.8-7.8 X 10^3 Lymphocytes # (Auto) 3.0 1.0-4.0 X 10^3 Monocytes # (Auto) 0.8 0.0-1.0 X 10^3 Eosinophils # (Auto) 0.4 H 0.0-0.3 10^3/uL Basophils # (Auto) 0.0 0.0-0.1 10^3/uL Sodium Level 141 135-145 MMOL/L Potassium Level 3.7 3.6-5.0 MMOL/L Chloride Level 107 98-107 MMOL/L Carbon Dioxide Level 24 21-32 MMOL/L Anion Gap 10 5-14 MMOL/L Blood Urea Nitrogen 14 7-18 MG/DL Creatinine 0.87 0.60-1.30 MG/DL Estimat Glomerular Filtration Rate > 60 BUN/Creatinine Ratio 16 Glucose Level 116 H 70-105 MG/DL Calcium Level 9.2 8.5-10.1 MG/DL Corrected Calcium 9.0 8.5-10.1 MG/DL Total Bilirubin 0.3 0.1-1.0 MG/DL Aspartate Amino Transf (AST/SGOT) 32 5-34 U/L Alanine Aminotransferase (ALT/SGPT) 25 0-55 U/L Alkaline Phosphatase 65 40-136 U/L Total Protein 7.2 6.4-8.2 GM/DL Albumin 4.3 3.2-4.5 GM/DL (CHRISTEL ARAGON MD) Medications Given in ED Current Medications Medications Dose Ordered Sig/Noelle Route Start Time Stop Time Status Last Admin Dose Admin Fentanyl Citrate 50 mcg ONCE ONCE IVP 08/04/18 17:15 08/04/18 17:16 DC 08/04/18 17:14 50 MCG (CHRISTEL ARAGON MD) Progress Progress Note : Time: : Progress Note 2033 I have seen and evaluated the patient. I've informed her of her normal imaging studies. We attempted to get the patient up to try to ambulate when she became diaphoretic, hypotensive, complaining of pain to her right hip and felt as if she was going to pass out. She was transitioned back into bed, EKG was ordered, her feelings of passing out subsided, she reported that she was hungry , she was given something to eat and drink and was watched. 2100: The patient was feeling better at this time and attempted to ambulate again and she still had feelings of passing out and became diaphoretic and hypotensive. She was transitioned back into bed and her vital signs return back to normal. I informed her that she be admitted to the hospital she agrees with plans for admission. Dr. Hall was called at this time and agrees with plans for admission to his services, he recommends giving LR at 125 mL an hour while on the floor and he will see her in the morning. 2233: Dr. Leiva was consulted at this time for trauma consult and he agrees with plan of care. (INGA HOLLIS) Progress Note : Progress Note I have seen and evaluated the patient and agree with above except as indicated. I have directed the plan of care. Patient is here after falling off a horse. She was riding a horse and somebody ran out in front of her in the course rare. She came off the horse and hit a car in the ground. She did hit her head. She has had repetitive questioning afterwards. No loss of consciousness. Complains of pain to the neck and mid thoracic spine as well as right hip. IV, labs, chest x-ray and pelvic x-ray. CT of head, neck, thoracic and lumbar spine. Reexam after initial CTs shows patient have increasing pain to the right anterior lower ribs as well as the right upper and lower quadrants in the abdomen. CT chest, abdomen and pelvis have been ordered as well. CT head and C-spine negative for acute fracture or injury. C-collar removed at 1755. Patient seen in association with Inga Hollis APRN who will continue care. (CHRISTEL ARAGON MD) Initial ECG Impression Date: Aug 04, 2018 Initial ECG Impression Time: 20:34 Initial ECG Rate: 68 Initial ECG Rhythm: Normal Sinus Initial ECG Intervals: Normal Initial ECG Impression: Normal Initial ECG Comparisson: No Previous ECG Available (INGA HOLLIS) Diagnostic Imaging Diagonstic Imaging: Xray, CT Plain Films/CT/US/NM/MRI: chest, abdomen, c-spine, pelvis, hip, head, other (shoulder) Comments NAME: TORIBIO MARIE [facility] REC#: [id number] PT STATUS: REG ER : 1960 PHYSICIAN: INGA HOLLIS APPLIED COMPUTER SCIENCE PROFESSOR ADMIT DATE: 08/04/18/ER Signed Date of Exam: 08/04/18 CT CHEST/ABDOMEN/PELVIS W PROCEDURE: CT chest, abdomen, and pelvis with contrast. TECHNIQUE: Multiple contiguous axial images were obtained through the chest, abdomen, and pelvis after the administration of intravenous contrast. INDICATION: Fall off horse. FINDINGS: There are no discrete pulmonary nodules, masses or infiltrates. There is no pleural or pericardial fluid. No pneumothorax. Heart size is normal. No pathologically enlarged adenopathy in the chest. The visualized osseous structures of the chest are intact. The liver is normal in size without focal lesions. Gallbladder is surgically absent. No bladder duct dilatation. Spleen is normal. Pancreas and adrenal glands unremarkable. Kidneys are normal in appearance. There is some focal induration within the central mesentery. The abdominal aorta is nonaneurysmal. Bowel gas pattern is nonspecific. There is a large soft tissue hematoma about the right gluteal region. There appears to be some active extravasation as there is hyperdense blood laterally. There are degenerative changes in the spine. There has been a previous right hip replacement. No acute fracture or dislocation about the pelvis. IMPRESSION: 1. Right gluteal soft tissue hematoma with some active extravasation. 2. Degenerative changes in the spine. 3. 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 4. No other acute abnormality in the chest, abdomen or pelvis. Dictated by: Dictated on workstation # [id number] Dict: 08/04/18 1828 Trans: 08/04/181850 Interpreted by: EZEQUIEL FISCHER MD Electronically signed by: EZEQUIEL FISCHER MD 08/04/181850 NAME: TORIBIO MARIE [facility] REC#: [id number] PT STATUS: REG ER : 1960 PHYSICIAN: INGA HOLLIS ADMIT DATE: 08/04/18/ER Signed Date of Exam: 08/04/18 CT THORACIC/LUMBAR SPINE WO INDICATION: Fall off horse. TECHNIQUE: Multiple contiguous axial images were obtained through the thoracic and lumbar spine without the use of intravenous contrast. Sagittal and coronal reformations were then performed. FINDINGS: The alignment of the thoracic and lumbar spine is normal. The vertebral body heights are well maintained. There is no spondylolysis or spondylolisthesis. No fractures are identified. There is mild thoracolumbar spondylosis. There is some lower lumbar hypertrophic degenerative facet disease. There is no bony encroachment in the spinal canal. There is cardiomegaly. The lungs are otherwise clear. Soft tissue structures are otherwise unremarkable. IMPRESSION: Mild thoracolumbar spondylosis and lower lumbar hypertrophic degenerative facet disease without acute fracture or traumatic subluxation. Dictated by: Dictated on workstation # [id number] Dict: 08/04/181758 Trans: 08/04/181850 Interpreted by: EZEQUIEL FISCHER MD Electronically signed by: EZEQUIEL FISCHER MD 08/04/181850 NAME: TORIBIO MARIE [facility] REC#: [id number] PT STATUS: REG ER : 1960 PHYSICIAN: INGA HOLLIS ADMIT DATE: 08/04/18/ER Signed Date of Exam: 08/04/18 CT HEAD/CERVICAL SPINE WO PROCEDURE: CT head and CT cervical spine without contrast. TECHNIQUE: Multiple contiguous axial images were obtained through the brain and cervical spine without the use of intravenous contrast. Sagittal and coronal reformations through the cervical spine were then performed. INDICATION: Head and neck pain after fall off horse. FINDINGS: The ventricles and sulci are within normal limits. No hydrocephalus. No midline shift. No intracranial mass, hemorrhage or extra-axial fluid collection. The calvarium is intact. The sinuses and mastoid air cells are clear. There are postsurgical changes of an anterior cervical fusion from C5-C7. The alignment of the cervical spine is normal. The vertebral body heights are well-maintained. No fracture or traumatic subluxation. The odontoid is intact. The lateral masses are well aligned. Prevertebral soft tissues are within normal limits. Lung apices are clear. Hardware is intact. IMPRESSION: 1. No acute intracranial abnormality. 2. Stable postsurgical changes of an anterior cervical fusion from C5-C7. 3. No acute fracture or traumatic subluxation in the cervical spine. Dictated by: Dictated on workstation # [id number] NAME: TORIBIO MARIE [facility] REC#: [id number] PT STATUS: REG ER : 1960 PHYSICIAN: INGA HOLLIS ADMIT DATE: 08/04/18/ER Signed Date of Exam: 08/04/18 PELVIS WITH RIGHT HIP 2-3VIEWS INDICATION: Fall off horse. FINDINGS: There are postsurgical changes of right hip arthroplasty. There are posttraumatic changes in the left obturator ring which are chronic. There are degenerative changes in the left hip. Hardware in the right hip is intact. No fracture or dislocation. Soft tissues are unremarkable. IMPRESSION: 1. Stable right hip arthroplasty. 2. 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 Dictated by: Dictated on workstation # [id number] Dict: 08/04/181751 Trans: 08/04/181850 Interpreted by: EZEQUIEL FISCHER MD Electronically signed by: EZEQUIEL FISCHER MD 08/04/181850 NAME: TORIBIO MARIE [facility] REC#: [id number] PT STATUS: REG ER : 1960 PHYSICIAN: INGA HOLLIS ADMIT DATE: 08/04/18/ER Signed Date of Exam: 08/04/18 SHOULDER, RIGHT, 3 VIEWS INDICATION: Fall. Three views were obtained. FINDINGS: There are mild degenerative changes in the right AC joint. The glenohumeral joints are unremarkable. No acute fracture or dislocation. Right lung is clear. Soft tissues are unremarkable. IMPRESSION: Mild degenerative change, otherwise, unremarkable. Dictated by: Dictated on workstation # [id number] Dict: 08/04/181752 Trans: 08/04/181850 Interpreted by: EZEQUIEL FISCHER MD Electronically signed by: EZEQUIEL FISCHER MD 08/04/181850 Reviewed: Reviewed by Me (INGA HOLLIS) Departure Communication (Admissions) Time/Spoke to Admitting Phy: 21:00 Dr. Hall. (INGA HOLLIS) Impression Primary Impression: Head injury due to trauma Disposition: HOME, SELF-CARE Condition: Stable/Unchanged Admissions Decision to Admit Reason: Admit from ER (Trauma) Decision to Admit/Date: Aug 04, 2018 Time/Decision to Admit Time: 21:00 (INGA HOLLIS) Departure-Patient Inst. Scripts Hydrocodone/Acetaminophen (Hydrocodone-Acetamin 5-325 mg) 1 Each Tablet 1 EACH PO Q4-6HR PRN for PAIN-MODERATE for 7 Days, #30 TAB Prov: FRANCISCO HALL MD 08/05/18 INGA HOLLIS Aug 04, 2018 17:24 CHRISTEL ARAGON MD Aug 04, 2018 17:27
--- OUTSIDE RECORDS SUMMARY | 2018-08-04 17:24 | XMS REPORT | Clinical Summary ---
Author Author Admin, E Organization [facility] Address Unknown Phone Unavailable Allergies, Adverse Reactions, [...] 1 twice a day for fibromyalgia PREGABALIN 27486117611 Active Sukumar Montgomery MD Active GABAPENTIN 300 MG CAPS 1 po three times daily for nerve pain GABAPENTIN 15888512866 No Longer Active Sukumar Montgomery MD Active DICLOFENAC SODIUM 75 MG TBEC 1 tablet by mouth twice daily DICLOFENAC SODIUM 25014430765 Active Sukumar Montgomery MD Active MELOXICAM 15 MG TABS 1 po q day for pain with food MELOXICAM 37879571536 No Longer Active Sukumar Montgomery MD Active TYLENOL WITH CODEINE #3 300-30 MG TABS 1 tablet by mouth every four to six hours as needed ACETAMINOPHEN-CODEINE 71469296340 No Longer Active Sukumar Montgomery MD Active LAMICTAL 100 MG TABS Take one by mouth twice daily LAMOTRIGINE 96402716795 Active Sukumar Montgomery MD Active AMBIEN 10 MG TAB 1 tab by mouth at bedtime as needed for sleep ZOLPIDEM TARTRATE 81281837870 Active Sukumar Montgomery MD Active SEROQUEL 25 MG TABS 1 tablet by mouth daily at bedtime QUETIAPINE FUMARATE 57411533278 No Longer Active Sukumar Montgomery MD Active ADDERALL XR 20 MG [id number] Take one by mouth daily AMPHETAMINE-DEXTROAMPHETAMINE 27163961523 No Longer Active Sukumar Montgomery MD Active CYMBALTA 60 MG CPEP Take one by mouth daily DULOXETINE HCL 57970943535 Active Sukumar Montgomery MD Active PRILOSEC 20 MG CPDR Take one by mouth daily OMEPRAZOLE 83095993998 Active Sukumar Montgomery MD Active ADDERALL XR 20 MG [id number] Take one by mouth daily ADDERALL XR 20 MG [id number] AMPHETAMINE-DEXTROAMPHETAMINE Inactive SEROQUEL 25 MG TABS 1 tablet by mouth daily at bedtime SEROQUEL 25 MG TABS 072739 QUETIAPINE FUMARATE Inactive TYLENOL WITH CODEINE #3 300-30 MG TABS 1 tablet by mouth every four to six hours as needed TYLENOL WITH CODEINE #3 300-30 MG TABS 292624 ACETAMINOPHEN-CODEINE Inactive MELOXICAM 15 MG TABS 1 po q day for pain with food MELOXICAM 15 MG TABS 341088 MELOXICAM Inactive GABAPENTIN 300 MG CAPS 1 po three times daily for nerve pain GABAPENTIN 300 MG CAPS 483518 GABAPENTIN Inactive Vital Signs Date Name Value Unit Range Description blood pressure, diastolic - 8462-4 79 mm[Hg] BP sarmiento blood pressure, systolic - 8480-6 120 mm[Hg] BP sys pulse rate E&M - 8867-4 64 /min Heart rate temperature E&M 97.6 [degF] Body temperature weight E&M - 3141-9 186.5 [lb_av] Weight Measured Encounters Code Encounter Date Provider Facility CPT-97206 Level 3 Est. 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 Patient 15:33:14 CDT Sukumar Montgomery MD [facility] CPT-67728 Level 4 Est. Patient 11:52:43 CDT Sukumar Montgomery MD [facility] CPT-41496 Level 3 Est. Patient 15:39:41 CDT Sukumar Montgomery MD [facility] CPT-66913 Level 3 Est. Patient 16:37:35 CDT Sukumar Montgomery MD [facility]
--- OUTSIDE RECORDS SUMMARY | 2018-08-04 17:24 | XMS REPORT | Clinical Summary ---
Author Author Admin, [facility] Organization [facility] Address Unknown Phone Unavailable Allergies, Adverse [...] 1 week of 25mg is done). PREGABALIN 76485694146 Active Sandy Tejeda APRN Active LYRICA 25 MG ORAL CAPS 25mg two times a day for 1 week. PREGABALIN 87141608035 Active Sandy Tejeda APRN Active LYRICA 75 MG ORAL CAPS 1 twice a day for fibromyalgia PREGABALIN 19789292368 Active Sandy Tejeda APRN Active GABAPENTIN 300 MG CAPS 1 po three times daily for nerve pain GABAPENTIN 39302957073 No Longer Active Sukumar Montgomery MD Active DICLOFENAC SODIUM 75 MG TBEC 1 tablet by mouth twice daily DICLOFENAC SODIUM 70634466113 Active Sukumar Montgomery MD Active MELOXICAM 15 MG TABS 1 po q day for pain with food MELOXICAM 71359536655 No Longer Active Sukumar Montgomery MD Active TYLENOL WITH CODEINE #3 300-30 MG TABS 1 tablet by mouth every four to six hours as needed ACETAMINOPHEN-CODEINE 03596405152 No Longer Active Sukumar Montgomery MD Active LAMICTAL 100 MG TABS Take one by mouth twice daily LAMOTRIGINE 68800152414 Active Sukumar Montgomery MD Active AMBIEN 10 MG TAB 1 tab by mouth at bedtime as needed for sleep ZOLPIDEM TARTRATE 21054295820 Active Sukumar Montgomery MD Active SEROQUEL 25 MG TABS 1 tablet by mouth daily at bedtime QUETIAPINE FUMARATE 43184180717 No Longer Active Sukumar Montgomery MD Active ADDERALL XR 20 MG [id number] Take one by mouth daily AMPHETAMINE-DEXTROAMPHETAMINE 29315083955 No Longer Active Sukumar Montgomery MD Active CYMBALTA 60 MG CPEP Take one by mouth daily DULOXETINE HCL 81593276127 Active Sukumar Montgomery MD Active PRILOSEC 20 MG CPDR Take one by mouth daily OMEPRAZOLE 23771629435 Active Sukumar Montgomery MD Active ADDERALL XR 20 MG [id number] Take one by mouth daily ADDERALL XR 20 MG [id number] AMPHETAMINE-DEXTROAMPHETAMINE Inactive SEROQUEL 25 MG TABS 1 tablet by mouth daily at bedtime SEROQUEL 25 MG TABS 416679 QUETIAPINE FUMARATE Inactive TYLENOL WITH CODEINE #3 300-30 MG TABS 1 tablet by mouth every four to six hours as needed TYLENOL WITH CODEINE #3 300-30 MG TABS ACETAMINOPHEN-CODEINE Inactive MELOXICAM 15 MG TABS 1 po q day for pain with food MELOXICAM 15 MG TABS 892405 MELOXICAM Inactive GABAPENTIN 300 MG CAPS 1 po three times daily for nerve pain GABAPENTIN 300 MG CAPS 720072 GABAPENTIN Inactive Vital Signs Date Name Value [...] REPOWER - Chemistry cholesterol, serum 243 mg/dL 753-135 5461/05/05 HDL cholesterol, serum 61 mg/dL > OR=46 triglyceride, serum, fasting 74 mg/dL <150 LDL cholesterol, serum 167 MG/DL (CALC) mg/dL <130 cholesterol/HDL ratio, serum 4.0 (calc) < OR=5.0 Encounters Code Encounter Date Provider Facility CPT-29917 Level 4 Est. Patient 15:52:44 CDT Sandy Tejeda APRN [facility] CPT-63648 Level 3 Est. 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 Patient 15:33:14 CDT Sukumar Montgomery MD [facility] CPT-97696 Level 4 Est. Patient 11:52:43 CDT Sukumar Montgomery MD [facility] CPT-33937 Level 3 Est. Patient 15:39:41 CDT Sukumar Montgomery MD [facility] CPT-77340 Level 3 Est. Patient 16:37:35 CDT Sukumar Montgomery MD [facility]
--- OUTSIDE RECORDS SUMMARY | 2018-08-04 17:24 | XMS REPORT | Clinical Summary ---
Author Author Admin, [facility] Organization [facility] Address Unknown Phone Unavailable Allergies, Adverse Reactions, [...] 1 week of 25mg is done). PREGABALIN 54091724222 Active Sandy Tejeda APRN Active LYRICA 25 MG ORAL CAPS 25mg two times a day for 1 week. PREGABALIN 15323427960 Active Sandy Tejeda APRN Active LYRICA 75 MG ORAL CAPS 1 twice a day for fibromyalgia PREGABALIN 14604315396 Active Sandy Tejeda APRN Active GABAPENTIN 300 MG CAPS 1 po three times daily for nerve pain GABAPENTIN 23438249863 No Longer Active Sukumar Montgomery MD Active DICLOFENAC SODIUM 75 MG TBEC 1 tablet by mouth twice daily DICLOFENAC SODIUM 01126295542 Active Sukumar Montgomery MD Active MELOXICAM 15 MG TABS 1 po q day for pain with food MELOXICAM 50471455280 No Longer Active Sukumar Montogmery MD Active TYLENOL WITH CODEINE #3 300-30 MG TABS 1 tablet by mouth every four to six hours as needed ACETAMINOPHEN-CODEINE 95504639134 No Longer Active Sukumar Montgomery MD Active LAMICTAL 100 MG TABS Take one by mouth twice daily LAMOTRIGINE 80922145181 Active Sukumar Montgomery MD Active AMBIEN 10 MG TAB 1 tab by mouth at bedtime as needed for sleep ZOLPIDEM TARTRATE 79631202434 Active Sukumar Montgomery MD Active SEROQUEL 25 MG TABS 1 tablet by mouth daily at bedtime QUETIAPINE FUMARATE 08258057871 No Longer Active Sukumar Montgomery MD Active ADDERALL XR 20 MG [id number] Take one by mouth daily AMPHETAMINE-DEXTROAMPHETAMINE 18374423630 No Longer Active Sukumar Montgomery MD Active CYMBALTA 60 MG CPEP Take one by mouth daily DULOXETINE HCL 86273664148 Active Sukumar Montgomery MD Active PRILOSEC 20 MG CPDR Take one by mouth daily OMEPRAZOLE 65021247070 Active Sukumar Montgomery MD Active ADDERALL XR 20 MG [id number] Take one by mouth daily ADDERALL XR 20 MG [id number] AMPHETAMINE-DEXTROAMPHETAMINE Inactive SEROQUEL 25 MG TABS 1 tablet by mouth daily at bedtime SEROQUEL 25 MG TABS 599101 QUETIAPINE FUMARATE Inactive TYLENOL WITH CODEINE #3 300-30 MG TABS 1 tablet by mouth every four to six hours as needed TYLENOL WITH CODEINE #3 300-30 MG TABS 323398 ACETAMINOPHEN-CODEINE Inactive MELOXICAM 15 MG TABS 1 po q day for pain with food MELOXICAM 15 MG TABS 628251 MELOXICAM Inactive GABAPENTIN 300 MG CAPS 1 po three times daily for nerve pain GABAPENTIN 300 MG CAPS 361269 GABAPENTIN Inactive Vital Signs Date Name Value [...] Measured Encounters Code Encounter Date Provider Facility CPT-92296 Level 4 Est. Patient 15:52:44 CDT Sandy Tejeda APRN [facility] CPT-02837 Level 3 Est. 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 Patient 15:33:14 CDT Sukumar Montgomery MD [facility] CPT-46726 Level 4 Est. Patient 11:52:43 CDT Sukumar Montgomery MD [facility] CPT-44620 Level 3 Est. Patient 15:39:41 CDT Sukumar Montgomery MD [facility] CPT-40664 Level 3 Est. Patient 16:37:35 CDT Sukumar Montgomery MD [facility]
--- OUTSIDE RECORDS SUMMARY | 2018-08-04 17:25 | XMS REPORT | Clinical Summary ---
Author Author Admin, [facility] Organization [facility] Address Unknown Phone Unavailable Allergies, Adverse [...] 1 week of 25mg is done). PREGABALIN 03613038631 Active Sandy Tejeda APRN Active LYRICA 25 MG ORAL CAPS 25mg two times a day for 1 week. PREGABALIN 17295302682 Active Sandy Tejeda APRN Active LYRICA 75 MG ORAL CAPS 1 twice a day for fibromyalgia PREGABALIN 02021885635 Active Sandy Tejeda APRN Active GABAPENTIN 300 MG CAPS 1 po three times daily for nerve pain GABAPENTIN 16297349406 No Longer Active Sukumar Montgomery MD Active DICLOFENAC SODIUM 75 MG TBEC 1 tablet by mouth twice daily DICLOFENAC SODIUM 13822858207 Active Sukumar Montgomery MD Active MELOXICAM 15 MG TABS 1 po q day for pain with food MELOXICAM 80966810148 No Longer Active Sukumar Montgomery MD Active TYLENOL WITH CODEINE #3 300-30 MG TABS 1 tablet by mouth every four to six hours as needed ACETAMINOPHEN-CODEINE 31669441260 No Longer Active Sukumar Montgomery MD Active LAMICTAL 100 MG TABS Take one by mouth twice daily LAMOTRIGINE 39499190546 Active Sukumar Montgomery MD Active AMBIEN 10 MG TAB 1 tab by mouth at bedtime as needed for sleep ZOLPIDEM TARTRATE 54254666975 Active Sukumar Montgomery MD Active SEROQUEL 25 MG TABS 1 tablet by mouth daily at bedtime QUETIAPINE FUMARATE 65972406833 No Longer Active Sukumar Montgomery MD Active ADDERALL XR 20 MG [id number] Take one by mouth daily AMPHETAMINE-DEXTROAMPHETAMINE 57184848800 No Longer Active Sukumar Montgomery MD Active CYMBALTA 60 MG CPEP Take one by mouth daily DULOXETINE HCL 36889323642 Active Sukumar Montgomery MD Active PRILOSEC 20 MG CPDR Take one by mouth daily OMEPRAZOLE 89929969471 Active Sukumar Montgomery MD Active ADDERALL XR 20 MG [id number] Take one by mouth daily ADDERALL XR 20 MG [id number] AMPHETAMINE-DEXTROAMPHETAMINE Inactive SEROQUEL 25 MG TABS 1 tablet by mouth daily at bedtime SEROQUEL 25 MG TABS 120319 QUETIAPINE FUMARATE Inactive TYLENOL WITH CODEINE #3 300-30 MG TABS 1 tablet by mouth every four to six hours as needed TYLENOL WITH CODEINE #3 300-30 MG TABS ACETAMINOPHEN-CODEINE Inactive MELOXICAM 15 MG TABS 1 po q day for pain with food MELOXICAM 15 MG TABS 532879 MELOXICAM Inactive GABAPENTIN 300 MG CAPS 1 po three times daily for nerve pain GABAPENTIN 300 MG CAPS 558746 GABAPENTIN Inactive Vital Signs Date Name Value [...] REPOWER - Chemistry cholesterol, serum 243 mg/dL 764-991 1672/05/05 HDL cholesterol, serum 61 mg/dL > OR=46 triglyceride, serum, fasting 74 mg/dL <150 LDL cholesterol, serum 167 MG/DL (CALC) mg/dL <130 cholesterol/HDL ratio, serum 4.0 (calc) < OR=5.0 Encounters Code Encounter Date Provider Facility CPT-98790 Level 4 Est. Patient 15:52:44 CDT Sandy Tejeda APRN [facility] CPT-32560 Level 3 Est. 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 Patient 15:33:14 CDT Sukumar Montgomery MD [facility] CPT-47986 Level 4 Est. Patient 11:52:43 CDT Sukumar Montgomery MD [facility] CPT-74266 Level 3 Est. Patient 15:39:41 CDT Sukumar Montgomery MD [facility] CPT-61987 Level 3 Est. Patient 16:37:35 CDT Sukumar Montgomery MD [facility]
--- OUTSIDE RECORDS SUMMARY | 2018-08-04 17:25 | XMS REPORT | Clinical Summary ---
Author Author Admin, [facility] Organization [facility] Address Unknown Phone Unavailable Allergies, [...] 1 week of 25mg is done). PREGABALIN 25370634428 Active MINA Aguilar Active LYRICA 25 MG ORAL CAPS 25mg two times a day for 1 week. PREGABALIN 90188616110 Active Sandy Tejeda APRN Active LYRICA 75 MG ORAL CAPS 1 twice a day for fibromyalgia PREGABALIN 26930679189 Active Sandy Tejeda APRN Active GABAPENTIN 300 MG CAPS 1 po three times daily for nerve pain GABAPENTIN 30198506904 No Longer Active Sukumar Montgomery MD Active DICLOFENAC SODIUM 75 MG TBEC 1 tablet by mouth twice daily DICLOFENAC SODIUM 91491530483 Active Sukumar Montgomery MD Active MELOXICAM 15 MG TABS 1 po q day for pain with food MELOXICAM 82592676630 No Longer Active Sukumar Montgomery MD Active TYLENOL WITH CODEINE #3 300-30 MG TABS 1 tablet by mouth every four to six hours as needed ACETAMINOPHEN-CODEINE 93959377904 No Longer Active Sukumar Montgomery MD Active LAMICTAL 100 MG TABS Take one by mouth twice daily LAMOTRIGINE 16659492215 Active Sukumar Montgomery MD Active AMBIEN 10 MG TAB 1 tab by mouth at bedtime as needed for sleep ZOLPIDEM TARTRATE 82527267783 Active Sukumar Montgomery MD Active SEROQUEL 25 MG TABS 1 tablet by mouth daily at bedtime QUETIAPINE FUMARATE 41563488847 No Longer Active Sukumar Montgomery MD Active ADDERALL XR 20 MG [id number] Take one by mouth daily AMPHETAMINE-DEXTROAMPHETAMINE 15410923143 No Longer Active Sukumar Montgomery MD Active CYMBALTA 60 MG CPEP Take one by mouth daily DULOXETINE HCL 97739786105 Active Sukumar Montgomery MD Active PRILOSEC 20 MG CPDR Take one by mouth daily OMEPRAZOLE 25961690380 Active Sukumar Montgomery MD Active ADDERALL XR 20 MG [id number] Take one by mouth daily ADDERALL XR 20 MG [id number]-XCZ AMPHETAMINE-DEXTROAMPHETAMINE Inactive SEROQUEL 25 MG TABS 1 tablet by mouth daily at bedtime SEROQUEL 25 MG TABS 030345 QUETIAPINE FUMARATE Inactive TYLENOL WITH CODEINE #3 300-30 MG TABS 1 tablet by mouth every four to six hours as needed TYLENOL WITH CODEINE #3 300-30 MG TABS ACETAMINOPHEN-CODEINE Inactive MELOXICAM 15 MG TABS 1 po q day for pain with food MELOXICAM 15 MG TABS 902298 MELOXICAM Inactive GABAPENTIN 300 MG CAPS 1 po three times daily for nerve pain GABAPENTIN 300 MG CAPS 893825 GABAPENTIN Inactive Vital Signs Date Name Value [...] REPOWER - Chemistry cholesterol, serum 243 mg/dL 193-208 6939/05/05 HDL cholesterol, serum 61 mg/dL > OR=46 triglyceride, serum, fasting 74 mg/dL <150 LDL cholesterol, serum 167 MG/DL (CALC) mg/dL <130 cholesterol/HDL ratio, serum 4.0 (calc) < OR=5.0 Encounters Code Encounter Date Provider Facility CPT-85814 Level 4 Est. Patient 15:52:44 CDT Sandy Tejeda APRN [facility] CPT-89974 Level 3 Est. 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 Patient 15:33:14 CDT Sukumar Montgomery MD [facility] CPT-64093 Level 4 Est. Patient 11:52:43 CDT Sukumar Montgomery MD [facility] CPT-97284 Level 3 Est. Patient 15:39:41 CDT Sukumar Montgomery MD [facility] CPT-16112 Level 3 Est. Patient 16:37:35 CDT Sukumar Montgomery MD [facility]
--- OUTSIDE RECORDS SUMMARY | 2018-08-04 17:26 | XMS REPORT | Continuity of Care Document ---
Author Author [facility] Organization [facility] Address Unknown Phone Unavailable Allergies Active Description Code Type Severity Reaction Onset Reported/Identified Relationship to Patient Clinical Status Yes No Known Drug Allergies [id number] N/A N/A Medications There is no data. Problems There is no data. Procedures There is no data. Results There is no data. Encounters ACCT No. Visit Date/Time Discharge Status Pt. Type Provider Facility Loc./Unit Complaint [id number] 02/22/2018 09:38:29 02/22/2018 23:59:59 [facility] Outpatient SONIA ROLLINS [id number] 11/27/2017 11:49:50 11/27/2017 23:59:59 [facility] Outpatient Logan Luther [id number] 10/26/2017 09:17:27 10/26/2017 23:59:59 [facility] Outpatient SONIA ROLLINS [id number] 07/12/2017 13:15:16 07/12/2017 23:59:59 [facility] Outpatient SONIA ROLLINS [id number] 07/03/2017 15:23:31 07/03/2017 23:59:59 C[facility] Outpatient SONIA ROLLINS [id number] 01/03/2017 14:32:36 01/03/2017 23:59:59 CLS Outpatient SONIA ROLLINS [id number] 12/29/2016 11:19:24 12/29/2016 23:59:59 [facility] Outpatient SONIA ROLLINS [id number] 12/28/2016 11:01:22 12/28/2016 23:59:59 CLS Outpatient Zan Hines [id number] 11/15/2016 11:54:52 11/15/2016 23:59:59 C[facility] Outpatient SONIA ROLLINS [id number] 07/21/2016 15:34:11 07/21/2016 23:59:59 [facility] Outpatient SONIA ROLLINS [id number] 04/28/2016 08:44:10 04/28/2016 23:59:59 [facility] Outpatient SONIA ROLLINS [id number] 12/24/2015 09:35:04 12/24/2015 23:59:59 CLS Outpatient SONIA ROLLINS [id number] 10/29/2015 08:43:55 10/29/2015 23:59:59 C[facility] Outpatient SONIA ROLLINS [id number] 09/21/2015 09:42:42 09/21/2015 23:59:59 C[facility] Outpatient SONIA ROLLINS [id number] 08/13/2015 15:27:42 08/13/2015 23:59:59 CLS Outpatient SONIA ROLLINS Zan [id number] 05/25/2015 22:27:39 05/25/2015 23:59:59 CLS Outpatient SONIA ROLLINS Zan [id number] 05/25/2015 21:57:24 05/25/2015 23:59:59 CLS Outpatient SONIA ROLLINS Zan [id number] 08/19/2014 15:38:40 08/19/2014 23:59:59 CLS Outpatient SONIA ROLLINS Zan [id number] 01/29/2014 11:12:41 01/29/2014 23:59:59 CLS Outpatient SONIA ROLLINS Zan [id number] 10/28/2013 15:10:00 10/28/2013 23:59:59 CLS Outpatient SONIA ROLLINS Zan [id number] 10/18/2013 13:02:05 10/18/2013 23:59:59 CLS Outpatient Zan Hines [id number] 11/23/2017 16:00:12 Document Registration [id number] 10/28/2016 14:00:57 01/05/2017 10:00:00 JULIO R RIZWANA ESCOBAR [facility] [place] OT L Shoulder RCR [id number] 06/26/2018 13:10:02 ACT Unknown
--- OUTSIDE RECORDS SUMMARY | 2018-08-04 17:26 | XMS REPORT | Clinical Summary ---
Author Author Admin, [facility] Organization [facility] Address Unknown Phone Unavailable Allergies, Adverse [...] 1 week of 25mg is done). PREGABALIN 61330406406 Active Sandy Tejeda APRN Active LYRICA 25 MG ORAL CAPS 25mg two times a day for 1 week. PREGABALIN 85765876793 Active Sandy Tejeda APRN Active LYRICA 75 MG ORAL CAPS 1 twice a day for fibromyalgia PREGABALIN 59495622346 Active Sandy Tejeda APRN Active GABAPENTIN 300 MG CAPS 1 po three times daily for nerve pain GABAPENTIN 42147214476 No Longer Active Sukumar Montgomery MD Active DICLOFENAC SODIUM 75 MG TBEC 1 tablet by mouth twice daily DICLOFENAC SODIUM 21999534384 Active Sukumar Montgomery MD Active MELOXICAM 15 MG TABS 1 po q day for pain with food MELOXICAM 46843611980 No Longer Active Sukumar Montgomery MD Active TYLENOL WITH CODEINE #3 300-30 MG TABS 1 tablet by mouth every four to six hours as needed ACETAMINOPHEN-CODEINE 39750472085 No Longer Active Sukumar Montgomery MD Active LAMICTAL 100 MG TABS Take one by mouth twice daily LAMOTRIGINE 00143650299 Active Sukumar Montgomery MD Active AMBIEN 10 MG TAB 1 tab by mouth at bedtime as needed for sleep ZOLPIDEM TARTRATE 69276126666 Active Sukumar Montgomery MD Active SEROQUEL 25 MG TABS 1 tablet by mouth daily at bedtime QUETIAPINE FUMARATE 32196601785 No Longer Active Sukumar Montgomery MD Active ADDERALL XR 20 MG [id number]-LQH Take one by mouth daily AMPHETAMINE-DEXTROAMPHETAMINE 73685214459 No Longer Active Sukumar Montgomery MD Active CYMBALTA 60 MG CPEP Take one by mouth daily DULOXETINE HCL 15237579708 Active Sukumar Montgomery MD Active PRILOSEC 20 MG CPDR Take one by mouth daily OMEPRAZOLE 66485947973 Active Sukumar Montgomery MD Active ADDERALL XR 20 MG [id number] Take one by mouth daily ADDERALL XR 20 MG [id number] AMPHETAMINE-DEXTROAMPHETAMINE Inactive SEROQUEL 25 MG TABS 1 tablet by mouth daily at bedtime SEROQUEL 25 MG TABS 867940 QUETIAPINE FUMARATE Inactive TYLENOL WITH CODEINE #3 300-30 MG TABS 1 tablet by mouth every four to six hours as needed TYLENOL WITH CODEINE #3 300-30 MG TABS ACETAMINOPHEN-CODEINE Inactive MELOXICAM 15 MG TABS 1 po q day for pain with food MELOXICAM 15 MG TABS 570289 MELOXICAM Inactive GABAPENTIN 300 MG CAPS 1 po three times daily for nerve pain GABAPENTIN 300 MG CAPS 411315 GABAPENTIN Inactive Vital Signs Date Name Value [...] REPOWER - Chemistry cholesterol, serum 243 mg/dL 535-909 1496/05/05 HDL cholesterol, serum 61 mg/dL > OR=46 triglyceride, serum, fasting 74 mg/dL <150 LDL cholesterol, serum 167 MG/DL (CALC) mg/dL <130 cholesterol/HDL ratio, serum 4.0 (calc) < OR=5.0 Encounters Code Encounter Date Provider Facility CPT-56083 Level 4 Est. Patient 15:52:44 CDT Sandy Tejeda APRN [facility] CPT-72550 Level 3 Est. 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 Patient 15:33:14 CDT Sukumar Montgomery MD [facility] CPT-26275 Level 4 Est. Patient 11:52:43 CDT Sukumar Montgomery MD [facility] CPT-00813 Level 3 Est. Patient 15:39:41 CDT Sukumar Montgomery MD [facility] CPT-19666 Level 3 Est. Patient 16:37:35 CDT Sukumar Montgomery MD [facility]
--- OUTSIDE RECORDS SUMMARY | 2018-08-04 17:26 | XMS REPORT | CCD ---
Author Author TINO WHITLOCK Organization Unknown Address [address] [place] [address] Care Team Providers Care Parts Advisor Name Role Phone LUZ ESTRADA, RIZWANA SELF Attphys Allergies Allergy Code Allergy Type Reaction Status No Known Drug Allergies 0 Drug allergy Active Active Medications No Active Medications Problems Problem Code Start Date Resolved Date Status DJD (DEGENERATIVE JOINT DISEASE) OF HIP 66312 Active Post surgical pain [id number] 10/14/2013 Active HIP JOINT REPLACEMENT STATUS V4364 10/14/2013 Active Procedures Procedure Code Procedure Type Date Arthroscopy, shoulder, surgical; with rotator cuff repair; (-LT Left side 10365 CPT 10/21/2016 Arthroscopy, shoulder, surgical; decompression of subacromial space with p 74896 CPT 10/21/2016 Arthroscopy, shoulder, surgical; debridement, limited; (-XS Separate Struc 77363 CPT 10/21/2016 Results Unknown or Not Available. Function Status Unknown or Not Available. History of Immunizations Unknown or Not Available. Plan of Treatment Unknown or Not Available. Social History Smoking Status Code Start Date End Date Never smoker [id number] Vital Signs Vital Sign Value Unit Date/Time Recent/Initial? Weight Measured 180 [lb_av] 10/20/2016 10:00 Initial VS Height 64 [in_i] 10/20/2016 10:00 Initial VS BMI (Body Mass Index) 30.9 kg/m2 10/20/2016 10:00 Initial VS BSA (Body Surface Area) 1.92 m2 10/20/2016 10:00 Initial VS BP Systolic 123 mm[Hg] 10/21/2016 08:43 Initial VS BP Diastolic 74 mm[Hg] 10/21/2016 08:43 Initial VS Respiratory Rate 20 /min 10/21/2016 08:43 Initial VS Heart Rate 74 /min 10/21/2016 08:43 Initial VS O2 % BldC Oximetry 100 % 10/21/2016 08:43 Initial VS BP Systolic 106 mm[Hg] 10/21/2016 09:28 Most Recent VS BP Diastolic 69 mm[Hg] 10/21/2016 09:28 Most Recent VS Respiratory Rate 14 /min 10/21/2016 09:29 Most Recent VS Heart Rate 61 /min 10/21/2016 09:29 Most Recent VS O2 % BldC Oximetry 100 % 10/21/2016 09:29 Most Recent VS Function Status Unknown or Not Available. Goals Unknown or Not Available. ASSESSMENTS Unknown or Not Available. Health Concerns Section Unknown or Not Available.
[2018-08-04 17:33] LABS: ALANINE AMINOTRANSFERASE 25 U/L (0-55); ALBUMIN 4.3 GM/DL (3.2-4.5); ALKALINE PHOSPHATASE 65 U/L (40-136); BILIRUBIN,TOTAL 0.3 MG/DL (0.1-1.0); BUN/CREATININE RATIO 16; CALCIUM 9.2 MG/DL (8.5-10.1); CARBON DIOXIDE 24 MMOL/L (21-32); CHLORIDE 107 MMOL/L (98-107); CREATININE SERUM 0.87 MG/DL (0.60-1.30); GFR ESTIMATED > 60; GLUCOSE 116 MG/DL (70-105); POTASSIUM 3.7 MMOL/L (3.6-5.0); SODIUM 141 MMOL/L (135-145); TOTAL PROTEIN 7.2 GM/DL (6.4-8.2)
--- NOTE | 2018-08-04 17:41 | Diagnostic Imaging Report ---
PROCEDURE: CT head and CT cervical spine without contrast. TECHNIQUE: Multiple contiguous axial images were obtained through the brain and cervical spine without the use of intravenous contrast. Sagittal and coronal reformations through the cervical spine were then performed. INDICATION: Head and neck pain after fall off horse. FINDINGS: The ventricles and sulci are within normal limits. No hydrocephalus. No midline shift. No intracranial mass, hemorrhage or extra-axial fluid collection. The calvarium is intact. The sinuses and mastoid air cells are clear. There are postsurgical changes of an anterior cervical fusion from C5-C7. The alignment of the cervical spine is normal. The vertebral body heights are well-maintained. No fracture or traumatic subluxation. The odontoid is intact. The lateral masses are well aligned. Prevertebral soft tissues are within normal limits. Lung apices are clear. Hardware is intact. IMPRESSION: 1. No acute intracranial abnormality. 2. Stable postsurgical changes of an anterior cervical fusion from C5-C7. 3. No acute fracture or traumatic subluxation in the cervical spine. Dictated by: Dictated on workstation # [id number]
--- NOTE | 2018-08-04 17:59 | Diagnostic Imaging Report ---
INDICATION: Fall off horse. FINDINGS: There are postsurgical changes of right hip arthroplasty. There are posttraumatic changes in the left obturator ring which are chronic. There are degenerative changes in the left hip. Hardware in the right hip is intact. No fracture or dislocation. Soft tissues are unremarkable. IMPRESSION: 1. Stable right hip arthroplasty. 2. 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 Dictated by: Dictated on workstation # [id number]
[2018-08-04] MEDS ORDERED: IOHEXOL 350 MG/ML 100 ML (OMNIPAQUE 350) VIAL IV ONE (18:00)
[2018-08-04] MEDS ORDERED: NS 250 ML (IVPB) BAG IV ONE (18:00)
--- NOTE | 2018-08-04 18:00 | Diagnostic Imaging Report ---
INDICATION: Fall. Three views were obtained. FINDINGS: There are mild degenerative changes in the right AC joint. The glenohumeral joints are unremarkable. No acute fracture or dislocation. Right lung is clear. Soft tissues are unremarkable. IMPRESSION: Mild degenerative change, otherwise, unremarkable. Dictated by: Dictated on workstation # [id number]
--- NOTE | 2018-08-04 18:07 | Diagnostic Imaging Report ---
INDICATION: Fall off horse. TECHNIQUE: Multiple contiguous axial images were obtained through the thoracic and lumbar spine without the use of intravenous contrast. Sagittal and coronal reformations were then performed. FINDINGS: The alignment of the thoracic and lumbar spine is normal. The vertebral body heights are well maintained. There is no spondylolysis or spondylolisthesis. No fractures are identified. There is mild thoracolumbar spondylosis. There is some lower lumbar hypertrophic degenerative facet disease. There is no bony encroachment in the spinal canal. There is cardiomegaly. The lungs are otherwise clear. Soft tissue structures are otherwise unremarkable. IMPRESSION: Mild thoracolumbar spondylosis and lower lumbar hypertrophic degenerative facet disease without acute fracture or traumatic subluxation. Dictated by: Dictated on workstation # [id number]
--- NOTE | 2018-08-04 18:36 | Diagnostic Imaging Report ---
PROCEDURE: CT chest, abdomen, and pelvis with contrast. TECHNIQUE: Multiple contiguous axial images were obtained through the chest, abdomen, and pelvis after the administration of intravenous contrast. INDICATION: Fall off horse. FINDINGS: There are no discrete pulmonary nodules, masses or infiltrates. There is no pleural or pericardial fluid. No pneumothorax. Heart size is normal. No pathologically enlarged adenopathy in the chest. The visualized osseous structures of the chest are intact. The liver is normal in size without focal lesions. Gallbladder is surgically absent. No bladder duct dilatation. Spleen is normal. Pancreas and adrenal glands unremarkable. Kidneys are normal in appearance. There is some focal induration within the central mesentery. The abdominal aorta is nonaneurysmal. Bowel gas pattern is nonspecific. There is a large soft tissue hematoma about the right gluteal region. There appears to be some active extravasation as there is hyperdense blood laterally. There are degenerative changes in the spine. There has been a previous right hip replacement. No acute fracture or dislocation about the pelvis. IMPRESSION: 1. Right gluteal soft tissue hematoma with some active extravasation. 2. Degenerative changes in the spine. 3. 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 4. No other acute abnormality in the chest, abdomen or pelvis. Dictated by: Dictated on workstation # [id number]
[2018-08-04 20:06] LABS: BILIRUBIN,URINE NEGATIVE (NEGATIVE); CLARITY,URINE CLEAR; COLOR,URINE YELLOW; GLUCOSE, URINE (UA) NEGATIVE (NEGATIVE); KETONES,URINE NEGATIVE (NEGATIVE); LEUKOCYTE ESTERASE ,URINE NEGATIVE (NEGATIVE); NITRITE,URINE NEGATIVE (NEGATIVE); PH,URINE 6.5 (5-9); PROTEIN,URINE 2+ (NEGATIVE); UROBILINOGEN,URINE NORMAL (NORMAL)
[2018-08-04 20:40] LABS: RBC,URINE RARE /HPF
[2018-08-04 20:41] LABS: BACTERIA,URINE TRACE /HPF; WBC,URINE 0-2 /HPF
--- OUTSIDE RECORDS SUMMARY | 2018-08-04 21:24 | XMS REPORT | Continuity of Care Document ---
Author Author [facility] Organization [facility] Address Unknown Phone Unavailable Allergies Active Description Code Type Severity Reaction Onset Reported/Identified Relationship to Patient Clinical Status Yes No Known Drug Allergies [id number] N/A N/A Medications There is no data. Problems There is no data. Procedures There is no data. Results Test Result Range Complete blood count (CBC) with automated white blood cell (WBC) differential - 08/04/18 16:47 Blood leukocytes automated count (number/volume) 10.1 10*3/uL 4.3-11.0 Blood erythrocytes automated count (number/volume) 4.27 10*6/uL 4.35-5.85 Venous blood hemoglobin measurement (mass/volume) 13.0 g/dL 11.5-16.0 Blood hematocrit (volume fraction) 38 % 35-52 Automated erythrocyte mean corpuscular volume 89 [foz_us] 80-99 Automated erythrocyte mean corpuscular hemoglobin (mass per erythrocyte) 30 pg 25-34 Automated erythrocyte mean corpuscular hemoglobin concentration measurement ( mass/volume) 34 g/dL 32-36 Automated erythrocyte distribution width ratio 13.2 % 10.0-14.5 Automated blood platelet count (count/volume) 295 10*3/uL 130-400 Automated blood platelet mean volume measurement 10.7 [foz_us] 7.4-10.4 Automated blood neutrophils/100 leukocytes 57 % 42-75 Automated blood lymphocytes/100 leukocytes 30 % 12-44 Blood monocytes/100 leukocytes 8 % 0-12 Automated blood eosinophils/100 leukocytes 4 % 0-10 Automated blood basophils/100 leukocytes 0 % 0-10 Blood neutrophils automated count (number/volume) 5.8 10*3 1.8-7.8 Blood lymphocytes automated count (number/volume) 3.0 10*3 1.0-4.0 Blood monocytes automated count (number/volume) 0.8 10*3 0.0-1.0 Automated eosinophil count 0.4 10*3/uL 0.0-0.3 Automated blood basophil count (count/volume) 0.0 10*3/uL 0.0-0.1 Comprehensive metabolic panel - 08/04/18 16:47 Serum or plasma sodium measurement (moles/volume) 141 mmol/L 135-145 Serum or plasma potassium measurement (moles/volume) 3.7 mmol/L 3.6-5.0 Serum or plasma chloride measurement (moles/volume) 107 mmol/L 98-107 Carbon dioxide 24 mmol/L 21-32 Serum or plasma anion gap determination (moles/volume) 10 mmol/L 5-14 Serum or plasma urea nitrogen measurement (mass/volume) 14 mg/dL 7-18 Serum or plasma creatinine measurement (mass/volume) 0.87 mg/dL 0.60-1.30 Serum or plasma urea nitrogen/creatinine mass ratio 16 NRG Serum or plasma creatinine measurement with calculation of estimated glomerular filtration rate > NRG Serum or plasma glucose measurement (mass/volume) 116 mg/dL 70-105 Serum or plasma calcium measurement (mass/volume) 9.2 mg/dL 8.5-10.1 Serum or plasma total bilirubin measurement (mass/volume) 0.3 mg/dL 0.1-1.0 Serum or plasma alkaline phosphatase measurement (enzymatic activity/volume) 65 U/L 40-136 Serum or plasma aspartate aminotransferase measurement (enzymatic activity/ volume) 32 U/L 5-34 Serum or plasma alanine aminotransferase measurement (enzymatic activity/volume ) 25 U/L 0-55 Serum or plasma protein measurement (mass/volume) 7.2 g/dL 6.4-8.2 Serum or plasma albumin measurement (mass/volume) 4.3 g/dL 3.2-4.5 CALCIUM CORRECTED 9.0 mg/dL 8.5-10.1 Complete urinalysis with reflex to culture - 08/04/18 20:00 Urine color determination YELLOW NRG Urine clarity determination CLEAR NRG Urine pH measurement by test strip 6.5 5-9 Specific gravity of urine by test strip 1.010 1.016- 1.022 Urine protein assay by test strip, semi-quantitative 2+ NEGATIVE Urine glucose detection by automated test strip NEGATIVE NEGATIVE Erythrocytes detection in urine sediment by light microscopy NEGATIVE NEGATIVE Urine ketones detection by automated test strip NEGATIVE NEGATIVE Urine nitrite detection by test strip NEGATIVE NEGATIVE Urine total bilirubin detection by test strip NEGATIVE NEGATIVE Urine urobilinogen measurement by automated test strip (mass/volume) NORMAL NORMAL Urine leukocyte esterase detection by dipstick NEGATIVE NEGATIVE Automated urine sediment erythrocyte count by microscopy (number/high power field) RARE NRG Automated urine sediment leukocyte count by microscopy (number/high power field ) [HPF] NRG Bacteria detection in urine sediment by light microscopy TRACE NRG Crystals detection in urine sediment by light microscopy NONE NRG Casts detection in urine sediment by light microscopy NONE NRG Mucus detection in urine sediment by light microscopy NEGATIVE NRG Complete urinalysis with reflex to culture NO NRG Encounters ACCT No. Visit Date/Time Discharge Status Pt. Type Provider Facility Loc./Unit Complaint [id number] 02/22/2018 09:38:29 02/22/2018 23:59:59 CLS Outpatient SONIA ROLLINS Zan [id number] 11/27/2017 11:49:50 11/27/2017 23:59:59 CLS Outpatient Logan Luthero [id number] 10/26/2017 09:17:27 10/26/2017 23:59:59 CLS Outpatient SONIA ROLLINS Zan [id number] 07/12/2017 13:15:16 07/12/2017 23:59:59 CLS Outpatient SONIA ROLLINS Zan [id number] 07/03/2017 15:23:31 07/03/2017 23:59:59 CLS Outpatient SONIA ROLLINS Zan [id number] 01/03/2017 14:32:36 01/03/2017 23:59:59 CLS Outpatient SONIA ROLLINS Zan [id number] 12/29/2016 11:19:24 12/29/2016 23:59:59 CLS Outpatient SONIA ROLLINS Zan [id number] 12/28/2016 11:01:22 12/28/2016 23:59:59 CLS Outpatient Zan Hines [id number] 11/15/2016 11:54:52 11/15/2016 23:59:59 CLS Outpatient SONIA ROLLINS Zan [id number] 07/21/2016 15:34:11 07/21/2016 23:59:59 CLS Outpatient SONIA ROLLINS Zan [id number] 04/28/2016 08:44:10 04/28/2016 23:59:59 CLS Outpatient SONIA ROLLINS Zan [id number] 12/24/2015 09:35:04 12/24/2015 23:59:59 CLS Outpatient SONIA ROLLINS Zan [id number] 10/29/2015 08:43:55 10/29/2015 23:59:59 CLS Outpatient SONIA ROLLINS [id number] 09/21/2015 09:42:42 09/21/2015 23:59:59 CLS Outpatient SONIA ROLLINS [id number] 08/13/2015 15:27:42 08/13/2015 23:59:59 CLS Outpatient SONIA ROLLINS [id number] 05/25/2015 22:27:39 05/25/2015 23:59:59 CLS Outpatient SONIA ROLLINS Zan [id number] 05/25/2015 21:57:24 05/25/2015 23:59:59 CLS Outpatient SONIA ROLLNIS Zan [id number] 08/19/2014 15:38:40 08/19/2014 23:59:59 CLS Outpatient SONIA ROLLINS Zan [id number] 01/29/2014 11:12:41 01/29/2014 23:59:59 CLS Outpatient SONIA ROLLINS Zan [id number] 10/28/2013 15:10:00 10/28/2013 23:59:59 CLS Outpatient SONIA ROLLINS Zan [id number] 10/18/2013 13:02:05 10/18/2013 23:59:59 CLS Outpatient Zan Hines [id number] 11/23/2017 16:00:12 Document Registration [id number] 10/28/2016 14:00:57 01/05/2017 10:00:00 RIZWANA PÉREZ [facility] [place] OT L Shoulder RCR [id number] 08/04/2018 17:26:00 Document Registration [id number] 06/26/2018 13:10:02 ACT Unknown
[2018-08-05] VITALS: BP 113/67
[2018-08-05] MEDS ORDERED: LACTATED RINGERS 1,000 ML IV ONE (00:09)
[2018-08-05] MEDS ORDERED: ONDANSETRON 4 MG/2 ML (SDV) Z0FRAN IV PRN (00:15)
[2018-08-05] MEDS ORDERED: fentaNYL INJECTION 100 MCG/2 ML AMP IV PRN (00:15)
[2018-08-05 04:00] VITALS: BP 115/61
[2018-08-05 04:21] LABS: BASOPHILS % (AUTO) 0 % (0-10); EOSINOPHILS # (AUTO) 0.1 10^3/uL (0.0-0.3); EOSINOPHILS % (AUTO) 0 % (0-10); HEMATOCRIT 33 % (35-52); HEMOGLOBIN 11.3 G/DL (11.5-16.0); LYMPHOCYTES # (AUTO) 1.9 X 10^3 (1.0-4.0); LYMPHOCYTES % (AUTO) 17 % (12-44); MEAN CORPUSCULAR HEMOGLOBIN 31 PG (25-34); MEAN CORPUSCULAR HGB CONC 34 G/DL (32-36); MEAN CORPUSCULAR VOLUME 90 FL (80-99); MEAN PLATELET VOLUME 10.9 FL (7.4-10.4); MONOCYTES # (AUTO) 0.9 X 10^3 (0.0-1.0); MONOCYTES % (AUTO) 8 % (0-12); NEUTROPHILS # (AUTO) 8.5 X 10^3 (1.8-7.8); NEUTROPHILS % (AUTO) 75 % (42-75); PLATELET COUNT 280 10^3/uL (130-400); RED BLOOD COUNT 3.66 10^6/uL (4.35-5.85); RED CELL DISTRIBUTION WIDTH 13.3 % (10.0-14.5); WHITE BLOOD COUNT 11.3 10^3/uL (4.3-11.0)
[2018-08-05 04:44] LABS: ALANINE AMINOTRANSFERASE 20 U/L (0-55); ALBUMIN 3.8 GM/DL (3.2-4.5); ALKALINE PHOSPHATASE 57 U/L (40-136); BILIRUBIN,TOTAL 0.4 MG/DL (0.1-1.0); BUN/CREATININE RATIO 14; CALCIUM 8.8 MG/DL (8.5-10.1); CARBON DIOXIDE 21 MMOL/L (21-32); CHLORIDE 107 MMOL/L (98-107); CREATININE SERUM 0.74 MG/DL (0.60-1.30); GFR ESTIMATED > 60; GLUCOSE 133 MG/DL (70-105); POTASSIUM 3.8 MMOL/L (3.6-5.0); SODIUM 139 MMOL/L (135-145); TOTAL PROTEIN 5.9 GM/DL (6.4-8.2)
[2018-08-05] MEDS: LACTATED RINGERS 1,000 ML IV SCH ×2 (06:40→08:17)
[2018-08-05] MEDS ORDERED: FLU QUADRIvalent (5+ YOA) 2018-2019 (AFLURIA) 0.5 ML IM ONE (08:15)
[2018-08-05 08:53] VITALS: BP 99/55
[2018-08-05] MEDS ORDERED: HYDR-3812 PO (09:20)
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
[2018-08-05 11:20] VITALS: BP 99/55
== END 2018-08-05 11:20 | disposition home or self-care (01) ==
LOC: EDUNIT# 16:42 → ER 16:43 → 4TH 20:28
PROVIDERS: ADMIT Internal Medicine; ATTEND Internal Medicine
DX: S30.0XXA Contusion of lower back and pelvis, initial encounter (principal); S20.211A Contusion of right front wall of thorax, initial encounter; E86.1 Hypovolemia; R55 Syncope and collapse; D62 Acute posthemorrhagic anemia; I95.9 Hypotension, unspecified; V80.010A Animal-rider injured by fall from or being thrown from horse in noncollision accident, initial encounter; Z96.641 Presence of right artificial hip joint
CPT/HCPCS: 36415; 70450; 71260; 72125; 72128; 72131; 73030; 74177; 80053; 81000; 85025; 93005; G0378